=== PATIENT | male | born 1950 | race Hispanic/Latino ===

== ENCOUNTER 2017-06-23 15:18 | Inpatient (IN) | payer BC ==
--- NOTE | 2017-06-23 15:39 | ED PDOC ---
Arrival/HPI - General Chief Complaint: Altered Mental Status Time Seen by Provider: 06/23/17 15:23 Historian: Patient EM Caveat: Acuity of Condition, Unstable Vital Signs, Intubated - Critical Care Critical Care Minutes: Other (35 minutes) - History of Present Illness Narrative History of Present Illness (Text): 06/23/17 15:17 66 year old male, whose history includes Hepatitis C, presents to the Emergency department due to cardiac arrest. Patient's daughter hadn't talked to him since yesterday evening. He had not been answering his phone and this morning was found unresponsive in bed with pills, identified by the pharmacy to be Adderall , with the window wide open likely all night. Emergency services found the patient unresponsive, hypertensive, and not maintaining his airway so he was electively intubated. While on route to the hospital, patient developed PEA so a mechanical pumper was put on chest. Patient also had an IO inserted in left tibia and 1 dose of Epinephrine. Before the patient was placed on a monitor in the Emergency department, he was given another dose of Epinephrine. While in the Emergency department, patient is in Sinus Rhythm at 80 bpm, has his own pulse, and a blood pressure of 135/66. Patient had return of spontaneous circulation. Patient's DaughterRacheal: [phone] Time/Duration: Other (unknown) Symptom Onset: Other (unknown) Symptom Course: Worsening Context: Home (lives alone) Past Medical History - Provider Review Nursing Documentation Reviewed: Yes - Infectious Disease Hx of Infectious Diseases: None - Psychiatric Hx Substance Use: No (Unknown) Family/Social History - Physician Review Nursing Documentation Reviewed: Yes Family/Social History: Unknown Family HX Smoking Status: Unknown If Ever Smoked Hx Alcohol Use: No (Unknown) Hx Substance Use: No (Unknown) Allergies/Home Meds Allergies/Adverse Reactions: Allergies Unobtainable Allergy (Verified 06/23/17 15:24) Home Medications: Home Meds Medication Instructions Recorded Confirmed Unobtainable 06/23/17 06/23/17 Review of Systems - Review of Systems Systems not reviewed;Unavailable: Acuity of Condition Physical Exam Vital Signs Reviewed: Yes Vital Signs Temp Pulse Resp BP 06/23/17 20:06 87 F L 65 24 119/76 06/23/17 18:49 85.2 F L 130/90 06/23/17 18:36 85.2 F L 75 123/86 06/23/17 18:18 76 24 122/87 06/23/17 17:43 77 24 126/87 06/23/17 17:31 83.3 F L 57 L 16 104/74 06/23/17 17:21 83.3 F L 57 L 16 104/74 06/23/17 16:57 53 L 16 88/64 L 06/23/17 16:37 47 L 98/66 L 06/23/17 16:19 45 L 16 94/69 L 06/23/17 16:14 45 L 16 100/73 06/23/17 16:09 47 L 16 111/35 L 06/23/17 16:04 47 L 16 112/73 06/23/17 15:58 47 L 16 114/50 L 06/23/17 15:53 48 L 16 115/47 L Temperature: Hypothermic Blood Pressure: Hypotensive Pulse: Bradycardic Respiratory Rate: Normal Appearance: Positive for: Well-Appearing, Non-Toxic, Comfortable Pain Distress: None Mental Status: Positive for: other (unresponsive even to deep painful stimuli) Finger Stick Blood Glucose: 88 - Systems Exam Head: Present: Atraumatic, Normocephalic Pupils: Present: Non-Reactive (pupils are fixed at 3mm) Neck: Present: Other (supple) Cardiovascular: Present: Regular Rate and Rhythm, Normal S1, S2. No: Murmurs Abdomen: Present: Normal Bowel Sounds. No: Tenderness, Distention, Peritoneal Signs Upper Extremity: Present: Other (intraosseous needle in left tibia) Lower Extremity: Present: Normal Inspection Skin: Present: Warm, Dry, Normal Color. No: Rashes Psychiatric: No: Alert Medical Decision Making ED Course and Treatment: 06/23/17 15:40 Impression: 66 year old male presents to the Emergency department unresponsive for unknown downtime and unknown circumstances. Patient coded on the way to the hospital but had a return of spontaneous circulation. Plan: -- Chest xray -- EKG -- Blood culture, urine culture -- Urinalysis, urine drug screen -- ABG -- Labs -- Reassess and disposition Progress Notes: 06/23/17 15:48 Patient's daughter reports that she was on her way to work when she was dropping her son off at her father's house for him to be watched. At that time, the patient was found unresponsive in bed. As per patient's daughter, patient has a history of Hepatitis C with Harvoni treatment 1 year ago. After he a finished the Harvoni treatment, he began to drink alcohol again. Daughter is unsure of how his intoxicated behavior is exactly because she has never actually seen him intoxicated; she has only seen signs of his intoxication, such as texting instead of calling when he drinks. 06/23/17 20:09 Discussed case in detail with Dr. Castellanos. Explained that the potassium level is 5.9 but the EKG is stable, blood pressure is good, and bradycardia has resolved. I was reticent to treat it because the patient has normal renal function. Dr. Castellanos requested to hold off on treating it for now; will repeat it at a later time. - Critical Care Critical Care Minutes: Other (35 minutes) - Lab Interpretations Microbiology Results: Microbiology Results 06/23/17 15:45 Blood-Venous Blood Culture - Preliminary NO GROWTH AFTER 3 DAYS 06/23/17 15:15 Blood-Venous Blood Culture - Preliminary NO GROWTH AFTER 3 DAYS 06/23/17 15:30 Urine,Catheterized Urine Culture - Final No Growth (<1,000 CFU/ML) Lab Results: 06/23/17 15:20 Lab Results 06/23/17 15:30: Urine Opiates Screen Positive H, Urine Methadone Screen Negative , Ur Barbiturates Screen Negative, Ur Phencyclidine Scrn Negative, Ur Amphetamines Screen Negative, U Benzodiazepines Scrn Negative, U Oth Cocaine Metabols Negative, U Cannabinoids Screen Positive H 06/23/17 15:30: Urine Color Yellow, Urine Appearance Clear, Urine pH 5.5, Ur Specific [place] >= 1.030, Urine Protein Trace H, Urine Glucose (UA) Negative, Urine Ketones Negative, Urine Blood Negative, Urine Nitrate Negative, Urine Bilirubin Negative, Urine Urobilinogen 0.2, Ur Leukocyte Esterase Negative, Urine RBC 0 - 2, Urine WBC 2 - 5, Ur Epithelial Cells 1 - 3, Urine Bacteria Mod , Fine Granular Casts 0 - 2, Urine Other Mucus 06/23/17 15:20: PT 17.2 H, INR 1.50 H 06/23/17 15:20: WBC 18.5 H D, RBC 5.95, Hgb 19.7 H*, Hct 60.0 H*, MCV 100.8, MCH 33.1, MCHC 32.8, RDW 13.8, Plt Count 111 L, MPV 12.6 H, Gran % 77.1 H, Lymph % (Auto) 7.7 L, [place] % (Auto) 15.0 H, Eos % (Auto) 0.1 L, Baso % (Auto) 0.1, Gran # 14.28 H, Lymph # (Auto) 1.4, [place] # (Auto) 2.8 H, Eos # (Auto) 0.0, Baso # (Auto) 0.02 - RAD Interpretation Radiology Orders: 06/23/17 15:25 CHEST PORTABLE [RAD] Stat - EKG Interpretation EKG Interpretation (Text): 06/23/17 15:22 EKG: Ordered, reviewed, and independently interpreted the EKG. Rate : 70 BPM Rhythm : NSR Interpretation : Unusual P axis, possible ectopic atrial bradycardia with AV dissociation and wide QRS rhythm. Nonspecific intraventricular block. Possible inferior infarct, age undetermined. 06/23/17 18:45 EKG: Ordered, reviewed, and independently interpreted the EKG. Rate : 81 BPM Rhythm : NSR Interpretation : Possible left atrial enlargement. Possible inferior infarct, age undetermined. Cannot rule out anterior infarct, age undetermined. Prolonged QT. Interpreted by ED Physician: Yes Type: 12 lead EKG - Medication Orders Current Medication Orders: Albuterol/Ipratropium (Duoneb 3 Mg/0.5 Mg (3 Ml) Ud) 3 ml IH [id number] [facility] Last Admin: 06/27/17 10:57 Dose: 3 ml Diphenhydramine HCl (Benadryl) 50 mg IVP Q8 PETRA Last Admin: 06/27/17 13:27 Dose: 50 mg IVP Administration Document 06/27/17 13:27 ID (Rec: 06/27/17 13:27 ID ADMIN-PC) Charges for Administration # of IVP Administrations 1 Hydralazine HCl (Apresoline) 10 mg IVP Q6 PRN PRN Reason: Systolic Blood Pressure Last Admin: 06/27/17 07:41 Dose: 10 mg IVP Administration Document 06/27/17 07:41 ID (Rec: 06/27/17 07:42 ID ADMIN-PC) Charges for Administration # of IVP Administrations 1 MAY Pulse and Blood Pressure Document 06/27/17 07:41 ID (Rec: 06/27/17 07:42 ID ADMIN-PC) Pulse Pulse Rate (60-90) 51 Blood Pressure Blood Pressure (100/60-150/90) 208/112 Hydrocortisone Sodium Succinate (Solu-Cortef) 50 mg IVP Q12H [facility] Last Admin: 06/27/17 07:54 Dose: 50 mg IVP Administration Document 06/27/17 07:54 ID (Rec: 06/27/17 07:54 ID ADMIN-PC) Charges for Administration # of IVP Administrations 1 Propofol (Diprivan) 1,000 mg in 100 mls @ 2.177 mls/hr IV .Q24H PRN; Protocol; 5 MCG/KG/MIN PRN Reason: TITRATE PER MD ORDER Last Titration: 06/25/17 20:36 Dose: 0 mcg/kg/min, 0 mls/hr Blackman Agitation Sedation Document 06/25/17 20:36 ENG (Rec: 06/25/17 20:37 ENG ADMIN-PC) Blackman Agitation Sedation Scale Blackman Agitation Sedation Scale Score -1 Drowsy: Not fully alert, sustained awakening (>10 sec) to voice Titration Intervention Document 06/25/17 20:36 ENG (Rec: 06/25/17 20:37 ENG ADMIN-PC) Titration Intake Titration Intake 100 Cumulative Intake 100 Cumulative Intake (Rx) 600 Waste Amount 0 Container Volume 0 Titration Dosing Titration Dose 0 IV Rate 0 Intake/Decrease Infused Cumulative Dose 6000 Piperacillin Sod/Tazobactam Sod (Zosyn 3.375 In Ns 100ml) 100 mls @ 200 mls/hr IVPB Q6 PETRA PRN Reason: Protocol Stop: 07/01/17 12:01 Last Admin: 06/27/17 12:37 Dose: 200 mls/hr eMAR Start Stop Document 06/27/17 12:37 ID (Rec: 06/27/17 12:48 ID ADMIN-PC) Intravenous Solution Start Date 06/27/17 Start Time 12:48 End Date 06/27/17 Dexmedetomidine HCl (Precedex 400mcg/100ml) 400 mcg in 100 mls @ 3.629 mls/hr IV .Q24H PRN; Protocol; 0.2 MCG/KG/HR PRN Reason: Agitation Last Admin: 06/27/17 06:28 Dose: 1 mcg/kg/hr, 18.144 mls/hr eMAR Start Stop Document 06/27/17 06:28 PD (Rec: 06/27/17 06:28 PD ADMIN-PC) Intravenous Solution Start Date 06/27/17 Start Time 06:28 Blackman Agitation Sedation Document 06/27/17 06:28 PD (Rec: 06/27/17 06:28 PD ADMIN-PC) Blackman Agitation Sedation Scale Blackman Agitation Sedation Scale Score +1 Restless Anxious bu movements not aggressive vigorous Titration Intervention Document 06/27/17 06:28 PD (Rec: 06/27/17 06:28 PD ADMIN-PC) Titration Intake Cumulative Intake (Rx) 500 Waste Amount 0 Container Volume 100 Titration Dosing Titration Dose 1 IV Rate 18.144 Intake/Decrease Started/Running Cumulative Dose 2000 Potassium Chloride (Potassium Chloride 20 Meq/100 Ml) 20 meq in 100 mls @ 50 mls/hr IVPB Q2H PETRA Stop: 06/27/17 14:14 Last Admin: 06/27/17 12:49 Dose: 50 mls/hr eMAR Start Stop Document 06/27/17 12:49 ID (Rec: 06/27/17 12:49 ID ADMIN-PC) Intravenous Solution Start Date 06/27/17 Start Time 12:49 End Date 06/27/17 Valproate Sodium 1,000 mg/ (Sodium Chloride) 110 mls @ 100 mls/hr IVPB ONCE ONE Stop: 06/27/17 14:35 Insulin Human Lispro (Humalog Low) 0 units SC Q6 PETRA PRN Reason: Protocol Last Admin: 06/27/17 13:14 Dose: Not Given Non-Admin Reason: Blood Sugar Parameter Lorazepam (Ativan) 2 mg IVP Q4H PRN; Protocol PRN Reason: Anxiety Last Admin: 06/27/17 12:04 Dose: 2 mg IVP Administration Document 06/27/17 12:04 ID (Rec: 06/27/17 12:05 ID ADMIN-PC) Charges for Administration # of IVP Administrations 1 Behavioural Document 06/27/17 12:04 ID (Rec: 06/27/17 12:05 ID ADMIN-PC) Maintenance Maintenance Dose Yes Nonmedicinal Nonmedicinal Interventions Redirect Therapeutic Communication Behavior Behavior for Medication: Dangers to self/others Pulling IV lines/tubes/ catheter Morphine Sulfate (Morphine) 4 mg IVP Q4H PRN PRN Reason: Pain, severe (8-10) Last Admin: 06/26/17 08:16 Dose: 4 mg MAR Pain Assessment Document 06/26/17 08:16 ID (Rec: 06/26/17 08:17 ID ADMIN-PC) Pain Reassessment Is this a pain reassessment? Yes Sleep Is patient sleeping during reassessment? No Presence of Pain Presence of Pain Yes Pain Scale Used Pain Scale Used 9 Location Pain Location Body Site Chest Abdomen Description Description Constant Pain Behavior Moaning Irritability Withdrawal from Touch Pain not relieved and LIP/MD was Yes notified IVP Administration Document 06/26/17 08:16 ID (Rec: 06/26/17 08:17 ID ADMIN-PC) Charges for Administration # of IVP Administrations 1 Re-Assess: BOUCHRA Pain Assessment Document 06/26/17 09:16 ID (Rec: 06/26/17 10:11 ID ADMIN-PC) Pain Reassessment Is this a pain reassessment? Yes Sleep Is patient sleeping during reassessment? No Presence of Pain Presence of Pain No Pantoprazole Sodium (Protonix Inj) 40 mg IVP DAILY PETRA Last Admin: 06/27/17 09:21 Dose: 40 mg IVP Administration Document 06/27/17 09:21 ID (Rec: 06/27/17 09:21 ID ADMIN-PC) Charges for Administration # of IVP Administrations 1 Discontinued Medications Albumin Human (Albumin Human 25% (25 Gm/100 Ml)) 25 gm IV ONCE ONE Stop: 06/25/17 09:15 Last Admin: 06/25/17 10:41 Dose: 25 gm eMAR Start Stop Document 06/25/17 10:41 MMA (Rec: 06/25/17 10:42 MMA ADMIN-PC) Intravenous Solution Start Date 06/25/17 Start Time 10:41 End Date 06/25/17 Atropine Sulfate (Atropine) 0.5 mg IVP STAT STA Stop: 06/23/17 15:53 Last Admin: 06/23/17 15:53 Dose: 0.5 mg IVP Administration Document 06/23/17 15:53 RR (Rec: 06/23/17 16:39 RR [facility] [id number] Charges for Administration # of IVP Administrations 1 Atropine Sulfate (Atropine) 0.5 mg IVP STAT STA Stop: 06/23/17 15:59 Last Admin: 06/23/17 16:04 Dose: 0.5 mg IVP Administration Document 06/23/17 16:04 RR (Rec: 06/23/17 16:47 RR [facility] [id number] Charges for Administration # of IVP Administrations 1 Atropine Sulfate (Atropine) 0.5 mg IVP STAT STA Stop: 06/23/17 16:26 Last Admin: 06/23/17 16:09 Dose: 0.5 mg IVP Administration Document 06/23/17 16:09 RR (Rec: 06/23/17 16:48 RR [facility] [id number] Charges for Administration # of IVP Administrations 1 Atropine Sulfate (Atropine) 0.5 mg IVP STAT STA Stop: 06/23/17 16:30 Last Admin: 06/23/17 16:14 Dose: 0.5 mg IVP Administration Document 06/23/17 16:14 RR (Rec: 06/23/17 16:49 RR [facility] [id number] Charges for Administration # of IVP Administrations 1 Atropine Sulfate (Atropine) 0.5 mg IVP STAT STA Stop: 06/23/17 16:31 Last Admin: 06/23/17 16:19 Dose: 0.5 mg IVP Administration Document 06/23/17 16:19 RR (Rec: 06/23/17 16:49 RR [facility] [id number] Charges for Administration # of IVP Administrations 1 Atropine Sulfate (Atropine) 0.5 mg IVP STAT STA Stop: 06/23/17 16:31 Last Admin: 06/23/17 15:58 Dose: 0.5 mg IVP Administration Document 06/23/17 15:58 RR (Rec: 06/23/17 16:54 RR [facility] [id number] Charges for Administration # of IVP Administrations 1 Epinephrine Bitartrate (Epinephrine) 1 mg IV STAT STA Stop: 06/23/17 15:35 Last Admin: 06/23/17 16:39 Dose: 1 mg eMAR Start Stop Document 06/23/17 16:39 RR (Rec: 06/23/17 16:39 RR [facility] [id number] Intravenous Solution Start Date 06/23/17 Start Time 15:20 Furosemide (Lasix) 40 mg IVP ONCE ONE Stop: 06/26/17 07:19 Last Admin: 06/26/17 07:26 Dose: 40 mg MAR Blood Pressure Document 06/26/17 07:26 ID (Rec: 06/26/17 07:27 ID ADMIN-PC) Blood Pressure Blood Pressure (100/60-150/90) 120/79 IVP Administration Document 06/26/17 07:26 ID (Rec: 06/26/17 07:27 ID ADMIN-PC) Charges for Administration # of IVP Administrations 1 Furosemide (Lasix) 40 mg IVP ONCE ONE Stop: 06/27/17 08:40 Last Admin: 06/27/17 08:47 Dose: 40 mg MAR Blood Pressure Document 06/27/17 08:47 ID (Rec: 06/27/17 08:47 ID ADMIN-PC) Blood Pressure Blood Pressure (100/60-150/90) 125/82 IVP Administration Document 06/27/17 08:47 ID (Rec: 06/27/17 08:47 ID ADMIN-PC) Charges for Administration # of IVP Administrations 1 Heparin Sodium (Porcine) (Heparin) 5,000 units SC Q12 PETRA PRN Reason: Protocol Last Admin: 06/26/17 10:09 Dose: 5,000 units Subcutaneous Administrations Document 06/26/17 10:09 ID (Rec: 06/26/17 10:10 ID ADMIN-PC) Injection Site MAR Injection Site Left Abdomen Charges for Administration # of Subcutaneous Administrations 1 Hydralazine HCl (Apresoline) 10 mg IVP STAT STA Stop: 06/26/17 06:43 Last Admin: 06/26/17 06:45 Dose: 10 mg IVP Administration Document 06/26/17 06:45 ENG (Rec: 06/26/17 06:46 ENG ADMIN-PC) Charges for Administration # of IVP Administrations 1 MAR Pulse and Blood Pressure Document 06/26/17 06:45 ENG (Rec: 06/26/17 06:46 ENG ADMIN-PC) Pulse Pulse Rate (60-90) 54 Blood Pressure Blood Pressure (100/60-150/90) 177/116 Hydralazine HCl (Apresoline) 10 mg IVP ONCE ONE Stop: 06/26/17 11:47 Last Admin: 06/26/17 11:59 Dose: 10 mg IVP Administration Document 06/26/17 11:59 ID (Rec: 06/26/17 11:59 ID ADMIN-PC) Charges for Administration # of IVP Administrations 1 MAR Pulse and Blood Pressure Document 06/26/17 11:59 ID (Rec: 06/26/17 11:59 ID ADMIN-PC) Pulse Pulse Rate (60-90) 63 Blood Pressure Blood Pressure (100/60-150/90) 181/111 Hydralazine HCl (Apresoline) 10 mg IVP ONCE ONE Stop: 06/26/17 22:45 Last Admin: 06/26/17 22:55 Dose: 10 mg IVP Administration Document 06/26/17 22:55 PD (Rec: 06/26/17 22:55 PD ADMIN-PC) Charges for Administration # of IVP Administrations 1 MAR Pulse and Blood Pressure Document 06/26/17 22:55 PD (Rec: 06/26/17 22:55 PD ADMIN-PC) Pulse Pulse Rate (60-90) 47 Blood Pressure Blood Pressure (100/60-150/90) 189/110 Hydrocortisone Sodium Succinate (Solu-Cortef) 100 mg IVP STAT STA Stop: 06/23/17 16:26 Last Admin: 06/23/17 16:38 Dose: 100 mg IVP Administration Document 06/23/17 16:38 RR (Rec: 06/23/17 16:38 RR [facility] [id number] Charges for Administration # of IVP Administrations 1 Hydrocortisone Sodium Succinate (Solu-Cortef) 50 mg IVP Q6H [facility] Last Admin: 06/25/17 06:06 Dose: 50 mg IVP Administration Document 06/25/17 06:06 SAMRA (Rec: 06/25/17 06:06 SAMRA [id number]) Charges for Administration # of IVP Administrations 1 Hydrocortisone Sodium Succinate (Solu-Cortef) 50 mg IVP Q8H PETRA Last Admin: 06/26/17 00:00 Dose: 50 mg IVP Administration Document 06/26/17 00:00 ENG (Rec: 06/26/17 01:22 ENG ADMIN-PC) Charges for Administration # of IVP Administrations 1 Sodium Chloride (Sodium Chloride 0.9%) 1,000 mls @ 200 mls/hr IV .Q5H PETRA Last Admin: 06/23/17 17:30 Dose: 200 mls/hr eMAR Start Stop Document 06/23/17 17:30 RR (Rec: 06/23/17 17:30 RR [id number]) Intravenous Solution Start Date 06/23/17 Start Time 16:00 Sodium Chloride (Sodium Chloride 0.9%) 1,000 mls @ 999 mls/hr IV .Q1H1M STA Stop: 06/23/17 17:25 Last Admin: 06/23/17 16:55 Dose: 999 mls/hr eMAR Start Stop Document 06/23/17 16:55 RR (Rec: 06/23/17 16:55 [id number] Intravenous Solution Start Date 06/23/17 Start Time 15:15 End Date 06/23/17 End time 16:15 Total Infusion Time 60 Dopamine HCl/Dextrose (Dopamine 400mg/250ml D5w) 400 mg in 250 mls @ 13.608 mls /hr IV .[id number] PRN; 5 MCG/KG/MIN PRN Reason: Other Last Admin: 06/23/17 16:37 Dose: 13.608 mls/hr eMAR Start Stop Document 06/23/17 16:37 RR (Rec: 06/23/17 16:38 RR [facility] [id number]) Intravenous Solution Start Date 06/23/17 Start Time 16:37 MAR Pulse and Blood Pressure Document 06/23/17 16:37 RR (Rec: 06/23/17 16:38 RR [id number] Pulse Pulse Rate (60-90) 47 Blood Pressure Blood Pressure (100/60-150/90) 98/66 Sodium Chloride (Sodium Chloride 0.9%) 1,000 mls @ 999 mls/hr IV .Q1H1M STA Stop: 06/23/17 17:31 Last Admin: 06/23/17 16:56 Dose: 999 mls/hr eMAR Start Stop Document 06/23/17 16:56 RR (Rec: 06/23/17 16:56 RR [id number][facility] Intravenous Solution Start Date 06/23/17 Start Time 15:30 End Date 06/23/17 End time 16:30 Total Infusion Time 60 Vancomycin HCl (Vancomycin 1gm) 1 gm in 250 mls @ 167 mls/hr IVPB STAT STA PRN Reason: Protocol Stop: 06/23/17 18:04 Last Admin: 06/23/17 18:05 Dose: 167 mls/hr eMAR Start Stop Document 06/23/17 18:05 RR (Rec: 06/23/17 18:16 RR [facility] [id number]) Intravenous Solution Start Date 06/23/17 Start Time 18:05 Piperacillin Sod/Tazobactam Sod (Zosyn 3.375 In Ns 100ml) 100 mls @ 200 mls/hr IVPB STAT STA PRN Reason: Protocol Stop: 06/23/17 17:04 Last Admin: 06/23/17 17:28 Dose: 200 mls/hr eMAR Start Stop Document 06/23/17 17:28 RR (Rec: 06/23/17 17:28 RR [facility] [id number]) Intravenous Solution Start Date 06/23/17 Start Time 16:35 End Date 06/23/17 End time 17:05 Total Infusion Time 30 Sodium Chloride (Sodium Chloride 0.9%) 1,000 mls @ 75 mls/hr IV .[id number] PETRA Last Admin: 06/23/17 23:44 Dose: 75 mls/hr eMAR Start Stop Document 06/23/17 23:44 MHA (Rec: 06/23/17 23:44 MHA [facility] [id number]) Intravenous Solution Start Date 06/23/17 Start Time 23:44 Vancomycin HCl (Vancomycin 1gm) 1 gm in 250 mls @ 167 mls/hr IVPB Q12H PETRA PRN Reason: Protocol Last Admin: 06/27/17 04:47 Dose: 167 mls/hr eMAR Start Stop Document 06/27/17 04:47 PD (Rec: 06/27/17 04:47 PD [id number]) Intravenous Solution Start Date 06/27/17 Start Time 04:47 Piperacillin Sod/Tazobactam Sod (Zosyn 3.375 In Ns 100ml) 100 mls @ 200 mls/hr IVPB Q6 PETRA PRN Reason: Protocol Stop: 06/24/17 06:29 Last Admin: 06/24/17 05:22 Dose: 200 mls/hr eMAR Start Stop Document 06/24/17 05:22 MHA (Rec: 06/24/17 05:23 MHA [facility] [id number]) Intravenous Solution Start Date 06/24/17 Start Time 05:23 End Date 06/24/17 End time 05:53 Total Infusion Time 30 Dopamine HCl/Dextrose (Dopamine 400mg/250ml D5w) 400 mg in 250 mls @ 13.608 mls /hr IV .[id number] PRN; Protocol; 5 MCG/KG/MIN PRN Reason: TITRATE PER MD ORDER Last Titration: 06/24/17 15:08 Dose: 0 mcg/kg/min, 0 mls/hr Titration Intervention Document 06/24/17 15:08 ISABELLE (Rec: 06/24/17 15:51 ISABELLE [id number]) Titration Intake Titration Intake 40 Cumulative Intake 229 Cumulative Intake (Rx) 229 Waste Amount 0 Container Volume 21 Titration Dosing Titration Dose 0 IV Rate 0 Intake/Decrease Paused Cumulative Dose 366.4 Sodium Chloride (Sodium Chloride 0.9%) 1,000 mls @ 125 mls/hr IV .Q8H PETRA Last Admin: 06/26/17 01:15 Dose: 125 mls/hr eMAR Start Stop Document 06/26/17 01:15 ENG (Rec: 06/26/17 03:37 ENG ADMIN-PC) Intravenous Solution Start Date 06/26/17 Start Time 01:15 Sodium Chloride (Sodium Chloride 0.9%) 1,000 mls @ 999 mls/hr IV .Q1H1M STA Stop: 06/24/17 10:52 Last Admin: 06/24/17 10:01 Dose: 999 mls/hr eMAR Start Stop Document 06/24/17 10:01 ISABELLE (Rec: 06/24/17 10:01 ISABELLE [facility] [place] Intravenous Solution Start Date 06/24/17 Start Time 10:01 End Date 06/24/17 NOREPINEPHRINE BIT/0.9 % NACL (Levophed 4 Mg/ 250 Ml Ns Premixed) 4 mg in 250 mls @ 15 mls/hr IV .[id number] PRN; Protocol; 4 MCG/MIN PRN Reason: TITRATE PER MD ORDER Last Admin: 06/25/17 05:00 Dose: 4 mcg/min, 15 mls/hr eMAR Start Stop Document 06/25/17 05:00 SAMRA (Rec: 06/25/17 06:09 SAMRA [id number]) Intravenous Solution Start Date 06/25/17 Start Time 05:00 Titration Intervention Document 06/25/17 05:00 JZI (Rec: 06/25/17 06:09 [id number] Titration Intake Cumulative Intake (Rx) 500 Waste Amount 0 Container Volume 250 Titration Dosing Titration Dose 4 IV Rate 15 Intake/Decrease Started/Increased Cumulative Dose 8 Vasopressin 20 units/ Sodium (Chloride) 101 mls @ 9.09 mls/hr IV .Q11H7M PETRA; 0.03 U/MIN PRN Reason: Protocol Last Admin: 06/25/17 02:00 Dose: 9.09 mls/hr eMAR Start Stop Document 06/25/17 02:00 Yvon (Rec: 06/25/17 02:17 [id number] Intravenous Solution Start Date 06/25/17 Start Time 02:17 MAR Blood Pressure Document 06/25/17 02:00 JSTAN (Rec: 06/25/17 02:17 [id number]) Blood Pressure Blood Pressure (100/60-150/90) 113/67 Magnesium Sulfate 2 gm/ Sodium (Chloride) 104 mls @ 102 mls/hr IVPB Q3H PETRA Stop: 06/25/17 13:17 Last Admin: 06/25/17 17:16 Dose: Dexmedetomidine HCl (Precedex 400mcg/100ml) 400 mcg in 100 mls @ 3.629 mls/hr IV .Q24H PRN; Protocol; 0.2 MCG/KG/HR PRN Reason: Agitation Last Titration: 06/25/17 17:47 Dose: 1 mcg/kg/hr, 18.144 mls/hr Blackman Agitation Sedation Document 06/25/17 17:47 MMA (Rec: 06/25/17 17:48 MMA ADMIN-PC) Blackman Agitation Sedation Scale Blackman Agitation Sedation Scale Score -2 Light Sedation: briefly awakens with eye contact to voice (<10 sec) Titration Intervention Document 06/25/17 17:47 MMA (Rec: 06/25/17 17:48 MMA ADMIN-PC) Titration Intake Titration Intake 6 Cumulative Intake 6 Cumulative Intake (Rx) 106 Waste Amount 0 Container Volume 94 Titration Dosing Titration Dose 1 IV Rate 18.144 Intake/Decrease Increased Cumulative Dose 424 Potassium Chloride (Potassium Chloride 20 Meq/100 Ml) 20 meq in 100 mls @ 50 mls/hr IVPB Q2H PETRA Stop: 06/27/17 13:14 Last Admin: 06/27/17 10:56 Dose: 50 mls/hr eMAR Start Stop Document 06/27/17 10:56 ID (Rec: 06/27/17 10:56 ID ADMIN-PC) Intravenous Solution Start Date 06/27/17 Start Time 11:50 End Date 06/27/17 Ibuprofen (Motrin Oral Susp) 400 mg PO Q4 PRN PRN Reason: TEMP >99.4 Last Admin: 06/24/17 18:19 Dose: 400 mg MAR Pain/Vitals Document 06/24/17 18:19 JF (Rec: 06/24/17 18:19 [facility]) Pain Reassessment Is This A Pain ReAssessment? No Sleep Is patient sleeping during reassessment? Yes Vitals Temperature (97.6 F-99.6 F) 99.5 F Temperature Source Rectal Re-Assess: MAR Pain/Vitals Document 06/24/17 19:19 FM (Rec: 06/24/17 20:36 FM [id number]) Pain Reassessment Is This A Pain ReAssessment? No Sleep Is patient sleeping during reassessment? No Presence of Pain Presence of Pain No Vitals Temperature (97.6 F-99.6 F) 98.8 F Temperature Source Rectal Insulin Human Lispro (Humalog Low) 0 units SC ACHS PETRA PRN Reason: Protocol Last Admin: 06/24/17 07:55 Dose: Not Given Non-Admin Reason: Blood Sugar Parameter MAR Blood Glucose Document 06/24/17 07:55 JF (Rec: 06/24/17 07:56 [facility]) Blood Glucose Finger Stick Blood Glucose (70-120) 128 Insulin Human Lispro (Humalog Low) 0 units SC Q6H PETRA PRN Reason: Protocol Lorazepam (Ativan) 4 mg IVP ONCE ONE PRN Reason: Protocol Stop: 06/25/17 10:01 Last Admin: 06/25/17 10:12 Dose: 4 mg IVP Administration Document 06/25/17 10:12 MMA (Rec: 06/25/17 10:12 MMA ADMIN-PC) Charges for Administration # of IVP Administrations 1 Behavioural Document 06/25/17 10:12 MMA (Rec: 06/25/17 10:12 MMA ADMIN-PC) Maintenance Maintenance Dose No Nonmedicinal Nonmedicinal Interventions Therapeutic Communication Behavior Behavior for Medication: Biting/Hitting/Throwing/ Kicking Continuous pacing/restlessness Re-Assess: Reassess Psych Meds Document 06/25/17 10:42 MMA (Rec: 06/25/17 11:36 MMA ADMIN-PC) Reassess Psych Med Effective Lorazepam (Ativan) 2 mg IVP ONCE ONE PRN Reason: Protocol Stop: 06/25/17 17:47 Last Admin: 06/25/17 18:07 Dose: 2 mg IVP Administration Document 06/25/17 18:07 MMA (Rec: 06/25/17 18:08 MMA ADMIN-PC) Charges for Administration # of IVP Administrations 1 Behavioural Document 06/25/17 18:07 MMA (Rec: 06/25/17 18:08 MMA ADMIN-PC) Maintenance Maintenance Dose Yes Nonmedicinal Nonmedicinal Interventions Redirect Activity Behavior Behavior for Medication: Biting/Hitting/Throwing/ Kicking Dangers to self/others Re-Assess: Reassess Psych Meds Document 06/25/17 18:37 MMA (Rec: 06/25/17 19:31 MMA ADMIN-PC) Reassess Psych Med Effective Lorazepam (Ativan) 2 mg IVP STAT STA Stop: 06/26/17 07:23 Last Admin: 06/26/17 07:37 Dose: 2 mg IVP Administration Document 06/26/17 07:37 ID (Rec: 06/26/17 07:37 ID ADMIN-PC) Charges for Administration # of IVP Administrations 1 Behavioural Document 06/26/17 07:37 ID (Rec: 06/26/17 07:37 ID ADMIN-PC) Maintenance Maintenance Dose Yes Nonmedicinal Nonmedicinal Interventions Redirect Therapeutic Communication Behavior Behavior for Medication: Anxiety Pulling IV lines/tubes/ catheter Re-Assess: Reassess Psych Meds Document 06/26/17 08:07 ID (Rec: 06/26/17 08:33 ID ADMIN-PC) Reassess Psych Med Ineffective-LIP notifed Lorazepam (Ativan) 2 mg IVP ONCE ONE PRN Reason: Protocol Stop: 06/26/17 07:57 Last Admin: 06/26/17 08:15 Dose: 2 mg IVP Administration Document 06/26/17 08:15 ID (Rec: 06/26/17 08:15 ID ADMIN-PC) Charges for Administration # of IVP Administrations 1 Behavioural Document 06/26/17 08:15 ID (Rec: 06/26/17 08:15 ID ADMIN-PC) Maintenance Maintenance Dose Yes Nonmedicinal Nonmedicinal Interventions Redirect Therapeutic Communication Behavior Behavior for Medication: Anxiety Pulling IV lines/tubes/ catheter Re-Assess: Reassess Psych Meds Document 06/26/17 08:45 ID (Rec: 06/26/17 10:09 ID ADMIN-PC) Reassess Psych Med Effective Lorazepam (Ativan) 2 mg IVP ONCE ONE PRN Reason: Protocol Stop: 06/27/17 12:25 Last Admin: 06/27/17 12:36 Dose: 2 mg IVP Administration Document 06/27/17 12:36 ID (Rec: 06/27/17 12:36 ID ADMIN-PC) Charges for Administration # of IVP Administrations 1 Behavioural Document 06/27/17 12:36 ID (Rec: 06/27/17 12:36 ID ADMIN-PC) Maintenance Maintenance Dose Yes Nonmedicinal Nonmedicinal Interventions Redirect Therapeutic Communication Behavior Behavior for Medication: Anxiety Pulling IV lines/tubes/ catheter Lorazepam (Ativan) 2 mg IVP ONCE ONE PRN Reason: Protocol Stop: 06/27/17 12:52 Last Admin: 06/27/17 13:11 Dose: 2 mg IVP Administration Document 06/27/17 13:11 ID (Rec: 06/27/17 13:11 ID ADMIN-PC) Charges for Administration # of IVP Administrations 1 Behavioural Document 06/27/17 13:11 ID (Rec: 06/27/17 13:11 ID ADMIN-PC) Maintenance Maintenance Dose Yes Nonmedicinal Nonmedicinal Interventions Redirect Therapeutic Communication Behavior Behavior for Medication: Continuous crying/screaming/ yelling Hallucinations/paranoid/ delusions/extreme fear Pulling IV lines/tubes/ catheter Methylprednisolone (Solu-Medrol) 50 mg IVP Q6H PETRA Last Admin: 06/24/17 14:05 Dose: 50 mg IVP Administration Document 06/24/17 14:05 JFMena (Rec: 06/24/17 14:06 [facility] [place] Charges for Administration # of IVP Administrations 1 Sodium Bicarbonate (Sodium Bicarbonate 8.4% (50 Meq) Syringe) 100 meq IVP ONCE ONE Stop: 06/24/17 00:31 Last Admin: 06/24/17 00:26 Dose: 100 meq IVP Administration Document 06/24/17 00:26 [facility] (Rec: 06/24/17 00:27 [facility] [place] Charges for Administration # of IVP Administrations 2 Sodium Polystyrene Sulfonate (Kayexalate Susp) 15 gm TX ONCE ONE Stop: 06/23/17 23:26 Last Admin: 06/24/17 00:13 Dose: 15 gm - PA / INSIDE UPHOLSTERER / Resident Statement MD/DO has reviewed & agrees with the documentation as recorded. - Scribe Statement The provider has reviewed the documentation as recorded by the Mingo Chang Provider Scribe Attestation: All medical record entries made by the Danielibmelania were at my direction and personally dictated by me. I have reviewed the chart and agree that the record accurately reflects my personal performance of the history, physical exam, medical decision making, and the department course for this patient. I have also personally directed, reviewed, and agree with the discharge instructions and disposition. Disposition/Present on Arrival - Present on Arrival Any Indicators Present on Arrival: No History of DVT/PE: No History of Uncontrolled Diabetes: No Urinary Catheter: No History of Decub. Ulcer: No History Surgical Site Infection Following: None - Disposition Have Diagnosis and Disposition been Completed?: Yes Diagnosis: Hypothermia, Cardiac arrest, Signs of return of spontaneous circulation, Successful cardiopulmonary resuscitation Disposition: HOSPITALIZED Disposition Time: 03:00 Patient Plan: Admission Patient Problems: Current Active Problems Problem Status Onset Anemia Acute Anoxic brain injury Acute Cardiac arrest Acute Coagulopathy Acute Erythrocytosis Acute Hypothermia Acute Signs of return of spontaneous circulation Acute Splenomegaly Acute Successful cardiopulmonary resuscitation Acute Thrombocytopenia Acute Condition: CRITICAL
[2017-06-23 15:44] LABS: BASO # 0.02 K/mm3 (0.0-2.0); BASO % 0.1 % (0.0-3.0); EOS % 0.1 % (1.5-5.0); GRAN # 14.28 (1.4-6.5); GRAN % 77.1 % (50.0-68.0); LYMPH # 1.4 (1.2-3.4); LYMPH % 7.7 % (22.0-35.0); MEAN CELL VOLUME 100.8 fl (80.0-105.0); MEAN CORPUSCULAR HEMOGLOBIN 33.1 pg (25.0-35.0); MEAN CORPUSCULAR HGB CONC 32.8 g/dl (31.0-37.0); MEAN PLATELET VOLUME 12.6 fl (7.0-11.0); MONO # 2.8 (0.1-0.6); RBC 5.95 10^6/uL (3.5-6.1); RED CELL DISTRIBUTION WIDTH 13.8 % (11.5-14.5); WHITE BLOOD COUNT 18.5 10^3/ul (4.5-11.0)
[2017-06-23] MEDS ORDERED: Sodium Chloride 0.9% 1,000 ML IV SCH ×2 (16:00→23:20)
[2017-06-23 16:04] LABS: HEMOGLOBIN 19.7 g/dL (14.0-18.0)
[2017-06-23 16:10] LABS: PHENCYCLIDINE, UR NEGATIVE (NEGATIVE)
[2017-06-23 16:11] LABS: INR 1.5 (0.93-1.08); PROTHROMBIN TIME 17.2 SECONDS (9.4-12.5)
[2017-06-23 16:24] LABS: BARBITURATES, UR NEGATIVE (NEGATIVE); BENZODIAZEPINES, UR NEGATIVE (NEGATIVE); OPIATES, UR POSITIVE (NEGATIVE)
[2017-06-23] MEDS ORDERED: Sodium Chloride 0.9% 1,000 ML IV STA ×2 (16:25→16:31)
[2017-06-23] MEDS ORDERED: DOPamine 400mg/250ml D5W 400 MG/250 ML BAG IV PRN (16:28)
[2017-06-23] MEDS ORDERED: Piperacillin/Tazobact 3.375 gm 100 ML IVPB STA (16:35)
[2017-06-23] MEDS ORDERED: Vancomycin 1gm in NS 250ml 1 GM/250 ML BAG IVPB STA (16:35)
--- NOTE | 2017-06-23 16:41 | CP.PCM.CON ---
<Juan Coburn - Last Filed: 06/23/17 16:44> History of Present Illness - History of Present Illness History of Present Illness: 66 year old male with unknown past medical history presents after being found unresponsive at home by EMT. Patient was intubated in the field. While on route to the hospital, patient developed asystole and 1 dose of Epinephrine was given. He was given another dose of epinephrine in the ED. Patient had return of spontaneous circulation. Patient is currently hypothermic and will be transferred to ICU for monitoring when when hypothermia is improved. PMH: unobtainable PSH: unobtainable All: unobtainable Meds: unobtainable Social history: unobtainable Review of Systems - Review of Systems Systems not reviewed;Unavailable: Intubated Review of Systems: unable to obtain Past Patient History - Infectious Disease Hx of Infectious Diseases: None - Past Social History Smoking Status: Unknown If Ever Smoked - PSYCHIATRIC Hx Substance Use: No (Unknown) - SURGICAL HISTORY Hx Surgeries: No (Unable to obtain) Meds Allergies/Adverse Reactions: Allergies Allergy/AdvReac Type Severity Reaction Status Date / Time Unobtainable Allergy Verified 06/23/17 15:24 - Medications Medications: Current Medications Sodium Chloride (Sodium Chloride 0.9%) 1,000 mls @ 200 mls/hr IV .Q5H PETRA Sodium Chloride (Sodium Chloride 0.9%) 1,000 mls @ 999 mls/hr IV .Q1H1M STA Stop: 06/23/17 17:25 Dopamine HCl/Dextrose (Dopamine 400mg/250ml D5w) 400 mg in 250 mls @ 13.608 mls /hr IV .[id number] PRN; 5 MCG/KG/MIN PRN Reason: Other Sodium Chloride (Sodium Chloride 0.9%) 1,000 mls @ 999 mls/hr IV .Q1H1M STA Stop: 06/23/17 17:31 Vancomycin HCl (Vancomycin 1gm) 1 gm in 250 mls @ 167 mls/hr IVPB STAT STA PRN Reason: Protocol Stop: 06/23/17 18:04 Piperacillin Sod/Tazobactam Sod (Zosyn 3.375 In Ns 100ml) 100 mls @ 200 mls/hr IVPB STAT STA PRN Reason: Protocol Stop: 06/23/17 17:04 Physical Exam - Constitutional Appears: Other Additional comments: lethargic, unresponsive - Eye Exam Eye Exam: absent: Conjunctival injection Pupil Exam: Miosis - ENT Exam ENT Exam: Mucous Membranes Dry - Neck Exam Neck exam: Negative for: Lymphadenopathy - Respiratory Exam Respiratory Exam: Clear to Auscultation Bilateral - Cardiovascular Exam Cardiovascular Exam: Bradycardia - GI/Abdominal Exam GI & Abdominal Exam: absent: Distended - Extremities Exam Extremities exam: Positive for: pedal pulses present. Negative for: pedal edema - Neurological Exam Additional comments: unresponsive - Skin Skin Exam: Dry, Pallor Results - Labs Result Diagrams: 06/23/17 15:20 Assessment & Plan - Assessment and Plan (Free Text) Assessment: 66 year old male presents status post cardiac arrest. Patient was given 2 units epinephrine and had ROSC. He is currently hypothermic and intubated. Patient will be transferred to ICU for monitoring. Plan: Cardiac Arrest Hypothermia Erythrocytosis SIRS Patient intubated, unresponsive, on bear hugger Plan: -intubated, low tidal volume support -maintain oxygen saturation>90% -CT head -ABG -Vanc and zosyn -pracalcitonin -panculture -chest xray -dopamine drip -trend toponins, echo -cardio consult -possible central line placement -Iron, TIBC, Ferritin -BNP, LFTS -monitor and replete electrolytes -steroids -monitor core body temp -daily labs -NPO -GI and DVT Prophylaxis -MICU for monitoring <Dionte Roblero - Last Filed: 06/23/17 18:16> Meds - Medications Medications: Current Medications Sodium Chloride (Sodium Chloride 0.9%) 1,000 mls @ 200 mls/hr IV .Q5H [facility] Last Admin: 06/23/17 17:30 Dose: 200 mls/hr Dopamine HCl/Dextrose (Dopamine 400mg/250ml D5w) 400 mg in 250 mls @ 13.608 mls /hr IV .[id number] PRN; 5 MCG/KG/MIN PRN Reason: Other Last Admin: 06/23/17 16:37 Dose: 13.608 mls/hr Results - Vital Signs Recent Vital Signs: Last Vital Signs Temp 83.3 F L 06/23/17 17:31 Pulse 77 06/23/17 17:43 Resp 24 06/23/17 17:43 BP 126/87 06/23/17 17:43 Pulse Ox - Labs Result Diagrams: 06/23/17 15:20 Labs: Laboratory Results - last 24 hr 06/23/17 16:50 pCO2 80 H* pO2 262.0 H HCO3 16.4 L ABG pH 6.92 L* ABG Total CO2 18.9 L ABG O2 Saturation 100.4 H ABG Base Excess -17.4 L ABG Potassium 3.7 Sodium 141.0 Chloride 114.0 H Glucose 103 Lactate 5.4 H* Mechanical Rate 16 FiO2 100.0 Tidal Volume 450 Arterial Blood Potassium 3.7 Assessment & Plan - Assessment and Plan (Free Text) Plan: Patient seen and examined with resident, agree with note with following additions/exceptions: Patient is 66yo male with PMHx of Hep C s/p harvoni treatment, EtOh abuse, found unconscious at home with window down, intubated in the field, subseuqently had PEA arrest in the field given Epi x 2, ROSC obtained. Currently the patient is hypothermic 83C rectal, bradycardic, started on Dopamine drip. Family reports they are unaware of illicit drug use. CT head pending, on bear gger. Hypothermia, severe s/p Cardiac Arrest, s/p ROSC Hypercapnic resp failure Erythrocytosis Hep C EtOH abuse Dehydration Severe Sepsis Recommend: - cont with vent support, low tidal vol ventilation, increase RR to compensate for resp acidosis, CXR with acceptable ETT position - broad spectrum antibiotics - check UA, UCx, BCx, Procal - ECHO - Cont with Dopamine 5mcg/kg/min - cardiology consult - obtain iron studies, check ferritin - repeat ABG - check LFTs, monitor electrolytes - Check TSH - CT head without contrast - bear hugger - warm IVF - avoid moving patient until temp has risen - would aim for goal body temp of 35C, code freeze - stress dose steroids - IVF hydration - NPO - GI ppx - DVT ppx - Admit to MICU Critical care time 45 minutes
[2017-06-23 16:55] LABS: ARTERIAL BLOOD GAS HCO3 16.4 mmol/L (21-28); ARTERIAL BLOOD GAS O2 SAT 100.4 % (95-98); ARTERIAL BLOOD GAS PCO2 80 mm/Hg (35-45); ARTERIAL BLOOD GAS TCO2 18.9 mmol.L (22-28)
[2017-06-23 16:57] LABS: ARTERIAL BLOOD GAS PH 6.92 (7.35-7.45)
[2017-06-23 17:24] LABS: PH,URINE 5.5 (4.7-8.0); URINE BILIRUBIN NEGATIVE (NEGATIVE); URINE BLOOD NEGATIVE (NEGATIVE); URINE GLUCOSE (UA) NEGATIVE (NEGATIVE); URINE LEUKOCYTE ESTERASE NEGATIVE Leu/uL (NEGATIVE); URINE PROTEIN TRACE mg/dL (<30 mg/dL); URINE UROBILINOGEN 0.2 E.U./dL (<1 E.U./dL)
[2017-06-23 17:33] LABS: URINE APPEARANCE CLEAR (CLEAR); URINE COLOR YELLOW (YELLOW)
[2017-06-23 17:42] VITALS: BMI 25.0
[2017-06-23 18:02] LABS: URINE BACTERIA MOD (NEG); URINE FINE GRANULAR CAST 0 - 2 /hpf (0-2); URINE RBC 0 - 2 /hpf (0-2)
[2017-06-23 19:05] LABS: B-TYPE NATRIURETIC PEPTIDE 1640 pg/mL (0-450); TROPONIN I 0.03 ng/mL
[2017-06-23 19:29] LABS: ALBUMIN 3.4 g/dL (3.0-4.8); ALT/SGPT 48 U/L (7-56); AST/SGOT 96 U/L (17-59); BLOOD UREA NITROGEN 24 mg/dL (7-21); CALCIUM 8.6 mg/dL (8.4-10.5); GFR AFRICAN-AMERICAN > 60; GFR NON-AFRICAN AMERICAN 56
[2017-06-23 19:44] LABS: CK MB% 3.6 % (2.5-3.0); CK-MB 8.7 ng/mL (0.0-3.6)
[2017-06-23 20:09] LABS: VENOUS BLOOD GAS BASE EXCESS -11.6 mmol/L (0.0-2.0); VENOUS BLOOD GAS PO2 29 mm/Hg (30-55); VENOUS BLOOD PH 7.11 (7.32-7.43)
[2017-06-23 20:23] LABS: TOTAL IRON BINDING CAPACITY 325 ug/dL (261-462)
[2017-06-23 20:27] LABS: % IRON SATURATION 82 % (20-55); IRON 267 ug/dL (45-180)
[2017-06-23 20:32] LABS: FREE T4 2.23 ng/dL (0.78-2.19)
--- NOTE | 2017-06-23 22:44 | CT ---
EXAM: CT Head Without Intravenous Contrast EXAM DATE/TIME: 06/23/2017 5:05 PM CLINICAL HISTORY: 66 years old, male; Condition or disease; Other: Cardiac arrest; Additional info: Carriac arrest TECHNIQUE: Axial computed tomography images of the head/brain without intravenous contrast. All CT scans at this facility use one or more dose reduction techniques, viz.: automated exposure control; ma/kV adjustment per patient size (including targeted exams where dose is matched to indication; i.e. head); or iterative reconstruction technique. Coronal and sagittal reformatted images were created and reviewed. COMPARISON: No relevant prior studies available. FINDINGS: There is mild atrophy. There is mild chronic small vessel ischemic disease. The falx appears slightly hyperdense however is felt to be related to calcification. The tentorium appear slightly increased in density however hemorrhage is not felt to be present. There is asymmetry in the transverse sinuses being more prominent on the right on image 11. There is no intraparenchymal hemorrhage. There is no edema. There are small bilateral basal ganglia calcifications. Partial opacification of the left ethmoid sinus. The osseous structures are normal. IMPRESSION: No acute intracranial findings.
[2017-06-23 23:09] LABS: ARTERIAL BLOOD GAS HCO3 15.7 mmol/L (21-28); ARTERIAL BLOOD GAS HEMOGLOBIN 17.2 g/dL (11.7-17.4); ARTERIAL BLOOD GAS O2 CAPACITY 23.3 mL/dl (16-24); ARTERIAL BLOOD GAS O2 CONTENT 21.2 ML/dl (15-23); ARTERIAL BLOOD GAS O2 SAT 90.8 % (95-98); ARTERIAL BLOOD GAS PCO2 42 mm/Hg (35-45)
[2017-06-23 23:15] LABS: ARTERIAL BLOOD GAS PH 7.18 (7.35-7.45)
[2017-06-23] MEDS ORDERED: Sod Polystyrene Sulf 15 gm/60 ml Susp PR ONE (23:25)
[2017-06-23] MEDS ORDERED: Sodium Bicarbonate (8.4%) 50 Meq Syringe IVP ONE (23:48)
[2017-06-24] MEDS: Propofol 10 mg/ml 1,000 MG/100 ML VIAL IV PRN ×4 (00:14→22:08)
[2017-06-24] MEDS: Piperacillin/Tazobact 3.375 gm 100 ML IVPB SCH ×4 (00:28→19:16)
[2017-06-24] MEDS ORDERED: Sodium Bicarbonate (8.4%) 50 Meq Syringe IVP ONE (00:30)
[2017-06-24] MEDS ORDERED: DOPamine 400mg/250ml D5W 400 MG/250 ML BAG IV PRN (01:23)
[2017-06-24] MEDS: Vancomycin 1gm in NS 250ml 1 GM/250 ML BAG IVPB SCH ×2 (03:30→16:20)
[2017-06-24 05:16] LABS: ARTERIAL BLOOD GAS HCO3 18.8 mmol/L (21-28); ARTERIAL BLOOD GAS O2 SAT 98.6 % (95-98); ARTERIAL BLOOD GAS PCO2 34 mm/Hg (35-45); ARTERIAL BLOOD GAS PH 7.35 (7.35-7.45); ARTERIAL BLOOD GAS TCO2 19.8 mmol.L (22-28)
[2017-06-24] MEDS ORDERED: Insulin Lispro (humaLOG) LOW Coverage SC SCH ×2 (07:30→10:00)
[2017-06-24 07:42] LABS: BASO # 0.01 K/mm3 (0.0-2.0); BASO % 0.1 % (0.0-3.0); GRAN # 8.96 (1.4-6.5); GRAN % 78.8 % (50.0-68.0); LYMPH # 0.6 (1.2-3.4); LYMPH % 5.3 % (22.0-35.0); MEAN CELL VOLUME 93.8 fl (80.0-105.0); MEAN CORPUSCULAR HEMOGLOBIN 32.7 pg (25.0-35.0); MEAN CORPUSCULAR HGB CONC 34.9 g/dl (31.0-37.0); MEAN PLATELET VOLUME 12.2 fl (7.0-11.0); MONO # 1.8 (0.1-0.6); MONO % 15.8 % (1.0-6.0); RBC 5.84 10^6/uL (3.5-6.1); RED CELL DISTRIBUTION WIDTH 13.9 % (11.5-14.5); WHITE BLOOD COUNT 11.4 10^3/ul (4.5-11.0)
[2017-06-24 07:44] LABS: HEMOGLOBIN 19.1 g/dL (14.0-18.0)
--- NOTE | 2017-06-24 08:05 | RAD ---
HISTORY: INTUBATED//UNRESPONSIVE COMPARISON: None available. FINDINGS: Entry and endotracheal tube is unchanged in position terminating in the plane of the trachea at the level of clavicles approximately 7 cm from the lisa. Consider advancing the ETT some 3-4 cm further. LUNGS: Subtle infiltrates are suspect in the right infrahilar and left perihilar regions. PLEURA: No significant pleural effusion identified, no pneumothorax apparent. CARDIOVASCULAR: Normal. OSSEOUS STRUCTURES: No significant abnormalities. VISUALIZED UPPER ABDOMEN: Normal. OTHER FINDINGS: None. IMPRESSION: [id number] bilateral infiltrates as discussed above.
[2017-06-24 08:11] LABS: ALB/GLOB RATIO 0.9 (1.1-1.8); ALBUMIN 3.2 g/dL (3.0-4.8); ALT/SGPT 61 U/L (7-56); AST/SGOT 111 U/L (17-59); BLOOD UREA NITROGEN 29 mg/dL (7-21); CALCIUM 8.7 mg/dL (8.4-10.5); GFR AFRICAN-AMERICAN > 60; GFR NON-AFRICAN AMERICAN > 60; HDL CHOLESTEROL 54 mg/dL (29-60); URIC ACID 6.7 mg/dL (3.5-8.5)
[2017-06-24] MEDS: Sodium Chloride 0.9% 1,000 ML IV SCH ×2 (08:15→22:18)
[2017-06-24 08:17] LABS: LDL CHOLESTEROL 59 mg/dL (0-129)
[2017-06-24 08:21] LABS: CK MB% 4.6 % (2.5-3.0); TROPONIN I 0.14 ng/mL
--- NOTE | 2017-06-24 08:32 | RAD ---
HISTORY: NG tube placement COMPARISON: 06/23/2017 FINDINGS: LUNGS: No active pulmonary disease. PLEURA: No significant pleural effusion identified, no pneumothorax apparent. CARDIOVASCULAR: There is moderate to severe vascular congestion. OSSEOUS STRUCTURES: No significant abnormalities. VISUALIZED UPPER ABDOMEN: Normal. OTHER FINDINGS: Endotracheal and nasogastric tubes in satisfactory position IMPRESSION: NG tube in satisfactory position
[2017-06-24 09:02] LABS: FREE T4 1.9 ng/dL (0.78-2.19)
[2017-06-24] MEDS ORDERED: Sodium Chloride 0.9% 1,000 ML IV STA (09:52)
[2017-06-24] MEDS ORDERED: Sodium Chloride 0.9% 1,000 ML IV SCH (10:00)
--- NOTE | 2017-06-24 10:08 | CARD ---
APPROVED REPORT EKG Measurement Heart [id number] <Conclusion> Normal sinus rhythm Possible Left atrial enlargement Possible Inferior infarct, age probably Old. Poor R Progrfession od R V1-V4.
--- NOTE | 2017-06-24 10:12 | CP.CCUPN ---
<Juan Coburn - Last Filed: 06/24/17 10:37> CCU Subjective - Physician Review Subjective (Free Text): Patient seen and evaluated bedside. No acute issues overnight. Patient body temp improved. Patient intubated. Minimal response to painful stimuli. Patient will be continued to monitored. PICC line placement as well as CT chest pending. 06/24/17 10:33 CCU Objective - Vital Signs / Intake & Output Vital Signs (Last 4 hours): Vital Signs Temp Pulse BP Pulse Ox 06/24/17 09:26 97.9 F 62 104/61 100 06/24/17 09:20 97.9 F 63 100 06/24/17 09:10 97.7 F 62 100 06/24/17 09:07 97.5 F L 62 95/59 L 100 06/24/17 09:01 97.5 F L 62 82/51 L 100 06/24/17 09:00 97.5 F L 63 84/53 L 87 L 06/24/17 08:59 97.5 F L 65 06/24/17 08:50 97.3 F L 62 100 06/24/17 08:40 97.2 F L 69 100 06/24/17 08:30 96.8 F L 72 113/68 100 06/24/17 08:22 96.6 F L 77 06/24/17 08:20 96.6 F L 72 06/24/17 08:10 96.3 F L 65 93 L 06/24/17 08:04 96.3 F L 62 92/60 L 78 L 06/24/17 08:03 96.1 F L 61 06/24/17 08:01 96.1 F L 67 84/49 L 76 L 06/24/17 08:00 96.1 F L 60 91 L 06/24/17 07:50 95.9 F L 58 L 100 06/24/17 07:40 95.7 F L 60 95 06/24/17 07:30 95.5 F L 58 L 99/44 L 100 06/24/17 07:20 95.4 F L 60 100 06/24/17 07:10 95.4 F L 58 L 100 06/24/17 07:00 95.2 F L 58 L 102/68 100 06/24/17 06:50 95.2 F L 58 L 100 06/24/17 06:40 95.2 F L 58 L 100 06/24/17 06:30 95.2 F L 58 L 105/63 100 06/24/17 06:20 95.2 F L 57 L 100 Intake and Output (Last 8hrs): Intake & Output 06/23/17 06/24/17 06/24/17 22:59 06:59 14:59 Intake Total 1670 105 Output Total 1250 Balance 420 105 Weight 160 lb Intake: IV 1570 105 Left Antecubital 150 Left Hand 1100 Right Antecubital 220 Other 100 Output: Urine 1250 Urethral (Sharp) 1250 - Physical Exam Head: Positive for: Atraumatic, Normocephalic Pupils: Positive for: Non-Reactive Neck: Positive for: Other (supple) Cardiovascular: Positive for: Regular Rate and Rhythm, Normal S1, S2. Negative for: Murmurs Abdomen: Positive for: Distention Upper Extremity: Positive for: Other (intraosseous needle in left tibia) Lower Extremity: Positive for: Normal Inspection Skin: Positive for: Warm, Dry, Normal Color. Negative for: Rashes Psychiatric: Negative for: Alert, Oriented x 3 - Medications Active Medications: Active Medications Generic Name Dose Route Start Last Admin Trade Name Freq PRN Reason Stop Dose Admin Heparin Sodium (Porcine) 5,000 units 06/24/17 10:00 06/24/17 10:07 Heparin SC 5,000 units Q12 PETRA Administration Protocol Vancomycin HCl 1 gm in 250 mls @ 167 mls/hr 06/24/17 04:00 06/24/17 03:30 Vancomycin 1gm IVPB 167 mls/hr Q12H PETRA Administration Protocol Propofol 1,000 mg in 100 mls @ 2.177 mls/hr 06/23/17 23:57 06/24/17 10:07 Diprivan IV 28 mcg/kg/min .Q24H PRN 12.193 mls/hr TITRATE PER MD ORDER Titration Protocol 5 MCG/KG/MIN Dopamine HCl/Dextrose 400 mg in 250 mls @ 13.608 mls/hr 06/24/17 01:23 09:03 Dopamine 400mg/250ml D5w IV 12.5 mcg/kg/min .[id number] PRN 34.02 mls/hr TITRATE PER MD ORDER Titration Protocol 5 MCG/KG/MIN Piperacillin Sod/Tazobactam Sod 100 mls @ 200 mls/hr 06/24/17 12:00 Zosyn 3.375 In Ns 100ml IVPB 07/01/17 12:01 Q6 PETRA Protocol Sodium Chloride 1,000 mls @ 125 mls/hr 06/24/17 08:15 06/24/17 08:15 Sodium Chloride 0.9% IV 125 mls/hr .Q8H PETRA Administration Sodium Chloride 1,000 mls @ 999 mls/hr 06/24/17 09:52 06/24/17 10:01 Sodium Chloride 0.9% IV 06/24/17 10:52 999 mls/hr .[id number] STA Administration Insulin Human Lispro 0 units 06/24/17 10:00 Humalog Low SC Q6H PETRA Protocol Pantoprazole Sodium 40 mg 06/24/17 10:00 06/24/17 10:00 Protonix Inj IVP 40 mg DAILY PETRA Administration - Patient Studies Lab Studies: Lab Studies 06/24/17 06/24/17 06/24/17 Range/Units 08:15 08:15 08:15 WBC (4.5-11.0) 10^3/ul RBC (3.5-6.1) 10^6/uL Hgb (14.0-18.0) g/dL Hct (42.0-52.0) % MCV (80.0-105.0) fl MCH (25.0-35.0) pg MCHC (31.0-37.0) g/dl RDW (11.5-14.5) % Plt Count (120.0-450.0) 10^3/uL Manual Plt Count (120-450) K/mm3 MPV (7.0-11.0) fl Gran % (50.0-68.0) % Lymph % (Auto) (22.0-35.0) % [place] % (Auto) (1.0-6.0) % Eos % (Auto) (1.5-5.0) % Baso % (Auto) (0.0-3.0) % Gran # (1.4-6.5) Lymph # (Auto) (1.2-3.4) [place] # (Auto) (0.1-0.6) Eos # (Auto) (0.0-0.7) Baso # (Auto) (0.0-2.0) K/mm3 pCO2 (35-45) mm/Hg pO2 (80-100) mm/Hg HCO3 (21-28) mmol/L ABG pH (7.35-7.45) ABG Total CO2 (22-28) mmol.L ABG O2 Saturation (95-98) % ABG O2 Content (15-23) ML/dl ABG Base Excess (-2.0-3.0) mmol/L ABG Hemoglobin (11.7-17.4) g/dL ABG Carboxyhemoglobin (0.5-1.5) % POC ABG HHb (Measured) (0-5) % ABG Methemoglobin (0.0-3.0) % ABG O2 Capacity (16-24) mL/dl ABG Potassium (3.6-5.2) mmol/L VBG pH (7.32-7.43) VBG pCO2 (40-60) VBG HCO3 (21-28) mmol/l VBG Total CO2 (22-28) mmol.L VBG O2 Sat (Calc) (40-65) % VBG Base Excess (0.0-2.0) mmol/L VBG Potassium (3.6-5.2) mmol/L Hgb O2 Saturation (95.0-98.0) % Sodium (132-148) mmol/L Chloride (98-107) mmol/L Glucose (75-110) mg/dl Lactate (0.7-2.1) mmol/L Mechanical Rate FiO2 % Tidal Volume Potassium (3.6-5.0) mmol/L Carbon Dioxide (21-33) mmol/L Anion Gap (10-20) BUN (7-21) mg/dL Creatinine (0.8-1.5) mg/dl Est GFR ( Amer) Est GFR (Non-Af Amer) POC Glucose (mg/dL) (65-110) mg/dL Random Glucose (70-110) mg/dL Lactic Acid 4.2 H* (0.7-2.1) mmol/L Uric Acid (3.5-8.5) mg/dL Calcium (8.4-10.5) mg/dL Phosphorus (2.5-4.5) mg/dL Magnesium (1.7-2.2) mg/dL Iron (45-180) ug/dL TIBC (261-462) ug/dL % Saturation (20-55) % Total Bilirubin (0.2-1.3) mg/dL Direct Bilirubin (0.0-0.4) mg/dL AST (17-59) U/L ALT (7-56) U/L Alkaline Phosphatase (38-126) U/L Ammonia 31 (9-33) umol/L Lactate Dehydrogenase (333-699) U/L Total Creatine Kinase (35-230) U/L CK-MB (CK-2) (0.0-3.6) ng/mL CK-MB (CK-2) % (2.5-3.0) % Troponin I ng/mL NT-Pro-B Natriuret Pep (0-450) pg/mL Total Protein (5.8-8.3) g/dL Albumin (3.0-4.8) g/dL Globulin gm/dL Albumin/Globulin Ratio (1.1-1.8) Triglycerides (35-160) mg/dL Cholesterol (130-200) mg/dL LDL Cholesterol Direct (0-129) mg/dL HDL Cholesterol (29-60) mg/dL Free T4 1.90 (0.78-2.19) ng/dL Thyroxine (T4) 7.0 (5.5-11.0) ug/dL TSH 3rd Generation 0.26 L (0.46-4.68) mIU/mL Arterial Blood Potassium (3.6-5.2) mmol/L Venous Blood Potassium (3.6-5.2) mmol/L Alcohol, Quantitative (0-10) mg/dL 06/24/17 06/24/17 06/24/17 Range/Units 07:30 07:30 07:30 WBC 11.4 H D (4.5-11.0) 10^3/ul RBC 5.84 (3.5-6.1) 10^6/uL Hgb 19.1 H* (14.0-18.0) g/dL Hct 54.8 H (42.0-52.0) % MCV 93.8 D (80.0-105.0) fl MCH 32.7 (25.0-35.0) pg MCHC 34.9 (31.0-37.0) g/dl RDW 13.9 (11.5-14.5) % Plt Count 59 L (120.0-450.0) 10^3/uL Manual Plt Count 60 L* (120-450) K/mm3 MPV 12.2 H (7.0-11.0) fl Gran % 78.8 H (50.0-68.0) % Lymph % (Auto) 5.3 L (22.0-35.0) % [place] % (Auto) 15.8 H (1.0-6.0) % Eos % (Auto) 0.0 L (1.5-5.0) % Baso % (Auto) 0.1 (0.0-3.0) % Gran # 8.96 H (1.4-6.5) Lymph # (Auto) 0.6 L (1.2-3.4) [place] # (Auto) 1.8 H (0.1-0.6) Eos # (Auto) 0.0 (0.0-0.7) Baso # (Auto) 0.01 (0.0-2.0) K/mm3 pCO2 (35-45) mm/Hg pO2 (80-100) mm/Hg HCO3 (21-28) mmol/L ABG pH (7.35-7.45) ABG Total CO2 (22-28) mmol.L ABG O2 Saturation (95-98) % ABG O2 Content (15-23) ML/dl ABG Base Excess (-2.0-3.0) mmol/L ABG Hemoglobin (11.7-17.4) g/dL ABG Carboxyhemoglobin (0.5-1.5) % POC ABG HHb (Measured) (0-5) % ABG Methemoglobin (0.0-3.0) % ABG O2 Capacity (16-24) mL/dl ABG Potassium (3.6-5.2) mmol/L VBG pH (7.32-7.43) VBG pCO2 (40-60) VBG HCO3 (21-28) mmol/l VBG Total CO2 (22-28) mmol.L VBG O2 Sat (Calc) (40-65) % VBG Base Excess (0.0-2.0) mmol/L VBG Potassium (3.6-5.2) mmol/L Hgb O2 Saturation (95.0-98.0) % Sodium 145 (132-148) mmol/L Chloride 111 H (98-107) mmol/L Glucose (75-110) mg/dl Lactate (0.7-2.1) mmol/L Mechanical Rate FiO2 % Tidal Volume Potassium 4.7 (3.6-5.0) mmol/L Carbon Dioxide 20 L (21-33) mmol/L Anion Gap 19 (10-20) BUN 29 H (7-21) mg/dL Creatinine 1.2 (0.8-1.5) mg/dl Est GFR ( Amer) > 60 Est GFR (Non-Af Amer) > 60 POC Glucose (mg/dL) (65-110) mg/dL Random Glucose 133 H (70-110) mg/dL Lactic Acid (0.7-2.1) mmol/L Uric Acid 6.7 (3.5-8.5) mg/dL Calcium 8.7 (8.4-10.5) mg/dL Phosphorus 2.6 (2.5-4.5) mg/dL Magnesium 1.7 (1.7-2.2) mg/dL Iron (45-180) ug/dL TIBC (261-462) ug/dL % Saturation (20-55) % Total Bilirubin 2.6 H (0.2-1.3) mg/dL Direct Bilirubin 1.0 H (0.0-0.4) mg/dL AST 111 H (17-59) U/L ALT 61 H (7-56) U/L Alkaline Phosphatase 65 (38-126) U/L Ammonia (9-33) umol/L Lactate Dehydrogenase 1118 H (333-699) U/L Total Creatine Kinase 285 H (35-230) U/L CK-MB (CK-2) 13.0 H (0.0-3.6) ng/mL CK-MB (CK-2) % 4.6 H (2.5-3.0) % Troponin I 0.14 H* D ng/mL NT-Pro-B Natriuret Pep (0-450) pg/mL Total Protein 6.7 (5.8-8.3) g/dL Albumin 3.2 (3.0-4.8) g/dL Globulin 3.5 gm/dL Albumin/Globulin Ratio 0.9 L (1.1-1.8) Triglycerides 294 H (35-160) mg/dL Cholesterol 155 (130-200) mg/dL LDL Cholesterol Direct 59 (0-129) mg/dL HDL Cholesterol 54 (29-60) mg/dL Free T4 (0.78-2.19) ng/dL Thyroxine (T4) (5.5-11.0) ug/dL TSH 3rd Generation (0.46-4.68) mIU/mL Arterial Blood Potassium (3.6-5.2) mmol/L Venous Blood Potassium (3.6-5.2) mmol/L Alcohol, Quantitative (0-10) mg/dL 06/24/17 06/24/17 06/23/17 Range/Units 05:46 05:13 23:55 WBC (4.5-11.0) 10^3/ul RBC (3.5-6.1) 10^6/uL Hgb (14.0-18.0) g/dL Hct (42.0-52.0) % MCV (80.0-105.0) fl MCH (25.0-35.0) pg MCHC (31.0-37.0) g/dl RDW (11.5-14.5) % Plt Count (120.0-450.0) 10^3/uL Manual Plt Count (120-450) K/mm3 MPV (7.0-11.0) fl Gran % (50.0-68.0) % Lymph % (Auto) (22.0-35.0) % [place] % (Auto) (1.0-6.0) % Eos % (Auto) (1.5-5.0) % Baso % (Auto) (0.0-3.0) % Gran # (1.4-6.5) Lymph # (Auto) (1.2-3.4) [place] # (Auto) (0.1-0.6) Eos # (Auto) (0.0-0.7) Baso # (Auto) (0.0-2.0) K/mm3 pCO2 34 L (35-45) mm/Hg pO2 82.0 (80-100) mm/Hg HCO3 18.8 L (21-28) mmol/L ABG pH 7.35 (7.35-7.45) ABG Total CO2 19.8 L (22-28) mmol.L ABG O2 Saturation 98.6 H (95-98) % ABG O2 Content (15-23) ML/dl ABG Base Excess -6.0 L (-2.0-3.0) mmol/L ABG Hemoglobin (11.7-17.4) g/dL ABG Carboxyhemoglobin (0.5-1.5) % POC ABG HHb (Measured) (0-5) % ABG Methemoglobin (0.0-3.0) % ABG O2 Capacity (16-24) mL/dl ABG Potassium 4.3 (3.6-5.2) mmol/L VBG pH (7.32-7.43) VBG pCO2 (40-60) VBG HCO3 (21-28) mmol/l VBG Total CO2 (22-28) mmol.L VBG O2 Sat (Calc) (40-65) % VBG Base Excess (0.0-2.0) mmol/L VBG Potassium (3.6-5.2) mmol/L Hgb O2 Saturation (95.0-98.0) % Sodium 139.0 (132-148) mmol/L Chloride 110.0 H (98-107) mmol/L Glucose 152 H (75-110) mg/dl Lactate 3.6 H (0.7-2.1) mmol/L Mechanical Rate FiO2 100.0 % Tidal Volume Potassium (3.6-5.0) mmol/L Carbon Dioxide (21-33) mmol/L Anion Gap (10-20) BUN (7-21) mg/dL Creatinine (0.8-1.5) mg/dl Est GFR ( Amer) Est GFR (Non-Af Amer) POC Glucose (mg/dL) 128 H (65-110) mg/dL Random Glucose (70-110) mg/dL Lactic Acid (0.7-2.1) mmol/L Uric Acid (3.5-8.5) mg/dL Calcium (8.4-10.5) mg/dL Phosphorus (2.5-4.5) mg/dL Magnesium (1.7-2.2) mg/dL Iron (45-180) ug/dL TIBC (261-462) ug/dL % Saturation (20-55) % Total Bilirubin (0.2-1.3) mg/dL Direct Bilirubin (0.0-0.4) mg/dL AST (17-59) U/L ALT (7-56) U/L Alkaline Phosphatase (38-126) U/L Ammonia (9-33) umol/L Lactate Dehydrogenase (333-699) U/L Total Creatine Kinase (35-230) U/L CK-MB (CK-2) (0.0-3.6) ng/mL CK-MB (CK-2) % (2.5-3.0) % Troponin I 0.07 D ng/mL NT-Pro-B Natriuret Pep (0-450) pg/mL Total Protein (5.8-8.3) g/dL Albumin (3.0-4.8) g/dL Globulin gm/dL Albumin/Globulin Ratio (1.1-1.8) Triglycerides (35-160) mg/dL Cholesterol (130-200) mg/dL LDL Cholesterol Direct (0-129) mg/dL HDL Cholesterol (29-60) mg/dL Free T4 (0.78-2.19) ng/dL Thyroxine (T4) (5.5-11.0) ug/dL TSH 3rd Generation (0.46-4.68) mIU/mL Arterial Blood Potassium 4.3 (3.6-5.2) mmol/L Venous Blood Potassium (3.6-5.2) mmol/L Alcohol, Quantitative (0-10) mg/dL 06/23/17 06/23/17 06/23/17 Range/Units 23:36 23:05 19:55 WBC (4.5-11.0) 10^3/ul RBC (3.5-6.1) 10^6/uL Hgb (14.0-18.0) g/dL Hct (42.0-52.0) % MCV (80.0-105.0) fl MCH (25.0-35.0) pg MCHC (31.0-37.0) g/dl RDW (11.5-14.5) % Plt Count (120.0-450.0) 10^3/uL Manual Plt Count (120-450) K/mm3 MPV (7.0-11.0) fl Gran % (50.0-68.0) % Lymph % (Auto) (22.0-35.0) % [place] % (Auto) (1.0-6.0) % Eos % (Auto) (1.5-5.0) % Baso % (Auto) (0.0-3.0) % Gran # (1.4-6.5) Lymph # (Auto) (1.2-3.4) [place] # (Auto) (0.1-0.6) Eos # (Auto) (0.0-0.7) Baso # (Auto) (0.0-2.0) K/mm3 pCO2 42 (35-45) mm/Hg pO2 47.0 L (80-100) mm/Hg HCO3 15.7 L (21-28) mmol/L ABG pH 7.18 L* (7.35-7.45) ABG Total CO2 17.0 L (22-28) mmol.L ABG O2 Saturation 90.8 L (95-98) % ABG O2 Content 21.2 (15-23) ML/dl ABG Base Excess -12.3 L (-2.0-3.0) mmol/L ABG Hemoglobin 17.2 (11.7-17.4) g/dL ABG Carboxyhemoglobin 2.3 H (0.5-1.5) % POC ABG HHb (Measured) 8.9 H (0-5) % ABG Methemoglobin 0.9 (0.0-3.0) % ABG O2 Capacity 23.3 (16-24) mL/dl ABG Potassium (3.6-5.2) mmol/L VBG pH (7.32-7.43) VBG pCO2 (40-60) VBG HCO3 (21-28) mmol/l VBG Total CO2 (22-28) mmol.L VBG O2 Sat (Calc) (40-65) % VBG Base Excess (0.0-2.0) mmol/L VBG Potassium (3.6-5.2) mmol/L Hgb O2 Saturation 87.9 L (95.0-98.0) % Sodium (132-148) mmol/L Chloride (98-107) mmol/L Glucose (75-110) mg/dl Lactate (0.7-2.1) mmol/L Mechanical Rate FiO2 70.0 % Tidal Volume Potassium (3.6-5.0) mmol/L Carbon Dioxide (21-33) mmol/L Anion Gap (10-20) BUN (7-21) mg/dL Creatinine (0.8-1.5) mg/dl Est GFR ( Amer) Est GFR (Non-Af Amer) POC Glucose (mg/dL) 120 H (65-110) mg/dL Random Glucose (70-110) mg/dL Lactic Acid (0.7-2.1) mmol/L Uric Acid (3.5-8.5) mg/dL Calcium (8.4-10.5) mg/dL Phosphorus (2.5-4.5) mg/dL Magnesium (1.7-2.2) mg/dL Iron (45-180) ug/dL TIBC (261-462) ug/dL % Saturation (20-55) % Total Bilirubin (0.2-1.3) mg/dL Direct Bilirubin (0.0-0.4) mg/dL AST (17-59) U/L ALT (7-56) U/L Alkaline Phosphatase (38-126) U/L Ammonia (9-33) umol/L Lactate Dehydrogenase (333-699) U/L Total Creatine Kinase (35-230) U/L CK-MB (CK-2) (0.0-3.6) ng/mL CK-MB (CK-2) % (2.5-3.0) % Troponin I ng/mL NT-Pro-B Natriuret Pep (0-450) pg/mL Total Protein (5.8-8.3) g/dL Albumin (3.0-4.8) g/dL Globulin gm/dL Albumin/Globulin Ratio (1.1-1.8) Triglycerides (35-160) mg/dL Cholesterol (130-200) mg/dL LDL Cholesterol Direct (0-129) mg/dL HDL Cholesterol (29-60) mg/dL Free T4 2.23 H (0.78-2.19) ng/dL Thyroxine (T4) (5.5-11.0) ug/dL TSH 3rd Generation 1.29 (0.46-4.68) mIU/mL Arterial Blood Potassium (3.6-5.2) mmol/L Venous Blood Potassium (3.6-5.2) mmol/L Alcohol, Quantitative (0-10) mg/dL 06/23/17 06/23/17 06/23/17 Range/Units 19:55 19:55 19:50 WBC (4.5-11.0) 10^3/ul RBC (3.5-6.1) 10^6/uL Hgb (14.0-18.0) g/dL Hct (42.0-52.0) % MCV (80.0-105.0) fl MCH (25.0-35.0) pg MCHC (31.0-37.0) g/dl RDW (11.5-14.5) % Plt Count (120.0-450.0) 10^3/uL Manual Plt Count (120-450) K/mm3 MPV (7.0-11.0) fl Gran % (50.0-68.0) % Lymph % (Auto) (22.0-35.0) % [place] % (Auto) (1.0-6.0) % Eos % (Auto) (1.5-5.0) % Baso % (Auto) (0.0-3.0) % Gran # (1.4-6.5) Lymph # (Auto) (1.2-3.4) [place] # (Auto) (0.1-0.6) Eos # (Auto) (0.0-0.7) Baso # (Auto) (0.0-2.0) K/mm3 pCO2 (35-45) mm/Hg pO2 29 L (80-100) mm/Hg HCO3 (21-28) mmol/L ABG pH (7.35-7.45) ABG Total CO2 (22-28) mmol.L ABG O2 Saturation (95-98) % ABG O2 Content (15-23) ML/dl ABG Base Excess (-2.0-3.0) mmol/L ABG Hemoglobin (11.7-17.4) g/dL ABG Carboxyhemoglobin (0.5-1.5) % POC ABG HHb (Measured) (0-5) % ABG Methemoglobin (0.0-3.0) % ABG O2 Capacity (16-24) mL/dl ABG Potassium (3.6-5.2) mmol/L VBG pH 7.11 L* (7.32-7.43) VBG pCO2 58.0 (40-60) VBG HCO3 18.4 L (21-28) mmol/l VBG Total CO2 20.2 L (22-28) mmol.L VBG O2 Sat (Calc) 64.8 (40-65) % VBG Base Excess -11.6 L (0.0-2.0) mmol/L VBG Potassium 6.0 H (3.6-5.2) mmol/L Hgb O2 Saturation (95.0-98.0) % Sodium 140.0 (132-148) mmol/L Chloride 104.0 (98-107) mmol/L Glucose 123 H (75-110) mg/dl Lactate 5.6 H* (0.7-2.1) mmol/L Mechanical Rate FiO2 21.0 % Tidal Volume Potassium (3.6-5.0) mmol/L Carbon Dioxide (21-33) mmol/L Anion Gap (10-20) BUN (7-21) mg/dL Creatinine (0.8-1.5) mg/dl Est GFR ( Amer) Est GFR (Non-Af Amer) POC Glucose (mg/dL) (65-110) mg/dL Random Glucose (70-110) mg/dL Lactic Acid (0.7-2.1) mmol/L Uric Acid (3.5-8.5) mg/dL Calcium (8.4-10.5) mg/dL Phosphorus (2.5-4.5) mg/dL Magnesium (1.7-2.2) mg/dL Iron 267 H (45-180) ug/dL TIBC 325 (261-462) ug/dL % Saturation 82 H (20-55) % Total Bilirubin (0.2-1.3) mg/dL Direct Bilirubin (0.0-0.4) mg/dL AST (17-59) U/L ALT (7-56) U/L Alkaline Phosphatase (38-126) U/L Ammonia 56 H (9-33) umol/L Lactate Dehydrogenase (333-699) U/L Total Creatine Kinase (35-230) U/L CK-MB (CK-2) (0.0-3.6) ng/mL CK-MB (CK-2) % (2.5-3.0) % Troponin I ng/mL NT-Pro-B Natriuret Pep (0-450) pg/mL Total Protein (5.8-8.3) g/dL Albumin (3.0-4.8) g/dL Globulin gm/dL Albumin/Globulin Ratio (1.1-1.8) Triglycerides (35-160) mg/dL Cholesterol (130-200) mg/dL LDL Cholesterol Direct (0-129) mg/dL HDL Cholesterol (29-60) mg/dL Free T4 (0.78-2.19) ng/dL Thyroxine (T4) (5.5-11.0) ug/dL TSH 3rd Generation (0.46-4.68) mIU/mL Arterial Blood Potassium (3.6-5.2) mmol/L Venous Blood Potassium 6.0 H (3.6-5.2) mmol/L Alcohol, Quantitative (0-10) mg/dL 06/23/17 06/23/17 06/23/17 Range/Units 19:40 18:25 16:50 WBC (4.5-11.0) 10^3/ul RBC (3.5-6.1) 10^6/uL Hgb (14.0-18.0) g/dL Hct (42.0-52.0) % MCV (80.0-105.0) fl MCH (25.0-35.0) pg MCHC (31.0-37.0) g/dl RDW (11.5-14.5) % Plt Count (120.0-450.0) 10^3/uL Manual Plt Count (120-450) K/mm3 MPV (7.0-11.0) fl Gran % (50.0-68.0) % Lymph % (Auto) (22.0-35.0) % [place] % (Auto) (1.0-6.0) % Eos % (Auto) (1.5-5.0) % Baso % (Auto) (0.0-3.0) % Gran # (1.4-6.5) Lymph # (Auto) (1.2-3.4) [place] # (Auto) (0.1-0.6) Eos # (Auto) (0.0-0.7) Baso # (Auto) (0.0-2.0) K/mm3 pCO2 80 H* (35-45) mm/Hg pO2 262.0 H (80-100) mm/Hg HCO3 16.4 L (21-28) mmol/L ABG pH 6.92 L* (7.35-7.45) ABG Total CO2 18.9 L (22-28) mmol.L ABG O2 Saturation 100.4 H (95-98) % ABG O2 Content (15-23) ML/dl ABG Base Excess -17.4 L (-2.0-3.0) mmol/L ABG Hemoglobin (11.7-17.4) g/dL ABG Carboxyhemoglobin (0.5-1.5) % POC ABG HHb (Measured) (0-5) % ABG Methemoglobin (0.0-3.0) % ABG O2 Capacity (16-24) mL/dl ABG Potassium 3.7 (3.6-5.2) mmol/L VBG pH (7.32-7.43) VBG pCO2 (40-60) VBG HCO3 (21-28) mmol/l VBG Total CO2 (22-28) mmol.L VBG O2 Sat (Calc) (40-65) % VBG Base Excess (0.0-2.0) mmol/L VBG Potassium (3.6-5.2) mmol/L Hgb O2 Saturation (95.0-98.0) % Sodium 145 141.0 (132-148) mmol/L Chloride 110 H 114.0 H (98-107) mmol/L Glucose 103 (75-110) mg/dl Lactate 5.4 H* (0.7-2.1) mmol/L Mechanical Rate 16 FiO2 100.0 % Tidal Volume 450 Potassium 5.9 H* D (3.6-5.0) mmol/L Carbon Dioxide 22 (21-33) mmol/L Anion Gap 19 (10-20) BUN 24 H (7-21) mg/dL Creatinine 1.3 (0.8-1.5) mg/dl Est GFR ( Amer) > 60 Est GFR (Non-Af Amer) 56 POC Glucose (mg/dL) (65-110) mg/dL Random Glucose 109 (70-110) mg/dL Lactic Acid (0.7-2.1) mmol/L Uric Acid (3.5-8.5) mg/dL Calcium 8.6 (8.4-10.5) mg/dL Phosphorus 6.9 H (2.5-4.5) mg/dL Magnesium 1.9 (1.7-2.2) mg/dL Iron (45-180) ug/dL TIBC (261-462) ug/dL % Saturation (20-55) % Total Bilirubin 2.0 H (0.2-1.3) mg/dL Direct Bilirubin 1.0 H (0.0-0.4) mg/dL AST 96 H (17-59) U/L ALT 48 (7-56) U/L Alkaline Phosphatase 99 (38-126) U/L Ammonia (9-33) umol/L Lactate Dehydrogenase 1266 H (333-699) U/L Total Creatine Kinase 244 H (35-230) U/L CK-MB (CK-2) 8.7 H (0.0-3.6) ng/mL CK-MB (CK-2) % 3.6 H (2.5-3.0) % Troponin I 0.03 ng/mL NT-Pro-B Natriuret Pep 1640 H (0-450) pg/mL Total Protein 6.9 (5.8-8.3) g/dL Albumin 3.4 (3.0-4.8) g/dL Globulin 3.5 gm/dL Albumin/Globulin Ratio 1.0 L (1.1-1.8) Triglycerides (35-160) mg/dL Cholesterol (130-200) mg/dL LDL Cholesterol Direct (0-129) mg/dL HDL Cholesterol (29-60) mg/dL Free T4 (0.78-2.19) ng/dL Thyroxine (T4) (5.5-11.0) ug/dL TSH 3rd Generation (0.46-4.68) mIU/mL Arterial Blood Potassium 3.7 (3.6-5.2) mmol/L Venous Blood Potassium (3.6-5.2) mmol/L Alcohol, Quantitative < 10 (0-10) mg/dL Laboratory Results - last 24 hr 06/23/17 06/23/17 06/23/17 16:50 18:25 19:40 WBC RBC Hgb Hct MCV MCH MCHC RDW Plt Count Manual Plt Count MPV Gran % Lymph % (Auto) [place] % (Auto) Eos % (Auto) Baso % (Auto) Gran # Lymph # (Auto) [place] # (Auto) Eos # (Auto) Baso # (Auto) pCO2 80 H* pO2 262.0 H HCO3 16.4 L ABG pH 6.92 L* ABG Total CO2 18.9 L ABG O2 Saturation 100.4 H ABG O2 Content ABG Base Excess -17.4 L ABG Hemoglobin ABG Carboxyhemoglobin POC ABG HHb (Measured) ABG Methemoglobin ABG O2 Capacity ABG Potassium 3.7 VBG pH VBG pCO2 VBG HCO3 VBG Total CO2 VBG O2 Sat (Calc) VBG Base Excess VBG Potassium Hgb O2 Saturation Sodium 141.0 145 Chloride 114.0 H 110 H Glucose 103 Lactate 5.4 H* Mechanical Rate 16 FiO2 100.0 Tidal Volume 450 Potassium 5.9 H* D Carbon Dioxide 22 Anion Gap 19 BUN 24 H Creatinine 1.3 Est GFR ( Amer) > 60 Est GFR (Non-Af Amer) 56 POC Glucose (mg/dL) Random Glucose 109 Lactic Acid Uric Acid Calcium 8.6 Phosphorus 6.9 H Magnesium 1.9 Iron TIBC % Saturation Total Bilirubin 2.0 H Direct Bilirubin 1.0 H AST 96 H ALT 48 Alkaline Phosphatase 99 Ammonia Lactate Dehydrogenase 1266 H Total Creatine Kinase 244 H CK-MB (CK-2) 8.7 H CK-MB (CK-2) % 3.6 H Troponin I 0.03 NT-Pro-B Natriuret Pep 1640 H Total Protein 6.9 Albumin 3.4 Globulin 3.5 Albumin/Globulin Ratio 1.0 L Triglycerides Cholesterol LDL Cholesterol Direct HDL Cholesterol Free T4 Thyroxine (T4) TSH 3rd Generation Arterial Blood Potassium 3.7 Venous Blood Potassium Alcohol, Quantitative < 10 06/23/17 06/23/17 06/23/17 19:50 19:55 19:55 WBC RBC Hgb Hct MCV MCH MCHC RDW Plt Count Manual Plt Count MPV Gran % Lymph % (Auto) [place] % (Auto) Eos % (Auto) Baso % (Auto) Gran # Lymph # (Auto) [place] # (Auto) Eos # (Auto) Baso # (Auto) pCO2 pO2 29 L HCO3 ABG pH ABG Total CO2 ABG O2 Saturation ABG O2 Content ABG Base Excess ABG Hemoglobin ABG Carboxyhemoglobin POC ABG HHb (Measured) ABG Methemoglobin ABG O2 Capacity ABG Potassium VBG pH 7.11 L* VBG pCO2 58.0 VBG HCO3 18.4 L VBG Total CO2 20.2 L VBG O2 Sat (Calc) 64.8 VBG Base Excess -11.6 L VBG Potassium 6.0 H Hgb O2 Saturation Sodium 140.0 Chloride 104.0 Glucose 123 H Lactate 5.6 H* Mechanical Rate FiO2 21.0 Tidal Volume Potassium Carbon Dioxide Anion Gap BUN Creatinine Est GFR ( Amer) Est GFR (Non-Af Amer) POC Glucose (mg/dL) Random Glucose Lactic Acid Uric Acid Calcium Phosphorus Magnesium Iron 267 H TIBC 325 % Saturation 82 H Total Bilirubin Direct Bilirubin AST ALT Alkaline Phosphatase Ammonia 56 H Lactate Dehydrogenase Total Creatine Kinase CK-MB (CK-2) CK-MB (CK-2) % Troponin I NT-Pro-B Natriuret Pep Total Protein Albumin Globulin Albumin/Globulin Ratio Triglycerides Cholesterol LDL Cholesterol Direct HDL Cholesterol Free T4 Thyroxine (T4) TSH 3rd Generation Arterial Blood Potassium Venous Blood Potassium 6.0 H Alcohol, Quantitative 06/23/17 06/23/17 06/23/17 19:55 23:05 23:36 WBC RBC Hgb Hct MCV MCH MCHC RDW Plt Count Manual Plt Count MPV Gran % Lymph % (Auto) [place] % (Auto) Eos % (Auto) Baso % (Auto) Gran # Lymph # (Auto) [place] # (Auto) Eos # (Auto) Baso # (Auto) pCO2 42 pO2 47.0 L HCO3 15.7 L ABG pH 7.18 L* ABG Total CO2 17.0 L ABG O2 Saturation 90.8 L ABG O2 Content 21.2 ABG Base Excess -12.3 L ABG Hemoglobin 17.2 ABG Carboxyhemoglobin 2.3 H POC ABG HHb (Measured) 8.9 H ABG Methemoglobin 0.9 ABG O2 Capacity 23.3 ABG Potassium VBG pH VBG pCO2 VBG HCO3 VBG Total CO2 VBG O2 Sat (Calc) VBG Base Excess VBG Potassium Hgb O2 Saturation 87.9 L Sodium Chloride Glucose Lactate Mechanical Rate FiO2 70.0 Tidal Volume Potassium Carbon Dioxide Anion Gap BUN Creatinine Est GFR ( Amer) Est GFR (Non-Af Amer) POC Glucose (mg/dL) 120 H Random Glucose Lactic Acid Uric Acid Calcium Phosphorus Magnesium Iron TIBC % Saturation Total Bilirubin Direct Bilirubin AST ALT Alkaline Phosphatase Ammonia Lactate Dehydrogenase Total Creatine Kinase CK-MB (CK-2) CK-MB (CK-2) % Troponin I NT-Pro-B Natriuret Pep Total Protein Albumin Globulin Albumin/Globulin Ratio Triglycerides Cholesterol LDL Cholesterol Direct HDL Cholesterol Free T4 2.23 H Thyroxine (T4) TSH 3rd Generation 1.29 Arterial Blood Potassium Venous Blood Potassium Alcohol, Quantitative 06/23/17 06/24/17 06/24/17 23:55 05:13 05:46 WBC RBC Hgb Hct MCV MCH MCHC RDW Plt Count Manual Plt Count MPV Gran % Lymph % (Auto) [place] % (Auto) Eos % (Auto) Baso % (Auto) Gran # Lymph # (Auto) [place] # (Auto) Eos # (Auto) Baso # (Auto) pCO2 34 L pO2 82.0 HCO3 18.8 L ABG pH 7.35 ABG Total CO2 19.8 L ABG O2 Saturation 98.6 H ABG O2 Content ABG Base Excess -6.0 L ABG Hemoglobin ABG Carboxyhemoglobin POC ABG HHb (Measured) ABG Methemoglobin ABG O2 Capacity ABG Potassium 4.3 VBG pH VBG pCO2 VBG HCO3 VBG Total CO2 VBG O2 Sat (Calc) VBG Base Excess VBG Potassium Hgb O2 Saturation Sodium 139.0 Chloride 110.0 H Glucose 152 H Lactate 3.6 H Mechanical Rate FiO2 100.0 Tidal Volume Potassium Carbon Dioxide Anion Gap BUN Creatinine Est GFR ( Amer) Est GFR (Non-Af Amer) POC Glucose (mg/dL) 128 H Random Glucose Lactic Acid Uric Acid Calcium Phosphorus Magnesium Iron TIBC % Saturation Total Bilirubin Direct Bilirubin AST ALT Alkaline Phosphatase Ammonia Lactate Dehydrogenase Total Creatine Kinase CK-MB (CK-2) CK-MB (CK-2) % Troponin I 0.07 D NT-Pro-B Natriuret Pep Total Protein Albumin Globulin Albumin/Globulin Ratio Triglycerides Cholesterol LDL Cholesterol Direct HDL Cholesterol Free T4 Thyroxine (T4) TSH 3rd Generation Arterial Blood Potassium 4.3 Venous Blood Potassium Alcohol, Quantitative 06/24/17 06/24/17 06/24/17 07:30 07:30 07:30 WBC 11.4 H D RBC 5.84 Hgb 19.1 H* Hct 54.8 H MCV 93.8 D MCH 32.7 MCHC 34.9 RDW 13.9 Plt Count 59 L Manual Plt Count 60 L* MPV 12.2 H Gran % 78.8 H Lymph % (Auto) 5.3 L [place] % (Auto) 15.8 H Eos % (Auto) 0.0 L Baso % (Auto) 0.1 Gran # 8.96 H Lymph # (Auto) 0.6 L [place] # (Auto) 1.8 H Eos # (Auto) 0.0 Baso # (Auto) 0.01 pCO2 pO2 HCO3 ABG pH ABG Total CO2 ABG O2 Saturation ABG O2 Content ABG Base Excess ABG Hemoglobin ABG Carboxyhemoglobin POC ABG HHb (Measured) ABG Methemoglobin ABG O2 Capacity ABG Potassium VBG pH VBG pCO2 VBG HCO3 VBG Total CO2 VBG O2 Sat (Calc) VBG Base Excess VBG Potassium Hgb O2 Saturation Sodium 145 Chloride 111 H Glucose Lactate Mechanical Rate FiO2 Tidal Volume Potassium 4.7 Carbon Dioxide 20 L Anion Gap 19 BUN 29 H Creatinine 1.2 Est GFR ( Amer) > 60 Est GFR (Non-Af Amer) > 60 POC Glucose (mg/dL) Random Glucose 133 H Lactic Acid Uric Acid 6.7 Calcium 8.7 Phosphorus 2.6 Magnesium 1.7 Iron TIBC % Saturation Total Bilirubin 2.6 H Direct Bilirubin 1.0 H AST 111 H ALT 61 H Alkaline Phosphatase 65 Ammonia Lactate Dehydrogenase 1118 H Total Creatine Kinase 285 H CK-MB (CK-2) 13.0 H CK-MB (CK-2) % 4.6 H Troponin I 0.14 H* D NT-Pro-B Natriuret Pep Total Protein 6.7 Albumin 3.2 Globulin 3.5 Albumin/Globulin Ratio 0.9 L Triglycerides 294 H Cholesterol 155 LDL Cholesterol Direct 59 HDL Cholesterol 54 Free T4 Thyroxine (T4) TSH 3rd Generation Arterial Blood Potassium Venous Blood Potassium Alcohol, Quantitative 06/24/17 06/24/17 06/24/17 08:15 08:15 08:15 WBC RBC Hgb Hct MCV MCH MCHC RDW Plt Count Manual Plt Count MPV Gran % Lymph % (Auto) [place] % (Auto) Eos % (Auto) Baso % (Auto) Gran # Lymph # (Auto) [place] # (Auto) Eos # (Auto) Baso # (Auto) pCO2 pO2 HCO3 ABG pH ABG Total CO2 ABG O2 Saturation ABG O2 Content ABG Base Excess ABG Hemoglobin ABG Carboxyhemoglobin POC ABG HHb (Measured) ABG Methemoglobin ABG O2 Capacity ABG Potassium VBG pH VBG pCO2 VBG HCO3 VBG Total CO2 VBG O2 Sat (Calc) VBG Base Excess VBG Potassium Hgb O2 Saturation Sodium Chloride Glucose Lactate Mechanical Rate FiO2 Tidal Volume Potassium Carbon Dioxide Anion Gap BUN Creatinine Est GFR ( Amer) Est GFR (Non-Af Amer) POC Glucose (mg/dL) Random Glucose Lactic Acid 4.2 H* Uric Acid Calcium Phosphorus Magnesium Iron TIBC % Saturation Total Bilirubin Direct Bilirubin AST ALT Alkaline Phosphatase Ammonia 31 Lactate Dehydrogenase Total Creatine Kinase CK-MB (CK-2) CK-MB (CK-2) % Troponin I NT-Pro-B Natriuret Pep Total Protein Albumin Globulin Albumin/Globulin Ratio Triglycerides Cholesterol LDL Cholesterol Direct HDL Cholesterol Free T4 1.90 Thyroxine (T4) 7.0 TSH 3rd Generation 0.26 L Arterial Blood Potassium Venous Blood Potassium Alcohol, Quantitative EKG/Cardiology Studies: Cardiology / EKG Studies 06/23/17 15:22 EKG [ELECTROCARDIOGRAM] Stat Comment: Reason For Exam: CARDIAC ARREST 06/23/17 18:45 EKG [ELECTROCARDIOGRAM] Stat Comment: Reason For Exam: CARDIAC ARREST 06/24/17 07:26 ELECTROCARDIOGRAM Stat Comment: Reason For Exam: HYPOTHERMIA 06/25/17 07:00 ELECTROCARDIOGRAM DAILY Comment: Reason For Exam: HYPOTHERMIA 06/26/17 07:00 ELECTROCARDIOGRAM DAILY Comment: Reason For Exam: HYPOTHERMIA 06/27/17 07:00 ELECTROCARDIOGRAM DAILY Comment: Reason For Exam: HYPOTHERMIA Fingerstick Blood Sugar Results: 128 Review of Systems - Review of Systems Systems not reviewed;Unavailable: Intubated Review of Systems: unable to obtain full ROS Assessment/Plan - Assessment and Plan (Free Text) Assessment: Patient is 66yo male with PMHx of Hep C s/p harvoni treatment, EtOh abuse, found unconscious at home with window down, intubated in the field, subseuqently had PEA arrest in the field given Epi x 2, ROSC obtained. Patient intubated, on dopamine drip. Patient will get PICC line placement and CT chest. Plan: Neuro: Pt is intubated, unresponsive and sedated propofol gtt CT Head (06/23) shows no acute intracranial findings Cardio: s/p cardiac arrest -troponin elevated at 0.14, continue to trend q6h -cardiology consulted, recs appreciated, conservative management for now -EKG -Echo pending -O2 via ETT -maintain MAP>65 -dopamine gtt -PICC line placement -BNP r/o chf Pulm: Intubated -5 PEEP, RR 18, FIO2 80,TV 450 -CXR -ABG -maintain SpO2>90% ID: Hypothermia, resolved: temp is 97.7 continue to monitor core body temp SIRS -leukocytosis at 11.4, down from 18.5 -infectious disease consulted, recs appreciated -Vancomycin and Zosyn -panculture -procalcitonin -steroids -LFTs -lactate 4.2 GI: NPO Protonix ppx Renal: -continue to replete electrolytes as needed Endo: Maintain euglycemia Heme/Onc: Erythrocytosis -daily CBC, CMP -TIBC, Iron, Ferritin -heme consulted, follow recs DVT ppx: heparin GI ppx: protonix <Dionte Roblero - Last Filed: 06/24/17 11:56> CCU Objective - Vital Signs / Intake & Output Vital Signs (Last 4 hours): Vital Signs Temp Pulse BP Pulse Ox 06/24/17 10:10 97.9 F 62 100 06/24/17 10:00 98.1 F 63 107/66 100 06/24/17 09:50 98.1 F 62 100 06/24/17 09:40 97.9 F 62 100 06/24/17 09:30 97.9 F 62 102/59 L 100 06/24/17 09:26 97.9 F 62 104/61 100 06/24/17 09:20 97.9 F 63 100 06/24/17 09:10 97.7 F 62 100 06/24/17 09:07 97.5 F L 62 95/59 L 100 06/24/17 09:01 97.5 F L 62 82/51 L 100 06/24/17 09:00 97.5 F L 63 84/53 L 87 L 06/24/17 08:59 97.5 F L 65 06/24/17 08:50 97.3 F L 62 100 06/24/17 08:40 97.2 F L 69 100 06/24/17 08:30 96.8 F L 72 113/68 100 06/24/17 08:22 96.6 F L 77 06/24/17 08:20 96.6 F L 72 06/24/17 08:10 96.3 F L 65 93 L 06/24/17 08:04 96.3 F L 62 92/60 L 78 L 06/24/17 08:03 96.1 F L 61 06/24/17 08:01 96.1 F L 67 84/49 L 76 L 06/24/17 08:00 96.1 F L 60 91 L Intake and Output (Last 8hrs): Intake & Output 06/23/17 06/24/17 06/24/17 22:59 06:59 14:59 Intake Total 1670 105 Output Total 1250 Balance 420 105 Weight 160 lb Intake: IV 1570 105 Left Antecubital 150 Left Hand 1100 Right Antecubital 220 Other 100 Output: Urine 1250 Urethral (Sharp) 1250 - Medications Active Medications: Active Medications Generic Name Dose Route Start Last Admin Trade Name Freq PRN Reason Stop Dose Admin Heparin Sodium (Porcine) 5,000 units 06/24/17 10:00 06/24/17 10:07 Heparin SC 5,000 units Q12 PETRA Administration Protocol Vancomycin HCl 1 gm in 250 mls @ 167 mls/hr 06/24/17 04:00 06/24/17 03:30 Vancomycin 1gm IVPB 167 mls/hr Q12H PETRA Administration Protocol Propofol 1,000 mg in 100 mls @ 2.177 mls/hr 06/23/17 23:57 06/24/17 10:07 Diprivan IV 28 mcg/kg/min .Q24H PRN 12.193 mls/hr TITRATE PER MD ORDER Titration Protocol 5 MCG/KG/MIN Dopamine HCl/Dextrose 400 mg in 250 mls @ 13.608 mls/hr 06/24/17 01:23 09:03 Dopamine 400mg/250ml D5w IV 12.5 mcg/kg/min .[id number] PRN 34.02 mls/hr TITRATE PER MD ORDER Titration Protocol 5 MCG/KG/MIN Piperacillin Sod/Tazobactam Sod 100 mls @ 200 mls/hr 06/24/17 12:00 Zosyn 3.375 In Ns 100ml IVPB 07/01/17 12:01 Q6 PETRA Protocol Sodium Chloride 1,000 mls @ 125 mls/hr 06/24/17 08:15 06/24/17 08:15 Sodium Chloride 0.9% IV 125 mls/hr .Q8H PETRA Administration Insulin Human Lispro 0 units 06/24/17 11:24 Humalog Low SC Q6 PETRA Protocol Pantoprazole Sodium 40 mg 06/24/17 10:00 06/24/17 10:00 Protonix Inj IVP 40 mg DAILY PETRA Administration - Patient Studies Lab Studies: Lab Studies 06/24/17 06/24/17 06/24/17 Range/Units 11:30 11:30 08:15 WBC (4.5-11.0) 10^3/ul RBC (3.5-6.1) 10^6/uL Hgb (14.0-18.0) g/dL Hct (42.0-52.0) % MCV (80.0-105.0) fl MCH (25.0-35.0) pg MCHC (31.0-37.0) g/dl RDW (11.5-14.5) % Plt Count (120.0-450.0) 10^3/uL Manual Plt Count (120-450) K/mm3 MPV (7.0-11.0) fl Gran % (50.0-68.0) % Lymph % (Auto) (22.0-35.0) % [place] % (Auto) (1.0-6.0) % Eos % (Auto) (1.5-5.0) % Baso % (Auto) (0.0-3.0) % Gran # (1.4-6.5) Lymph # (Auto) (1.2-3.4) [place] # (Auto) (0.1-0.6) Eos # (Auto) (0.0-0.7) Baso # (Auto) (0.0-2.0) K/mm3 pCO2 (35-45) mm/Hg pO2 50 (80-100) mm/Hg HCO3 (21-28) mmol/L ABG pH (7.35-7.45) ABG Total CO2 (22-28) mmol.L ABG O2 Saturation (95-98) % ABG O2 Content (15-23) ML/dl ABG Base Excess (-2.0-3.0) mmol/L ABG Hemoglobin (11.7-17.4) g/dL ABG Carboxyhemoglobin (0.5-1.5) % POC ABG HHb (Measured) (0-5) % ABG Methemoglobin (0.0-3.0) % ABG O2 Capacity (16-24) mL/dl ABG Potassium (3.6-5.2) mmol/L VBG pH 7.22 L (7.32-7.43) VBG pCO2 54.0 (40-60) VBG HCO3 22.1 (21-28) mmol/l VBG Total CO2 23.8 (22-28) mmol.L VBG O2 Sat (Calc) 87.3 H (40-65) % VBG Base Excess -6.1 L (0.0-2.0) mmol/L VBG Potassium 4.2 (3.6-5.2) mmol/L Hgb O2 Saturation (95.0-98.0) % Sodium 140.0 (132-148) mmol/L Chloride 110.0 H (98-107) mmol/L Glucose 151 H (75-110) mg/dl Lactate 4.0 H* (0.7-2.1) mmol/L Mechanical Rate FiO2 21.0 % Tidal Volume Potassium (3.6-5.0) mmol/L Carbon Dioxide (21-33) mmol/L Anion Gap (10-20) BUN (7-21) mg/dL Creatinine (0.8-1.5) mg/dl Est GFR ( Amer) Est GFR (Non-Af Amer) POC Glucose (mg/dL) (65-110) mg/dL Random Glucose (70-110) mg/dL Lactic Acid 4.2 H* (0.7-2.1) mmol/L Uric Acid (3.5-8.5) mg/dL Calcium (8.4-10.5) mg/dL Phosphorus (2.5-4.5) mg/dL Magnesium (1.7-2.2) mg/dL Iron (45-180) ug/dL TIBC (261-462) ug/dL % Saturation (20-55) % Total Bilirubin (0.2-1.3) mg/dL Direct Bilirubin (0.0-0.4) mg/dL AST (17-59) U/L ALT (7-56) U/L Alkaline Phosphatase (38-126) U/L Ammonia (9-33) umol/L Lactate Dehydrogenase 868 H (333-699) U/L Total Creatine Kinase 306 H (35-230) U/L CK-MB (CK-2) (0.0-3.6) ng/mL CK-MB (CK-2) % (2.5-3.0) % Troponin I ng/mL NT-Pro-B Natriuret Pep (0-450) pg/mL Total Protein (5.8-8.3) g/dL Albumin (3.0-4.8) g/dL Globulin gm/dL Albumin/Globulin Ratio (1.1-1.8) Triglycerides (35-160) mg/dL Cholesterol (130-200) mg/dL LDL Cholesterol Direct (0-129) mg/dL HDL Cholesterol (29-60) mg/dL Free T4 (0.78-2.19) ng/dL Thyroxine (T4) (5.5-11.0) ug/dL TSH 3rd Generation (0.46-4.68) mIU/mL Arterial Blood Potassium (3.6-5.2) mmol/L Venous Blood Potassium 4.2 (3.6-5.2) mmol/L Alcohol, Quantitative (0-10) mg/dL 06/24/17 06/24/17 06/24/17 Range/Units 08:15 08:15 07:30 WBC (4.5-11.0) 10^3/ul RBC (3.5-6.1) 10^6/uL Hgb (14.0-18.0) g/dL Hct (42.0-52.0) % MCV (80.0-105.0) fl MCH (25.0-35.0) pg MCHC (31.0-37.0) g/dl RDW (11.5-14.5) % Plt Count (120.0-450.0) 10^3/uL Manual Plt Count 60 L* (120-450) K/mm3 MPV (7.0-11.0) fl Gran % (50.0-68.0) % Lymph % (Auto) (22.0-35.0) % [place] % (Auto) (1.0-6.0) % Eos % (Auto) (1.5-5.0) % Baso % (Auto) (0.0-3.0) % Gran # (1.4-6.5) Lymph # (Auto) (1.2-3.4) [place] # (Auto) (0.1-0.6) Eos # (Auto) (0.0-0.7) Baso # (Auto) (0.0-2.0) K/mm3 pCO2 (35-45) mm/Hg pO2 (80-100) mm/Hg HCO3 (21-28) mmol/L ABG pH (7.35-7.45) ABG Total CO2 (22-28) mmol.L ABG O2 Saturation (95-98) % ABG O2 Content (15-23) ML/dl ABG Base Excess (-2.0-3.0) mmol/L ABG Hemoglobin (11.7-17.4) g/dL ABG Carboxyhemoglobin (0.5-1.5) % POC ABG HHb (Measured) (0-5) % ABG Methemoglobin (0.0-3.0) % ABG O2 Capacity (16-24) mL/dl ABG Potassium (3.6-5.2) mmol/L VBG pH (7.32-7.43) VBG pCO2 (40-60) VBG HCO3 (21-28) mmol/l VBG Total CO2 (22-28) mmol.L VBG O2 Sat (Calc) (40-65) % VBG Base Excess (0.0-2.0) mmol/L VBG Potassium (3.6-5.2) mmol/L Hgb O2 Saturation (95.0-98.0) % Sodium (132-148) mmol/L Chloride (98-107) mmol/L Glucose (75-110) mg/dl Lactate (0.7-2.1) mmol/L Mechanical Rate FiO2 % Tidal Volume Potassium (3.6-5.0) mmol/L Carbon Dioxide (21-33) mmol/L Anion Gap (10-20) BUN (7-21) mg/dL Creatinine (0.8-1.5) mg/dl Est GFR ( Amer) Est GFR (Non-Af Amer) POC Glucose (mg/dL) (65-110) mg/dL Random Glucose (70-110) mg/dL Lactic Acid (0.7-2.1) mmol/L Uric Acid (3.5-8.5) mg/dL Calcium (8.4-10.5) mg/dL Phosphorus (2.5-4.5) mg/dL Magnesium (1.7-2.2) mg/dL Iron (45-180) ug/dL TIBC (261-462) ug/dL % Saturation (20-55) % Total Bilirubin (0.2-1.3) mg/dL Direct Bilirubin (0.0-0.4) mg/dL AST (17-59) U/L ALT (7-56) U/L Alkaline Phosphatase (38-126) U/L Ammonia 31 (9-33) umol/L Lactate Dehydrogenase (333-699) U/L Total Creatine Kinase (35-230) U/L CK-MB (CK-2) (0.0-3.6) ng/mL CK-MB (CK-2) % (2.5-3.0) % Troponin I ng/mL NT-Pro-B Natriuret Pep (0-450) pg/mL Total Protein (5.8-8.3) g/dL Albumin (3.0-4.8) g/dL Globulin gm/dL Albumin/Globulin Ratio (1.1-1.8) Triglycerides (35-160) mg/dL Cholesterol (130-200) mg/dL LDL Cholesterol Direct (0-129) mg/dL HDL Cholesterol (29-60) mg/dL Free T4 1.90 (0.78-2.19) ng/dL Thyroxine (T4) 7.0 (5.5-11.0) ug/dL TSH 3rd Generation 0.26 L (0.46-4.68) mIU/mL Arterial Blood Potassium (3.6-5.2) mmol/L Venous Blood Potassium (3.6-5.2) mmol/L Alcohol, Quantitative (0-10) mg/dL 06/24/17 06/24/17 06/24/17 Range/Units 07:30 07:30 05:46 WBC 11.4 H D (4.5-11.0) 10^3/ul RBC 5.84 (3.5-6.1) 10^6/uL Hgb 19.1 H* (14.0-18.0) g/dL Hct 54.8 H (42.0-52.0) % MCV 93.8 D (80.0-105.0) fl MCH 32.7 (25.0-35.0) pg MCHC 34.9 (31.0-37.0) g/dl RDW 13.9 (11.5-14.5) % Plt Count 59 L (120.0-450.0) 10^3/uL Manual Plt Count (120-450) K/mm3 MPV 12.2 H (7.0-11.0) fl Gran % 78.8 H (50.0-68.0) % Lymph % (Auto) 5.3 L (22.0-35.0) % [place] % (Auto) 15.8 H (1.0-6.0) % Eos % (Auto) 0.0 L (1.5-5.0) % Baso % (Auto) 0.1 (0.0-3.0) % Gran # 8.96 H (1.4-6.5) Lymph # (Auto) 0.6 L (1.2-3.4) [place] # (Auto) 1.8 H (0.1-0.6) Eos # (Auto) 0.0 (0.0-0.7) Baso # (Auto) 0.01 (0.0-2.0) K/mm3 pCO2 (35-45) mm/Hg pO2 (80-100) mm/Hg HCO3 (21-28) mmol/L ABG pH (7.35-7.45) ABG Total CO2 (22-28) mmol.L ABG O2 Saturation (95-98) % ABG O2 Content (15-23) ML/dl ABG Base Excess (-2.0-3.0) mmol/L ABG Hemoglobin (11.7-17.4) g/dL ABG Carboxyhemoglobin (0.5-1.5) % POC ABG HHb (Measured) (0-5) % ABG Methemoglobin (0.0-3.0) % ABG O2 Capacity (16-24) mL/dl ABG Potassium (3.6-5.2) mmol/L VBG pH (7.32-7.43) VBG pCO2 (40-60) VBG HCO3 (21-28) mmol/l VBG Total CO2 (22-28) mmol.L VBG O2 Sat (Calc) (40-65) % VBG Base Excess (0.0-2.0) mmol/L VBG Potassium (3.6-5.2) mmol/L Hgb O2 Saturation (95.0-98.0) % Sodium 145 (132-148) mmol/L Chloride 111 H (98-107) mmol/L Glucose (75-110) mg/dl Lactate (0.7-2.1) mmol/L Mechanical Rate FiO2 % Tidal Volume Potassium 4.7 (3.6-5.0) mmol/L Carbon Dioxide 20 L (21-33) mmol/L Anion Gap 19 (10-20) BUN 29 H (7-21) mg/dL Creatinine 1.2 (0.8-1.5) mg/dl Est GFR ( Amer) > 60 Est GFR (Non-Af Amer) > 60 POC Glucose (mg/dL) 128 H (65-110) mg/dL Random Glucose 133 H (70-110) mg/dL Lactic Acid (0.7-2.1) mmol/L Uric Acid 6.7 (3.5-8.5) mg/dL Calcium 8.7 (8.4-10.5) mg/dL Phosphorus 2.6 (2.5-4.5) mg/dL Magnesium 1.7 (1.7-2.2) mg/dL Iron (45-180) ug/dL TIBC (261-462) ug/dL % Saturation (20-55) % Total Bilirubin 2.6 H (0.2-1.3) mg/dL Direct Bilirubin 1.0 H (0.0-0.4) mg/dL AST 111 H (17-59) U/L ALT 61 H (7-56) U/L Alkaline Phosphatase 65 (38-126) U/L Ammonia (9-33) umol/L Lactate Dehydrogenase 1118 H (333-699) U/L Total Creatine Kinase 285 H (35-230) U/L CK-MB (CK-2) 13.0 H (0.0-3.6) ng/mL CK-MB (CK-2) % 4.6 H (2.5-3.0) % Troponin I 0.14 H* D ng/mL NT-Pro-B Natriuret Pep (0-450) pg/mL Total Protein 6.7 (5.8-8.3) g/dL Albumin 3.2 (3.0-4.8) g/dL Globulin 3.5 gm/dL Albumin/Globulin Ratio 0.9 L (1.1-1.8) Triglycerides 294 H (35-160) mg/dL Cholesterol 155 (130-200) mg/dL LDL Cholesterol Direct 59 (0-129) mg/dL HDL Cholesterol 54 (29-60) mg/dL Free T4 (0.78-2.19) ng/dL Thyroxine (T4) (5.5-11.0) ug/dL TSH 3rd Generation (0.46-4.68) mIU/mL Arterial Blood Potassium (3.6-5.2) mmol/L Venous Blood Potassium (3.6-5.2) mmol/L Alcohol, Quantitative (0-10) mg/dL 06/24/17 06/23/17 06/23/17 Range/Units 05:13 23:55 23:36 WBC (4.5-11.0) 10^3/ul RBC (3.5-6.1) 10^6/uL Hgb (14.0-18.0) g/dL Hct (42.0-52.0) % MCV (80.0-105.0) fl MCH (25.0-35.0) pg MCHC (31.0-37.0) g/dl RDW (11.5-14.5) % Plt Count (120.0-450.0) 10^3/uL Manual Plt Count (120-450) K/mm3 MPV (7.0-11.0) fl Gran % (50.0-68.0) % Lymph % (Auto) (22.0-35.0) % [place] % (Auto) (1.0-6.0) % Eos % (Auto) (1.5-5.0) % Baso % (Auto) (0.0-3.0) % Gran # (1.4-6.5) Lymph # (Auto) (1.2-3.4) [place] # (Auto) (0.1-0.6) Eos # (Auto) (0.0-0.7) Baso # (Auto) (0.0-2.0) K/mm3 pCO2 34 L (35-45) mm/Hg pO2 82.0 (80-100) mm/Hg HCO3 18.8 L (21-28) mmol/L ABG pH 7.35 (7.35-7.45) ABG Total CO2 19.8 L (22-28) mmol.L ABG O2 Saturation 98.6 H (95-98) % ABG O2 Content (15-23) ML/dl ABG Base Excess -6.0 L (-2.0-3.0) mmol/L ABG Hemoglobin (11.7-17.4) g/dL ABG Carboxyhemoglobin (0.5-1.5) % POC ABG HHb (Measured) (0-5) % ABG Methemoglobin (0.0-3.0) % ABG O2 Capacity (16-24) mL/dl ABG Potassium 4.3 (3.6-5.2) mmol/L VBG pH (7.32-7.43) VBG pCO2 (40-60) VBG HCO3 (21-28) mmol/l VBG Total CO2 (22-28) mmol.L VBG O2 Sat (Calc) (40-65) % VBG Base Excess (0.0-2.0) mmol/L VBG Potassium (3.6-5.2) mmol/L Hgb O2 Saturation (95.0-98.0) % Sodium 139.0 (132-148) mmol/L Chloride 110.0 H (98-107) mmol/L Glucose 152 H (75-110) mg/dl Lactate 3.6 H (0.7-2.1) mmol/L Mechanical Rate FiO2 100.0 % Tidal Volume Potassium (3.6-5.0) mmol/L Carbon Dioxide (21-33) mmol/L Anion Gap (10-20) BUN (7-21) mg/dL Creatinine (0.8-1.5) mg/dl Est GFR ( Amer) Est GFR (Non-Af Amer) POC Glucose (mg/dL) 120 H (65-110) mg/dL Random Glucose (70-110) mg/dL Lactic Acid (0.7-2.1) mmol/L Uric Acid (3.5-8.5) mg/dL Calcium (8.4-10.5) mg/dL Phosphorus (2.5-4.5) mg/dL Magnesium (1.7-2.2) mg/dL Iron (45-180) ug/dL TIBC (261-462) ug/dL % Saturation (20-55) % Total Bilirubin (0.2-1.3) mg/dL Direct Bilirubin (0.0-0.4) mg/dL AST (17-59) U/L ALT (7-56) U/L Alkaline Phosphatase (38-126) U/L Ammonia (9-33) umol/L Lactate Dehydrogenase (333-699) U/L Total Creatine Kinase (35-230) U/L CK-MB (CK-2) (0.0-3.6) ng/mL CK-MB (CK-2) % (2.5-3.0) % Troponin I 0.07 D ng/mL NT-Pro-B Natriuret Pep (0-450) pg/mL Total Protein (5.8-8.3) g/dL Albumin (3.0-4.8) g/dL Globulin gm/dL Albumin/Globulin Ratio (1.1-1.8) Triglycerides (35-160) mg/dL Cholesterol (130-200) mg/dL LDL Cholesterol Direct (0-129) mg/dL HDL Cholesterol (29-60) mg/dL Free T4 (0.78-2.19) ng/dL Thyroxine (T4) (5.5-11.0) ug/dL TSH 3rd Generation (0.46-4.68) mIU/mL Arterial Blood Potassium 4.3 (3.6-5.2) mmol/L Venous Blood Potassium (3.6-5.2) mmol/L Alcohol, Quantitative (0-10) mg/dL 06/23/17 06/23/17 06/23/17 Range/Units 23:05 19:55 19:55 WBC (4.5-11.0) 10^3/ul RBC (3.5-6.1) 10^6/uL Hgb (14.0-18.0) g/dL Hct (42.0-52.0) % MCV (80.0-105.0) fl MCH (25.0-35.0) pg MCHC (31.0-37.0) g/dl RDW (11.5-14.5) % Plt Count (120.0-450.0) 10^3/uL Manual Plt Count (120-450) K/mm3 MPV (7.0-11.0) fl Gran % (50.0-68.0) % Lymph % (Auto) (22.0-35.0) % [place] % (Auto) (1.0-6.0) % Eos % (Auto) (1.5-5.0) % Baso % (Auto) (0.0-3.0) % Gran # (1.4-6.5) Lymph # (Auto) (1.2-3.4) [place] # (Auto) (0.1-0.6) Eos # (Auto) (0.0-0.7) Baso # (Auto) (0.0-2.0) K/mm3 pCO2 42 (35-45) mm/Hg pO2 47.0 L (80-100) mm/Hg HCO3 15.7 L (21-28) mmol/L ABG pH 7.18 L* (7.35-7.45) ABG Total CO2 17.0 L (22-28) mmol.L ABG O2 Saturation 90.8 L (95-98) % ABG O2 Content 21.2 (15-23) ML/dl ABG Base Excess -12.3 L (-2.0-3.0) mmol/L ABG Hemoglobin 17.2 (11.7-17.4) g/dL ABG Carboxyhemoglobin 2.3 H (0.5-1.5) % POC ABG HHb (Measured) 8.9 H (0-5) % ABG Methemoglobin 0.9 (0.0-3.0) % ABG O2 Capacity 23.3 (16-24) mL/dl ABG Potassium (3.6-5.2) mmol/L VBG pH (7.32-7.43) VBG pCO2 (40-60) VBG HCO3 (21-28) mmol/l VBG Total CO2 (22-28) mmol.L VBG O2 Sat (Calc) (40-65) % VBG Base Excess (0.0-2.0) mmol/L VBG Potassium (3.6-5.2) mmol/L Hgb O2 Saturation 87.9 L (95.0-98.0) % Sodium (132-148) mmol/L Chloride (98-107) mmol/L Glucose (75-110) mg/dl Lactate (0.7-2.1) mmol/L Mechanical Rate FiO2 70.0 % Tidal Volume Potassium (3.6-5.0) mmol/L Carbon Dioxide (21-33) mmol/L Anion Gap (10-20) BUN (7-21) mg/dL Creatinine (0.8-1.5) mg/dl Est GFR ( Amer) Est GFR (Non-Af Amer) POC Glucose (mg/dL) (65-110) mg/dL Random Glucose (70-110) mg/dL Lactic Acid (0.7-2.1) mmol/L Uric Acid (3.5-8.5) mg/dL Calcium (8.4-10.5) mg/dL Phosphorus (2.5-4.5) mg/dL Magnesium (1.7-2.2) mg/dL Iron 267 H (45-180) ug/dL TIBC 325 (261-462) ug/dL % Saturation 82 H (20-55) % Total Bilirubin (0.2-1.3) mg/dL Direct Bilirubin (0.0-0.4) mg/dL AST (17-59) U/L ALT (7-56) U/L Alkaline Phosphatase (38-126) U/L Ammonia (9-33) umol/L Lactate Dehydrogenase (333-699) U/L Total Creatine Kinase (35-230) U/L CK-MB (CK-2) (0.0-3.6) ng/mL CK-MB (CK-2) % (2.5-3.0) % Troponin I ng/mL NT-Pro-B Natriuret Pep (0-450) pg/mL Total Protein (5.8-8.3) g/dL Albumin (3.0-4.8) g/dL Globulin gm/dL Albumin/Globulin Ratio (1.1-1.8) Triglycerides (35-160) mg/dL Cholesterol (130-200) mg/dL LDL Cholesterol Direct (0-129) mg/dL HDL Cholesterol (29-60) mg/dL Free T4 2.23 H (0.78-2.19) ng/dL Thyroxine (T4) (5.5-11.0) ug/dL TSH 3rd Generation 1.29 (0.46-4.68) mIU/mL Arterial Blood Potassium (3.6-5.2) mmol/L Venous Blood Potassium (3.6-5.2) mmol/L Alcohol, Quantitative (0-10) mg/dL 06/23/17 06/23/17 06/23/17 Range/Units 19:55 19:50 19:40 WBC (4.5-11.0) 10^3/ul RBC (3.5-6.1) 10^6/uL Hgb (14.0-18.0) g/dL Hct (42.0-52.0) % MCV (80.0-105.0) fl MCH (25.0-35.0) pg MCHC (31.0-37.0) g/dl RDW (11.5-14.5) % Plt Count (120.0-450.0) 10^3/uL Manual Plt Count (120-450) K/mm3 MPV (7.0-11.0) fl Gran % (50.0-68.0) % Lymph % (Auto) (22.0-35.0) % [place] % (Auto) (1.0-6.0) % Eos % (Auto) (1.5-5.0) % Baso % (Auto) (0.0-3.0) % Gran # (1.4-6.5) Lymph # (Auto) (1.2-3.4) [place] # (Auto) (0.1-0.6) Eos # (Auto) (0.0-0.7) Baso # (Auto) (0.0-2.0) K/mm3 pCO2 (35-45) mm/Hg pO2 29 L (80-100) mm/Hg HCO3 (21-28) mmol/L ABG pH (7.35-7.45) ABG Total CO2 (22-28) mmol.L ABG O2 Saturation (95-98) % ABG O2 Content (15-23) ML/dl ABG Base Excess (-2.0-3.0) mmol/L ABG Hemoglobin (11.7-17.4) g/dL ABG Carboxyhemoglobin (0.5-1.5) % POC ABG HHb (Measured) (0-5) % ABG Methemoglobin (0.0-3.0) % ABG O2 Capacity (16-24) mL/dl ABG Potassium (3.6-5.2) mmol/L VBG pH 7.11 L* (7.32-7.43) VBG pCO2 58.0 (40-60) VBG HCO3 18.4 L (21-28) mmol/l VBG Total CO2 20.2 L (22-28) mmol.L VBG O2 Sat (Calc) 64.8 (40-65) % VBG Base Excess -11.6 L (0.0-2.0) mmol/L VBG Potassium 6.0 H (3.6-5.2) mmol/L Hgb O2 Saturation (95.0-98.0) % Sodium 140.0 (132-148) mmol/L Chloride 104.0 (98-107) mmol/L Glucose 123 H (75-110) mg/dl Lactate 5.6 H* (0.7-2.1) mmol/L Mechanical Rate FiO2 21.0 % Tidal Volume Potassium (3.6-5.0) mmol/L Carbon Dioxide (21-33) mmol/L Anion Gap (10-20) BUN (7-21) mg/dL Creatinine (0.8-1.5) mg/dl Est GFR ( Amer) Est GFR (Non-Af Amer) POC Glucose (mg/dL) (65-110) mg/dL Random Glucose (70-110) mg/dL Lactic Acid (0.7-2.1) mmol/L Uric Acid (3.5-8.5) mg/dL Calcium (8.4-10.5) mg/dL Phosphorus (2.5-4.5) mg/dL Magnesium (1.7-2.2) mg/dL Iron (45-180) ug/dL TIBC (261-462) ug/dL % Saturation (20-55) % Total Bilirubin (0.2-1.3) mg/dL Direct Bilirubin (0.0-0.4) mg/dL AST (17-59) U/L ALT (7-56) U/L Alkaline Phosphatase (38-126) U/L Ammonia 56 H (9-33) umol/L Lactate Dehydrogenase (333-699) U/L Total Creatine Kinase (35-230) U/L CK-MB (CK-2) (0.0-3.6) ng/mL CK-MB (CK-2) % (2.5-3.0) % Troponin I ng/mL NT-Pro-B Natriuret Pep (0-450) pg/mL Total Protein (5.8-8.3) g/dL Albumin (3.0-4.8) g/dL Globulin gm/dL Albumin/Globulin Ratio (1.1-1.8) Triglycerides (35-160) mg/dL Cholesterol (130-200) mg/dL LDL Cholesterol Direct (0-129) mg/dL HDL Cholesterol (29-60) mg/dL Free T4 (0.78-2.19) ng/dL Thyroxine (T4) (5.5-11.0) ug/dL TSH 3rd Generation (0.46-4.68) mIU/mL Arterial Blood Potassium (3.6-5.2) mmol/L Venous Blood Potassium 6.0 H (3.6-5.2) mmol/L Alcohol, Quantitative < 10 (0-10) mg/dL 06/23/17 06/23/17 Range/Units 18:25 16:50 WBC (4.5-11.0) 10^3/ul RBC (3.5-6.1) 10^6/uL Hgb (14.0-18.0) g/dL Hct (42.0-52.0) % MCV (80.0-105.0) fl MCH (25.0-35.0) pg MCHC (31.0-37.0) g/dl RDW (11.5-14.5) % Plt Count (120.0-450.0) 10^3/uL Manual Plt Count (120-450) K/mm3 MPV (7.0-11.0) fl Gran % (50.0-68.0) % Lymph % (Auto) (22.0-35.0) % [place] % (Auto) (1.0-6.0) % Eos % (Auto) (1.5-5.0) % Baso % (Auto) (0.0-3.0) % Gran # (1.4-6.5) Lymph # (Auto) (1.2-3.4) [place] # (Auto) (0.1-0.6) Eos # (Auto) (0.0-0.7) Baso # (Auto) (0.0-2.0) K/mm3 pCO2 80 H* (35-45) mm/Hg pO2 262.0 H (80-100) mm/Hg HCO3 16.4 L (21-28) mmol/L ABG pH 6.92 L* (7.35-7.45) ABG Total CO2 18.9 L (22-28) mmol.L ABG O2 Saturation 100.4 H (95-98) % ABG O2 Content (15-23) ML/dl ABG Base Excess -17.4 L (-2.0-3.0) mmol/L ABG Hemoglobin (11.7-17.4) g/dL ABG Carboxyhemoglobin (0.5-1.5) % POC ABG HHb (Measured) (0-5) % ABG Methemoglobin (0.0-3.0) % ABG O2 Capacity (16-24) mL/dl ABG Potassium 3.7 (3.6-5.2) mmol/L VBG pH (7.32-7.43) VBG pCO2 (40-60) VBG HCO3 (21-28) mmol/l VBG Total CO2 (22-28) mmol.L VBG O2 Sat (Calc) (40-65) % VBG Base Excess (0.0-2.0) mmol/L VBG Potassium (3.6-5.2) mmol/L Hgb O2 Saturation (95.0-98.0) % Sodium 145 141.0 (132-148) mmol/L Chloride 110 H 114.0 H (98-107) mmol/L Glucose 103 (75-110) mg/dl Lactate 5.4 H* (0.7-2.1) mmol/L Mechanical Rate 16 FiO2 100.0 % Tidal Volume 450 Potassium 5.9 H* D (3.6-5.0) mmol/L Carbon Dioxide 22 (21-33) mmol/L Anion Gap 19 (10-20) BUN 24 H (7-21) mg/dL Creatinine 1.3 (0.8-1.5) mg/dl Est GFR ( Amer) > 60 Est GFR (Non-Af Amer) 56 POC Glucose (mg/dL) (65-110) mg/dL Random Glucose 109 (70-110) mg/dL Lactic Acid (0.7-2.1) mmol/L Uric Acid (3.5-8.5) mg/dL Calcium 8.6 (8.4-10.5) mg/dL Phosphorus 6.9 H (2.5-4.5) mg/dL Magnesium 1.9 (1.7-2.2) mg/dL Iron (45-180) ug/dL TIBC (261-462) ug/dL % Saturation (20-55) % Total Bilirubin 2.0 H (0.2-1.3) mg/dL Direct Bilirubin 1.0 H (0.0-0.4) mg/dL AST 96 H (17-59) U/L ALT 48 (7-56) U/L Alkaline Phosphatase 99 (38-126) U/L Ammonia (9-33) umol/L Lactate Dehydrogenase 1266 H (333-699) U/L Total Creatine Kinase 244 H (35-230) U/L CK-MB (CK-2) 8.7 H (0.0-3.6) ng/mL CK-MB (CK-2) % 3.6 H (2.5-3.0) % Troponin I 0.03 ng/mL NT-Pro-B Natriuret Pep 1640 H (0-450) pg/mL Total Protein 6.9 (5.8-8.3) g/dL Albumin 3.4 (3.0-4.8) g/dL Globulin 3.5 gm/dL Albumin/Globulin Ratio 1.0 L (1.1-1.8) Triglycerides (35-160) mg/dL Cholesterol (130-200) mg/dL LDL Cholesterol Direct (0-129) mg/dL HDL Cholesterol (29-60) mg/dL Free T4 (0.78-2.19) ng/dL Thyroxine (T4) (5.5-11.0) ug/dL TSH 3rd Generation (0.46-4.68) mIU/mL Arterial Blood Potassium 3.7 (3.6-5.2) mmol/L Venous Blood Potassium (3.6-5.2) mmol/L Alcohol, Quantitative (0-10) mg/dL Laboratory Results - last 24 hr 06/23/17 06/23/17 06/23/17 16:50 18:25 19:40 WBC RBC Hgb Hct MCV MCH MCHC RDW Plt Count Manual Plt Count MPV Gran % Lymph % (Auto) [place] % (Auto) Eos % (Auto) Baso % (Auto) Gran # Lymph # (Auto) [place] # (Auto) Eos # (Auto) Baso # (Auto) pCO2 80 H* pO2 262.0 H HCO3 16.4 L ABG pH 6.92 L* ABG Total CO2 18.9 L ABG O2 Saturation 100.4 H ABG O2 Content ABG Base Excess -17.4 L ABG Hemoglobin ABG Carboxyhemoglobin POC ABG HHb (Measured) ABG Methemoglobin ABG O2 Capacity ABG Potassium 3.7 VBG pH VBG pCO2 VBG HCO3 VBG Total CO2 VBG O2 Sat (Calc) VBG Base Excess VBG Potassium Hgb O2 Saturation Sodium 141.0 145 Chloride 114.0 H 110 H Glucose 103 Lactate 5.4 H* Mechanical Rate 16 FiO2 100.0 Tidal Volume 450 Potassium 5.9 H* D Carbon Dioxide 22 Anion Gap 19 BUN 24 H Creatinine 1.3 Est GFR ( Amer) > 60 Est GFR (Non-Af Amer) 56 POC Glucose (mg/dL) Random Glucose 109 Lactic Acid Uric Acid Calcium 8.6 Phosphorus 6.9 H Magnesium 1.9 Iron TIBC % Saturation Total Bilirubin 2.0 H Direct Bilirubin 1.0 H AST 96 H ALT 48 Alkaline Phosphatase 99 Ammonia Lactate Dehydrogenase 1266 H Total Creatine Kinase 244 H CK-MB (CK-2) 8.7 H CK-MB (CK-2) % 3.6 H Troponin I 0.03 NT-Pro-B Natriuret Pep 1640 H Total Protein 6.9 Albumin 3.4 Globulin 3.5 Albumin/Globulin Ratio 1.0 L Triglycerides Cholesterol LDL Cholesterol Direct HDL Cholesterol Free T4 Thyroxine (T4) TSH 3rd Generation Arterial Blood Potassium 3.7 Venous Blood Potassium Alcohol, Quantitative < 10 06/23/17 06/23/17 06/23/17 19:50 19:55 19:55 WBC RBC Hgb Hct MCV MCH MCHC RDW Plt Count Manual Plt Count MPV Gran % Lymph % (Auto) [place] % (Auto) Eos % (Auto) Baso % (Auto) Gran # Lymph # (Auto) [place] # (Auto) Eos # (Auto) Baso # (Auto) pCO2 pO2 29 L HCO3 ABG pH ABG Total CO2 ABG O2 Saturation ABG O2 Content ABG Base Excess ABG Hemoglobin ABG Carboxyhemoglobin POC ABG HHb (Measured) ABG Methemoglobin ABG O2 Capacity ABG Potassium VBG pH 7.11 L* VBG pCO2 58.0 VBG HCO3 18.4 L VBG Total CO2 20.2 L VBG O2 Sat (Calc) 64.8 VBG Base Excess -11.6 L VBG Potassium 6.0 H Hgb O2 Saturation Sodium 140.0 Chloride 104.0 Glucose 123 H Lactate 5.6 H* Mechanical Rate FiO2 21.0 Tidal Volume Potassium Carbon Dioxide Anion Gap BUN Creatinine Est GFR ( Amer) Est GFR (Non-Af Amer) POC Glucose (mg/dL) Random Glucose Lactic Acid Uric Acid Calcium Phosphorus Magnesium Iron 267 H TIBC 325 % Saturation 82 H Total Bilirubin Direct Bilirubin AST ALT Alkaline Phosphatase Ammonia 56 H Lactate Dehydrogenase Total Creatine Kinase CK-MB (CK-2) CK-MB (CK-2) % Troponin I NT-Pro-B Natriuret Pep Total Protein Albumin Globulin Albumin/Globulin Ratio Triglycerides Cholesterol LDL Cholesterol Direct HDL Cholesterol Free T4 Thyroxine (T4) TSH 3rd Generation Arterial Blood Potassium Venous Blood Potassium 6.0 H Alcohol, Quantitative 06/23/17 06/23/17 06/23/17 19:55 23:05 23:36 WBC RBC Hgb Hct MCV MCH MCHC RDW Plt Count Manual Plt Count MPV Gran % Lymph % (Auto) [place] % (Auto) Eos % (Auto) Baso % (Auto) Gran # Lymph # (Auto) [place] # (Auto) Eos # (Auto) Baso # (Auto) pCO2 42 pO2 47.0 L HCO3 15.7 L ABG pH 7.18 L* ABG Total CO2 17.0 L ABG O2 Saturation 90.8 L ABG O2 Content 21.2 ABG Base Excess -12.3 L ABG Hemoglobin 17.2 ABG Carboxyhemoglobin 2.3 H POC ABG HHb (Measured) 8.9 H ABG Methemoglobin 0.9 ABG O2 Capacity 23.3 ABG Potassium VBG pH VBG pCO2 VBG HCO3 VBG Total CO2 VBG O2 Sat (Calc) VBG Base Excess VBG Potassium Hgb O2 Saturation 87.9 L Sodium Chloride Glucose Lactate Mechanical Rate FiO2 70.0 Tidal Volume Potassium Carbon Dioxide Anion Gap BUN Creatinine Est GFR ( Amer) Est GFR (Non-Af Amer) POC Glucose (mg/dL) 120 H Random Glucose Lactic Acid Uric Acid Calcium Phosphorus Magnesium Iron TIBC % Saturation Total Bilirubin Direct Bilirubin AST ALT Alkaline Phosphatase Ammonia Lactate Dehydrogenase Total Creatine Kinase CK-MB (CK-2) CK-MB (CK-2) % Troponin I NT-Pro-B Natriuret Pep Total Protein Albumin Globulin Albumin/Globulin Ratio Triglycerides Cholesterol LDL Cholesterol Direct HDL Cholesterol Free T4 2.23 H Thyroxine (T4) TSH 3rd Generation 1.29 Arterial Blood Potassium Venous Blood Potassium Alcohol, Quantitative 06/23/17 06/24/17 06/24/17 23:55 05:13 05:46 WBC RBC Hgb Hct MCV MCH MCHC RDW Plt Count Manual Plt Count MPV Gran % Lymph % (Auto) [place] % (Auto) Eos % (Auto) Baso % (Auto) Gran # Lymph # (Auto) [place] # (Auto) Eos # (Auto) Baso # (Auto) pCO2 34 L pO2 82.0 HCO3 18.8 L ABG pH 7.35 ABG Total CO2 19.8 L ABG O2 Saturation 98.6 H ABG O2 Content ABG Base Excess -6.0 L ABG Hemoglobin ABG Carboxyhemoglobin POC ABG HHb (Measured) ABG Methemoglobin ABG O2 Capacity ABG Potassium 4.3 VBG pH VBG pCO2 VBG HCO3 VBG Total CO2 VBG O2 Sat (Calc) VBG Base Excess VBG Potassium Hgb O2 Saturation Sodium 139.0 Chloride 110.0 H Glucose 152 H Lactate 3.6 H Mechanical Rate FiO2 100.0 Tidal Volume Potassium Carbon Dioxide Anion Gap BUN Creatinine Est GFR ( Amer) Est GFR (Non-Af Amer) POC Glucose (mg/dL) 128 H Random Glucose Lactic Acid Uric Acid Calcium Phosphorus Magnesium Iron TIBC % Saturation Total Bilirubin Direct Bilirubin AST ALT Alkaline Phosphatase Ammonia Lactate Dehydrogenase Total Creatine Kinase CK-MB (CK-2) CK-MB (CK-2) % Troponin I 0.07 D NT-Pro-B Natriuret Pep Total Protein Albumin Globulin Albumin/Globulin Ratio Triglycerides Cholesterol LDL Cholesterol Direct HDL Cholesterol Free T4 Thyroxine (T4) TSH 3rd Generation Arterial Blood Potassium 4.3 Venous Blood Potassium Alcohol, Quantitative 06/24/17 06/24/17 06/24/17 07:30 07:30 07:30 WBC 11.4 H D RBC 5.84 Hgb 19.1 H* Hct 54.8 H MCV 93.8 D MCH 32.7 MCHC 34.9 RDW 13.9 Plt Count 59 L Manual Plt Count 60 L* MPV 12.2 H Gran % 78.8 H Lymph % (Auto) 5.3 L [place] % (Auto) 15.8 H Eos % (Auto) 0.0 L Baso % (Auto) 0.1 Gran # 8.96 H Lymph # (Auto) 0.6 L [place] # (Auto) 1.8 H Eos # (Auto) 0.0 Baso # (Auto) 0.01 pCO2 pO2 HCO3 ABG pH ABG Total CO2 ABG O2 Saturation ABG O2 Content ABG Base Excess ABG Hemoglobin ABG Carboxyhemoglobin POC ABG HHb (Measured) ABG Methemoglobin ABG O2 Capacity ABG Potassium VBG pH VBG pCO2 VBG HCO3 VBG Total CO2 VBG O2 Sat (Calc) VBG Base Excess VBG Potassium Hgb O2 Saturation Sodium 145 Chloride 111 H Glucose Lactate Mechanical Rate FiO2 Tidal Volume Potassium 4.7 Carbon Dioxide 20 L Anion Gap 19 BUN 29 H Creatinine 1.2 Est GFR ( Amer) > 60 Est GFR (Non-Af Amer) > 60 POC Glucose (mg/dL) Random Glucose 133 H Lactic Acid Uric Acid 6.7 Calcium 8.7 Phosphorus 2.6 Magnesium 1.7 Iron TIBC % Saturation Total Bilirubin 2.6 H Direct Bilirubin 1.0 H AST 111 H ALT 61 H Alkaline Phosphatase 65 Ammonia Lactate Dehydrogenase 1118 H Total Creatine Kinase 285 H CK-MB (CK-2) 13.0 H CK-MB (CK-2) % 4.6 H Troponin I 0.14 H* D NT-Pro-B Natriuret Pep Total Protein 6.7 Albumin 3.2 Globulin 3.5 Albumin/Globulin Ratio 0.9 L Triglycerides 294 H Cholesterol 155 LDL Cholesterol Direct 59 HDL Cholesterol 54 Free T4 Thyroxine (T4) TSH 3rd Generation Arterial Blood Potassium Venous Blood Potassium Alcohol, Quantitative 06/24/17 06/24/17 06/24/17 08:15 08:15 08:15 WBC RBC Hgb Hct MCV MCH MCHC RDW Plt Count Manual Plt Count MPV Gran % Lymph % (Auto) [place] % (Auto) Eos % (Auto) Baso % (Auto) Gran # Lymph # (Auto) [place] # (Auto) Eos # (Auto) Baso # (Auto) pCO2 pO2 HCO3 ABG pH ABG Total CO2 ABG O2 Saturation ABG O2 Content ABG Base Excess ABG Hemoglobin ABG Carboxyhemoglobin POC ABG HHb (Measured) ABG Methemoglobin ABG O2 Capacity ABG Potassium VBG pH VBG pCO2 VBG HCO3 VBG Total CO2 VBG O2 Sat (Calc) VBG Base Excess VBG Potassium Hgb O2 Saturation Sodium Chloride Glucose Lactate Mechanical Rate FiO2 Tidal Volume Potassium Carbon Dioxide Anion Gap BUN Creatinine Est GFR ( Amer) Est GFR (Non-Af Amer) POC Glucose (mg/dL) Random Glucose Lactic Acid 4.2 H* Uric Acid Calcium Phosphorus Magnesium Iron TIBC % Saturation Total Bilirubin Direct Bilirubin AST ALT Alkaline Phosphatase Ammonia 31 Lactate Dehydrogenase Total Creatine Kinase CK-MB (CK-2) CK-MB (CK-2) % Troponin I NT-Pro-B Natriuret Pep Total Protein Albumin Globulin Albumin/Globulin Ratio Triglycerides Cholesterol LDL Cholesterol Direct HDL Cholesterol Free T4 1.90 Thyroxine (T4) 7.0 TSH 3rd Generation 0.26 L Arterial Blood Potassium Venous Blood Potassium Alcohol, Quantitative 06/24/17 06/24/17 11:30 11:30 WBC RBC Hgb Hct MCV MCH MCHC RDW Plt Count Manual Plt Count MPV Gran % Lymph % (Auto) [place] % (Auto) Eos % (Auto) Baso % (Auto) Gran # Lymph # (Auto) [place] # (Auto) Eos # (Auto) Baso # (Auto) pCO2 pO2 50 HCO3 ABG pH ABG Total CO2 ABG O2 Saturation ABG O2 Content ABG Base Excess ABG Hemoglobin ABG Carboxyhemoglobin POC ABG HHb (Measured) ABG Methemoglobin ABG O2 Capacity ABG Potassium VBG pH 7.22 L VBG pCO2 54.0 VBG HCO3 22.1 VBG Total CO2 23.8 VBG O2 Sat (Calc) 87.3 H VBG Base Excess -6.1 L VBG Potassium 4.2 Hgb O2 Saturation Sodium 140.0 Chloride 110.0 H Glucose 151 H Lactate 4.0 H* Mechanical Rate FiO2 21.0 Tidal Volume Potassium Carbon Dioxide Anion Gap BUN Creatinine Est GFR ( Amer) Est GFR (Non-Af Amer) POC Glucose (mg/dL) Random Glucose Lactic Acid Uric Acid Calcium Phosphorus Magnesium Iron TIBC % Saturation Total Bilirubin Direct Bilirubin AST ALT Alkaline Phosphatase Ammonia Lactate Dehydrogenase 868 H Total Creatine Kinase 306 H CK-MB (CK-2) CK-MB (CK-2) % Troponin I NT-Pro-B Natriuret Pep Total Protein Albumin Globulin Albumin/Globulin Ratio Triglycerides Cholesterol LDL Cholesterol Direct HDL Cholesterol Free T4 Thyroxine (T4) TSH 3rd Generation Arterial Blood Potassium Venous Blood Potassium 4.2 Alcohol, Quantitative EKG/Cardiology Studies: Cardiology / EKG Studies 06/23/17 15:22 EKG [ELECTROCARDIOGRAM] Stat Comment: Reason For Exam: CARDIAC ARREST 06/23/17 18:45 EKG [ELECTROCARDIOGRAM] Stat Comment: Reason For Exam: CARDIAC ARREST 06/24/17 07:26 ELECTROCARDIOGRAM Stat Comment: Reason For Exam: HYPOTHERMIA 06/25/17 07:00 ELECTROCARDIOGRAM DAILY Comment: Reason For Exam: HYPOTHERMIA 06/26/17 07:00 ELECTROCARDIOGRAM DAILY Comment: Reason For Exam: HYPOTHERMIA 06/27/17 07:00 ELECTROCARDIOGRAM DAILY Comment: Reason For Exam: HYPOTHERMIA Assessment/Plan - Assessment and Plan (Free Text) Plan: Patient seen and examined with resident, agree with note with following additions/exceptions: Patient is 66yo male with PMHx of Hep C s/p harvoni treatment, EtOh abuse, found unconscious at home with window down, intubated in the field, subseuqently had PEA arrest in the field given Epi x 2, ROSC obtained. Patient was initially hypothermic 83C, warmed up to 95, patient then awakened, opened eyes, started becoming combative, subsequently rewarmed to 97C. Currently afebrile, comfortable on PRVC. Bradycardic and hypotensive, started on Dopamine drip. PICC line to be placed by PICC team as per primary team. CT head yesterday negative. CT chest w/o contrast today with bilaterla Lower Lobe infiltrates. Pt with A-a gradient on ABG likely 2/2 PNA. Hypothermia, severem resolved s/p Cardiac Arrest, s/p ROSC Hypercapnic resp failure Erythrocytosis Hep C EtOH abuse Dehydration Severe Sepsis PNA Recommend: - cont with vent support, low tidal vol ventilation, CXR with acceptable ETT position, follow up official CT chest read - broad spectrum antibiotics, Vanco, Zosyn, Azithro - check UA, UCx, BCx, Procal - ECHO - Cont with Dopamine 5mcg/kg/min, may add Levoped if needed - PICC line or TLC - neuro consult - cardiology consult - obtain iron studies, check ferritin - Check TSH - stress dose steroids - IVF hydration - NPO - GI ppx - DVT ppx - monitor in MICU Critical care time 40 minutes
--- NOTE | 2017-06-24 10:15 | CARD ---
APPROVED REPORT EKG Measurement Heart [id number] <Conclusion> Junctional Rythm Rate 70 per minute. Nonspecific intraventricular block ST_T Changes.
--- NOTE | 2017-06-24 10:20 | CP.PCM.CON ---
History of Present Illness - History of Present Illness History of Present Illness: 66 year old male with PMH of chronic active Hepatitis C S/P treatment with [facility], history of substance abuse, including ethanol abuse was found unresponsive at home by EMT services and the patient was intubated in the field. When he arrived in the ED, he was placed on the ventilator and had an episode of PEA which needed ACLS and resuscitation. He is now in the ICU and is found to be persistently hypothermic with elevated WBC count. Infectious diseases consult is requested to further evaluate and manage. ROS is unobtainable because the patient is intubated and sedated. He now has a normal body temperature. Review of Systems - Review of Systems All systems: reviewed and no additional remarkable complaints except (as per HPI ) Past Patient History - Infectious Disease Hx of Infectious Diseases: None - Past Social History Smoking Status: Unknown If Ever Smoked - ENDOCRINE/METABOLIC Hx Diabetes Mellitus Type 2: Yes - HEMATOLOGICAL/ONCOLOGICAL Hx Hepatitis C: Yes - MUSCULOSKELETAL/RHEUMATOLOGICAL Hx Falls: No - PSYCHIATRIC Hx Substance Use: No (Unknown) - SURGICAL HISTORY Hx Surgeries: No (Unable to obtain) Meds Allergies/Adverse Reactions: Allergies Allergy/AdvReac Type Severity Reaction Status Date / Time Unobtainable Allergy Verified 06/23/17 15:24 - Medications Medications: Current Medications Heparin Sodium (Porcine) (Heparin) 5,000 units SC Q12 PETRA PRN Reason: Protocol Vancomycin HCl (Vancomycin 1gm) 1 gm in 250 mls @ 167 mls/hr IVPB Q12H PETRA PRN Reason: Protocol Last Admin: 06/24/17 03:30 Dose: 167 mls/hr Propofol (Diprivan) 1,000 mg in 100 mls @ 2.177 mls/hr IV .Q24H PRN; Protocol; 5 MCG/KG/MIN PRN Reason: TITRATE PER MD ORDER Last Titration: 06/24/17 08:06 Dose: 30 mcg/kg/min, 13.064 mls/hr Dopamine HCl/Dextrose (Dopamine 400mg/250ml D5w) 400 mg in 250 mls @ 13.608 mls /hr IV .[id number] PRN; Protocol; 5 MCG/KG/MIN PRN Reason: TITRATE PER MD ORDER Last Titration: 06/24/17 08:05 Dose: 12.5 mcg/kg/min, 34.02 mls/hr Piperacillin Sod/Tazobactam Sod (Zosyn 3.375 In Ns 100ml) 100 mls @ 200 mls/hr IVPB Q6 PETRA PRN Reason: Protocol Stop: 06/24/17 18:29 Sodium Chloride (Sodium Chloride 0.9%) 1,000 mls @ 125 mls/hr IV .Q8H PETRA Insulin Human Lispro (Humalog Low) 0 units SC ACHS PETRA PRN Reason: Protocol Last Admin: 06/24/17 07:55 Dose: Not Given Pantoprazole Sodium (Protonix Inj) 40 mg IVP DAILY [facility] Physical Exam - Constitutional Appears: Chronically Ill, Other (intubated and sedated) - Head Exam Head Exam: NORMAL INSPECTION - ENT Exam Additional comments: ET tube in place - Respiratory Exam Respiratory Exam: Decreased Breath Sounds. absent: Rales - Cardiovascular Exam Cardiovascular Exam: +S1, +S2 - GI/Abdominal Exam GI & Abdominal Exam: Soft. absent: Tenderness Results - Vital Signs Recent Vital Signs: Last Vital Signs Temp 96.3 F L 06/24/17 08:04 Pulse 62 06/24/17 08:04 Resp 24 06/23/17 22:30 BP 92/60 L 06/24/17 08:04 Pulse Ox 78 L 06/24/17 08:04 - Labs Result Diagrams: 06/24/17 07:30 06/24/17 07:30 Labs: Laboratory Results - last 24 hr 06/23/17 06/23/17 06/23/17 16:50 18:25 19:40 WBC RBC Hgb Hct MCV MCH MCHC RDW Plt Count MPV Gran % Lymph % (Auto) [place] % (Auto) Eos % (Auto) Baso % (Auto) Gran # Lymph # (Auto) [place] # (Auto) Eos # (Auto) Baso # (Auto) pCO2 80 H* pO2 262.0 H HCO3 16.4 L ABG pH 6.92 L* ABG Total CO2 18.9 L ABG O2 Saturation 100.4 H ABG O2 Content ABG Base Excess -17.4 L ABG Hemoglobin ABG Carboxyhemoglobin POC ABG HHb (Measured) ABG Methemoglobin ABG O2 Capacity ABG Potassium 3.7 VBG pH VBG pCO2 VBG HCO3 VBG Total CO2 VBG O2 Sat (Calc) VBG Base Excess VBG Potassium Hgb O2 Saturation Sodium 141.0 145 Chloride 114.0 H 110 H Glucose 103 Lactate 5.4 H* Mechanical Rate 16 FiO2 100.0 Tidal Volume 450 Potassium 5.9 H* D Carbon Dioxide 22 Anion Gap 19 BUN 24 H Creatinine 1.3 Est GFR ( Amer) > 60 Est GFR (Non-Af Amer) 56 POC Glucose (mg/dL) Random Glucose 109 Uric Acid Calcium 8.6 Phosphorus 6.9 H Magnesium 1.9 Iron TIBC % Saturation Total Bilirubin 2.0 H Direct Bilirubin 1.0 H AST 96 H ALT 48 Alkaline Phosphatase 99 Ammonia Lactate Dehydrogenase 1266 H Total Creatine Kinase 244 H CK-MB (CK-2) 8.7 H CK-MB (CK-2) % 3.6 H Troponin I 0.03 NT-Pro-B Natriuret Pep 1640 H Total Protein 6.9 Albumin 3.4 Globulin 3.5 Albumin/Globulin Ratio 1.0 L Triglycerides Cholesterol LDL Cholesterol Direct HDL Cholesterol Free T4 TSH 3rd Generation Arterial Blood Potassium 3.7 Venous Blood Potassium Alcohol, Quantitative < 10 06/23/17 06/23/17 06/23/17 19:50 19:55 19:55 WBC RBC Hgb Hct MCV MCH MCHC RDW Plt Count MPV Gran % Lymph % (Auto) [place] % (Auto) Eos % (Auto) Baso % (Auto) Gran # Lymph # (Auto) [place] # (Auto) Eos # (Auto) Baso # (Auto) pCO2 pO2 29 L HCO3 ABG pH ABG Total CO2 ABG O2 Saturation ABG O2 Content ABG Base Excess ABG Hemoglobin ABG Carboxyhemoglobin POC ABG HHb (Measured) ABG Methemoglobin ABG O2 Capacity ABG Potassium VBG pH 7.11 L* VBG pCO2 58.0 VBG HCO3 18.4 L VBG Total CO2 20.2 L VBG O2 Sat (Calc) 64.8 VBG Base Excess -11.6 L VBG Potassium 6.0 H Hgb O2 Saturation Sodium 140.0 Chloride 104.0 Glucose 123 H Lactate 5.6 H* Mechanical Rate FiO2 21.0 Tidal Volume Potassium Carbon Dioxide Anion Gap BUN Creatinine Est GFR ( Amer) Est GFR (Non-Af Amer) POC Glucose (mg/dL) Random Glucose Uric Acid Calcium Phosphorus Magnesium Iron 267 H TIBC 325 % Saturation 82 H Total Bilirubin Direct Bilirubin AST ALT Alkaline Phosphatase Ammonia 56 H Lactate Dehydrogenase Total Creatine Kinase CK-MB (CK-2) CK-MB (CK-2) % Troponin I NT-Pro-B Natriuret Pep Total Protein Albumin Globulin Albumin/Globulin Ratio Triglycerides Cholesterol LDL Cholesterol Direct HDL Cholesterol Free T4 TSH 3rd Generation Arterial Blood Potassium Venous Blood Potassium 6.0 H Alcohol, Quantitative 06/23/17 06/23/17 06/23/17 19:55 23:05 23:36 WBC RBC Hgb Hct MCV MCH MCHC RDW Plt Count MPV Gran % Lymph % (Auto) [place] % (Auto) Eos % (Auto) Baso % (Auto) Gran # Lymph # (Auto) [place] # (Auto) Eos # (Auto) Baso # (Auto) pCO2 42 pO2 47.0 L HCO3 15.7 L ABG pH 7.18 L* ABG Total CO2 17.0 L ABG O2 Saturation 90.8 L ABG O2 Content 21.2 ABG Base Excess -12.3 L ABG Hemoglobin 17.2 ABG Carboxyhemoglobin 2.3 H POC ABG HHb (Measured) 8.9 H ABG Methemoglobin 0.9 ABG O2 Capacity 23.3 ABG Potassium VBG pH VBG pCO2 VBG HCO3 VBG Total CO2 VBG O2 Sat (Calc) VBG Base Excess VBG Potassium Hgb O2 Saturation 87.9 L Sodium Chloride Glucose Lactate Mechanical Rate FiO2 70.0 Tidal Volume Potassium Carbon Dioxide Anion Gap BUN Creatinine Est GFR ( Amer) Est GFR (Non-Af Amer) POC Glucose (mg/dL) 120 H Random Glucose Uric Acid Calcium Phosphorus Magnesium Iron TIBC % Saturation Total Bilirubin Direct Bilirubin AST ALT Alkaline Phosphatase Ammonia Lactate Dehydrogenase Total Creatine Kinase CK-MB (CK-2) CK-MB (CK-2) % Troponin I NT-Pro-B Natriuret Pep Total Protein Albumin Globulin Albumin/Globulin Ratio Triglycerides Cholesterol LDL Cholesterol Direct HDL Cholesterol Free T4 2.23 H TSH 3rd Generation 1.29 Arterial Blood Potassium Venous Blood Potassium Alcohol, Quantitative 06/23/17 06/24/17 06/24/17 23:55 05:13 05:46 WBC RBC Hgb Hct MCV MCH MCHC RDW Plt Count MPV Gran % Lymph % (Auto) [place] % (Auto) Eos % (Auto) Baso % (Auto) Gran # Lymph # (Auto) [place] # (Auto) Eos # (Auto) Baso # (Auto) pCO2 34 L pO2 82.0 HCO3 18.8 L ABG pH 7.35 ABG Total CO2 19.8 L ABG O2 Saturation 98.6 H ABG O2 Content ABG Base Excess -6.0 L ABG Hemoglobin ABG Carboxyhemoglobin POC ABG HHb (Measured) ABG Methemoglobin ABG O2 Capacity ABG Potassium 4.3 VBG pH VBG pCO2 VBG HCO3 VBG Total CO2 VBG O2 Sat (Calc) VBG Base Excess VBG Potassium Hgb O2 Saturation Sodium 139.0 Chloride 110.0 H Glucose 152 H Lactate 3.6 H Mechanical Rate FiO2 100.0 Tidal Volume Potassium Carbon Dioxide Anion Gap BUN Creatinine Est GFR ( Amer) Est GFR (Non-Af Amer) POC Glucose (mg/dL) 128 H Random Glucose Uric Acid Calcium Phosphorus Magnesium Iron TIBC % Saturation Total Bilirubin Direct Bilirubin AST ALT Alkaline Phosphatase Ammonia Lactate Dehydrogenase Total Creatine Kinase CK-MB (CK-2) CK-MB (CK-2) % Troponin I 0.07 D NT-Pro-B Natriuret Pep Total Protein Albumin Globulin Albumin/Globulin Ratio Triglycerides Cholesterol LDL Cholesterol Direct HDL Cholesterol Free T4 TSH 3rd Generation Arterial Blood Potassium 4.3 Venous Blood Potassium Alcohol, Quantitative 06/24/17 06/24/17 07:30 07:30 WBC 11.4 H D RBC 5.84 Hgb 19.1 H* Hct 54.8 H MCV 93.8 D MCH 32.7 MCHC 34.9 RDW 13.9 Plt Count 59 L MPV 12.2 H Gran % 78.8 H Lymph % (Auto) 5.3 L [place] % (Auto) 15.8 H Eos % (Auto) 0.0 L Baso % (Auto) 0.1 Gran # 8.96 H Lymph # (Auto) 0.6 L [place] # (Auto) 1.8 H Eos # (Auto) 0.0 Baso # (Auto) 0.01 pCO2 pO2 HCO3 ABG pH ABG Total CO2 ABG O2 Saturation ABG O2 Content ABG Base Excess ABG Hemoglobin ABG Carboxyhemoglobin POC ABG HHb (Measured) ABG Methemoglobin ABG O2 Capacity ABG Potassium VBG pH VBG pCO2 VBG HCO3 VBG Total CO2 VBG O2 Sat (Calc) VBG Base Excess VBG Potassium Hgb O2 Saturation Sodium 145 Chloride 111 H Glucose Lactate Mechanical Rate FiO2 Tidal Volume Potassium 4.7 Carbon Dioxide 20 L Anion Gap 19 BUN 29 H Creatinine 1.2 Est GFR ( Amer) > 60 Est GFR (Non-Af Amer) > 60 POC Glucose (mg/dL) Random Glucose 133 H Uric Acid 6.7 Calcium 8.7 Phosphorus 2.6 Magnesium 1.7 Iron TIBC % Saturation Total Bilirubin 2.6 H Direct Bilirubin 1.0 H AST 111 H ALT 61 H Alkaline Phosphatase 65 Ammonia Lactate Dehydrogenase 1118 H Total Creatine Kinase 285 H CK-MB (CK-2) 13.0 H CK-MB (CK-2) % 4.6 H Troponin I 0.14 H* D NT-Pro-B Natriuret Pep Total Protein 6.7 Albumin 3.2 Globulin 3.5 Albumin/Globulin Ratio 0.9 L Triglycerides 294 H Cholesterol 155 LDL Cholesterol Direct 59 HDL Cholesterol 54 Free T4 TSH 3rd Generation Arterial Blood Potassium Venous Blood Potassium Alcohol, Quantitative Assessment & Plan - Assessment and Plan (Free Text) Assessment: Assessment Systemic Inflammatory Response Syndrome, consider due to acute encephalopathy from substance use with pulseless electrical activity S/P ACLS and resuscitation now with VDRF and hypothermia, R/O sepsis chronic active Hepatitis C S/P treatment with [facility] history of substance abuse including ethanol abuse Plan patient started on Vancomycin and Zosyn and follow up blood and urine cx, PCT; CXR does not show active disease; UDS shows opiates and cannabinoids will also get HIV test will monitor clinically
--- NOTE | 2017-06-24 10:59 | CP.PCM.PN ---
<Tre Tang - Last Filed: 06/24/17 11:27> Subjective - Date & Time of Evaluation Date of Evaluation: 06/24/17 Time of Evaluation: 07:30 - Subjective Subjective: Medcine Note for Dr. Fairbanks Patient seen and examined at bedside this morning. Patient is intubated and on vent support (450, 5, 18, 80%). Patient was brought in for unresponsiveness, cardiac arrest and hypothermia. Patient is currently being rewarmed. Patient does not respond to any stimuli. ROS unobtainable due to clinical condition. Objective - Vital Signs/Intake and Output Vital Signs (last 24 hours): Temp Pulse Resp BP Pulse Ox 97.9 F 62 24 107/66 100 06/24/17 10:10 06/24/17 10:10 06/23/17 22:30 06/24/17 10:00 06/24/17 10:10 Intake and Output: 06/24/17 06/24/17 06:59 18:59 Intake Total 1670 105 Output Total 1250 Balance 420 105 - Medications Medications: Current Medications Heparin Sodium (Porcine) (Heparin) 5,000 units SC Q12 PETRA PRN Reason: Protocol Last Admin: 06/24/17 10:07 Dose: 5,000 units Vancomycin HCl (Vancomycin 1gm) 1 gm in 250 mls @ 167 mls/hr IVPB Q12H PETRA PRN Reason: Protocol Last Admin: 06/24/17 03:30 Dose: 167 mls/hr Propofol (Diprivan) 1,000 mg in 100 mls @ 2.177 mls/hr IV .Q24H PRN; Protocol; 5 MCG/KG/MIN PRN Reason: TITRATE PER MD ORDER Last Titration: 06/24/17 10:07 Dose: 28 mcg/kg/min, 12.193 mls/hr Dopamine HCl/Dextrose (Dopamine 400mg/250ml D5w) 400 mg in 250 mls @ 13.608 mls /hr IV .[id number] PRN; Protocol; 5 MCG/KG/MIN PRN Reason: TITRATE PER MD ORDER Last Titration: 06/24/17 09:03 Dose: 12.5 mcg/kg/min, 34.02 mls/hr Piperacillin Sod/Tazobactam Sod (Zosyn 3.375 In Ns 100ml) 100 mls @ 200 mls/hr IVPB Q6 PETRA PRN Reason: Protocol Stop: 07/01/17 12:01 Sodium Chloride (Sodium Chloride 0.9%) 1,000 mls @ 125 mls/hr IV .Q8H [facility] Last Admin: 06/24/17 08:15 Dose: 125 mls/hr Insulin Human Lispro (Humalog Low) 0 units SC Q6H PETRA PRN Reason: Protocol Pantoprazole Sodium (Protonix Inj) 40 mg IVP DAILY [facility] Last Admin: 06/24/17 10:00 Dose: 40 mg - Labs Labs: 06/24/17 07:30 06/24/17 07:30 PT 17.2 SECONDS (9.4-12.5) H 06/23/17 15:20 INR 1.50 (0.93-1.08) H 06/23/17 15:20 - Constitutional Appears: No Acute Distress, Other (intubated, sedated) - Head Exam Head Exam: ATRAUMATIC, NORMOCEPHALIC - Eye Exam Eye Exam: Normal appearance Additional comments: pupil's equal in size but nonreactive - ENT Exam ENT Exam: Mucous Membranes Moist - Respiratory Exam Additional comments: intubated and on ventilator support (450, 5, 18, 80%) - Cardiovascular Exam Cardiovascular Exam: REGULAR RHYTHM - GI/Abdominal Exam GI & Abdominal Exam: Distended, Firm (mild) - Extremities Exam Extremities Exam: Normal Capillary Refill - Neurological Exam Neurological Exam: Altered - Psychiatric Exam Psychiatric exam: Flat Affect - Skin Skin Exam: Dry, Intact, Warm Assessment and Plan - Assessment and Plan (Free Text) Plan: 66 M with PMH of Hep C, EtOh abuse, was found unconscious at home with hypothermia susequently was intubated in field then developed cardiac arrest. Patient still currently intubated, sedated with dopamine drip. Neuro: intubated, unresponsive and sedated Maintain HOB 30 degrees propofol drip for sedation Neurochecks Q2H CT Head (06/23) shows no acute intracranial findings f/u EEG Cardio: s/p cardiac arrest -troponin elevated at 0.14,trend q6h -cardiology consult, Dr. Ellis, help appreciated -f/u Echo -maintain MAP>65 -dopamine drip -PICC line placement pending -f/u BNP Pulm: Intubated -5 PEEP, RR 18, FIO2 80,TV 450 -maintain SpO2>90% -f/u CXR report ID: Hypothermia, resolved: -Monitor temperature -leukocytosis downtrending -Infectious Disease consult, Dr. Traore, help appreciated -Vancomycin, Zosyn -f/u culture s -f/u procalcitonin -Stress dose steroids -f/u HIV GI: -NPO -Protonix -f/u fructosamine, glycomark Renal: -Monitor and replete electrolytes as needed -Strict I's & O's Endo: -Maintain euglycemia 140-180 Heme/Onc: -Erythrocytosis -f/u TIBC, Iron, Ferritin -Heme consult, help appreciated DVT ppx: heparin GI ppx: protonix Discussed with Dr. Magdi Tang PGY1 <Geovanny Fairbanks U - Last Filed: 07/17/17 16:47> Objective - Vital Signs/Intake and Output Vital Signs (last 24 hours): Temp Pulse Resp BP Pulse Ox 98.2 F 95 H 18 146/108 H 96 07/04/17 14:00 07/04/17 14:00 07/04/17 14:00 07/04/17 14:00 07/04/17 14:00 - Labs Labs: 07/02/17 07:01 07/02/17 07:01 PT 17.3 SECONDS (9.4-12.5) H 06/24/17 11:30 INR 1.49 (0.93-1.08) H 06/24/17 11:30 APTT 22.1 Seconds (25.1-36.5) L 06/24/17 11:30 Attending/Attestation - Attestation I have personally seen and examined this patient.: Yes I have fully participated in the care of the patient.: Yes I have reviewed all pertinent clinical information, including history, physical exam and plan: Yes Notes (Text): Please see/read my dictated notes.
--- NOTE | 2017-06-24 11:27 | CT ---
PROCEDURE: CT Chest without contrast HISTORY: ARDS COMPARISON: None. TECHNIQUE: Contiguous axial images were obtained through the chest without intravenous contrast enhancement. Sagittal and coronal reconstructions were performed. Radiation dose (DLP): 667 mGy-cm. This CT exam was performed using one or more of the following dose reduction techniques: Automated exposure control, adjustment of the mA and/or kV according to patient size, and/or use of iterative reconstruction technique. FINDINGS: LUNGS: There is bilateral posterior consolidation involving the lower and upper lobes. The findings are consistent with pneumonia. MEDIASTINUM: Unremarkable thoracic aorta. No aneurysm. Normal sized heart. Main pulmonary artery unremarkable. No vascular congestion. No lymphadenopathy. PLEURA: No pleural fluid. No pneumothorax. BONES: No fracture. No destructive lesion. UPPER ABDOMEN: Grossly unremarkable. OTHER FINDINGS: None. IMPRESSION: There is bilateral posterior consolidation involving the lower and upper lobes. The findings are consistent with pneumonia.
[2017-06-24 11:39] LABS: VENOUS BLOOD GAS BASE EXCESS -6.1 mmol/L (0.0-2.0); VENOUS BLOOD GAS PO2 50 mm/Hg (30-55); VENOUS BLOOD PH 7.22 (7.32-7.43)
[2017-06-24 11:51] LABS: INR 1.49 (0.93-1.08); PROTHROMBIN TIME 17.3 SECONDS (9.4-12.5)
[2017-06-24 11:52] LABS: PARTIAL THROMBOPLASTIN TIME 22.1 Seconds (25.1-36.5)
[2017-06-24] MEDS: Insulin Lispro (humaLOG) LOW Coverage SC SCH ×2 (12:00→18:30)
[2017-06-24 12:02] LABS: CK-MB 11.9 ng/mL (0.0-3.6); TROPONIN I 0.14 ng/mL
[2017-06-24] MEDS: NOREPINEPHRINE BIT/0.9 % NACL 4 MG/250 ML BAG IV PRN ×2 (13:45→18:34)
--- NOTE | 2017-06-24 16:57 | CP.PCM.CON ---
History of Present Illness - History of Present Illness History of Present Illness: Mr. Monzon is a 66-year-old man with a past medical history of liver cirrhosis, who was found unconscious by his grand-daughter on Saturday. He was unresponsive and hypothermic. EMS was called and found him in cardiac arrest. He was given CPR and achieved ROSC and was intubated. His initial temperature was 95 degrees. He was allowed to remain hypothermic and slowly rewarmed. CT scan of the head did not show significant anoxic injury. Currently, the patient is intubate/sedated and when sedation is turned off, he moves all extremities and attempts to remove the vent. Brainstem reflexes are normal and he is initiating his own breaths. He is currently hemodynamically unstable and on dopamine/levophed. There are multiple metabolic derangements and troponins were elevated, possibly due to trauma from CPR. Review of Systems - Review of Systems All systems: reviewed and no additional remarkable complaints except Past Patient History - Infectious Disease Hx of Infectious Diseases: None - Past Social History Smoking Status: Unknown If Ever Smoked - CARDIAC Hx Pacemaker: No - ENDOCRINE/METABOLIC Hx Diabetes Mellitus Type 2: Yes - HEMATOLOGICAL/ONCOLOGICAL Hx Cancer: No - MUSCULOSKELETAL/RHEUMATOLOGICAL Hx Falls: No - PSYCHIATRIC Hx Substance Use: No (Unknown) - SURGICAL HISTORY Hx Mastectomy: No Meds Allergies/Adverse Reactions: Allergies Allergy/AdvReac Type Severity Reaction Status Date / Time Unobtainable Allergy Verified 06/23/17 15:24 - Medications Medications: Current Medications Albuterol/Ipratropium (Duoneb 3 Mg/0.5 Mg (3 Ml) Ud) 3 ml IH [id number] PETRA Heparin Sodium (Porcine) (Heparin) 5,000 units SC Q12 PETRA PRN Reason: Protocol Last Admin: 06/24/17 10:07 Dose: 5,000 units Vancomycin HCl (Vancomycin 1gm) 1 gm in 250 mls @ 167 mls/hr IVPB Q12H PETRA PRN Reason: Protocol Last Admin: 06/24/17 16:20 Dose: 167 mls/hr Propofol (Diprivan) 1,000 mg in 100 mls @ 2.177 mls/hr IV .Q24H PRN; Protocol; 5 MCG/KG/MIN PRN Reason: TITRATE PER MD ORDER Last Titration: 06/24/17 16:16 Dose: 22 mcg/kg/min, 9.58 mls/hr Dopamine HCl/Dextrose (Dopamine 400mg/250ml D5w) 400 mg in 250 mls @ 13.608 mls /hr IV .[id number] PRN; Protocol; 5 MCG/KG/MIN PRN Reason: TITRATE PER MD ORDER Last Titration: 06/24/17 15:08 Dose: 0 mcg/kg/min, 0 mls/hr Piperacillin Sod/Tazobactam Sod (Zosyn 3.375 In Ns 100ml) 100 mls @ 200 mls/hr IVPB Q6 PETRA PRN Reason: Protocol Stop: 07/01/17 12:01 Last Admin: 06/24/17 14:06 Dose: 200 mls/hr Sodium Chloride (Sodium Chloride 0.9%) 1,000 mls @ 125 mls/hr IV .Q8H PETRA Last Admin: 06/24/17 08:15 Dose: 125 mls/hr NOREPINEPHRINE BIT/0.9 % NACL (Levophed 4 Mg/ 250 Ml Ns Premixed) 4 mg in 250 mls @ 15 mls/hr IV .[id number] PRN; Protocol; 4 MCG/MIN PRN Reason: TITRATE PER MD ORDER Last Titration: 06/24/17 15:23 Dose: 20 mcg/min, 75 mls/hr Vasopressin 20 units/ Sodium (Chloride) 101 mls @ 9.09 mls/hr IV .[id number] PETRA; 0.03 U/MIN PRN Reason: Protocol Last Admin: 06/24/17 15:08 Dose: 9.09 mls/hr Insulin Human Lispro (Humalog Low) 0 units SC Q6 PETRA PRN Reason: Protocol Last Admin: 06/24/17 12:00 Dose: Not Given Methylprednisolone (Solu-Medrol) 50 mg IVP Q6H [facility] Last Admin: 06/24/17 14:05 Dose: 50 mg Pantoprazole Sodium (Protonix Inj) 40 mg IVP DAILY [facility] Last Admin: 06/24/17 10:00 Dose: 40 mg Physical Exam - Constitutional Appears: Toxic - Neurological Exam Additional comments: Intubated, sedated, brainstem reflexes intact, withdraws to pain, opens eyes spontaneously when off sedation. Plantar responses muted. Reflexes diminished. Results - Vital Signs Recent Vital Signs: Last Vital Signs Temp 99.3 F 06/24/17 16:10 Pulse 68 06/24/17 16:10 Resp 18 06/24/17 13:30 BP 99/64 L 06/24/17 16:10 Pulse Ox 94 L 06/24/17 16:10 - Labs Result Diagrams: 06/24/17 07:30 06/24/17 07:30 Labs: Laboratory Results - last 24 hr 06/23/17 06/23/17 06/23/17 16:50 18:25 19:40 WBC RBC Hgb Hct MCV MCH MCHC RDW Plt Count Manual Plt Count MPV Gran % Lymph % (Auto) [place] % (Auto) Eos % (Auto) Baso % (Auto) Gran # Lymph # (Auto) [place] # (Auto) Eos # (Auto) Baso # (Auto) PT INR APTT pCO2 80 H* pO2 262.0 H HCO3 16.4 L ABG pH 6.92 L* ABG Total CO2 18.9 L ABG O2 Saturation 100.4 H ABG O2 Content ABG Base Excess -17.4 L ABG Hemoglobin ABG Carboxyhemoglobin POC ABG HHb (Measured) ABG Methemoglobin ABG O2 Capacity ABG Potassium 3.7 VBG pH VBG pCO2 VBG HCO3 VBG Total CO2 VBG O2 Sat (Calc) VBG Base Excess VBG Potassium Hgb O2 Saturation Sodium 141.0 145 Chloride 114.0 H 110 H Glucose 103 Lactate 5.4 H* Mechanical Rate 16 FiO2 100.0 Tidal Volume 450 Potassium 5.9 H* D Carbon Dioxide 22 Anion Gap 19 BUN 24 H Creatinine 1.3 Est GFR ( Amer) > 60 Est GFR (Non-Af Amer) 56 POC Glucose (mg/dL) Random Glucose 109 Hemoglobin A1c Lactic Acid Uric Acid Calcium 8.6 Phosphorus 6.9 H Magnesium 1.9 Iron TIBC % Saturation Ferritin Total Bilirubin 2.0 H Direct Bilirubin 1.0 H AST 96 H ALT 48 Alkaline Phosphatase 99 Ammonia Lactate Dehydrogenase 1266 H Total Creatine Kinase 244 H CK-MB (CK-2) 8.7 H CK-MB (CK-2) % 3.6 H Troponin I 0.03 NT-Pro-B Natriuret Pep 1640 H Total Protein 6.9 Albumin 3.4 Globulin 3.5 Albumin/Globulin Ratio 1.0 L Triglycerides Cholesterol LDL Cholesterol Direct HDL Cholesterol 25-OH Vitamin D Total Procalcitonin Free T4 Thyroxine (T4) TSH 3rd Generation Arterial Blood Potassium 3.7 Venous Blood Potassium Alcohol, Quantitative < 10 06/23/17 06/23/17 06/23/17 19:50 19:55 19:55 WBC RBC Hgb Hct MCV MCH MCHC RDW Plt Count Manual Plt Count MPV Gran % Lymph % (Auto) [place] % (Auto) Eos % (Auto) Baso % (Auto) Gran # Lymph # (Auto) [place] # (Auto) Eos # (Auto) Baso # (Auto) PT INR APTT pCO2 pO2 29 L HCO3 ABG pH ABG Total CO2 ABG O2 Saturation ABG O2 Content ABG Base Excess ABG Hemoglobin ABG Carboxyhemoglobin POC ABG HHb (Measured) ABG Methemoglobin ABG O2 Capacity ABG Potassium VBG pH 7.11 L* VBG pCO2 58.0 VBG HCO3 18.4 L VBG Total CO2 20.2 L VBG O2 Sat (Calc) 64.8 VBG Base Excess -11.6 L VBG Potassium 6.0 H Hgb O2 Saturation Sodium 140.0 Chloride 104.0 Glucose 123 H Lactate 5.6 H* Mechanical Rate FiO2 21.0 Tidal Volume Potassium Carbon Dioxide Anion Gap BUN Creatinine Est GFR ( Amer) Est GFR (Non-Af Amer) POC Glucose (mg/dL) Random Glucose Hemoglobin A1c Lactic Acid Uric Acid Calcium Phosphorus Magnesium Iron TIBC % Saturation Ferritin Total Bilirubin Direct Bilirubin AST ALT Alkaline Phosphatase Ammonia 56 H Lactate Dehydrogenase Total Creatine Kinase CK-MB (CK-2) CK-MB (CK-2) % Troponin I NT-Pro-B Natriuret Pep Total Protein Albumin Globulin Albumin/Globulin Ratio Triglycerides Cholesterol LDL Cholesterol Direct HDL Cholesterol 25-OH Vitamin D Total Procalcitonin 0.44 Free T4 Thyroxine (T4) TSH 3rd Generation Arterial Blood Potassium Venous Blood Potassium 6.0 H Alcohol, Quantitative 06/23/17 06/23/17 06/23/17 19:55 19:55 19:55 WBC RBC Hgb Hct MCV MCH MCHC RDW Plt Count Manual Plt Count MPV Gran % Lymph % (Auto) [place] % (Auto) Eos % (Auto) Baso % (Auto) Gran # Lymph # (Auto) [place] # (Auto) Eos # (Auto) Baso # (Auto) PT INR APTT pCO2 pO2 HCO3 ABG pH ABG Total CO2 ABG O2 Saturation ABG O2 Content ABG Base Excess ABG Hemoglobin ABG Carboxyhemoglobin POC ABG HHb (Measured) ABG Methemoglobin ABG O2 Capacity ABG Potassium VBG pH VBG pCO2 VBG HCO3 VBG Total CO2 VBG O2 Sat (Calc) VBG Base Excess VBG Potassium Hgb O2 Saturation Sodium Chloride Glucose Lactate Mechanical Rate FiO2 Tidal Volume Potassium Carbon Dioxide Anion Gap BUN Creatinine Est GFR ( Amer) Est GFR (Non-Af Amer) POC Glucose (mg/dL) Random Glucose Hemoglobin A1c Lactic Acid Uric Acid Calcium Phosphorus Magnesium Iron 267 H TIBC 325 % Saturation 82 H Ferritin 1940.0 Total Bilirubin Direct Bilirubin AST ALT Alkaline Phosphatase Ammonia Lactate Dehydrogenase Total Creatine Kinase CK-MB (CK-2) CK-MB (CK-2) % Troponin I NT-Pro-B Natriuret Pep Total Protein Albumin Globulin Albumin/Globulin Ratio Triglycerides Cholesterol LDL Cholesterol Direct HDL Cholesterol 25-OH Vitamin D Total Procalcitonin Free T4 2.23 H Thyroxine (T4) TSH 3rd Generation 1.29 Arterial Blood Potassium Venous Blood Potassium Alcohol, Quantitative 06/23/17 06/23/17 06/23/17 23:05 23:36 23:55 WBC RBC Hgb Hct MCV MCH MCHC RDW Plt Count Manual Plt Count MPV Gran % Lymph % (Auto) [place] % (Auto) Eos % (Auto) Baso % (Auto) Gran # Lymph # (Auto) [place] # (Auto) Eos # (Auto) Baso # (Auto) PT INR APTT pCO2 42 pO2 47.0 L HCO3 15.7 L ABG pH 7.18 L* ABG Total CO2 17.0 L ABG O2 Saturation 90.8 L ABG O2 Content 21.2 ABG Base Excess -12.3 L ABG Hemoglobin 17.2 ABG Carboxyhemoglobin 2.3 H POC ABG HHb (Measured) 8.9 H ABG Methemoglobin 0.9 ABG O2 Capacity 23.3 ABG Potassium VBG pH VBG pCO2 VBG HCO3 VBG Total CO2 VBG O2 Sat (Calc) VBG Base Excess VBG Potassium Hgb O2 Saturation 87.9 L Sodium Chloride Glucose Lactate Mechanical Rate FiO2 70.0 Tidal Volume Potassium Carbon Dioxide Anion Gap BUN Creatinine Est GFR ( Amer) Est GFR (Non-Af Amer) POC Glucose (mg/dL) 120 H Random Glucose Hemoglobin A1c Lactic Acid Uric Acid Calcium Phosphorus Magnesium Iron TIBC % Saturation Ferritin Total Bilirubin Direct Bilirubin AST ALT Alkaline Phosphatase Ammonia Lactate Dehydrogenase Total Creatine Kinase CK-MB (CK-2) CK-MB (CK-2) % Troponin I 0.07 D NT-Pro-B Natriuret Pep Total Protein Albumin Globulin Albumin/Globulin Ratio Triglycerides Cholesterol LDL Cholesterol Direct HDL Cholesterol 25-OH Vitamin D Total Procalcitonin Free T4 Thyroxine (T4) TSH 3rd Generation Arterial Blood Potassium Venous Blood Potassium Alcohol, Quantitative 06/24/17 06/24/17 06/24/17 05:13 05:46 07:30 WBC RBC Hgb Hct MCV MCH MCHC RDW Plt Count Manual Plt Count MPV Gran % Lymph % (Auto) [place] % (Auto) Eos % (Auto) Baso % (Auto) Gran # Lymph # (Auto) [place] # (Auto) Eos # (Auto) Baso # (Auto) PT INR APTT pCO2 34 L pO2 82.0 HCO3 18.8 L ABG pH 7.35 ABG Total CO2 19.8 L ABG O2 Saturation 98.6 H ABG O2 Content ABG Base Excess -6.0 L ABG Hemoglobin ABG Carboxyhemoglobin POC ABG HHb (Measured) ABG Methemoglobin ABG O2 Capacity ABG Potassium 4.3 VBG pH VBG pCO2 VBG HCO3 VBG Total CO2 VBG O2 Sat (Calc) VBG Base Excess VBG Potassium Hgb O2 Saturation Sodium 139.0 145 Chloride 110.0 H 111 H Glucose 152 H Lactate 3.6 H Mechanical Rate FiO2 100.0 Tidal Volume Potassium 4.7 Carbon Dioxide 20 L Anion Gap 19 BUN 29 H Creatinine 1.2 Est GFR ( Amer) > 60 Est GFR (Non-Af Amer) > 60 POC Glucose (mg/dL) 128 H Random Glucose 133 H Hemoglobin A1c Lactic Acid Uric Acid 6.7 Calcium 8.7 Phosphorus 2.6 Magnesium 1.7 Iron TIBC % Saturation Ferritin Total Bilirubin 2.6 H Direct Bilirubin 1.0 H AST 111 H ALT 61 H Alkaline Phosphatase 65 Ammonia Lactate Dehydrogenase 1118 H Total Creatine Kinase 285 H CK-MB (CK-2) 13.0 H CK-MB (CK-2) % 4.6 H Troponin I 0.14 H* D NT-Pro-B Natriuret Pep Total Protein 6.7 Albumin 3.2 Globulin 3.5 Albumin/Globulin Ratio 0.9 L Triglycerides 294 H Cholesterol 155 LDL Cholesterol Direct 59 HDL Cholesterol 54 25-OH Vitamin D Total Procalcitonin Free T4 Thyroxine (T4) TSH 3rd Generation Arterial Blood Potassium 4.3 Venous Blood Potassium Alcohol, Quantitative 06/24/17 06/24/17 06/24/17 07:30 07:30 07:30 WBC 11.4 H D RBC 5.84 Hgb 19.1 H* Hct 54.8 H MCV 93.8 D MCH 32.7 MCHC 34.9 RDW 13.9 Plt Count 59 L Manual Plt Count 60 L* MPV 12.2 H Gran % 78.8 H Lymph % (Auto) 5.3 L [place] % (Auto) 15.8 H Eos % (Auto) 0.0 L Baso % (Auto) 0.1 Gran # 8.96 H Lymph # (Auto) 0.6 L [place] # (Auto) 1.8 H Eos # (Auto) 0.0 Baso # (Auto) 0.01 PT INR APTT pCO2 pO2 HCO3 ABG pH ABG Total CO2 ABG O2 Saturation ABG O2 Content ABG Base Excess ABG Hemoglobin ABG Carboxyhemoglobin POC ABG HHb (Measured) ABG Methemoglobin ABG O2 Capacity ABG Potassium VBG pH VBG pCO2 VBG HCO3 VBG Total CO2 VBG O2 Sat (Calc) VBG Base Excess VBG Potassium Hgb O2 Saturation Sodium Chloride Glucose Lactate Mechanical Rate FiO2 Tidal Volume Potassium Carbon Dioxide Anion Gap BUN Creatinine Est GFR ( Amer) Est GFR (Non-Af Amer) POC Glucose (mg/dL) Random Glucose Hemoglobin A1c 6.1 Lactic Acid Uric Acid Calcium Phosphorus Magnesium Iron TIBC % Saturation Ferritin Total Bilirubin Direct Bilirubin AST ALT Alkaline Phosphatase Ammonia Lactate Dehydrogenase Total Creatine Kinase CK-MB (CK-2) CK-MB (CK-2) % Troponin I NT-Pro-B Natriuret Pep Total Protein Albumin Globulin Albumin/Globulin Ratio Triglycerides Cholesterol LDL Cholesterol Direct HDL Cholesterol 25-OH Vitamin D Total Procalcitonin Free T4 Thyroxine (T4) TSH 3rd Generation Arterial Blood Potassium Venous Blood Potassium Alcohol, Quantitative 06/24/17 06/24/17 06/24/17 08:15 08:15 08:15 WBC RBC Hgb Hct MCV MCH MCHC RDW Plt Count Manual Plt Count MPV Gran % Lymph % (Auto) [place] % (Auto) Eos % (Auto) Baso % (Auto) Gran # Lymph # (Auto) [place] # (Auto) Eos # (Auto) Baso # (Auto) PT INR APTT pCO2 pO2 HCO3 ABG pH ABG Total CO2 ABG O2 Saturation ABG O2 Content ABG Base Excess ABG Hemoglobin ABG Carboxyhemoglobin POC ABG HHb (Measured) ABG Methemoglobin ABG O2 Capacity ABG Potassium VBG pH VBG pCO2 VBG HCO3 VBG Total CO2 VBG O2 Sat (Calc) VBG Base Excess VBG Potassium Hgb O2 Saturation Sodium Chloride Glucose Lactate Mechanical Rate FiO2 Tidal Volume Potassium Carbon Dioxide Anion Gap BUN Creatinine Est GFR ( Amer) Est GFR (Non-Af Amer) POC Glucose (mg/dL) Random Glucose Hemoglobin A1c Lactic Acid 4.2 H* Uric Acid Calcium Phosphorus Magnesium Iron TIBC % Saturation Ferritin Total Bilirubin Direct Bilirubin AST ALT Alkaline Phosphatase Ammonia 31 Lactate Dehydrogenase Total Creatine Kinase CK-MB (CK-2) CK-MB (CK-2) % Troponin I NT-Pro-B Natriuret Pep Total Protein Albumin Globulin Albumin/Globulin Ratio Triglycerides Cholesterol LDL Cholesterol Direct HDL Cholesterol 25-OH Vitamin D Total Procalcitonin Free T4 1.90 Thyroxine (T4) 7.0 TSH 3rd Generation 0.26 L Arterial Blood Potassium Venous Blood Potassium Alcohol, Quantitative 06/24/17 06/24/17 06/24/17 11:30 11:30 11:30 WBC RBC Hgb Hct MCV MCH MCHC RDW Plt Count Manual Plt Count MPV Gran % Lymph % (Auto) [place] % (Auto) Eos % (Auto) Baso % (Auto) Gran # Lymph # (Auto) [place] # (Auto) Eos # (Auto) Baso # (Auto) PT 17.3 H INR 1.49 H APTT 22.1 L pCO2 pO2 50 HCO3 ABG pH ABG Total CO2 ABG O2 Saturation ABG O2 Content ABG Base Excess ABG Hemoglobin ABG Carboxyhemoglobin POC ABG HHb (Measured) ABG Methemoglobin ABG O2 Capacity ABG Potassium VBG pH 7.22 L VBG pCO2 54.0 VBG HCO3 22.1 VBG Total CO2 23.8 VBG O2 Sat (Calc) 87.3 H VBG Base Excess -6.1 L VBG Potassium 4.2 Hgb O2 Saturation Sodium 140.0 Chloride 110.0 H Glucose 151 H Lactate 4.0 H* Mechanical Rate FiO2 21.0 Tidal Volume Potassium Carbon Dioxide Anion Gap BUN Creatinine Est GFR ( Amer) Est GFR (Non-Af Amer) POC Glucose (mg/dL) Random Glucose Hemoglobin A1c Lactic Acid Uric Acid Calcium Phosphorus Magnesium Iron TIBC % Saturation Ferritin Total Bilirubin Direct Bilirubin AST ALT Alkaline Phosphatase Ammonia Lactate Dehydrogenase 868 H Total Creatine Kinase 306 H CK-MB (CK-2) 11.9 H CK-MB (CK-2) % Troponin I 0.14 H* NT-Pro-B Natriuret Pep Total Protein Albumin Globulin Albumin/Globulin Ratio Triglycerides Cholesterol LDL Cholesterol Direct HDL Cholesterol 25-OH Vitamin D Total Procalcitonin Free T4 Thyroxine (T4) TSH 3rd Generation Arterial Blood Potassium Venous Blood Potassium 4.2 Alcohol, Quantitative 06/24/17 06/24/17 11:30 14:46 WBC RBC Hgb Hct MCV MCH MCHC RDW Plt Count Manual Plt Count MPV Gran % Lymph % (Auto) [place] % (Auto) Eos % (Auto) Baso % (Auto) Gran # Lymph # (Auto) [place] # (Auto) Eos # (Auto) Baso # (Auto) PT INR APTT pCO2 pO2 HCO3 ABG pH ABG Total CO2 ABG O2 Saturation ABG O2 Content ABG Base Excess ABG Hemoglobin ABG Carboxyhemoglobin POC ABG HHb (Measured) ABG Methemoglobin ABG O2 Capacity ABG Potassium VBG pH VBG pCO2 VBG HCO3 VBG Total CO2 VBG O2 Sat (Calc) VBG Base Excess VBG Potassium Hgb O2 Saturation Sodium Chloride Glucose Lactate Mechanical Rate FiO2 Tidal Volume Potassium Carbon Dioxide Anion Gap BUN Creatinine Est GFR ( Amer) Est GFR (Non-Af Amer) POC Glucose (mg/dL) 127 H Random Glucose Hemoglobin A1c Lactic Acid Uric Acid Calcium Phosphorus Magnesium Iron TIBC % Saturation Ferritin Total Bilirubin Direct Bilirubin AST ALT Alkaline Phosphatase Ammonia Lactate Dehydrogenase Total Creatine Kinase CK-MB (CK-2) CK-MB (CK-2) % Troponin I NT-Pro-B Natriuret Pep Total Protein Albumin Globulin Albumin/Globulin Ratio Triglycerides Cholesterol LDL Cholesterol Direct HDL Cholesterol 25-OH Vitamin D Total 23.0 L Procalcitonin Free T4 Thyroxine (T4) TSH 3rd Generation Arterial Blood Potassium Venous Blood Potassium Alcohol, Quantitative Assessment & Plan (1) Anoxic brain injury Assessment and Plan: It is uncertain how long the patient was hypoxic for. I recommend avoiding fever higher than 99.4, continue managing BP to allow for cerebral perfusion, keep head of bed down to 15-20 degrees, repeat CT head, treat underlying medical co-morbidities. Consider EEG if he does not wake up after improvement of infectious, cardiac, metabolic and other medical conditions. Thank you. Status: Acute Priority: High
[2017-06-24 17:09] LABS: RAPID PLASMA REAGIN NONREACTIVE (NONREACTIVE)
[2017-06-24 17:28] LABS: FOLATE 15.9 ng/mL
[2017-06-24] MEDS ORDERED: Ibuprofen 100 MG/5 ML (BULK) PO PRN (17:55)
--- NOTE | 2017-06-24 19:46 | CP.PCM.CON ---
History of Present Illness - History of Present Illness History of Present Illness: 66 year old male with a history of polysubstance abuse, hep C liver cirrhosis with splenomegaly, admitted s/p being found down and unresponsive, s/p cardiac arrest and resuscitation, respiratory failure s/p[ vent support with thrombocytopenia and erythrocytosis. The patient is currently vented and I am unable to obtain a history from the patient. Review of his blood work shows a hgb of 19.7 which has decline to 19.1 today. He platelet count has nadired at 59,000. Past medical, surgical, family, social history cannot be obtained. Allergies: Cannot be obtained Review of systems cannot be obtained. Past Patient History - Infectious Disease Hx of Infectious Diseases: None - Past Social History Smoking Status: Unknown If Ever Smoked - CARDIAC Hx Pacemaker: No - ENDOCRINE/METABOLIC Hx Diabetes Mellitus Type 2: Yes - HEMATOLOGICAL/ONCOLOGICAL Hx Cancer: No - MUSCULOSKELETAL/RHEUMATOLOGICAL Hx Falls: No - PSYCHIATRIC Hx Substance Use: No (Unknown) - SURGICAL HISTORY Hx Mastectomy: No Meds Allergies/Adverse Reactions: Allergies Allergy/AdvReac Type Severity Reaction Status Date / Time Unobtainable Allergy Verified 06/23/17 15:24 - Medications Medications: Current Medications Albuterol/Ipratropium (Duoneb 3 Mg/0.5 Mg (3 Ml) Ud) 3 ml IH [id number] PETRA Heparin Sodium (Porcine) (Heparin) 5,000 units SC Q12 PETRA PRN Reason: Protocol Last Admin: 06/24/17 10:07 Dose: 5,000 units Hydrocortisone Sodium Succinate (Solu-Cortef) 50 mg IVP Q6H PETRA Vancomycin HCl (Vancomycin 1gm) 1 gm in 250 mls @ 167 mls/hr IVPB Q12H PETRA PRN Reason: Protocol Last Admin: 06/24/17 16:20 Dose: 167 mls/hr Propofol (Diprivan) 1,000 mg in 100 mls @ 2.177 mls/hr IV .Q24H PRN; Protocol; 5 MCG/KG/MIN PRN Reason: TITRATE PER MD ORDER Last Titration: 06/24/17 18:00 Dose: 25 mcg/kg/min, 10.886 mls/hr Dopamine HCl/Dextrose (Dopamine 400mg/250ml D5w) 400 mg in 250 mls @ 13.608 mls /hr IV .[id number] PRN; Protocol; 5 MCG/KG/MIN PRN Reason: TITRATE PER MD ORDER Last Titration: 06/24/17 15:08 Dose: 0 mcg/kg/min, 0 mls/hr Piperacillin Sod/Tazobactam Sod (Zosyn 3.375 In Ns 100ml) 100 mls @ 200 mls/hr IVPB Q6 PETRA PRN Reason: Protocol Stop: 07/01/17 12:01 Last Admin: 06/24/17 19:16 Dose: 200 mls/hr Sodium Chloride (Sodium Chloride 0.9%) 1,000 mls @ 125 mls/hr IV .Q8H PETRA Last Admin: 06/24/17 08:15 Dose: 125 mls/hr NOREPINEPHRINE BIT/0.9 % NACL (Levophed 4 Mg/ 250 Ml Ns Premixed) 4 mg in 250 mls @ 15 mls/hr IV .[id number] PRN; Protocol; 4 MCG/MIN PRN Reason: TITRATE PER MD ORDER Last Admin: 06/24/17 18:34 Dose: 10 mcg/min, 37.5 mls/hr Vasopressin 20 units/ Sodium (Chloride) 101 mls @ 9.09 mls/hr IV .[id number] PETRA; 0.03 U/MIN PRN Reason: Protocol Last Admin: 06/24/17 15:08 Dose: 9.09 mls/hr Ibuprofen (Motrin Oral Susp) 400 mg PO Q4 PRN PRN Reason: TEMP >99.4 Last Admin: 06/24/17 18:19 Dose: 400 mg Insulin Human Lispro (Humalog Low) 0 units SC Q6 PETRA PRN Reason: Protocol Last Admin: 06/24/17 18:30 Dose: Not Given Pantoprazole Sodium (Protonix Inj) 40 mg IVP DAILY PETRA Last Admin: 06/24/17 10:00 Dose: 40 mg Physical Exam - Head Exam Head Exam: ATRAUMATIC - Eye Exam Eye Exam: Normal appearance - ENT Exam ENT Exam: Mucous Membranes Dry - Respiratory Exam Respiratory Exam: NORMAL BREATHING PATTERN - Cardiovascular Exam Cardiovascular Exam: +S1, +S2 - GI/Abdominal Exam GI & Abdominal Exam: Normal Bowel Sounds Results - Vital Signs Recent Vital Signs: Last Vital Signs Temp 99.5 F 06/24/17 18:30 Pulse 68 06/24/17 18:30 Resp 18 06/24/17 13:30 BP 90/59 L 06/24/17 18:30 Pulse Ox 94 L 06/24/17 18:30 - Labs Result Diagrams: 06/24/17 07:30 06/24/17 07:30 Labs: Laboratory Results - last 24 hr 06/23/17 06/23/17 06/23/17 19:40 19:50 19:55 WBC RBC Hgb Hct MCV MCH MCHC RDW Plt Count Manual Plt Count MPV Gran % Lymph % (Auto) Glascock % (Auto) Eos % (Auto) Baso % (Auto) Gran # Lymph # (Auto) [place]ock # (Auto) Eos # (Auto) Baso # (Auto) PT INR APTT pCO2 pO2 29 L HCO3 ABG pH ABG Total CO2 ABG O2 Saturation ABG O2 Content ABG Base Excess ABG Hemoglobin ABG Carboxyhemoglobin POC ABG HHb (Measured) ABG Methemoglobin ABG O2 Capacity ABG Potassium VBG pH 7.11 L* VBG pCO2 58.0 VBG HCO3 18.4 L VBG Total CO2 20.2 L VBG O2 Sat (Calc) 64.8 VBG Base Excess -11.6 L VBG Potassium 6.0 H Hgb O2 Saturation Sodium 140.0 Chloride 104.0 Glucose 123 H Lactate 5.6 H* FiO2 21.0 Potassium Carbon Dioxide Anion Gap BUN Creatinine Est GFR ( Amer) Est GFR (Non-Af Amer) POC Glucose (mg/dL) Random Glucose Hemoglobin A1c Lactic Acid Uric Acid Calcium Phosphorus Magnesium Iron TIBC % Saturation Ferritin Total Bilirubin Direct Bilirubin AST ALT Alkaline Phosphatase Ammonia 56 H Lactate Dehydrogenase Total Creatine Kinase CK-MB (CK-2) CK-MB (CK-2) % Troponin I Total Protein Albumin Globulin Albumin/Globulin Ratio Triglycerides Cholesterol LDL Cholesterol Direct HDL Cholesterol Vitamin B12 25-OH Vitamin D Total Folate Procalcitonin Free T4 Thyroxine (T4) TSH 3rd Generation Arterial Blood Potassium Venous Blood Potassium 6.0 H Alcohol, Quantitative < 10 RPR 06/23/17 06/23/17 06/23/17 19:55 19:55 19:55 WBC RBC Hgb Hct MCV MCH MCHC RDW Plt Count Manual Plt Count MPV Gran % Lymph % (Auto) [place]ock % (Auto) Eos % (Auto) Baso % (Auto) Gran # Lymph # (Auto) [place] # (Auto) Eos # (Auto) Baso # (Auto) PT INR APTT pCO2 pO2 HCO3 ABG pH ABG Total CO2 ABG O2 Saturation ABG O2 Content ABG Base Excess ABG Hemoglobin ABG Carboxyhemoglobin POC ABG HHb (Measured) ABG Methemoglobin ABG O2 Capacity ABG Potassium VBG pH VBG pCO2 VBG HCO3 VBG Total CO2 VBG O2 Sat (Calc) VBG Base Excess VBG Potassium Hgb O2 Saturation Sodium Chloride Glucose Lactate FiO2 Potassium Carbon Dioxide Anion Gap BUN Creatinine Est GFR ( Amer) Est GFR (Non-Af Amer) POC Glucose (mg/dL) Random Glucose Hemoglobin A1c Lactic Acid Uric Acid Calcium Phosphorus Magnesium Iron 267 H TIBC 325 % Saturation 82 H Ferritin 1940.0 Total Bilirubin Direct Bilirubin AST ALT Alkaline Phosphatase Ammonia Lactate Dehydrogenase Total Creatine Kinase CK-MB (CK-2) CK-MB (CK-2) % Troponin I Total Protein Albumin Globulin Albumin/Globulin Ratio Triglycerides Cholesterol LDL Cholesterol Direct HDL Cholesterol Vitamin B12 25-OH Vitamin D Total Folate Procalcitonin 0.44 Free T4 Thyroxine (T4) TSH 3rd Generation Arterial Blood Potassium Venous Blood Potassium Alcohol, Quantitative RPR 06/23/17 06/23/17 06/23/17 19:55 23:05 23:36 WBC RBC Hgb Hct MCV MCH MCHC RDW Plt Count Manual Plt Count MPV Gran % Lymph % (Auto) [place]ock % (Auto) Eos % (Auto) Baso % (Auto) Gran # Lymph # (Auto) [place]ock # (Auto) Eos # (Auto) Baso # (Auto) PT INR APTT pCO2 42 pO2 47.0 L HCO3 15.7 L ABG pH 7.18 L* ABG Total CO2 17.0 L ABG O2 Saturation 90.8 L ABG O2 Content 21.2 ABG Base Excess -12.3 L ABG Hemoglobin 17.2 ABG Carboxyhemoglobin 2.3 H POC ABG HHb (Measured) 8.9 H ABG Methemoglobin 0.9 ABG O2 Capacity 23.3 ABG Potassium VBG pH VBG pCO2 VBG HCO3 VBG Total CO2 VBG O2 Sat (Calc) VBG Base Excess VBG Potassium Hgb O2 Saturation 87.9 L Sodium Chloride Glucose Lactate FiO2 70.0 Potassium Carbon Dioxide Anion Gap BUN Creatinine Est GFR ( Amer) Est GFR (Non-Af Amer) POC Glucose (mg/dL) 120 H Random Glucose Hemoglobin A1c Lactic Acid Uric Acid Calcium Phosphorus Magnesium Iron TIBC % Saturation Ferritin Total Bilirubin Direct Bilirubin AST ALT Alkaline Phosphatase Ammonia Lactate Dehydrogenase Total Creatine Kinase CK-MB (CK-2) CK-MB (CK-2) % Troponin I Total Protein Albumin Globulin Albumin/Globulin Ratio Triglycerides Cholesterol LDL Cholesterol Direct HDL Cholesterol Vitamin B12 25-OH Vitamin D Total Folate Procalcitonin Free T4 2.23 H Thyroxine (T4) TSH 3rd Generation 1.29 Arterial Blood Potassium Venous Blood Potassium Alcohol, Quantitative RPR 06/23/17 06/24/17 06/24/17 23:55 05:13 05:46 WBC RBC Hgb Hct MCV MCH MCHC RDW Plt Count Manual Plt Count MPV Gran % Lymph % (Auto) [place]ock % (Auto) Eos % (Auto) Baso % (Auto) Gran # Lymph # (Auto) [place] # (Auto) Eos # (Auto) Baso # (Auto) PT INR APTT pCO2 34 L pO2 82.0 HCO3 18.8 L ABG pH 7.35 ABG Total CO2 19.8 L ABG O2 Saturation 98.6 H ABG O2 Content ABG Base Excess -6.0 L ABG Hemoglobin ABG Carboxyhemoglobin POC ABG HHb (Measured) ABG Methemoglobin ABG O2 Capacity ABG Potassium 4.3 VBG pH VBG pCO2 VBG HCO3 VBG Total CO2 VBG O2 Sat (Calc) VBG Base Excess VBG Potassium Hgb O2 Saturation Sodium 139.0 Chloride 110.0 H Glucose 152 H Lactate 3.6 H FiO2 100.0 Potassium Carbon Dioxide Anion Gap BUN Creatinine Est GFR ( Amer) Est GFR (Non-Af Amer) POC Glucose (mg/dL) 128 H Random Glucose Hemoglobin A1c Lactic Acid Uric Acid Calcium Phosphorus Magnesium Iron TIBC % Saturation Ferritin Total Bilirubin Direct Bilirubin AST ALT Alkaline Phosphatase Ammonia Lactate Dehydrogenase Total Creatine Kinase CK-MB (CK-2) CK-MB (CK-2) % Troponin I 0.07 D Total Protein Albumin Globulin Albumin/Globulin Ratio Triglycerides Cholesterol LDL Cholesterol Direct HDL Cholesterol Vitamin B12 25-OH Vitamin D Total Folate Procalcitonin Free T4 Thyroxine (T4) TSH 3rd Generation Arterial Blood Potassium 4.3 Venous Blood Potassium Alcohol, Quantitative RPR 06/24/17 06/24/17 06/24/17 07:30 07:30 07:30 WBC 11.4 H D RBC 5.84 Hgb 19.1 H* Hct 54.8 H MCV 93.8 D MCH 32.7 MCHC 34.9 RDW 13.9 Plt Count 59 L Manual Plt Count MPV 12.2 H Gran % 78.8 H Lymph % (Auto) 5.3 L Glascock % (Auto) 15.8 H Eos % (Auto) 0.0 L Baso % (Auto) 0.1 Gran # 8.96 H Lymph # (Auto) 0.6 L [place] # (Auto) 1.8 H Eos # (Auto) 0.0 Baso # (Auto) 0.01 PT INR APTT pCO2 pO2 HCO3 ABG pH ABG Total CO2 ABG O2 Saturation ABG O2 Content ABG Base Excess ABG Hemoglobin ABG Carboxyhemoglobin POC ABG HHb (Measured) ABG Methemoglobin ABG O2 Capacity ABG Potassium VBG pH VBG pCO2 VBG HCO3 VBG Total CO2 VBG O2 Sat (Calc) VBG Base Excess VBG Potassium Hgb O2 Saturation Sodium 145 Chloride 111 H Glucose Lactate FiO2 Potassium 4.7 Carbon Dioxide 20 L Anion Gap 19 BUN 29 H Creatinine 1.2 Est GFR ( Amer) > 60 Est GFR (Non-Af Amer) > 60 POC Glucose (mg/dL) Random Glucose 133 H Hemoglobin A1c 6.1 Lactic Acid Uric Acid 6.7 Calcium 8.7 Phosphorus 2.6 Magnesium 1.7 Iron TIBC % Saturation Ferritin Total Bilirubin 2.6 H Direct Bilirubin 1.0 H AST 111 H ALT 61 H Alkaline Phosphatase 65 Ammonia Lactate Dehydrogenase 1118 H Total Creatine Kinase 285 H CK-MB (CK-2) 13.0 H CK-MB (CK-2) % 4.6 H Troponin I 0.14 H* D Total Protein 6.7 Albumin 3.2 Globulin 3.5 Albumin/Globulin Ratio 0.9 L Triglycerides 294 H Cholesterol 155 LDL Cholesterol Direct 59 HDL Cholesterol 54 Vitamin B12 25-OH Vitamin D Total Folate Procalcitonin Free T4 Thyroxine (T4) TSH 3rd Generation Arterial Blood Potassium Venous Blood Potassium Alcohol, Quantitative RPR 06/24/17 06/24/17 06/24/17 07:30 08:15 08:15 WBC RBC Hgb Hct MCV MCH MCHC RDW Plt Count Manual Plt Count 60 L* MPV Gran % Lymph % (Auto) [place]ock % (Auto) Eos % (Auto) Baso % (Auto) Gran # Lymph # (Auto) [place] # (Auto) Eos # (Auto) Baso # (Auto) PT INR APTT pCO2 pO2 HCO3 ABG pH ABG Total CO2 ABG O2 Saturation ABG O2 Content ABG Base Excess ABG Hemoglobin ABG Carboxyhemoglobin POC ABG HHb (Measured) ABG Methemoglobin ABG O2 Capacity ABG Potassium VBG pH VBG pCO2 VBG HCO3 VBG Total CO2 VBG O2 Sat (Calc) VBG Base Excess VBG Potassium Hgb O2 Saturation Sodium Chloride Glucose Lactate FiO2 Potassium Carbon Dioxide Anion Gap BUN Creatinine Est GFR ( Amer) Est GFR (Non-Af Amer) POC Glucose (mg/dL) Random Glucose Hemoglobin A1c Lactic Acid Uric Acid Calcium Phosphorus Magnesium Iron TIBC % Saturation Ferritin Total Bilirubin Direct Bilirubin AST ALT Alkaline Phosphatase Ammonia 31 Lactate Dehydrogenase Total Creatine Kinase CK-MB (CK-2) CK-MB (CK-2) % Troponin I Total Protein Albumin Globulin Albumin/Globulin Ratio Triglycerides Cholesterol LDL Cholesterol Direct HDL Cholesterol Vitamin B12 25-OH Vitamin D Total Folate Procalcitonin Free T4 1.90 Thyroxine (T4) 7.0 TSH 3rd Generation 0.26 L Arterial Blood Potassium Venous Blood Potassium Alcohol, Quantitative RPR 06/24/17 06/24/17 06/24/17 08:15 08:20 11:30 WBC RBC Hgb Hct MCV MCH MCHC RDW Plt Count Manual Plt Count MPV Gran % Lymph % (Auto) [place] % (Auto) Eos % (Auto) Baso % (Auto) Gran # Lymph # (Auto) [place] # (Auto) Eos # (Auto) Baso # (Auto) PT INR APTT pCO2 pO2 HCO3 ABG pH ABG Total CO2 ABG O2 Saturation ABG O2 Content ABG Base Excess ABG Hemoglobin ABG Carboxyhemoglobin POC ABG HHb (Measured) ABG Methemoglobin ABG O2 Capacity ABG Potassium VBG pH VBG pCO2 VBG HCO3 VBG Total CO2 VBG O2 Sat (Calc) VBG Base Excess VBG Potassium Hgb O2 Saturation Sodium Chloride Glucose Lactate FiO2 Potassium Carbon Dioxide Anion Gap BUN Creatinine Est GFR ( Amer) Est GFR (Non-Af Amer) POC Glucose (mg/dL) Random Glucose Hemoglobin A1c Lactic Acid 4.2 H* Uric Acid Calcium Phosphorus Magnesium Iron TIBC % Saturation Ferritin Total Bilirubin Direct Bilirubin AST ALT Alkaline Phosphatase Ammonia Lactate Dehydrogenase 868 H Total Creatine Kinase 306 H CK-MB (CK-2) 11.9 H CK-MB (CK-2) % Troponin I 0.14 H* Total Protein Albumin Globulin Albumin/Globulin Ratio Triglycerides Cholesterol LDL Cholesterol Direct HDL Cholesterol Vitamin B12 652 25-OH Vitamin D Total Folate 15.9 Procalcitonin 1.89 H Free T4 Thyroxine (T4) TSH 3rd Generation Arterial Blood Potassium Venous Blood Potassium Alcohol, Quantitative RPR Nonreactive 06/24/17 06/24/17 06/24/17 11:30 11:30 11:30 WBC RBC Hgb Hct MCV MCH MCHC RDW Plt Count Manual Plt Count MPV Gran % Lymph % (Auto) [place] % (Auto) Eos % (Auto) Baso % (Auto) Gran # Lymph # (Auto) [place] # (Auto) Eos # (Auto) Baso # (Auto) PT 17.3 H INR 1.49 H APTT 22.1 L pCO2 pO2 50 HCO3 ABG pH ABG Total CO2 ABG O2 Saturation ABG O2 Content ABG Base Excess ABG Hemoglobin ABG Carboxyhemoglobin POC ABG HHb (Measured) ABG Methemoglobin ABG O2 Capacity ABG Potassium VBG pH 7.22 L VBG pCO2 54.0 VBG HCO3 22.1 VBG Total CO2 23.8 VBG O2 Sat (Calc) 87.3 H VBG Base Excess -6.1 L VBG Potassium 4.2 Hgb O2 Saturation Sodium 140.0 Chloride 110.0 H Glucose 151 H Lactate 4.0 H* FiO2 21.0 Potassium Carbon Dioxide Anion Gap BUN Creatinine Est GFR ( Amer) Est GFR (Non-Af Amer) POC Glucose (mg/dL) Random Glucose Hemoglobin A1c Lactic Acid Uric Acid Calcium Phosphorus Magnesium Iron TIBC % Saturation Ferritin Total Bilirubin Direct Bilirubin AST ALT Alkaline Phosphatase Ammonia Lactate Dehydrogenase Total Creatine Kinase CK-MB (CK-2) CK-MB (CK-2) % Troponin I Total Protein Albumin Globulin Albumin/Globulin Ratio Triglycerides Cholesterol LDL Cholesterol Direct HDL Cholesterol Vitamin B12 25-OH Vitamin D Total 23.0 L Folate Procalcitonin Free T4 Thyroxine (T4) TSH 3rd Generation Arterial Blood Potassium Venous Blood Potassium 4.2 Alcohol, Quantitative RPR 06/24/17 06/24/17 14:46 18:26 WBC RBC Hgb Hct MCV MCH MCHC RDW Plt Count Manual Plt Count MPV Gran % Lymph % (Auto) [place] % (Auto) Eos % (Auto) Baso % (Auto) Gran # Lymph # (Auto) [place] # (Auto) Eos # (Auto) Baso # (Auto) PT INR APTT pCO2 pO2 HCO3 ABG pH ABG Total CO2 ABG O2 Saturation ABG O2 Content ABG Base Excess ABG Hemoglobin ABG Carboxyhemoglobin POC ABG HHb (Measured) ABG Methemoglobin ABG O2 Capacity ABG Potassium VBG pH VBG pCO2 VBG HCO3 VBG Total CO2 VBG O2 Sat (Calc) VBG Base Excess VBG Potassium Hgb O2 Saturation Sodium Chloride Glucose Lactate FiO2 Potassium Carbon Dioxide Anion Gap BUN Creatinine Est GFR ( Amer) Est GFR (Non-Af Amer) POC Glucose (mg/dL) 127 H 162 H Random Glucose Hemoglobin A1c Lactic Acid Uric Acid Calcium Phosphorus Magnesium Iron TIBC % Saturation Ferritin Total Bilirubin Direct Bilirubin AST ALT Alkaline Phosphatase Ammonia Lactate Dehydrogenase Total Creatine Kinase CK-MB (CK-2) CK-MB (CK-2) % Troponin I Total Protein Albumin Globulin Albumin/Globulin Ratio Triglycerides Cholesterol LDL Cholesterol Direct HDL Cholesterol Vitamin B12 25-OH Vitamin D Total Folate Procalcitonin Free T4 Thyroxine (T4) TSH 3rd Generation Arterial Blood Potassium Venous Blood Potassium Alcohol, Quantitative RPR Assessment & Plan (1) Erythrocytosis Assessment and Plan: will check JAK2 and EPO level to rule out polycythemia vera may be secondary due to chronic hypoxia if H/H cont. to decline will hold off on phlebotomy; otherwise will need to discuss phlebotomy with ICU team tomorrow. Status: Acute (2) Thrombocytopenia Assessment and Plan: chronic likely liver disease related splenic sequestration Status: Acute (3) Splenomegaly Assessment and Plan: likely related to portal HTN from liver cirrhsosi rule out Polycythemia Vera Status: Acute (4) Coagulopathy Assessment and Plan: likely liver disease related will had nutritional component as well Thank you for this interesting consult. Status: Acute
[2017-06-24] MEDS: Albuterol-Ipratrop 3 mg / 0.5 (3 ml) UD IH SCH ×2 (20:00→23:48)
--- NOTE | 2017-06-24 21:26 | CARD ---
APPROVED REPORT EXAM: Two-dimensional and M-mode echocardiogram with Doppler and color Doppler. INDICATION CARDIAC ARREST 2D DIMENSIONS Left Atrium (2D)3.8 (1.6-4.0cm)IVSd1.2 (0.7-1.1cm) LVDd3.9 (3.9-5.9cm)LVOT Diameter1.8 (1.8-2.4cm) PWd1.4 (0.7-1.1cm)LVDs2.6 (2.5-4.0cm) FS (%) 33.2 %LVEF (%)62.4 (>50%) M-Mode DIMENSIONS Aortic Root3.60 (2.2-3.7cm)Aortic Cusp Exc.1.20 (1.5-2.0cm) Aortic Valve AoV Peak Wbbkihnl680.0cm/sAoV VTI43.6cmAO Peak GR.22mmHg LVOT Peak Gwccttcn248.0cm/sLVOT VTI24.70cmAO Mean GR.10mmHg DENA (VMAX)1.00ex7KHF (VTI)1.44cm2 Mitral Valve MV E Afmbzmjq62.9cm/sMV A Iznmleha57.8cm/sE/A ratio0.8 TDI Lateral E' Peak V6.34cm/sMedial E' Peak V5.56cm/sE/Lateral E'8.7 E/Medial E'9.9 Pulmonary Valve PV Peak Bxibppon56.0cm/sPV Peak Grad.2mmHg Tricuspid Valve TR Peak [id number]/sRAP [id number] Peak Gr.17mmHg [id number] LEFT VENTRICLE The left ventricle is normal size. There is borderline concentric left ventricular hypertrophy. The left ventricular ejection fraction is within the normal range. There is a flattened septum Transmitral Doppler flow pattern is Grade I-abnormal relaxation pattern. RIGHT VENTRICLE The right ventricle is normal size. There is normal right ventricular wall thickness. The right ventricular systolic function is normal. ATRIA The left atrium size is normal. The right atrium size is normal. AORTIC VALVE The aortic valve is moderately calcified and is probably bicuspid. No aortic regurgitation is present. There is mild valvular aortic stenosis. MITRAL VALVE The mitral valve is mildly thickened. There is no mitral valve regurgitation noted. There is no mitral valve stenosis. TRICUSPID VALVE The tricuspid valve is normal in structure. There is no tricuspid valve regurgitation noted. GREAT VESSELS The aortic root is normal in size. PERICARDIAL EFFUSION There is a small loculated anterior pericardial effusion. <Conclusion> The left ventricle is normal size. There is borderline concentric left ventricular hypertrophy. The left ventricular ejection fraction is within the normal range. There is a flattened septum Transmitral Doppler flow pattern is Grade I-abnormal relaxation pattern. The aortic valve is moderately calcified and is probably bicuspid. There is mild valvular aortic stenosis.
--- NOTE | 2017-06-24 22:25 | CON ---
DATE: 06/24/2017 GASTROENTEROLOGY CONSULTATION REQUESTING PHYSICIAN: Geovanny Fairbanks MD REASON FOR CONSULTATION: I have been asked to see this 66-year-old male, who was found unresponsive at home by the guest experience captain and intubated. While en route to the hospital, the patient became asystolic and ACLS protocol was started. He was given 2 doses of epinephrine in the field and in the emergency room. The patient had return of spontaneous circulation. In the emergency room, he was found to be hypothermic. The patient is currently intubated and unable to give a history. He did respond to verbal and painful stimuli in the intensive care unit. His history is obtained from the chart. Routine urine tox screen was positive for opiates and cannabis. PAST MEDICAL HISTORY: Notable for hepatitis C, which was treated with an antiviral. PAST SURGICAL HISTORY: Unobtainable. SOCIAL HISTORY AND FAMILY HISTORY: Are both unobtainable. REVIEW OF SYSTEMS: Fourteen-point review of systems is unobtainable again as the patient is on the respirator. PHYSICAL EXAMINATION: GENERAL: Middle-aged male, sedated on the ventilator. He opens his eyes to painful and verbal stimuli. VITAL SIGNS: Reveal temperature of 97.9, blood pressure of 107/66, heart rate is 62. HEENT: Reveal sclerae to be white. Conjunctivae pink. NECK: Supple. CHEST: Reveal lungs to be clear. HEART: Reveals a regular rate and rhythm. ABDOMEN: Soft, nontender. EXTREMITIES: No edema. LABORATORY DATA: Reveal chloride of 111, bicarb of 20, blood sugar of 133. Lactic acid of 4.2, total bilirubin of 2.6, AST 111, ALT 61, alkaline phosphatase 65, LDH of 868, total CK of 306. Troponin 0.14. Cholesterol of 294. Coags reveal PT 17.3, INR 1.49. CBC shows white blood cell count of 11.4, down from 18.5. On admission, hemoglobin 19.1, hematocrit of 54.8, platelet count of 59,000. IMPRESSION: 1. A 66-year-old male found unresponsive in the field requiring intubation, subsequently developing asystole, with return of spontaneous circulation after advanced cardiac life support protocol. The patient's tox screen is positive for opiates and cannabis. He is unresponsive, this is probably related to a drug overdose. 2. Bilateral consolidation on CT scan of the chest, suspicious for bilateral pneumonia. 3. Elevated liver enzymes in a patient with a history of hepatitis C treated with antivirals, recent elevation may be due to shock liver versus alcoholic liver disease versus chronic viral hepatitis. 4. Elevated troponins most likely secondary to [id number] myocardial infarction. 5. Thrombocytopenia. RECOMMENDATIONS: 1. Continue supportive care. 2. Check hepatitis C RNA quantitative. 3. Follow liver enzymes. 4. Continue antibiotics for pneumonia. 5. Hematology evaluation for a low platelet count. Jose Stone MD
--- NOTE | 2017-06-24 23:26 | CON ---
DATE: REASON FOR CONSULTATION: Cardiac evaluation, status post CPR, loss of conscious, intubated, cardiac arrest. BRIEF CLINICAL HISTORY: This is a 66-year-old male with questionable history of diabetes and hypertension. As per daughter who went to his house, found to be he was unconscious and frothing from his mouth, and called the ambulance 911. The ambulance picked him, and while the patient was in ambulance, he had a cardiac arrest. CPR was given, 2 doses of epinephrine was given, and the patient was brought here intubated; now, the patient is still intubated, sedated, not responded to verbal stimuli, has NG tube in place. No further information obtainable. Tried to reach the daughter, telephone number [phone], who is on her way here. On telephone, she mentioned no significant history though the patient had positive urine tox screen for opioid as well as cannabis screen is positive, and alcohol level was less than 10. SOCIAL HISTORY: Unknown. PAST MEDICAL HISTORY: Unknown, possibly diabetes and hypertension. FAMILY HISTORY: Unknown. CURRENT MEDICATIONS: Unknown. REVIEW OF SYSTEMS: As per HPI, unknown. PHYSICAL EXAMINATION: GENERAL: The patient is intubated, sedated. NG tube is in place. VITAL SIGNS: As follows, height of the patient is 5 feet 7 inches, weight of the patient is 160 pounds, body mass index 25.1 kg/m2, heart rate 62, blood pressure 107/62. HEENT: PERRLA. Extraocular muscles intact. NECK: Supple. No carotid bruit or thyromegaly. CHEST: Clear to auscultation. HEART: S1 and S2, regular. ABDOMEN: Soft. EXTREMITIES: Clubbing and cyanosis negative. LABORATORY DATA: EKG showed normal sinus junctional rhythm, heart rate 70 per minute, nonspecific intraventricular conduction delay; that is at 3:22 p.m. Repeat EKG shows normal sinus, possibly left atrial enlargement, Q-wave in II, III and aVF, probably old of undetermined age, poor R-R progression. Blood workup as follows: WBC 11.4, hemoglobin 19.1, hematocrit 54.8, platelet count 60. Chemistry showed sodium 145, potassium 4.7, chloride 111, carbon dioxide 20, anion gap of 19, BUN 19, creatinine 1.2. LDL 1118, total CPK 285. Troponin 0.14; first troponin 0.07. Total protein 6.7, albumin 3.2, albumin-globulin ratio 0.9. Initial chest x-ray on admission shows the patient is intubated, moderate bilateral infiltrate, the patient has pneumonia, sepsis, possible aspiration pneumonia. Tox screen is positive for cannabis and different opiates. Questionable history of diabetes, questionable history of hypertension. Borderline troponin positive, on admission 0.07, repeat is 0.14, it is most likely secondary to CPR done, but cannot rule out underlying coronary artery disease. RECOMMENDATION: We will get echo to assess LV function. The CAT scan was negative; we will start some Lovenox 1 mg. Continue DVT prophylaxis. We will repeat echo. Continue vent management. Discussed with the resident taking care of the patient. Continue broad-spectrum antibiotic. Further recommendation depend upon hospital course and followup serial CPK and troponin. We will get lipid profile, TSH, hemoglobin A1c. We will repeat EKG tomorrow. We will get echo. Thank you Dr. Fairbanks for providing us the opportunity in taking care of the patient. We will follow with you. Remy Rai MD
--- NOTE | 2017-06-24 23:53 | CARD ---
APPROVED REPORT EKG Measurement Heart [id number] [id number] [id number] <Conclusion> Sinus bradycardia Poor R Progrfession Otherwise normal ECG
[2017-06-25] MEDS: Insulin Lispro (humaLOG) LOW Coverage SC SCH ×4 (00:18→18:15)
[2017-06-25] MEDS: Piperacillin/Tazobact 3.375 gm 100 ML IVPB SCH ×5 (00:20→23:50)
--- NOTE | 2017-06-25 02:43 | PN ---
DATE: 06/24/2017 LOCATION: Patient is seen in CCU, bed 3. SUBJECTIVE: The patient is intubated, sedated. Not responsive. Patient is in the process of getting an echocardiogram done. PHYSICAL EXAMINATION: GENERAL: No response to painful stimuli. VITAL SIGNS: Patient's T-max in the last 24 hours has come up to 95.7 to 96.8 to 97.2 to 94.3 to 95.6 to 96.1 to 97.5. Telemetry shows sinus rhythm, heart rate in 60s, 70s, 80 beats per minute. Blood pressure in the last 24 hours has been averaging around systolic of 90s to low 100s. O2 saturation has been low to mid 90s. HEENT: Head examination, normocephalic and atraumatic. HEENT examination shows pink conjunctivae. Positive ET tube. NECK: No neck rigidity. CARDIOVASCULAR: S1, S2. Regular rhythm. LUNGS: Positive rhonchi and crepitations in the upper lung pulido bilaterally. CARDIOVASCULAR: S1, S2. Questionable soft systolic murmur at left sternal border, right second intercostal space noted today. ABDOMEN: Soft. Positive bowel sound. GENITALIA: Male. Positive Sharp catheter. EXTREMITIES: No pitting edema. No calf tenderness. no Homans sign. NEUROLOGIC: Patient is sedated, unresponsive. Cranial nerves II through XII limited. Gait examinations could not be tested. MUSCULOSKELETAL: Shows a body mass index of 25.1. DIAGNOSTICS: On 06/24/2017, WBC count is down from 18.5 to 11.4, hemoglobin and hematocrit are 19.1 and 54.8; platelets 59,000, manual platelets 60,000. Granulocytes 78% segs. PT/PTT 17.3, 22.1. Repeat ABG this morning, pH of 7.35, pCO2 of 34, pO2 of 82, bicarb 19, saturation of 98.6. Repeat VBG done today persistently shows lactic acid of 3.6 and 4.0 and 5.6 and 5.4. Vitamin D 25-hydroxy is 23. Procalcitonin 1.89, folate 15.9. B12 of 652, lactic acid is . Sodium 145, potassium 4.7, chloride 111, CO2 of 20, anion gap 19, BUN 29, creatinine 1.2, GFR greater than 60, glucose 133, hemoglobin A1c 6.1, uric acid 6.7, calcium 8.7, phosphorus 2.6, magnesium 1.7, total bili 2.6 and direct bili 1.0. AST 111, ALT 61, LDH 1118, CPK 285, MB percent 46. Troponin has peaked up to 0.14 from 0.03 to 0.07 to 0.14. Triglyceride is 294, cholesterol 155, LDL 59, HDL 54. TSH is initially 1.29, repeat 0.26, ammonia level 56. Repeat LDH 866 and CPK 306. Blood cultures and urine cultures, no growth. Patient underwent CT of the chest today. Echocardiogram and CT of the chest were noted. EKG was reviewed today, Olmedo waves have resolved. Patient is now in sinus bradycardia and sinus rhythm. IMPRESSION AND PLAN: 1. Ventilator-dependent respiratory failure. 2. Respiratory acidosis with hypercarbia and hypercapnia. 3. Hypercapnic respiratory failure. 4. Questionable drug overdose with Advil. 5. Status post pulseless electrical activity, cardiac arrest. 6. Questionable anoxic encephalopathy. 7. Severe symptomatic hypothermia with Olmedo wave. 8. Hypotension. 9. Sinus bradycardia. 10. Hypoxemia. 11. Leukocytosis with granulocytosis. 12. Erythrocytosis. 13. Thrombocytopenia. 14. Mild coagulopathy. 15. Hypercarbic respiratory failure. 16. Respiratory acidosis. 17. Severe lactic acidosis. 18. Hyperprocalcitoninemia. 19. Sick euthyroid syndrome. 20. Hypovitaminosis D. 21. Questionable acute non-ST elevation myocardial infarction with elevated troponin. 22. Mild rhabdomyolysis. 23. Lactic acidosis. 24. Prediabetes with hemoglobin A1c of 6.1. 25. Prerenal kidney injury. 26. Transaminitis and hyperbilirubinemia. 27. Hyperammonemia (resolved). 28. Hyperglycemia. 29. Hypertriglyceridemia. 30. Non-hemolyzed hyperkalemia. 31. Hyperphosphatemia. 32. Trace proteinuria and bacteriuria. 33. Urine drug screen positive for cannabinoids and opiates. 34. Left ventricular ejection fraction of 62%. 35. Sinus bradycardia. 36. Concentric left ventricular hypertrophy. 37. Grade 1 abnormal relaxation pattern. 38. Moderately calcified aortic valve with mild aortic re-stenosis. 39. Mildly thickened mitral valve. 40. Probable bicuspid aortic valve and moderately calcified aortic valve with mild valvular aortic stenosis. 41. Bilateral multilobar questionable aspiration versus ventilator dependent pneumonia. 42. Left axis deviation. 43. History of hepatic and alcoholic cirrhosis. 44. Status post hepatitis C, status post treatment. 45. Questionable anoxic brain injury. 46. History of hepatitis C, history of alcohol abuse. 47. Questionable sepsis versus systemic inflammatory response syndrome. 48. Elevated BNP, etiology undetermined. 49. Transient hyperammonemia. 50. . 51. Hypovitaminosis D. 52. Hypotension. 1. Status post pulseless electrical activity, cardiac arrest. 2. Questionable drug overdose with questionable Inderal overdose. 3. Severe hypothermia. 4. Status post pulseless electrical activity, cardiac arrest with return of spontaneous circulation. 5. Hypotension. 6. Hypoxemia. 7. Ventilator dependent respiratory failure. 8. Leukocytosis with granulocytosis. 9. Erythrocytosis. 10. Thrombocytopenia. 11. Mild coagulopathy. 12. Hypercapnic respiratory failure. 13. Respiratory acidosis. 14. Lactic acidosis. 15. Refractory lactic acidosis. 16. Slow resolving respiratory acidosis with hypercarbia and hypercapnia. 17. Non-hemolyzed hyperkalemia. 18. Hyperphosphatemia. 19. Prerenal kidney injury. 20. Hyperbilirubinemia. 21. Transaminitis. 22. Elevated BNP, etiology undetermined. 23. Questionable bilateral aspiration pneumonia. 24. Trace proteinuria and bacteriuria. 25. Urine drug screen positive for cannabinoids and opiates. 28. Severe hypothermia with olmedo waves on the EKG with intraventricular conduction.. 29. Bilateral aspiration pneumonia. 30. History of hepatic cirrhosis. 31. Cerebral cortical atrophy of the brain. 32. Chronic small-vessel ischemic disease of the brain. 33. Transverse sinus asymmetry. 34. Bilateral basal ganglia calcification. 35. Left ethmoid sinus partial opacification. 36. Status post cardiac arrest. 37. Questionable systemic inflammatory response syndrome versus sepsis. 38. History of hepatitis C and alcohol abuse. 39. History of hepatitis C and hepatic cirrhosis. Plan at this time, patient has been ordered repeat labs. Patient has been seen by the knuckle bender, ordered hepatitis C and HIV. Repeat CBC, blood cultures ordered. CURRENT CONSULTATIONS: Hematology/Oncology, Infectious Disease, Cardiology, Neurology and Interventional Radiology. MEDICATIONS: The patient is presently on dopamine drip. Patient is started on DuoNeb nebulizer every 4 hours. Patient has been started on heparin 5000 subcu every 12 hours. Humalog low-dose sliding scale coverage ordered every 6 hours. Patient was given overnight Kayexalate dose 15 g. Patient is started on Levophed drip because of hypotension. Patient is on Diprivan drip for sedation. Patient is on Protonix 40 IV daily. Patient was given a dose of sodium bicarbonate 1 amp overnight. Patient was given multiple IV fluid boluses, patient's IV fluid is adjusted to 125 mL per hour. Patient is started on Solu-Cortef 50 mg IV every 6 hours, vancomycin 1 g IV every 12 hours. Patient is on vasopressin at 0.03 units per minute. Patient is on Zosyn 3.375 IV every 6 hours. Patient has been ordered repeat CT of the head after Neurology evaluation. Patient has been ordered repeat EKG. Patient is on fingerstick blood sugar. Neuro checks. Seizure precaution. Sequential compression devices, TALIA stockings. Patient has been requested by Interventional Radiology for PICC line placement secondary to poor IV access as the patient has an IO (intraosseous) line placement. At present, patient's prognosis is extremely guarded to poor. CONDITION: Critical. PROGNOSIS: Guarded to poor. Time spent in the entire management more than 35 minutes. Dictated and electronically signed, not read. Geovanny Fairbanks MD MTDD
[2017-06-25] MEDS: Propofol 10 mg/ml 1,000 MG/100 ML VIAL IV PRN ×2 (02:54→08:34)
[2017-06-25] MEDS: Vancomycin 1gm in NS 250ml 1 GM/250 ML BAG IVPB SCH ×2 (03:12→17:19)
[2017-06-25] MEDS: NOREPINEPHRINE BIT/0.9 % NACL 4 MG/250 ML BAG IV PRN (05:00)
[2017-06-25] MEDS: Albuterol-Ipratrop 3 mg / 0.5 (3 ml) UD IH SCH ×5 (06:02→20:20)
[2017-06-25 06:38] LABS: ARTERIAL BLOOD GAS HCO3 20.8 mmol/L (21-28); ARTERIAL BLOOD GAS HEMOGLOBIN 13.8 g/dL (11.7-17.4); ARTERIAL BLOOD GAS O2 CONTENT 18.9 ML/dl (15-23); ARTERIAL BLOOD GAS O2 SAT 99.4 % (95-98); ARTERIAL BLOOD GAS PCO2 36 mm/Hg (35-45); ARTERIAL BLOOD GAS PH 7.37 (7.35-7.45); ARTERIAL BLOOD GAS TCO2 21.9 mmol.L (22-28)
[2017-06-25 07:17] LABS: TROPONIN I 0.04 ng/mL
[2017-06-25 08:21] LABS: ALB/GLOB RATIO 0.8 (1.1-1.8); ALBUMIN 2.4 g/dL (3.0-4.8); ALT/SGPT 53 U/L (7-56); AST/SGOT 69 U/L (17-59); BILIRUBIN,DIRECT 0.7 mg/dL (0.0-0.4); BLOOD UREA NITROGEN 34 mg/dL (7-21); GFR AFRICAN-AMERICAN > 60; GFR NON-AFRICAN AMERICAN > 60
--- NOTE | 2017-06-25 08:23 | RAD ---
HISTORY: pneumonia COMPARISON: 06/24/2017 at 12:38 a.m. FINDINGS: LUNGS: Left perihilar opacity. Possible artifact. Recommend follow-up to rule out developing pneumonia. No other opacity elsewhere. PLEURA: No significant pleural effusion identified, no pneumothorax apparent. CARDIOVASCULAR: Normal heart size. ET tube and NG tube unchanged. Right PICC catheter terminates in the region of the SVC. OSSEOUS STRUCTURES: No significant abnormalities. VISUALIZED UPPER ABDOMEN: Normal. OTHER FINDINGS: None. IMPRESSION: New right PICC catheter. Possible developing pneumonia left parahilar region. Follow-up advised.
[2017-06-25 08:24] LABS: CALCIUM 7.5 mg/dL (8.4-10.5)
[2017-06-25 08:31] LABS: ARTERIAL BLOOD GAS HCO3 13.8 mmol/L (21-28); ARTERIAL BLOOD GAS HEMOGLOBIN 10.3 g/dL (11.7-17.4); ARTERIAL BLOOD GAS O2 CAPACITY 14.2 mL/dl (16-24); ARTERIAL BLOOD GAS O2 CONTENT 13.8 ML/dl (15-23); ARTERIAL BLOOD GAS O2 SAT 97.5 % (95-98); ARTERIAL BLOOD GAS PCO2 28 mm/Hg (35-45); ARTERIAL BLOOD GAS TCO2 14.7 mmol.L (22-28)
--- NOTE | 2017-06-25 08:36 | HP ---
HISTORY OF PRESENT ILLNESS: The patient is a 66-year-old male who was brought into the emergency room by the EMS squad. Patient was brought into the emergency room by the EMS, [facility] after the patient underwent ACLS protocol. The patient was found unresponsive with agonal respirations at home. Patient was intubated by 7-Kenyan ET tube at 22 lip line. Patient was found to be in cardiac arrest while en route to the hospital. According to the triage note, patient was given epinephrine, etomidate with return of circulation. Patient was seen and evaluated in the emergency room by the ER physician, Dr. Fried, where the patient presented with cardiac arrest. According to the patient's daughter, patient's daughter has not talked to him since yesterday, which was 06/22/2017 and patient has not been answering his phone since the morning and when patient's daughter went to the patient's house, the patient was found unresponsive in the bed with pills identified by the pharmacy to be Adderall with the windows wide open likely all night. Patient's daughter called 911 and the EMS found the patient unresponsive, hypotensive and was intubated in the field. While en route to the hospital, patient developed PEA. Patient was started on ACLS protocol. Patient had an intraosseous line inserted in the left tibia and a dose of epinephrine was given. Patient was given a second dose of epinephrine in the emergency room. Patient regained circulation and patient regained sinus rhythm at 80 beats per minute with a blood pressure of 135/65 with the return of spontaneous circulation by the ER physician. CODE STATUS: Full code. LIVING WILL ADVANCE DIRECTIVE: None. Height is 5 feet 7 inches. Body weight is 160. ALLERGIES: NOT KNOWN. BMI is 25. HOME MEDICATIONS: None. SUBSTANCE AND SOCIAL HISTORY: Unobtainable. OCCUPATIONAL HISTORY: Unobtainable. PAST MEDICAL HISTORY: Significant for hepatitis C, history of cirrhosis, history of hypertension, history of questionable type 2 diabetes mellitus, history of alcohol abuse and dependence, history of substance abuse, history of leukopenia, history of anemia, history of thrombocytopenia, history of monocytosis, history of transaminitis, history of elevated alpha-fetoprotein marker, history of hepatitic C with hepatitis C RNA genotype 1a with initial hepatitis C RNA PCR of 881,099 in 03/2014 with undetected hepatitis C PCR RNA in 07/2015 with non-detected hepatitis C quantitative and hepatitis C in 04/2016 and 06/2016. Patient's past medical history is also significant for hepatic cirrhosis, history of hepatosplenomegaly, history of questionable poor compliance. Patient was seen in the emergency room by the ER physician. Patient was intubated in the field. Patient was found to be PEA. Past medical history is significant for hepatitis C status post Harvoni treatment. PHYSICAL EXAMINATION: GENERAL: Patient was seen. Patient was intubated. Patient was sedated. VITAL SIGNS: T max in the emergency room is 83 degrees to 85 degrees Fahrenheit. Patient was started on hypothermia. Patient was started on rewarming protocol. Heart rate was 48, 47, 53, 54 and 57. Blood pressure was 114/47, 114/50, 112/73, 94/65 and 98/64. Respirations 16. O2 sat was 90%, 91% and 94%. HEENT: Head examination, normocephalic and atraumatic. HEENT examination shows pink conjunctivae. Pupils are fixed. ET tube in place. NECK: No neck rigidity. CHEST: Symmetrical. LUNGS: Show positive coarse rhonchi and crepitations bilaterally. CARDIOVASCULAR: S1, S2. ABDOMEN: Soft. Positive bowel sound. No hepatosplenomegaly noted on gross examination. GENITALIA: Male. Positive Sharp catheter. EXTREMITIES: Show positive left tibia IO needle noted. No edema noted. SKIN: Warm and dry. NEUROLOGIC: Patient is not responsive, sedated. MUSCULOSKELETAL: Shows a body mass index of 25. DIAGNOSTICS: WBC 18.5, hemoglobin and hematocrit 19.7 and 60, platelet 111. Granulocytes 77. PT/PTT 17.2. INR 1.15. Initial ABG shows pH of 6.92, pCO2 of 80, pO2 of , bicarb 16, saturation of 100%. VBG shows a lactate of 5.4. Sodium 145; potassium 5.9, non-hemolyzed; chloride 110, CO2 of 22, anion gap 19, BUN 24, creatinine 1.3, GFR greater than 60, glucose 109, phosphorus 6.9. Total bili 2.0, direct bili 1.0, AST 96, LDH 1266, CPK 244. Troponin is 0.03. BNP 1640. Urine pH 5.5, specific gravity greater than 1.020, trace protein, moderate bacteria. Urine drug screen positive for opiate, positive for cannabinoid, alcohol level less than 10. RPR is nonreactive. Patient had a chest x-ray done, which shows bilateral coarse infiltrates. Positive ET tube. CT of the head was done in the emergency room, which was reviewed. EKG was done in the emergency room, which shows junctional rhythm with bundle-branch block pattern with intraventricular conduction delay. Repeat EKG was done, sinus rhythm, this is Olmedo wave. Patient was seen in the emergency room by the critical care corn detasseler. Patient was evaluated. Patient was treated in the emergency room. IMPRESSION AND PLAN: 1. Status post pulseless electrical activity, cardiac arrest. 2. Questionable drug overdose with questionable Inderal overdose. 3. Severe hypothermia. 4. Status post pulseless electrical activity, cardiac arrest with return of spontaneous circulation. 5. Hypotension. 6. Hypoxemia. 7. Ventilator dependent respiratory failure. 8. Leukocytosis with granulocytosis. 9. Erythrocytosis. 10. Thrombocytopenia. 11. Mild coagulopathy. 12. Hypercapnic respiratory failure. 13. Respiratory acidosis. 14. Lactic acidosis. 15. Refractory lactic acidosis. 16. Slow resolving respiratory acidosis with hypercarbia and hypercapnia. 17. Non-hemolyzed hyperkalemia. 18. Hyperphosphatemia. 19. Prerenal kidney injury. 20. Hyperbilirubinemia. 21. Transaminitis. 22. Elevated BNP, etiology undetermined. 23. Questionable bilateral aspiration pneumonia. 24. Trace proteinuria and bacteriuria. 25. Urine drug screen positive for cannabinoids and opiates. 28. Severe hypothermia with olmedo waves on the EKG with intraventricular conduction.. 29. Bilateral aspiration pneumonia. 30. History of hepatic cirrhosis. 31. Cerebral cortical atrophy of the brain. 32. Chronic small-vessel ischemic disease of the brain. 33. Transverse sinus asymmetry. 34. Bilateral basal ganglia calcification. 35. Left ethmoid sinus partial opacification. 36. Status post cardiac arrest. 37. Questionable systemic inflammatory response syndrome versus sepsis. 38. History of hepatitis C and alcohol abuse. 39. History of hepatitis C and hepatic cirrhosis. Plan at this time, the patient will be admitted to Intensive Care Unit. Patient at present is to be kept in the emergency room until the patient's hypothermia has stabilized and temperature improves. Patient has been ordered serial labs, serial CPK, serial lactic acid and serial troponin. Patient has been ordered CBC with manual platelet count. Blood and urine cultures have been ordered. Current consultations Hematology/Oncology, Infectious Disease, Cardiology, Neurology and Interventional Radiology ordered. The patient received multiple atropine treatments in the emergency room times six doses of atropine 0.5 mg. Patient is started on dopamine drip at 5 mcg. Patient was given epinephrine 1 mg in the emergency room. Patient is started on Protonix 40 IV daily. Patient has been given IV fluid boluses. Patient received Solu-Cortef 100 mg IV in the emergency room. Patient was given vancomycin 1 g IV in the emergency room. Patient has been placed on ventilator. Repeat EKG has been ordered. At present, the patient's condition is critical. Prognosis is guarded to poor, which has been informed to the patient's family including the patient's daughter, Racheal. Patient will be put on Neuro checks, seizure precaution, sequential compression devices, TALIA stockings. At present, patient's further management will be dependent upon the patient's clinical condition, hemodynamic status and as per the patient response to therapeutic intervention and as per the patient's diagnostic test results and as per recommendation by all the physicians involved in the care of the patient. Time spent in the entire patient's management, review of data and entire management is more than 1 hour 55 minutes. Dictated and electronically signed, not read. Geovanny Fairbanks MD
[2017-06-25 08:38] LABS: CK MB% 2.1 % (2.5-3.0)
[2017-06-25] MEDS ORDERED: Albumin Human 25% (25 gm/100 ml) IV ONE (09:14)
--- NOTE | 2017-06-25 09:46 | CT ---
PROCEDURE: CT HEAD WITHOUT CONTRAST. HISTORY: s/p cardiac arrest COMPARISON: 06/23/2017 TECHNIQUE: Axial computed tomography images were obtained through the head/brain without intravenous contrast. Radiation dose: Total exam DLP = 884.21 mGy-cm. This CT exam was performed using one or more of the following dose reduction techniques: Automated exposure control, adjustment of the mA and/or kV according to patient size, and/or use of iterative reconstruction technique. FINDINGS: HEMORRHAGE: No intracranial hemorrhage. BRAIN: No mass effect or edema. No atrophy or chronic microvascular ischemic changes. VENTRICLES: Unremarkable. No hydrocephalus. CALVARIUM: Unremarkable. PARANASAL SINUSES: Unremarkable as visualized. No significant inflammatory changes. MASTOID AIR CELLS: Unremarkable as visualized. No inflammatory changes. OTHER FINDINGS: None. IMPRESSION: Normal CT of the Head. No evidence of acute infarct.
--- NOTE | 2017-06-25 09:51 | CP.CCUPN ---
<Juan Coburn - Last Filed: 06/25/17 10:58> CCU Subjective - Physician Review Subjective (Free Text): Patient seen and evaluated bedside. No acute issues overnight. Patient intubated , will be extubated today. Some response to painful stimuli. Patient will be continued to monitored. Will wean off propofol. 06/25/17 10:46 CCU Objective - Vital Signs / Intake & Output Vital Signs (Last 4 hours): Vital Signs Temp Pulse BP Pulse Ox 06/25/17 07:40 99.0 F 69 95 06/25/17 07:30 99.0 F 73 101/76 95 06/25/17 07:20 99.0 F 68 91 L 06/25/17 07:10 99.1 F 69 93 L 06/25/17 07:00 99.0 F 73 107/66 96 06/25/17 06:50 98.8 F 81 77 L 06/25/17 06:41 98.8 F 66 97/65 L 96 06/25/17 06:40 98.8 F 66 95 06/25/17 06:30 98.8 F 74 97/67 L 100 06/25/17 06:20 98.6 F 72 97 06/25/17 06:10 98.4 F 76 100 06/25/17 06:00 98.2 F 70 96/70 L 100 Intake and Output (Last 8hrs): Intake & Output 06/24/17 06/25/17 06/25/17 22:59 06:59 14:59 Intake Total 4055 2277 100 Output Total 400 675 Balance 3655 1602 100 Intake: IV 4005 2277 100 Left Antecubital 100 278 Left Hand 2780 1500 Right Antecubital 250 299 Right Upper arm 286 Oral 0 Tube Feeding 50 Output: Urine 400 675 Urethral (Sharp) 400 675 Other: # Bowel Movements 0 0 - Physical Exam Physical Exam Limitations: Positive for: Other (lethargic, disoriented) Head: Positive for: Atraumatic, Normocephalic Pupils: Positive for: PERRL Conjunctiva: Positive for: Normal Mouth: Positive for: Moist Mucous Membranes Cardiovascular: Positive for: Regular Rate and Rhythm, Normal S1, S2. Negative for: Murmurs Abdomen: Positive for: Distention Genitourinary Male: Negative for: Erythema Upper Extremity: Positive for: NORMAL PULSES. Negative for: Swelling Lower Extremity: Positive for: Normal Inspection Neurological: Negative for: Speech Normal Skin: Positive for: Warm, Dry, Normal Color. Negative for: Rashes Psychiatric: Positive for: Alert. Negative for: Oriented x 3 - Medications Active Medications: Active Medications Generic Name Dose Route Start Last Admin Trade Name Freq PRN Reason Stop Dose Admin Albuterol/Ipratropium 3 ml 06/24/17 19:30 06/25/17 07:55 Duoneb 3 Mg/0.5 Mg (3 Ml) Ud IH 3 ml [id number] PETRA Administration Heparin Sodium (Porcine) 5,000 units 06/24/17 10:00 06/25/17 09:04 Heparin SC 5,000 units Q12 PETRA Administration Protocol Hydrocortisone Sodium Succinate 50 mg 06/25/17 08:15 06/25/17 08:52 Solu-Cortef IVP 50 mg Q8H PETRA Administration Vancomycin HCl 1 gm in 250 mls @ 167 mls/hr 06/24/17 04:00 06/25/17 03:12 Vancomycin 1gm IVPB 167 mls/hr Q12H PETRA Administration Protocol Propofol 1,000 mg in 100 mls @ 2.177 mls/hr 06/23/17 23:57 06/25/17 08:34 Diprivan IV 30 mcg/kg/min .Q24H PRN 13.064 mls/hr TITRATE PER MD ORDER Administration Protocol 5 MCG/KG/MIN Piperacillin Sod/Tazobactam Sod 100 mls @ 200 mls/hr 06/24/17 12:00 06/25/17 06:07 Zosyn 3.375 In Ns 100ml IVPB 07/01/17 12:01 200 mls/hr Q6 PETRA Administration Protocol Sodium Chloride 1,000 mls @ 125 mls/hr 06/24/17 08:15 06/24/17 22:18 Sodium Chloride 0.9% IV 125 mls/hr .Q8H PETRA Administration Vasopressin 20 units/ Sodium 101 mls @ 9.09 mls/hr 06/24/17 13:30 06/25/17 02 :00 Chloride IV 9.09 mls/hr .Q11H7M PETRA Administration Protocol 0.03 U/MIN Magnesium Sulfate 2 gm/ Sodium 104 mls @ 102 mls/hr 06/25/17 09:15 Chloride IVPB 06/25/17 13:17 Q3H [facility] Insulin Human Lispro 0 units 06/24/17 11:24 06/25/17 06:24 Humalog Low SC 1 units Q6 [facility] Administration Protocol Pantoprazole Sodium 40 mg 06/24/17 10:00 06/25/17 09:04 Protonix Inj IVP 40 mg DAILY PETRA Administration - Patient Studies Lab Studies: Lab Studies 06/25/17 06/25/17 06/25/17 Range/Units 08:20 06:34 06:30 PT (9.4-12.5) SECONDS INR (0.93-1.08) APTT (25.1-36.5) Seconds pCO2 28 L 36 (35-45) mm/Hg pO2 72.0 L 95.0 (30-55) mm/Hg HCO3 13.8 L 20.8 L (21-28) mmol/L ABG pH 7.30 L 7.37 (7.35-7.45) ABG Total CO2 14.7 L 21.9 L (22-28) mmol.L ABG O2 Saturation 97.5 99.4 H (95-98) % ABG O2 Content 13.8 L 18.9 (15-23) ML/dl ABG Base Excess -11.3 L -3.9 L (-2.0-3.0) mmol/L ABG Hemoglobin 10.3 L 13.8 (11.7-17.4) g/dL ABG Carboxyhemoglobin 1.7 H 1.6 H (0.5-1.5) % POC ABG HHb (Measured) 2.4 0.6 (0-5) % ABG Methemoglobin 1.3 0.7 (0.0-3.0) % ABG O2 Capacity 14.2 L 19.0 (16-24) mL/dl VBG pH (7.32-7.43) VBG pCO2 (40-60) VBG HCO3 (21-28) mmol/l VBG Total CO2 (22-28) mmol.L VBG O2 Sat (Calc) (40-65) % VBG Base Excess (0.0-2.0) mmol/L VBG Potassium (3.6-5.2) mmol/L Hgb O2 Saturation 94.6 L 97.1 (95.0-98.0) % Sodium (132-148) mmol/L Chloride (98-107) mmol/L Glucose (75-110) mg/dl Lactate (0.7-2.1) mmol/L FiO2 50.0 60.0 % Potassium (3.6-5.0) mmol/L Carbon Dioxide (21-33) mmol/L Anion Gap (10-20) BUN (7-21) mg/dL Creatinine (0.8-1.5) mg/dl Est GFR ( Amer) Est GFR (Non-Af Amer) POC Glucose (mg/dL) (65-110) mg/dL Random Glucose (70-110) mg/dL Hemoglobin A1c (4.2-6.5) % Fructosamine (190-270) umol/L Lactic Acid 2.6 H (0.7-2.1) mmol/L Calcium (8.4-10.5) mg/dL Ionized Calcium (4.80-5.60) mg/dL Phosphorus (2.5-4.5) mg/dL Magnesium (1.7-2.2) mg/dL Ferritin ng/mL Total Bilirubin (0.2-1.3) mg/dL Direct Bilirubin (0.0-0.4) mg/dL AST (17-59) U/L ALT (7-56) U/L Alkaline Phosphatase (38-126) U/L Ammonia (9-33) umol/L Lactate Dehydrogenase (333-699) U/L Total Creatine Kinase (35-230) U/L CK-MB (CK-2) (0.0-3.6) ng/mL CK-MB (CK-2) % (2.5-3.0) % Troponin I ng/mL Total Protein (5.8-8.3) g/dL Albumin (3.0-4.8) g/dL Globulin gm/dL Albumin/Globulin Ratio (1.1-1.8) Vitamin B12 (239-931) pg/mL 25-OH Vitamin D Total (30.0-100.0) NG/ML Folate ng/mL Procalcitonin (0.19-0.49) NG/ML Venous Blood Potassium (3.6-5.2) mmol/L RPR (NONREACTIVE) 0306/25/17 06/25/17 Range/Units 06:30 06:30 06:18 PT (9.4-12.5) SECONDS INR (0.93-1.08) APTT (25.1-36.5) Seconds pCO2 (35-45) mm/Hg pO2 (30-55) mm/Hg HCO3 (21-28) mmol/L ABG pH (7.35-7.45) ABG Total CO2 (22-28) mmol.L ABG O2 Saturation (95-98) % ABG O2 Content (15-23) ML/dl ABG Base Excess (-2.0-3.0) mmol/L ABG Hemoglobin (11.7-17.4) g/dL ABG Carboxyhemoglobin (0.5-1.5) % POC ABG HHb (Measured) (0-5) % ABG Methemoglobin (0.0-3.0) % ABG O2 Capacity (16-24) mL/dl VBG pH (7.32-7.43) VBG pCO2 (40-60) VBG HCO3 (21-28) mmol/l VBG Total CO2 (22-28) mmol.L VBG O2 Sat (Calc) (40-65) % VBG Base Excess (0.0-2.0) mmol/L VBG Potassium (3.6-5.2) mmol/L Hgb O2 Saturation (95.0-98.0) % Sodium 142 (132-148) mmol/L Chloride 113 H (98-107) mmol/L Glucose (75-110) mg/dl Lactate (0.7-2.1) mmol/L FiO2 % Potassium 4.0 (3.6-5.0) mmol/L Carbon Dioxide 23 (21-33) mmol/L Anion Gap 10 (10-20) BUN 34 H (7-21) mg/dL Creatinine 0.9 (0.8-1.5) mg/dl Est GFR ( Amer) > 60 Est GFR (Non-Af Amer) > 60 POC Glucose (mg/dL) 189 H (65-110) mg/dL Random Glucose 200 H (70-110) mg/dL Hemoglobin A1c (4.2-6.5) % Fructosamine (190-270) umol/L Lactic Acid (0.7-2.1) mmol/L Calcium 7.5 L (8.4-10.5) mg/dL Ionized Calcium (4.80-5.60) mg/dL Phosphorus 2.3 L (2.5-4.5) mg/dL Magnesium 1.6 L (1.7-2.2) mg/dL Ferritin ng/mL Total Bilirubin 1.7 H (0.2-1.3) mg/dL Direct Bilirubin 0.7 H (0.0-0.4) mg/dL AST 69 H D (17-59) U/L ALT 53 (7-56) U/L Alkaline Phosphatase 37 L D (38-126) U/L Ammonia 23 (9-33) umol/L Lactate Dehydrogenase (333-699) U/L Total Creatine Kinase 378 H (35-230) U/L CK-MB (CK-2) 8.0 H (0.0-3.6) ng/mL CK-MB (CK-2) % 2.1 L (2.5-3.0) % Troponin I 0.04 D ng/mL Total Protein 5.4 L (5.8-8.3) g/dL Albumin 2.4 L (3.0-4.8) g/dL Globulin 3.0 gm/dL Albumin/Globulin Ratio 0.8 L (1.1-1.8) Vitamin B12 (239-931) pg/mL 25-OH Vitamin D Total (30.0-100.0) NG/ML Folate ng/mL Procalcitonin (0.19-0.49) NG/ML Venous Blood Potassium (3.6-5.2) mmol/L RPR (NONREACTIVE) 06/25/17 06/24/17 06/24/17 Range/Units 00:07 19:15 18:26 PT (9.4-12.5) SECONDS INR (0.93-1.08) APTT (25.1-36.5) Seconds pCO2 (35-45) mm/Hg pO2 (30-55) mm/Hg HCO3 (21-28) mmol/L ABG pH (7.35-7.45) ABG Total CO2 (22-28) mmol.L ABG O2 Saturation (95-98) % ABG O2 Content (15-23) ML/dl ABG Base Excess (-2.0-3.0) mmol/L ABG Hemoglobin (11.7-17.4) g/dL ABG Carboxyhemoglobin (0.5-1.5) % POC ABG HHb (Measured) (0-5) % ABG Methemoglobin (0.0-3.0) % ABG O2 Capacity (16-24) mL/dl VBG pH (7.32-7.43) VBG pCO2 (40-60) VBG HCO3 (21-28) mmol/l VBG Total CO2 (22-28) mmol.L VBG O2 Sat (Calc) (40-65) % VBG Base Excess (0.0-2.0) mmol/L VBG Potassium (3.6-5.2) mmol/L Hgb O2 Saturation (95.0-98.0) % Sodium (132-148) mmol/L Chloride (98-107) mmol/L Glucose (75-110) mg/dl Lactate (0.7-2.1) mmol/L FiO2 % Potassium (3.6-5.0) mmol/L Carbon Dioxide (21-33) mmol/L Anion Gap (10-20) BUN (7-21) mg/dL Creatinine (0.8-1.5) mg/dl Est GFR ( Amer) Est GFR (Non-Af Amer) POC Glucose (mg/dL) 185 H 128 H 162 H (65-110) mg/dL Random Glucose (70-110) mg/dL Hemoglobin A1c (4.2-6.5) % Fructosamine (190-270) umol/L Lactic Acid (0.7-2.1) mmol/L Calcium (8.4-10.5) mg/dL Ionized Calcium (4.80-5.60) mg/dL Phosphorus (2.5-4.5) mg/dL Magnesium (1.7-2.2) mg/dL Ferritin ng/mL Total Bilirubin (0.2-1.3) mg/dL Direct Bilirubin (0.0-0.4) mg/dL AST (17-59) U/L ALT (7-56) U/L Alkaline Phosphatase (38-126) U/L Ammonia (9-33) umol/L Lactate Dehydrogenase (333-699) U/L Total Creatine Kinase (35-230) U/L CK-MB (CK-2) (0.0-3.6) ng/mL CK-MB (CK-2) % (2.5-3.0) % Troponin I ng/mL Total Protein (5.8-8.3) g/dL Albumin (3.0-4.8) g/dL Globulin gm/dL Albumin/Globulin Ratio (1.1-1.8) Vitamin B12 (239-931) pg/mL 25-OH Vitamin D Total (30.0-100.0) NG/ML Folate ng/mL Procalcitonin (0.19-0.49) NG/ML Venous Blood Potassium (3.6-5.2) mmol/L RPR (NONREACTIVE) 06/24/17 06/24/17 06/24/17 Range/Units 14:46 11:30 11:30 PT (9.4-12.5) SECONDS INR (0.93-1.08) APTT (25.1-36.5) Seconds pCO2 (35-45) mm/Hg pO2 (30-55) mm/Hg HCO3 (21-28) mmol/L ABG pH (7.35-7.45) ABG Total CO2 (22-28) mmol.L ABG O2 Saturation (95-98) % ABG O2 Content (15-23) ML/dl ABG Base Excess (-2.0-3.0) mmol/L ABG Hemoglobin (11.7-17.4) g/dL ABG Carboxyhemoglobin (0.5-1.5) % POC ABG HHb (Measured) (0-5) % ABG Methemoglobin (0.0-3.0) % ABG O2 Capacity (16-24) mL/dl VBG pH (7.32-7.43) VBG pCO2 (40-60) VBG HCO3 (21-28) mmol/l VBG Total CO2 (22-28) mmol.L VBG O2 Sat (Calc) (40-65) % VBG Base Excess (0.0-2.0) mmol/L VBG Potassium (3.6-5.2) mmol/L Hgb O2 Saturation (95.0-98.0) % Sodium (132-148) mmol/L Chloride (98-107) mmol/L Glucose (75-110) mg/dl Lactate (0.7-2.1) mmol/L FiO2 % Potassium (3.6-5.0) mmol/L Carbon Dioxide (21-33) mmol/L Anion Gap (10-20) BUN (7-21) mg/dL Creatinine (0.8-1.5) mg/dl Est GFR ( Amer) Est GFR (Non-Af Amer) POC Glucose (mg/dL) 127 H (65-110) mg/dL Random Glucose (70-110) mg/dL Hemoglobin A1c (4.2-6.5) % Fructosamine 271 H (190-270) umol/L Lactic Acid (0.7-2.1) mmol/L Calcium (8.4-10.5) mg/dL Ionized Calcium (4.80-5.60) mg/dL Phosphorus (2.5-4.5) mg/dL Magnesium (1.7-2.2) mg/dL Ferritin ng/mL Total Bilirubin (0.2-1.3) mg/dL Direct Bilirubin (0.0-0.4) mg/dL AST (17-59) U/L ALT (7-56) U/L Alkaline Phosphatase (38-126) U/L Ammonia (9-33) umol/L Lactate Dehydrogenase (333-699) U/L Total Creatine Kinase (35-230) U/L CK-MB (CK-2) (0.0-3.6) ng/mL CK-MB (CK-2) % (2.5-3.0) % Troponin I ng/mL Total Protein (5.8-8.3) g/dL Albumin (3.0-4.8) g/dL Globulin gm/dL Albumin/Globulin Ratio (1.1-1.8) Vitamin B12 (239-931) pg/mL 25-OH Vitamin D Total 23.0 L (30.0-100.0) NG/ML Folate ng/mL Procalcitonin (0.19-0.49) NG/ML Venous Blood Potassium (3.6-5.2) mmol/L RPR (NONREACTIVE) 06/24/17 06/24/17 06/24/17 Range/Units 11:30 11:30 11:30 PT 17.3 H (9.4-12.5) SECONDS INR 1.49 H (0.93-1.08) APTT 22.1 L (25.1-36.5) Seconds pCO2 (35-45) mm/Hg pO2 50 (30-55) mm/Hg HCO3 (21-28) mmol/L ABG pH (7.35-7.45) ABG Total CO2 (22-28) mmol.L ABG O2 Saturation (95-98) % ABG O2 Content (15-23) ML/dl ABG Base Excess (-2.0-3.0) mmol/L ABG Hemoglobin (11.7-17.4) g/dL ABG Carboxyhemoglobin (0.5-1.5) % POC ABG HHb (Measured) (0-5) % ABG Methemoglobin (0.0-3.0) % ABG O2 Capacity (16-24) mL/dl VBG pH 7.22 L (7.32-7.43) VBG pCO2 54.0 (40-60) VBG HCO3 22.1 (21-28) mmol/l VBG Total CO2 23.8 (22-28) mmol.L VBG O2 Sat (Calc) 87.3 H (40-65) % VBG Base Excess -6.1 L (0.0-2.0) mmol/L VBG Potassium 4.2 (3.6-5.2) mmol/L Hgb O2 Saturation (95.0-98.0) % Sodium 140.0 (132-148) mmol/L Chloride 110.0 H (98-107) mmol/L Glucose 151 H (75-110) mg/dl Lactate 4.0 H* (0.7-2.1) mmol/L FiO2 21.0 % Potassium (3.6-5.0) mmol/L Carbon Dioxide (21-33) mmol/L Anion Gap (10-20) BUN (7-21) mg/dL Creatinine (0.8-1.5) mg/dl Est GFR ( Amer) Est GFR (Non-Af Amer) POC Glucose (mg/dL) (65-110) mg/dL Random Glucose (70-110) mg/dL Hemoglobin A1c (4.2-6.5) % Fructosamine (190-270) umol/L Lactic Acid (0.7-2.1) mmol/L Calcium (8.4-10.5) mg/dL Ionized Calcium (4.80-5.60) mg/dL Phosphorus (2.5-4.5) mg/dL Magnesium (1.7-2.2) mg/dL Ferritin ng/mL Total Bilirubin (0.2-1.3) mg/dL Direct Bilirubin (0.0-0.4) mg/dL AST (17-59) U/L ALT (7-56) U/L Alkaline Phosphatase (38-126) U/L Ammonia (9-33) umol/L Lactate Dehydrogenase 868 H (333-699) U/L Total Creatine Kinase 306 H (35-230) U/L CK-MB (CK-2) 11.9 H (0.0-3.6) ng/mL CK-MB (CK-2) % (2.5-3.0) % Troponin I 0.14 H* ng/mL Total Protein (5.8-8.3) g/dL Albumin (3.0-4.8) g/dL Globulin gm/dL Albumin/Globulin Ratio (1.1-1.8) Vitamin B12 652 (239-931) pg/mL 25-OH Vitamin D Total (30.0-100.0) NG/ML Folate 15.9 ng/mL Procalcitonin (0.19-0.49) NG/ML Venous Blood Potassium 4.2 (3.6-5.2) mmol/L RPR (NONREACTIVE) 06/24/17 06/24/17 06/24/17 Range/Units 08:20 07:30 07:30 PT (9.4-12.5) SECONDS INR (0.93-1.08) APTT (25.1-36.5) Seconds pCO2 (35-45) mm/Hg pO2 (30-55) mm/Hg HCO3 (21-28) mmol/L ABG pH (7.35-7.45) ABG Total CO2 (22-28) mmol.L ABG O2 Saturation (95-98) % ABG O2 Content (15-23) ML/dl ABG Base Excess (-2.0-3.0) mmol/L ABG Hemoglobin (11.7-17.4) g/dL ABG Carboxyhemoglobin (0.5-1.5) % POC ABG HHb (Measured) (0-5) % ABG Methemoglobin (0.0-3.0) % ABG O2 Capacity (16-24) mL/dl VBG pH (7.32-7.43) VBG pCO2 (40-60) VBG HCO3 (21-28) mmol/l VBG Total CO2 (22-28) mmol.L VBG O2 Sat (Calc) (40-65) % VBG Base Excess (0.0-2.0) mmol/L VBG Potassium (3.6-5.2) mmol/L Hgb O2 Saturation (95.0-98.0) % Sodium (132-148) mmol/L Chloride (98-107) mmol/L Glucose (75-110) mg/dl Lactate (0.7-2.1) mmol/L FiO2 % Potassium (3.6-5.0) mmol/L Carbon Dioxide (21-33) mmol/L Anion Gap (10-20) BUN (7-21) mg/dL Creatinine (0.8-1.5) mg/dl Est GFR ( Amer) Est GFR (Non-Af Amer) POC Glucose (mg/dL) (65-110) mg/dL Random Glucose (70-110) mg/dL Hemoglobin A1c 6.1 (4.2-6.5) % Fructosamine (190-270) umol/L Lactic Acid (0.7-2.1) mmol/L Calcium (8.4-10.5) mg/dL Ionized Calcium 4.6 L (4.80-5.60) mg/dL Phosphorus (2.5-4.5) mg/dL Magnesium (1.7-2.2) mg/dL Ferritin ng/mL Total Bilirubin (0.2-1.3) mg/dL Direct Bilirubin (0.0-0.4) mg/dL AST (17-59) U/L ALT (7-56) U/L Alkaline Phosphatase (38-126) U/L Ammonia (9-33) umol/L Lactate Dehydrogenase (333-699) U/L Total Creatine Kinase (35-230) U/L CK-MB (CK-2) (0.0-3.6) ng/mL CK-MB (CK-2) % (2.5-3.0) % Troponin I ng/mL Total Protein (5.8-8.3) g/dL Albumin (3.0-4.8) g/dL Globulin gm/dL Albumin/Globulin Ratio (1.1-1.8) Vitamin B12 (239-931) pg/mL 25-OH Vitamin D Total (30.0-100.0) NG/ML Folate ng/mL Procalcitonin 1.89 H (0.19-0.49) NG/ML Venous Blood Potassium (3.6-5.2) mmol/L RPR Nonreactive (NONREACTIVE) 06/23/17 06/23/17 Range/Units 19:55 19:55 PT (9.4-12.5) SECONDS INR (0.93-1.08) APTT (25.1-36.5) Seconds pCO2 (35-45) mm/Hg pO2 (30-55) mm/Hg HCO3 (21-28) mmol/L ABG pH (7.35-7.45) ABG Total CO2 (22-28) mmol.L ABG O2 Saturation (95-98) % ABG O2 Content (15-23) ML/dl ABG Base Excess (-2.0-3.0) mmol/L ABG Hemoglobin (11.7-17.4) g/dL ABG Carboxyhemoglobin (0.5-1.5) % POC ABG HHb (Measured) (0-5) % ABG Methemoglobin (0.0-3.0) % ABG O2 Capacity (16-24) mL/dl VBG pH (7.32-7.43) VBG pCO2 (40-60) VBG HCO3 (21-28) mmol/l VBG Total CO2 (22-28) mmol.L VBG O2 Sat (Calc) (40-65) % VBG Base Excess (0.0-2.0) mmol/L VBG Potassium (3.6-5.2) mmol/L Hgb O2 Saturation (95.0-98.0) % Sodium (132-148) mmol/L Chloride (98-107) mmol/L Glucose (75-110) mg/dl Lactate (0.7-2.1) mmol/L FiO2 % Potassium (3.6-5.0) mmol/L Carbon Dioxide (21-33) mmol/L Anion Gap (10-20) BUN (7-21) mg/dL Creatinine (0.8-1.5) mg/dl Est GFR ( Amer) Est GFR (Non-Af Amer) POC Glucose (mg/dL) (65-110) mg/dL Random Glucose (70-110) mg/dL Hemoglobin A1c (4.2-6.5) % Fructosamine (190-270) umol/L Lactic Acid (0.7-2.1) mmol/L Calcium (8.4-10.5) mg/dL Ionized Calcium (4.80-5.60) mg/dL Phosphorus (2.5-4.5) mg/dL Magnesium (1.7-2.2) mg/dL Ferritin 1940.0 ng/mL Total Bilirubin (0.2-1.3) mg/dL Direct Bilirubin (0.0-0.4) mg/dL AST (17-59) U/L ALT (7-56) U/L Alkaline Phosphatase (38-126) U/L Ammonia (9-33) umol/L Lactate Dehydrogenase (333-699) U/L Total Creatine Kinase (35-230) U/L CK-MB (CK-2) (0.0-3.6) ng/mL CK-MB (CK-2) % (2.5-3.0) % Troponin I ng/mL Total Protein (5.8-8.3) g/dL Albumin (3.0-4.8) g/dL Globulin gm/dL Albumin/Globulin Ratio (1.1-1.8) Vitamin B12 (239-931) pg/mL 25-OH Vitamin D Total (30.0-100.0) NG/ML Folate ng/mL Procalcitonin 0.44 (0.19-0.49) NG/ML Venous Blood Potassium (3.6-5.2) mmol/L RPR (NONREACTIVE) Laboratory Results - last 24 hr 06/23/17 06/23/17 06/24/17 19:55 19:55 07:30 PT INR APTT pCO2 pO2 HCO3 ABG pH ABG Total CO2 ABG O2 Saturation ABG O2 Content ABG Base Excess ABG Hemoglobin ABG Carboxyhemoglobin POC ABG HHb (Measured) ABG Methemoglobin ABG O2 Capacity VBG pH VBG pCO2 VBG HCO3 VBG Total CO2 VBG O2 Sat (Calc) VBG Base Excess VBG Potassium Hgb O2 Saturation Sodium Chloride Glucose Lactate FiO2 Potassium Carbon Dioxide Anion Gap BUN Creatinine Est GFR ( Amer) Est GFR (Non-Af Amer) POC Glucose (mg/dL) Random Glucose Hemoglobin A1c Fructosamine Lactic Acid Calcium Ionized Calcium 4.6 L Phosphorus Magnesium Ferritin 1940.0 Total Bilirubin Direct Bilirubin AST ALT Alkaline Phosphatase Ammonia Lactate Dehydrogenase Total Creatine Kinase CK-MB (CK-2) CK-MB (CK-2) % Troponin I Total Protein Albumin Globulin Albumin/Globulin Ratio Vitamin B12 25-OH Vitamin D Total Folate Procalcitonin 0.44 Venous Blood Potassium RPR 06/24/17 06/24/17 06/24/17 07:30 08:20 11:30 PT INR APTT pCO2 pO2 HCO3 ABG pH ABG Total CO2 ABG O2 Saturation ABG O2 Content ABG Base Excess ABG Hemoglobin ABG Carboxyhemoglobin POC ABG HHb (Measured) ABG Methemoglobin ABG O2 Capacity VBG pH VBG pCO2 VBG HCO3 VBG Total CO2 VBG O2 Sat (Calc) VBG Base Excess VBG Potassium Hgb O2 Saturation Sodium Chloride Glucose Lactate FiO2 Potassium Carbon Dioxide Anion Gap BUN Creatinine Est GFR ( Amer) Est GFR (Non-Af Amer) POC Glucose (mg/dL) Random Glucose Hemoglobin A1c 6.1 Fructosamine Lactic Acid Calcium Ionized Calcium Phosphorus Magnesium Ferritin Total Bilirubin Direct Bilirubin AST ALT Alkaline Phosphatase Ammonia Lactate Dehydrogenase 868 H Total Creatine Kinase 306 H CK-MB (CK-2) 11.9 H CK-MB (CK-2) % Troponin I 0.14 H* Total Protein Albumin Globulin Albumin/Globulin Ratio Vitamin B12 652 25-OH Vitamin D Total Folate 15.9 Procalcitonin 1.89 H Venous Blood Potassium RPR Nonreactive 06/24/17 06/24/17 06/24/17 11:30 11:30 11:30 PT 17.3 H INR 1.49 H APTT 22.1 L pCO2 pO2 50 HCO3 ABG pH ABG Total CO2 ABG O2 Saturation ABG O2 Content ABG Base Excess ABG Hemoglobin ABG Carboxyhemoglobin POC ABG HHb (Measured) ABG Methemoglobin ABG O2 Capacity VBG pH 7.22 L VBG pCO2 54.0 VBG HCO3 22.1 VBG Total CO2 23.8 VBG O2 Sat (Calc) 87.3 H VBG Base Excess -6.1 L VBG Potassium 4.2 Hgb O2 Saturation Sodium 140.0 Chloride 110.0 H Glucose 151 H Lactate 4.0 H* FiO2 21.0 Potassium Carbon Dioxide Anion Gap BUN Creatinine Est GFR ( Amer) Est GFR (Non-Af Amer) POC Glucose (mg/dL) Random Glucose Hemoglobin A1c Fructosamine 271 H Lactic Acid Calcium Ionized Calcium Phosphorus Magnesium Ferritin Total Bilirubin Direct Bilirubin AST ALT Alkaline Phosphatase Ammonia Lactate Dehydrogenase Total Creatine Kinase CK-MB (CK-2) CK-MB (CK-2) % Troponin I Total Protein Albumin Globulin Albumin/Globulin Ratio Vitamin B12 25-OH Vitamin D Total Folate Procalcitonin Venous Blood Potassium 4.2 RPR 06/24/17 06/24/17 06/24/17 11:30 14:46 18:26 PT INR APTT pCO2 pO2 HCO3 ABG pH ABG Total CO2 ABG O2 Saturation ABG O2 Content ABG Base Excess ABG Hemoglobin ABG Carboxyhemoglobin POC ABG HHb (Measured) ABG Methemoglobin ABG O2 Capacity VBG pH VBG pCO2 VBG HCO3 VBG Total CO2 VBG O2 Sat (Calc) VBG Base Excess VBG Potassium Hgb O2 Saturation Sodium Chloride Glucose Lactate FiO2 Potassium Carbon Dioxide Anion Gap BUN Creatinine Est GFR ( Amer) Est GFR (Non-Af Amer) POC Glucose (mg/dL) 127 H 162 H Random Glucose Hemoglobin A1c Fructosamine Lactic Acid Calcium Ionized Calcium Phosphorus Magnesium Ferritin Total Bilirubin Direct Bilirubin AST ALT Alkaline Phosphatase Ammonia Lactate Dehydrogenase Total Creatine Kinase CK-MB (CK-2) CK-MB (CK-2) % Troponin I Total Protein Albumin Globulin Albumin/Globulin Ratio Vitamin B12 25-OH Vitamin D Total 23.0 L Folate Procalcitonin Venous Blood Potassium RPR 06/24/17 06/25/17 06/25/17 19:15 00:07 06:18 PT INR APTT pCO2 pO2 HCO3 ABG pH ABG Total CO2 ABG O2 Saturation ABG O2 Content ABG Base Excess ABG Hemoglobin ABG Carboxyhemoglobin POC ABG HHb (Measured) ABG Methemoglobin ABG O2 Capacity VBG pH VBG pCO2 VBG HCO3 VBG Total CO2 VBG O2 Sat (Calc) VBG Base Excess VBG Potassium Hgb O2 Saturation Sodium Chloride Glucose Lactate FiO2 Potassium Carbon Dioxide Anion Gap BUN Creatinine Est GFR ( Amer) Est GFR (Non-Af Amer) POC Glucose (mg/dL) 128 H 185 H 189 H Random Glucose Hemoglobin A1c Fructosamine Lactic Acid Calcium Ionized Calcium Phosphorus Magnesium Ferritin Total Bilirubin Direct Bilirubin AST ALT Alkaline Phosphatase Ammonia Lactate Dehydrogenase Total Creatine Kinase CK-MB (CK-2) CK-MB (CK-2) % Troponin I Total Protein Albumin Globulin Albumin/Globulin Ratio Vitamin B12 25-OH Vitamin D Total Folate Procalcitonin Venous Blood Potassium RPR 06/25/17 06/25/17 06/25/17 06:30 06:30 06:30 PT INR APTT pCO2 pO2 HCO3 ABG pH ABG Total CO2 ABG O2 Saturation ABG O2 Content ABG Base Excess ABG Hemoglobin ABG Carboxyhemoglobin POC ABG HHb (Measured) ABG Methemoglobin ABG O2 Capacity VBG pH VBG pCO2 VBG HCO3 VBG Total CO2 VBG O2 Sat (Calc) VBG Base Excess VBG Potassium Hgb O2 Saturation Sodium 142 Chloride 113 H Glucose Lactate FiO2 Potassium 4.0 Carbon Dioxide 23 Anion Gap 10 BUN 34 H Creatinine 0.9 Est GFR ( Amer) > 60 Est GFR (Non-Af Amer) > 60 POC Glucose (mg/dL) Random Glucose 200 H Hemoglobin A1c Fructosamine Lactic Acid 2.6 H Calcium 7.5 L Ionized Calcium Phosphorus 2.3 L Magnesium 1.6 L Ferritin Total Bilirubin 1.7 H Direct Bilirubin 0.7 H AST 69 H D ALT 53 Alkaline Phosphatase 37 L D Ammonia 23 Lactate Dehydrogenase Total Creatine Kinase 378 H CK-MB (CK-2) 8.0 H CK-MB (CK-2) % 2.1 L Troponin I 0.04 D Total Protein 5.4 L Albumin 2.4 L Globulin 3.0 Albumin/Globulin Ratio 0.8 L Vitamin B12 25-OH Vitamin D Total Folate Procalcitonin Venous Blood Potassium RPR 06/25/17 06/25/17 06:34 08:20 PT INR APTT pCO2 36 28 L pO2 95.0 72.0 L HCO3 20.8 L 13.8 L ABG pH 7.37 7.30 L ABG Total CO2 21.9 L 14.7 L ABG O2 Saturation 99.4 H 97.5 ABG O2 Content 18.9 13.8 L ABG Base Excess -3.9 L -11.3 L ABG Hemoglobin 13.8 10.3 L ABG Carboxyhemoglobin 1.6 H 1.7 H POC ABG HHb (Measured) 0.6 2.4 ABG Methemoglobin 0.7 1.3 ABG O2 Capacity 19.0 14.2 L VBG pH VBG pCO2 VBG HCO3 VBG Total CO2 VBG O2 Sat (Calc) VBG Base Excess VBG Potassium Hgb O2 Saturation 97.1 94.6 L Sodium Chloride Glucose Lactate FiO2 60.0 50.0 Potassium Carbon Dioxide Anion Gap BUN Creatinine Est GFR ( Amer) Est GFR (Non-Af Amer) POC Glucose (mg/dL) Random Glucose Hemoglobin A1c Fructosamine Lactic Acid Calcium Ionized Calcium Phosphorus Magnesium Ferritin Total Bilirubin Direct Bilirubin AST ALT Alkaline Phosphatase Ammonia Lactate Dehydrogenase Total Creatine Kinase CK-MB (CK-2) CK-MB (CK-2) % Troponin I Total Protein Albumin Globulin Albumin/Globulin Ratio Vitamin B12 25-OH Vitamin D Total Folate Procalcitonin Venous Blood Potassium RPR EKG/Cardiology Studies: Cardiology / EKG Studies 06/25/17 07:00 ELECTROCARDIOGRAM DAILY Comment: Reason For Exam: HYPOTHERMIA 06/26/17 07:00 ELECTROCARDIOGRAM DAILY Comment: Reason For Exam: HYPOTHERMIA 06/27/17 07:00 ELECTROCARDIOGRAM DAILY Comment: Reason For Exam: HYPOTHERMIA Fingerstick Blood Sugar Results: 189 Review of Systems - Review of Systems Systems not reviewed;Unavailable: Other Review of Systems: unable to obtain Assessment/Plan - Assessment and Plan (Free Text) Assessment: Patient is 66yo male with PMHx of Hep C s/p harvoni treatment, Et[place] abuse, found unconscious at home with window down, intubated in the field, subsequently had PEA arrest in the field given Epi x 2, ROSC obtained. Patient extubated today and started on precedex drip. He is also on levophed and vasopressin. Plan: Neuro: extubated Precedex CT Head (06/23) shows no acute intracranial findings Cardio: -cardiology consulted, recs appreciated, conservative management for now -Echo normal EF -O2 via ETT -maintain MAP>65 -levophed and vasopressin -PICC line Pulm: extubated CPAP/PS -CXR -ABG -maintain SpO2>90% ID: SIRS -infectious disease consulted, recs appreciated -Vancomycin and Zosyn -cultures no growth -steroids -LFTs -lactate 2.6 GI: NPO Protonix ppx Renal: -continue to replete electrolytes as needed Endo: Maintain euglycemia Heme/Onc: Erythrocytosis -daily CBC, CMP -heme consulted, follow recs , [place] DVT ppx: heparin GI ppx: protonix <Nito Powell - Last Filed: 06/25/17 13:44> CCU Objective - Vital Signs / Intake & Output Vital Signs (Last 4 hours): Vital Signs Temp Pulse Resp BP Pulse Ox 06/25/17 11:18 97.7 F 73 98 06/25/17 11:00 97.9 F 72 13 97/68 L 97 06/25/17 10:30 98.4 F 78 15 100/60 97 06/25/17 10:11 98.8 F 84 18 06/25/17 10:10 98.8 F 85 20 127/75 06/25/17 10:09 98.8 F 91 H 25 H 06/25/17 10:08 98.8 F 92 H 37 H 06/25/17 10:07 98.8 F 91 H 27 H 06/25/17 10:06 98.8 F 92 H 19 06/25/17 10:05 98.8 F 91 H 86 L 06/25/17 10:00 98.8 F 88 22 90 L 06/25/17 09:56 98.8 F 82 16 06/25/17 09:54 98.8 F 84 26 H 06/25/17 09:53 98.8 F 82 88 L 06/25/17 09:50 98.8 F 81 30 H Intake and Output (Last 8hrs): Intake & Output 06/24/17 06/25/17 06/25/17 22:59 06:59 14:59 Intake Total 4055 2277 122 Output Total 400 675 Balance 3655 1602 122 Intake: IV 4005 2277 122 Left Antecubital 100 278 Left Hand 2780 1500 Right Antecubital 250 299 Right Upper arm 286 Oral 0 Tube Feeding 50 Output: Urine 400 675 Urethral (Sharp) 400 675 Other: # Bowel Movements 0 0 - Medications Active Medications: Active Medications Generic Name Dose Route Start Last Admin Trade Name Freq PRN Reason Stop Dose Admin Albuterol/Ipratropium 3 ml 06/24/17 19:30 06/25/17 12:39 Duoneb 3 Mg/0.5 Mg (3 Ml) Ud IH 3 ml [id number] PETRA Administration Heparin Sodium (Porcine) 5,000 units 06/24/17 10:00 06/25/17 09:04 Heparin SC 5,000 units Q12 PETRA Administration Protocol Hydrocortisone Sodium Succinate 50 mg 06/25/17 08:15 06/25/17 08:52 Solu-Cortef IVP 50 mg Q8H PETRA Administration Vancomycin HCl 1 gm in 250 mls @ 167 mls/hr 06/24/17 04:00 06/25/17 03:12 Vancomycin 1gm IVPB 167 mls/hr Q12H PETRA Administration Protocol Propofol 1,000 mg in 100 mls @ 2.177 mls/hr 06/23/17 23:57 06/25/17 08:34 Diprivan IV 30 mcg/kg/min .Q24H PRN 13.064 mls/hr TITRATE PER MD ORDER Administration Protocol 5 MCG/KG/MIN Piperacillin Sod/Tazobactam Sod 100 mls @ 200 mls/hr 06/24/17 12:00 06/25/17 12:29 Zosyn 3.375 In Ns 100ml IVPB 07/01/17 12:01 200 mls/hr Q6 PETRA Administration Protocol Sodium Chloride 1,000 mls @ 125 mls/hr 06/24/17 08:15 06/25/17 10:15 Sodium Chloride 0.9% IV 125 mls/hr .Q8H PETRA Administration Vasopressin 20 units/ Sodium 101 mls @ 9.09 mls/hr 06/24/17 13:30 06/25/17 02 :00 Chloride IV 9.09 mls/hr .Q11H7M PETRA Administration Protocol 0.03 U/MIN Dexmedetomidine HCl 400 mcg in 100 mls @ 3.629 mls/hr 06/25/17 09:59 12:48 Precedex 400mcg/100ml IV 0.8 mcg/kg/hr .Q24H PRN 14.515 mls/hr Agitation Titration Protocol 0.2 MCG/KG/HR Insulin Human Lispro 0 units 06/24/17 11:24 03/27/18 12:13 Humalog Low SC Not Given Q6 [facility] Protocol Pantoprazole Sodium 40 mg 06/24/17 10:00 06/25/17 09:04 Protonix Inj IVP 40 mg DAILY PETRA Administration - Patient Studies Lab Studies: Microbiology Studies 06/23/17 22:43 MRSA Culture (Admit) - Final [place] MRSA NOT DETECTED Lab Studies 06/25/17 06/25/17 06/25/17 Range/Units 11:24 10:30 08:20 WBC 11.9 H (4.5-11.0) 10^3/ul RBC 3.92 (3.5-6.1) 10^6/uL Hgb 12.3 L D (14.0-18.0) g/dL Hct 36.9 L (42.0-52.0) % MCV 94.1 (80.0-105.0) fl MCH 31.4 (25.0-35.0) pg MCHC 33.3 (31.0-37.0) g/dl RDW 14.5 (11.5-14.5) % Plt Count 35 L* (120.0-450.0) 10^3/uL Manual Plt Count 54 L* (120-450) K/mm3 MPV 13.4 H (7.0-11.0) fl Gran % 85.1 H (50.0-68.0) % Lymph % (Auto) 5.1 L (22.0-35.0) % Tama % (Auto) 9.8 H (1.0-6.0) % Eos % (Auto) 0.0 L (1.5-5.0) % Baso % (Auto) 0.0 (0.0-3.0) % Gran # 10.11 H (1.4-6.5) Lymph # (Auto) 0.6 L (1.2-3.4) Tama # (Auto) 1.2 H (0.1-0.6) Eos # (Auto) 0.0 (0.0-0.7) Baso # (Auto) 0.00 (0.0-2.0) K/mm3 Retic Count 0.81 (0.5-1.5) % pCO2 28 L (35-45) mm/Hg pO2 72.0 L (80-100) mm/Hg HCO3 13.8 L (21-28) mmol/L ABG pH 7.30 L (7.35-7.45) ABG Total CO2 14.7 L (22-28) mmol.L ABG O2 Saturation 97.5 (95-98) % ABG O2 Content 13.8 L (15-23) ML/dl ABG Base Excess -11.3 L (-2.0-3.0) mmol/L ABG Hemoglobin 10.3 L (11.7-17.4) g/dL ABG Carboxyhemoglobin 1.7 H (0.5-1.5) % POC ABG HHb (Measured) 2.4 (0-5) % ABG Methemoglobin 1.3 (0.0-3.0) % ABG O2 Capacity 14.2 L (16-24) mL/dl Hgb O2 Saturation 94.6 L (95.0-98.0) % FiO2 50.0 % Sodium (132-148) mmol/L Potassium (3.6-5.0) mmol/L Chloride (98-107) mmol/L Carbon Dioxide (21-33) mmol/L Anion Gap (10-20) BUN (7-21) mg/dL Creatinine (0.8-1.5) mg/dl Est GFR ( Amer) Est GFR (Non-Af Amer) POC Glucose (mg/dL) 143 H (65-110) mg/dL Random Glucose (70-110) mg/dL Fructosamine (190-270) umol/L Lactic Acid (0.7-2.1) mmol/L Calcium (8.4-10.5) mg/dL Ionized Calcium (4.80-5.60) mg/dL Phosphorus (2.5-4.5) mg/dL Magnesium (1.7-2.2) mg/dL Ferritin ng/mL Total Bilirubin (0.2-1.3) mg/dL Direct Bilirubin (0.0-0.4) mg/dL AST (17-59) U/L ALT (7-56) U/L Alkaline Phosphatase (38-126) U/L Ammonia (9-33) umol/L Total Creatine Kinase (35-230) U/L CK-MB (CK-2) (0.0-3.6) ng/mL CK-MB (CK-2) % (2.5-3.0) % Troponin I ng/mL Total Protein (5.8-8.3) g/dL Albumin (3.0-4.8) g/dL Globulin gm/dL Albumin/Globulin Ratio (1.1-1.8) Vitamin B12 (239-931) pg/mL 25-OH Vitamin D Total (30.0-100.0) NG/ML Folate ng/mL Procalcitonin (0.19-0.49) NG/ML RPR (NONREACTIVE) Hepatitis A IgM Ab (NEGATIVE) Hep Bs Antigen (NEGATIVE) Hep B Core IgM Ab (NEGATIVE) HIV 1&2 Ag/Ab, 4th Gen (Nonreactive) 06/25/17 06/25/17 06/25/17 Range/Units 08:00 06:34 06:30 WBC (4.5-11.0) 10^3/ul RBC (3.5-6.1) 10^6/uL Hgb (14.0-18.0) g/dL Hct (42.0-52.0) % MCV (80.0-105.0) fl MCH (25.0-35.0) pg MCHC (31.0-37.0) g/dl RDW (11.5-14.5) % Plt Count (120.0-450.0) 10^3/uL Manual Plt Count (120-450) K/mm3 MPV (7.0-11.0) fl Gran % (50.0-68.0) % Lymph % (Auto) (22.0-35.0) % [place]ama % (Auto) (1.0-6.0) % Eos % (Auto) (1.5-5.0) % Baso % (Auto) (0.0-3.0) % Gran # (1.4-6.5) Lymph # (Auto) (1.2-3.4) Tama # (Auto) (0.1-0.6) Eos # (Auto) (0.0-0.7) Baso # (Auto) (0.0-2.0) K/mm3 Retic Count (0.5-1.5) % pCO2 36 (35-45) mm/Hg pO2 95.0 (80-100) mm/Hg HCO3 20.8 L (21-28) mmol/L ABG pH 7.37 (7.35-7.45) ABG Total CO2 21.9 L (22-28) mmol.L ABG O2 Saturation 99.4 H (95-98) % ABG O2 Content 18.9 (15-23) ML/dl ABG Base Excess -3.9 L (-2.0-3.0) mmol/L ABG Hemoglobin 13.8 (11.7-17.4) g/dL ABG Carboxyhemoglobin 1.6 H (0.5-1.5) % POC ABG HHb (Measured) 0.6 (0-5) % ABG Methemoglobin 0.7 (0.0-3.0) % ABG O2 Capacity 19.0 (16-24) mL/dl Hgb O2 Saturation 97.1 (95.0-98.0) % FiO2 60.0 % Sodium (132-148) mmol/L Potassium (3.6-5.0) mmol/L Chloride (98-107) mmol/L Carbon Dioxide (21-33) mmol/L Anion Gap (10-20) BUN (7-21) mg/dL Creatinine (0.8-1.5) mg/dl Est GFR ( Amer) Est GFR (Non-Af Amer) POC Glucose (mg/dL) (65-110) mg/dL Random Glucose (70-110) mg/dL Fructosamine (190-270) umol/L Lactic Acid 2.6 H (0.7-2.1) mmol/L Calcium (8.4-10.5) mg/dL Ionized Calcium (4.80-5.60) mg/dL Phosphorus (2.5-4.5) mg/dL Magnesium (1.7-2.2) mg/dL Ferritin ng/mL Total Bilirubin (0.2-1.3) mg/dL Direct Bilirubin (0.0-0.4) mg/dL AST (17-59) U/L ALT (7-56) U/L Alkaline Phosphatase (38-126) U/L Ammonia (9-33) umol/L Total Creatine Kinase (35-230) U/L CK-MB (CK-2) (0.0-3.6) ng/mL CK-MB (CK-2) % (2.5-3.0) % Troponin I ng/mL Total Protein (5.8-8.3) g/dL Albumin (3.0-4.8) g/dL Globulin gm/dL Albumin/Globulin Ratio (1.1-1.8) Vitamin B12 (239-931) pg/mL 25-OH Vitamin D Total (30.0-100.0) NG/ML Folate ng/mL Procalcitonin (0.19-0.49) NG/ML RPR (NONREACTIVE) Hepatitis A IgM Ab Negative (NEGATIVE) Hep Bs Antigen Negative (NEGATIVE) Hep B Core IgM Ab Negative (NEGATIVE) HIV 1&2 Ag/Ab, 4th Gen (Nonreactive) 06/25/17 06/25/17 06/25/17 Range/Units 06:30 06:30 06:18 WBC (4.5-11.0) 10^3/ul RBC (3.5-6.1) 10^6/uL Hgb (14.0-18.0) g/dL Hct (42.0-52.0) % MCV (80.0-105.0) fl MCH (25.0-35.0) pg MCHC (31.0-37.0) g/dl RDW (11.5-14.5) % Plt Count (120.0-450.0) 10^3/uL Manual Plt Count (120-450) K/mm3 MPV (7.0-11.0) fl Gran % (50.0-68.0) % Lymph % (Auto) (22.0-35.0) % [place] % (Auto) (1.0-6.0) % Eos % (Auto) (1.5-5.0) % Baso % (Auto) (0.0-3.0) % Gran # (1.4-6.5) Lymph # (Auto) (1.2-3.4) [place]ama # (Auto) (0.1-0.6) Eos # (Auto) (0.0-0.7) Baso # (Auto) (0.0-2.0) K/mm3 Retic Count (0.5-1.5) % pCO2 (35-45) mm/Hg pO2 (80-100) mm/Hg HCO3 (21-28) mmol/L ABG pH (7.35-7.45) ABG Total CO2 (22-28) mmol.L ABG O2 Saturation (95-98) % ABG O2 Content (15-23) ML/dl ABG Base Excess (-2.0-3.0) mmol/L ABG Hemoglobin (11.7-17.4) g/dL ABG Carboxyhemoglobin (0.5-1.5) % POC ABG HHb (Measured) (0-5) % ABG Methemoglobin (0.0-3.0) % ABG O2 Capacity (16-24) mL/dl Hgb O2 Saturation (95.0-98.0) % FiO2 % Sodium 142 (132-148) mmol/L Potassium 4.0 (3.6-5.0) mmol/L Chloride 113 H (98-107) mmol/L Carbon Dioxide 23 (21-33) mmol/L Anion Gap 10 (10-20) BUN 34 H (7-21) mg/dL Creatinine 0.9 (0.8-1.5) mg/dl Est GFR ( Amer) > 60 Est GFR (Non-Af Amer) > 60 POC Glucose (mg/dL) 189 H (65-110) mg/dL Random Glucose 200 H (70-110) mg/dL Fructosamine (190-270) umol/L Lactic Acid (0.7-2.1) mmol/L Calcium 7.5 L (8.4-10.5) mg/dL Ionized Calcium (4.80-5.60) mg/dL Phosphorus 2.3 L (2.5-4.5) mg/dL Magnesium 1.6 L (1.7-2.2) mg/dL Ferritin ng/mL Total Bilirubin 1.7 H (0.2-1.3) mg/dL Direct Bilirubin 0.7 H (0.0-0.4) mg/dL AST 69 H D (17-59) U/L ALT 53 (7-56) U/L Alkaline Phosphatase 37 L D (38-126) U/L Ammonia 23 (9-33) umol/L Total Creatine Kinase 378 H (35-230) U/L CK-MB (CK-2) 8.0 H (0.0-3.6) ng/mL CK-MB (CK-2) % 2.1 L (2.5-3.0) % Troponin I 0.04 D ng/mL Total Protein 5.4 L (5.8-8.3) g/dL Albumin 2.4 L (3.0-4.8) g/dL Globulin 3.0 gm/dL Albumin/Globulin Ratio 0.8 L (1.1-1.8) Vitamin B12 (239-931) pg/mL 25-OH Vitamin D Total (30.0-100.0) NG/ML Folate ng/mL Procalcitonin (0.19-0.49) NG/ML RPR (NONREACTIVE) Hepatitis A IgM Ab (NEGATIVE) Hep Bs Antigen (NEGATIVE) Hep B Core IgM Ab (NEGATIVE) HIV 1&2 Ag/Ab, 4th Gen (Nonreactive) 06/25/17 06/24/17 06/24/17 Range/Units 00:07 19:15 18:26 WBC (4.5-11.0) 10^3/ul RBC (3.5-6.1) 10^6/uL Hgb (14.0-18.0) g/dL Hct (42.0-52.0) % MCV (80.0-105.0) fl MCH (25.0-35.0) pg MCHC (31.0-37.0) g/dl RDW (11.5-14.5) % Plt Count (120.0-450.0) 10^3/uL Manual Plt Count (120-450) K/mm3 MPV (7.0-11.0) fl Gran % (50.0-68.0) % Lymph % (Auto) (22.0-35.0) % [place]ama % (Auto) (1.0-6.0) % Eos % (Auto) (1.5-5.0) % Baso % (Auto) (0.0-3.0) % Gran # (1.4-6.5) Lymph # (Auto) (1.2-3.4) [place]ama # (Auto) (0.1-0.6) Eos # (Auto) (0.0-0.7) Baso # (Auto) (0.0-2.0) K/mm3 Retic Count (0.5-1.5) % pCO2 (35-45) mm/Hg pO2 (80-100) mm/Hg HCO3 (21-28) mmol/L ABG pH (7.35-7.45) ABG Total CO2 (22-28) mmol.L ABG O2 Saturation (95-98) % ABG O2 Content (15-23) ML/dl ABG Base Excess (-2.0-3.0) mmol/L ABG Hemoglobin (11.7-17.4) g/dL ABG Carboxyhemoglobin (0.5-1.5) % POC ABG HHb (Measured) (0-5) % ABG Methemoglobin (0.0-3.0) % ABG O2 Capacity (16-24) mL/dl Hgb O2 Saturation (95.0-98.0) % FiO2 % Sodium (132-148) mmol/L Potassium (3.6-5.0) mmol/L Chloride (98-107) mmol/L Carbon Dioxide (21-33) mmol/L Anion Gap (10-20) BUN (7-21) mg/dL Creatinine (0.8-1.5) mg/dl Est GFR ( Amer) Est GFR (Non-Af Amer) POC Glucose (mg/dL) 185 H 128 H 162 H (65-110) mg/dL Random Glucose (70-110) mg/dL Fructosamine (190-270) umol/L Lactic Acid (0.7-2.1) mmol/L Calcium (8.4-10.5) mg/dL Ionized Calcium (4.80-5.60) mg/dL Phosphorus (2.5-4.5) mg/dL Magnesium (1.7-2.2) mg/dL Ferritin ng/mL Total Bilirubin (0.2-1.3) mg/dL Direct Bilirubin (0.0-0.4) mg/dL AST (17-59) U/L ALT (7-56) U/L Alkaline Phosphatase (38-126) U/L Ammonia (9-33) umol/L Total Creatine Kinase (35-230) U/L CK-MB (CK-2) (0.0-3.6) ng/mL CK-MB (CK-2) % (2.5-3.0) % Troponin I ng/mL Total Protein (5.8-8.3) g/dL Albumin (3.0-4.8) g/dL Globulin gm/dL Albumin/Globulin Ratio (1.1-1.8) Vitamin B12 (239-931) pg/mL 25-OH Vitamin D Total (30.0-100.0) NG/ML Folate ng/mL Procalcitonin (0.19-0.49) NG/ML RPR (NONREACTIVE) Hepatitis A IgM Ab (NEGATIVE) Hep Bs Antigen (NEGATIVE) Hep B Core IgM Ab (NEGATIVE) HIV 1&2 Ag/Ab, 4th Gen (Nonreactive) 06/24/17 06/24/17 06/24/17 Range/Units 14:46 11:30 11:30 WBC (4.5-11.0) 10^3/ul RBC (3.5-6.1) 10^6/uL Hgb (14.0-18.0) g/dL Hct (42.0-52.0) % MCV (80.0-105.0) fl MCH (25.0-35.0) pg MCHC (31.0-37.0) g/dl RDW (11.5-14.5) % Plt Count (120.0-450.0) 10^3/uL Manual Plt Count (120-450) K/mm3 MPV (7.0-11.0) fl Gran % (50.0-68.0) % Lymph % (Auto) (22.0-35.0) % [place]ama % (Auto) (1.0-6.0) % Eos % (Auto) (1.5-5.0) % Baso % (Auto) (0.0-3.0) % Gran # (1.4-6.5) Lymph # (Auto) (1.2-3.4) Tama # (Auto) (0.1-0.6) Eos # (Auto) (0.0-0.7) Baso # (Auto) (0.0-2.0) K/mm3 Retic Count (0.5-1.5) % pCO2 (35-45) mm/Hg pO2 (80-100) mm/Hg HCO3 (21-28) mmol/L ABG pH (7.35-7.45) ABG Total CO2 (22-28) mmol.L ABG O2 Saturation (95-98) % ABG O2 Content (15-23) ML/dl ABG Base Excess (-2.0-3.0) mmol/L ABG Hemoglobin (11.7-17.4) g/dL ABG Carboxyhemoglobin (0.5-1.5) % POC ABG HHb (Measured) (0-5) % ABG Methemoglobin (0.0-3.0) % ABG O2 Capacity (16-24) mL/dl Hgb O2 Saturation (95.0-98.0) % FiO2 % Sodium (132-148) mmol/L Potassium (3.6-5.0) mmol/L Chloride (98-107) mmol/L Carbon Dioxide (21-33) mmol/L Anion Gap (10-20) BUN (7-21) mg/dL Creatinine (0.8-1.5) mg/dl Est GFR ( Amer) Est GFR (Non-Af Amer) POC Glucose (mg/dL) 127 H (65-110) mg/dL Random Glucose (70-110) mg/dL Fructosamine (190-270) umol/L Lactic Acid (0.7-2.1) mmol/L Calcium (8.4-10.5) mg/dL Ionized Calcium (4.80-5.60) mg/dL Phosphorus (2.5-4.5) mg/dL Magnesium (1.7-2.2) mg/dL Ferritin ng/mL Total Bilirubin (0.2-1.3) mg/dL Direct Bilirubin (0.0-0.4) mg/dL AST (17-59) U/L ALT (7-56) U/L Alkaline Phosphatase (38-126) U/L Ammonia (9-33) umol/L Total Creatine Kinase (35-230) U/L CK-MB (CK-2) (0.0-3.6) ng/mL CK-MB (CK-2) % (2.5-3.0) % Troponin I ng/mL Total Protein (5.8-8.3) g/dL Albumin (3.0-4.8) g/dL Globulin gm/dL Albumin/Globulin Ratio (1.1-1.8) Vitamin B12 (239-931) pg/mL 25-OH Vitamin D Total 23.0 L (30.0-100.0) NG/ML Folate ng/mL Procalcitonin (0.19-0.49) NG/ML RPR (NONREACTIVE) Hepatitis A IgM Ab (NEGATIVE) Hep Bs Antigen (NEGATIVE) Hep B Core IgM Ab (NEGATIVE) HIV 1&2 Ag/Ab, 4th Gen Nonreactive (Nonreactive) 06/24/17 06/24/17 06/24/17 Range/Units 11:30 11:30 08:20 WBC (4.5-11.0) 10^3/ul RBC (3.5-6.1) 10^6/uL Hgb (14.0-18.0) g/dL Hct (42.0-52.0) % MCV (80.0-105.0) fl MCH (25.0-35.0) pg MCHC (31.0-37.0) g/dl RDW (11.5-14.5) % Plt Count (120.0-450.0) 10^3/uL Manual Plt Count (120-450) K/mm3 MPV (7.0-11.0) fl Gran % (50.0-68.0) % Lymph % (Auto) (22.0-35.0) % Tama % (Auto) (1.0-6.0) % Eos % (Auto) (1.5-5.0) % Baso % (Auto) (0.0-3.0) % Gran # (1.4-6.5) Lymph # (Auto) (1.2-3.4) Tama # (Auto) (0.1-0.6) Eos # (Auto) (0.0-0.7) Baso # (Auto) (0.0-2.0) K/mm3 Retic Count (0.5-1.5) % pCO2 (35-45) mm/Hg pO2 (80-100) mm/Hg HCO3 (21-28) mmol/L ABG pH (7.35-7.45) ABG Total CO2 (22-28) mmol.L ABG O2 Saturation (95-98) % ABG O2 Content (15-23) ML/dl ABG Base Excess (-2.0-3.0) mmol/L ABG Hemoglobin (11.7-17.4) g/dL ABG Carboxyhemoglobin (0.5-1.5) % POC ABG HHb (Measured) (0-5) % ABG Methemoglobin (0.0-3.0) % ABG O2 Capacity (16-24) mL/dl Hgb O2 Saturation (95.0-98.0) % FiO2 % Sodium (132-148) mmol/L Potassium (3.6-5.0) mmol/L Chloride (98-107) mmol/L Carbon Dioxide (21-33) mmol/L Anion Gap (10-20) BUN (7-21) mg/dL Creatinine (0.8-1.5) mg/dl Est GFR ( Amer) Est GFR (Non-Af Amer) POC Glucose (mg/dL) (65-110) mg/dL Random Glucose (70-110) mg/dL Fructosamine 271 H (190-270) umol/L Lactic Acid (0.7-2.1) mmol/L Calcium (8.4-10.5) mg/dL Ionized Calcium (4.80-5.60) mg/dL Phosphorus (2.5-4.5) mg/dL Magnesium (1.7-2.2) mg/dL Ferritin ng/mL Total Bilirubin (0.2-1.3) mg/dL Direct Bilirubin (0.0-0.4) mg/dL AST (17-59) U/L ALT (7-56) U/L Alkaline Phosphatase (38-126) U/L Ammonia (9-33) umol/L Total Creatine Kinase (35-230) U/L CK-MB (CK-2) (0.0-3.6) ng/mL CK-MB (CK-2) % (2.5-3.0) % Troponin I ng/mL Total Protein (5.8-8.3) g/dL Albumin (3.0-4.8) g/dL Globulin gm/dL Albumin/Globulin Ratio (1.1-1.8) Vitamin B12 652 (239-931) pg/mL 25-OH Vitamin D Total (30.0-100.0) NG/ML Folate 15.9 ng/mL Procalcitonin 1.89 H (0.19-0.49) NG/ML RPR Nonreactive (NONREACTIVE) Hepatitis A IgM Ab (NEGATIVE) Hep Bs Antigen (NEGATIVE) Hep B Core IgM Ab (NEGATIVE) HIV 1&2 Ag/Ab, 4th Gen (Nonreactive) 06/24/17 06/23/17 Range/Units 07:30 19:55 WBC (4.5-11.0) 10^3/ul RBC (3.5-6.1) 10^6/uL Hgb (14.0-18.0) g/dL Hct (42.0-52.0) % MCV (80.0-105.0) fl MCH (25.0-35.0) pg MCHC (31.0-37.0) g/dl RDW (11.5-14.5) % Plt Count (120.0-450.0) 10^3/uL Manual Plt Count (120-450) K/mm3 MPV (7.0-11.0) fl Gran % (50.0-68.0) % Lymph % (Auto) (22.0-35.0) % [place] % (Auto) (1.0-6.0) % Eos % (Auto) (1.5-5.0) % Baso % (Auto) (0.0-3.0) % Gran # (1.4-6.5) Lymph # (Auto) (1.2-3.4) [place] # (Auto) (0.1-0.6) Eos # (Auto) (0.0-0.7) Baso # (Auto) (0.0-2.0) K/mm3 Retic Count (0.5-1.5) % pCO2 (35-45) mm/Hg pO2 (80-100) mm/Hg HCO3 (21-28) mmol/L ABG pH (7.35-7.45) ABG Total CO2 (22-28) mmol.L ABG O2 Saturation (95-98) % ABG O2 Content (15-23) ML/dl ABG Base Excess (-2.0-3.0) mmol/L ABG Hemoglobin (11.7-17.4) g/dL ABG Carboxyhemoglobin (0.5-1.5) % POC ABG HHb (Measured) (0-5) % ABG Methemoglobin (0.0-3.0) % ABG O2 Capacity (16-24) mL/dl Hgb O2 Saturation (95.0-98.0) % FiO2 % Sodium (132-148) mmol/L Potassium (3.6-5.0) mmol/L Chloride (98-107) mmol/L Carbon Dioxide (21-33) mmol/L Anion Gap (10-20) BUN (7-21) mg/dL Creatinine (0.8-1.5) mg/dl Est GFR ( Amer) Est GFR (Non-Af Amer) POC Glucose (mg/dL) (65-110) mg/dL Random Glucose (70-110) mg/dL Fructosamine (190-270) umol/L Lactic Acid (0.7-2.1) mmol/L Calcium (8.4-10.5) mg/dL Ionized Calcium 4.6 L (4.80-5.60) mg/dL Phosphorus (2.5-4.5) mg/dL Magnesium (1.7-2.2) mg/dL Ferritin 1940.0 ng/mL Total Bilirubin (0.2-1.3) mg/dL Direct Bilirubin (0.0-0.4) mg/dL AST (17-59) U/L ALT (7-56) U/L Alkaline Phosphatase (38-126) U/L Ammonia (9-33) umol/L Total Creatine Kinase (35-230) U/L CK-MB (CK-2) (0.0-3.6) ng/mL CK-MB (CK-2) % (2.5-3.0) % Troponin I ng/mL Total Protein (5.8-8.3) g/dL Albumin (3.0-4.8) g/dL Globulin gm/dL Albumin/Globulin Ratio (1.1-1.8) Vitamin B12 (239-931) pg/mL 25-OH Vitamin D Total (30.0-100.0) NG/ML Folate ng/mL Procalcitonin (0.19-0.49) NG/ML RPR (NONREACTIVE) Hepatitis A IgM Ab (NEGATIVE) Hep Bs Antigen (NEGATIVE) Hep B Core IgM Ab (NEGATIVE) HIV 1&2 Ag/Ab, 4th Gen (Nonreactive) Laboratory Results - last 24 hr 06/23/17 06/24/17 06/24/17 19:55 07:30 08:20 WBC RBC Hgb Hct MCV MCH MCHC RDW Plt Count Manual Plt Count MPV Gran % Lymph % (Auto) [place] % (Auto) Eos % (Auto) Baso % (Auto) Gran # Lymph # (Auto) [place] # (Auto) Eos # (Auto) Baso # (Auto) Retic Count pCO2 pO2 HCO3 ABG pH ABG Total CO2 ABG O2 Saturation ABG O2 Content ABG Base Excess ABG Hemoglobin ABG Carboxyhemoglobin POC ABG HHb (Measured) ABG Methemoglobin ABG O2 Capacity Hgb O2 Saturation FiO2 Sodium Potassium Chloride Carbon Dioxide Anion Gap BUN Creatinine Est GFR ( Amer) Est GFR (Non-Af Amer) POC Glucose (mg/dL) Random Glucose Fructosamine Lactic Acid Calcium Ionized Calcium 4.6 L Phosphorus Magnesium Ferritin 1940.0 Total Bilirubin Direct Bilirubin AST ALT Alkaline Phosphatase Ammonia Total Creatine Kinase CK-MB (CK-2) CK-MB (CK-2) % Troponin I Total Protein Albumin Globulin Albumin/Globulin Ratio Vitamin B12 25-OH Vitamin D Total Folate Procalcitonin 1.89 H RPR Nonreactive Hepatitis A IgM Ab Hep Bs Antigen Hep B Core IgM Ab HIV 1&2 Ag/Ab, 4th Gen 06/24/17 06/24/17 06/24/17 11:30 11:30 11:30 WBC RBC Hgb Hct MCV MCH MCHC RDW Plt Count Manual Plt Count MPV Gran % Lymph % (Auto) [place] % (Auto) Eos % (Auto) Baso % (Auto) Gran # Lymph # (Auto) [place] # (Auto) Eos # (Auto) Baso # (Auto) Retic Count pCO2 pO2 HCO3 ABG pH ABG Total CO2 ABG O2 Saturation ABG O2 Content ABG Base Excess ABG Hemoglobin ABG Carboxyhemoglobin POC ABG HHb (Measured) ABG Methemoglobin ABG O2 Capacity Hgb O2 Saturation FiO2 Sodium Potassium Chloride Carbon Dioxide Anion Gap BUN Creatinine Est GFR ( Amer) Est GFR (Non-Af Amer) POC Glucose (mg/dL) Random Glucose Fructosamine 271 H Lactic Acid Calcium Ionized Calcium Phosphorus Magnesium Ferritin Total Bilirubin Direct Bilirubin AST ALT Alkaline Phosphatase Ammonia Total Creatine Kinase CK-MB (CK-2) CK-MB (CK-2) % Troponin I Total Protein Albumin Globulin Albumin/Globulin Ratio Vitamin B12 652 25-OH Vitamin D Total 23.0 L Folate 15.9 Procalcitonin RPR Hepatitis A IgM Ab Hep Bs Antigen Hep B Core IgM Ab HIV 1&2 Ag/Ab, 4th Gen 06/24/17 06/24/17 06/24/17 11:30 14:46 18:26 WBC RBC Hgb Hct MCV MCH MCHC RDW Plt Count Manual Plt Count MPV Gran % Lymph % (Auto) [place] % (Auto) Eos % (Auto) Baso % (Auto) Gran # Lymph # (Auto) [place] # (Auto) Eos # (Auto) Baso # (Auto) Retic Count pCO2 pO2 HCO3 ABG pH ABG Total CO2 ABG O2 Saturation ABG O2 Content ABG Base Excess ABG Hemoglobin ABG Carboxyhemoglobin POC ABG HHb (Measured) ABG Methemoglobin ABG O2 Capacity Hgb O2 Saturation FiO2 Sodium Potassium Chloride Carbon Dioxide Anion Gap BUN Creatinine Est GFR ( Amer) Est GFR (Non-Af Amer) POC Glucose (mg/dL) 127 H 162 H Random Glucose Fructosamine Lactic Acid Calcium Ionized Calcium Phosphorus Magnesium Ferritin Total Bilirubin Direct Bilirubin AST ALT Alkaline Phosphatase Ammonia Total Creatine Kinase CK-MB (CK-2) CK-MB (CK-2) % Troponin I Total Protein Albumin Globulin Albumin/Globulin Ratio Vitamin B12 25-OH Vitamin D Total Folate Procalcitonin RPR Hepatitis A IgM Ab Hep Bs Antigen Hep B Core IgM Ab HIV 1&2 Ag/Ab, 4th Gen Nonreactive 06/24/17 06/25/17 06/25/17 19:15 00:07 06:18 WBC RBC Hgb Hct MCV MCH MCHC RDW Plt Count Manual Plt Count MPV Gran % Lymph % (Auto) [place] % (Auto) Eos % (Auto) Baso % (Auto) Gran # Lymph # (Auto) [place] # (Auto) Eos # (Auto) Baso # (Auto) Retic Count pCO2 pO2 HCO3 ABG pH ABG Total CO2 ABG O2 Saturation ABG O2 Content ABG Base Excess ABG Hemoglobin ABG Carboxyhemoglobin POC ABG HHb (Measured) ABG Methemoglobin ABG O2 Capacity Hgb O2 Saturation FiO2 Sodium Potassium Chloride Carbon Dioxide Anion Gap BUN Creatinine Est GFR ( Amer) Est GFR (Non-Af Amer) POC Glucose (mg/dL) 128 H 185 H 189 H Random Glucose Fructosamine Lactic Acid Calcium Ionized Calcium Phosphorus Magnesium Ferritin Total Bilirubin Direct Bilirubin AST ALT Alkaline Phosphatase Ammonia Total Creatine Kinase CK-MB (CK-2) CK-MB (CK-2) % Troponin I Total Protein Albumin Globulin Albumin/Globulin Ratio Vitamin B12 25-OH Vitamin D Total Folate Procalcitonin RPR Hepatitis A IgM Ab Hep Bs Antigen Hep B Core IgM Ab HIV 1&2 Ag/Ab, 4th Gen 06/25/17 06/25/17 06/25/17 06:30 06:30 06:30 WBC RBC Hgb Hct MCV MCH MCHC RDW Plt Count Manual Plt Count MPV Gran % Lymph % (Auto) [place] % (Auto) Eos % (Auto) Baso % (Auto) Gran # Lymph # (Auto) [place] # (Auto) Eos # (Auto) Baso # (Auto) Retic Count pCO2 pO2 HCO3 ABG pH ABG Total CO2 ABG O2 Saturation ABG O2 Content ABG Base Excess ABG Hemoglobin ABG Carboxyhemoglobin POC ABG HHb (Measured) ABG Methemoglobin ABG O2 Capacity Hgb O2 Saturation FiO2 Sodium 142 Potassium 4.0 Chloride 113 H Carbon Dioxide 23 Anion Gap 10 BUN 34 H Creatinine 0.9 Est GFR ( Amer) > 60 Est GFR (Non-Af Amer) > 60 POC Glucose (mg/dL) Random Glucose 200 H Fructosamine Lactic Acid 2.6 H Calcium 7.5 L Ionized Calcium Phosphorus 2.3 L Magnesium 1.6 L Ferritin Total Bilirubin 1.7 H Direct Bilirubin 0.7 H AST 69 H D ALT 53 Alkaline Phosphatase 37 L D Ammonia 23 Total Creatine Kinase 378 H CK-MB (CK-2) 8.0 H CK-MB (CK-2) % 2.1 L Troponin I 0.04 D Total Protein 5.4 L Albumin 2.4 L Globulin 3.0 Albumin/Globulin Ratio 0.8 L Vitamin B12 25-OH Vitamin D Total Folate Procalcitonin RPR Hepatitis A IgM Ab Hep Bs Antigen Hep B Core IgM Ab HIV 1&2 Ag/Ab, 4th Gen 06/25/17 06/25/17 06/25/17 06:34 08:00 08:20 WBC RBC Hgb Hct MCV MCH MCHC RDW Plt Count Manual Plt Count MPV Gran % Lymph % (Auto) [place] % (Auto) Eos % (Auto) Baso % (Auto) Gran # Lymph # (Auto) [place] # (Auto) Eos # (Auto) Baso # (Auto) Retic Count pCO2 36 28 L pO2 95.0 72.0 L HCO3 20.8 L 13.8 L ABG pH 7.37 7.30 L ABG Total CO2 21.9 L 14.7 L ABG O2 Saturation 99.4 H 97.5 ABG O2 Content 18.9 13.8 L ABG Base Excess -3.9 L -11.3 L ABG Hemoglobin 13.8 10.3 L ABG Carboxyhemoglobin 1.6 H 1.7 H POC ABG HHb (Measured) 0.6 2.4 ABG Methemoglobin 0.7 1.3 ABG O2 Capacity 19.0 14.2 L Hgb O2 Saturation 97.1 94.6 L FiO2 60.0 50.0 Sodium Potassium Chloride Carbon Dioxide Anion Gap BUN Creatinine Est GFR ( Amer) Est GFR (Non-Af Amer) POC Glucose (mg/dL) Random Glucose Fructosamine Lactic Acid Calcium Ionized Calcium Phosphorus Magnesium Ferritin Total Bilirubin Direct Bilirubin AST ALT Alkaline Phosphatase Ammonia Total Creatine Kinase CK-MB (CK-2) CK-MB (CK-2) % Troponin I Total Protein Albumin Globulin Albumin/Globulin Ratio Vitamin B12 25-OH Vitamin D Total Folate Procalcitonin RPR Hepatitis A IgM Ab Negative Hep Bs Antigen Negative Hep B Core IgM Ab Negative HIV 1&2 Ag/Ab, 4th Gen 06/25/17 06/25/17 10:30 11:24 WBC 11.9 H RBC 3.92 Hgb 12.3 L D Hct 36.9 L MCV 94.1 MCH 31.4 MCHC 33.3 RDW 14.5 Plt Count 35 L* Manual Plt Count 54 L* MPV 13.4 H Gran % 85.1 H Lymph % (Auto) 5.1 L Tama % (Auto) 9.8 H Eos % (Auto) 0.0 L Baso % (Auto) 0.0 Gran # 10.11 H Lymph # (Auto) 0.6 L Tama # (Auto) 1.2 H Eos # (Auto) 0.0 Baso # (Auto) 0.00 Retic Count 0.81 pCO2 pO2 HCO3 ABG pH ABG Total CO2 ABG O2 Saturation ABG O2 Content ABG Base Excess ABG Hemoglobin ABG Carboxyhemoglobin POC ABG HHb (Measured) ABG Methemoglobin ABG O2 Capacity Hgb O2 Saturation FiO2 Sodium Potassium Chloride Carbon Dioxide Anion Gap BUN Creatinine Est GFR ( Amer) Est GFR (Non-Af Amer) POC Glucose (mg/dL) 143 H Random Glucose Fructosamine Lactic Acid Calcium Ionized Calcium Phosphorus Magnesium Ferritin Total Bilirubin Direct Bilirubin AST ALT Alkaline Phosphatase Ammonia Total Creatine Kinase CK-MB (CK-2) CK-MB (CK-2) % Troponin I Total Protein Albumin Globulin Albumin/Globulin Ratio Vitamin B12 25-OH Vitamin D Total Folate Procalcitonin RPR Hepatitis A IgM Ab Hep Bs Antigen Hep B Core IgM Ab HIV 1&2 Ag/Ab, 4th Gen EKG/Cardiology Studies: Cardiology / EKG Studies 06/25/17 07:00 ELECTROCARDIOGRAM DAILY Comment: Reason For Exam: HYPOTHERMIA 06/26/17 07:00 ELECTROCARDIOGRAM DAILY Comment: Reason For Exam: HYPOTHERMIA 06/27/17 07:00 ELECTROCARDIOGRAM DAILY Comment: Reason For Exam: HYPOTHERMIA Attending/Attestation - Attestation I have personally seen and examined this patient.: Yes I have fully participated in the care of the patient.: Yes Notes (Text): 06/25/17 13:37 66 yo male with PEA arrest due to cannabis and opiod overdose, with ROSC and subsequent intubation. Passed PST today, alert, awake, at times agitated when off sedation most likely due to ET irritation. Successfully extubated, but confused and agitated, despite being able to follow commands. Patient is known alcoholic-->alcohol withdrawal?: ativan 4 mg IV given and precedex started. CTH is unremarkable, besides patient is moving all extremities. 02sat 98% on 50 fi02 high flow-->will taper. On abx for CAP/aspiration pneumonia. Will continue with HOB>35 degrees. avoid hyperthermia, hypo and hyperglycemia. Maintain euvolemia. neuro follow up. DVT/GI prophylaxis. hematologic abberancies addressed by Dr. Ross (hemon) ccm time 40 min
[2017-06-25] MEDS: Dexmedetomidine 400mcg/100mL 400 MCG/100 ML BOTTLE IV PRN ×2 (10:00→17:26)
[2017-06-25] MEDS ORDERED: Dexmedetomidine 400mcg/100mL 400 MCG/100 ML BOTTLE ONE (10:07)
[2017-06-25] MEDS: Sodium Chloride 0.9% 1,000 ML IV SCH ×2 (10:15→17:22)
[2017-06-25] MEDS: Magnesium Sulfate 2 GM in Sodium Chloride 0.9% 100 ML IVPB SCH ×3 (10:27→17:16)
[2017-06-25 10:36] LABS: GRAN # 10.11 (1.4-6.5); GRAN % 85.1 % (50.0-68.0); LYMPH # 0.6 (1.2-3.4); LYMPH % 5.1 % (22.0-35.0); MEAN CELL VOLUME 94.1 fl (80.0-105.0); MEAN CORPUSCULAR HEMOGLOBIN 31.4 pg (25.0-35.0); MEAN CORPUSCULAR HGB CONC 33.3 g/dl (31.0-37.0); MEAN PLATELET VOLUME 13.4 fl (7.0-11.0); MONO # 1.2 (0.1-0.6); MONO % 9.8 % (1.0-6.0); PLATELET COUNT 35 10^3/uL (120.0-450.0); RBC 3.92 10^6/uL (3.5-6.1); RED CELL DISTRIBUTION WIDTH 14.5 % (11.5-14.5); WHITE BLOOD COUNT 11.9 10^3/ul (4.5-11.0)
[2017-06-25 11:00] LABS: HEMOGLOBIN 12.3 g/dL (14.0-18.0)
[2017-06-25 11:56] LABS: PLATELET COUNT MANUAL 54 K/mm3 (120-450)
[2017-06-25 12:40] LABS: HEPATITIS B SURFACE AG Negative (NEGATIVE)
[2017-06-25 12:47] LABS: HEPATITIS A IGM NEGATIVE (NEGATIVE); HEPATITIS B CORE AB NEGATIVE (NEGATIVE)
--- NOTE | 2017-06-25 14:00 | PN ---
DATE: SUBJECTIVE: The patient is comfortable. He had sedation vacation a few minutes ago, which he tolerated very well with rapid shallow breathing index 51. He was able to follow commands. PHYSICAL EXAMINATION GENERAL: He was slightly agitated during sedation vacation and was trying to pull the tube out; however, was able to follow commands as was mentioned above. VITAL SIGNS: He is completely off of pressors with blood pressure 102/60. His oxygen saturation varies between 93% and 96% on 50% FiO2. ABG is pending. Temperature 99. End-tidal CO2 on the monitor 41. Heart rate 76. ENT: Head and neck atraumatic. LUNGS: Clear to auscultation bilaterally. HEART: Regular rate and rhythm. S1, S2 normal. ABDOMEN: Soft, nontender, and nondistended. MUSCULOSKELETAL: No C/C/E. NEUROLOGIC: The patient moves all extremities spontaneously. SKIN: Moist. PSYCH: The patient is alert, awake and following commands. LABORATORY DATA: WBC 11.4, hemoglobin 19.1, platelet count 16,000. Sodium 142, potassium 4, chloride 113, carbon dioxide 23, BUN 34, creatinine 0.9, glucose 200 and lactic acid 2.6 - down from 4. MEDICATIONS: DuoNeb every 4 hours, heparin, hydrocortisone 50 mg IV every 8 hours (tapered down from every 6 hours in light of resolution of distributive shock), Regular insulin sliding scale low protocol, Protonix, normal saline 125 mL per hour, vancomycin and Zosyn. Chest x-ray, no active pulmonary disease. ASSESSMENT AND PLAN: A 66-year-old gentleman who initially presented with pulseless electrical activity arrest in the setting of opiates and cannabinoid overdose. He is normotensive, normothermic and euglycemic at the present time. He tolerated pressure support trial and is going for a CAT scan of the head. There is no acute intracranial pathology or cerebral edema found. The patient will be extubated provided his ABG returned within acceptable numbers. We will continue to target euvolemia, euglycemia, normothermia and oxygen saturation more than 90%. Addendum: successfully extubated to high flow 50%fi02 and 60L/min flow. initially confused and agitated-->etoh withdrawal? ativan 4 mg IV given, precededx started, now at 0.8 mcg/kg/hr: BP 101/60, HR 70, 02sat (50% fi02) 98% , very comfortable, no respiratory distress, RR 15-20 ccm time 40 min Nito Powell MD MTDDavid
[2017-06-25 14:08] LABS: HEPATITIS C ANTIBODY REACTIVE (NEGATIVE)
--- NOTE | 2017-06-25 15:30 | PN ---
DATE: 06/25/2017 REASON FOR CONSULTATION: Cardiac evaluation, status post CPR, loss of consciousness, intubated, cardiac arrest. The patient intubated off sedation in the process of possible attempt for weaning off the vent, does not follow simple commands. OBJECTIVE: GENERAL: Not in apparent distress, lying flat, being intubated on vasopressors. VITAL SIGNS: Temperature afebrile, heart rate 69, blood pressure 107/66. HEENT: PERRLA. Extraocular muscles intact. NECK: Supple. No carotid bruit or thyromegaly. CHEST: Clear to auscultation. HEART: S1 and S2 regular. ABDOMEN: Soft. EXTREMITIES: Clubbing and cyanosis negative. LABORATORY DATA: Blood workup as follows: WBC 11.4, hemoglobin , hematocrit 54.8, platelet count 60. Chemistry shows sodium 142, potassium 4, chloride 113, carbon dioxide 23, anion gap of 10, BUN 34, creatinine 0.9, total bili 1.7. AST 620, ALT 53, alkaline phosphatase 37, total CPK 378, , troponin 0.01. IMPRESSION: So far, no evidence of acute myocardial infarction, borderline troponin secondary to cardiopulmonary resuscitation, status post unresponsive found at home, status post cardiac arrest, status post cardiopulmonary resuscitation, intubated, advanced cardiac life support, status post advanced cardiac life support protocol, status post being intubated. Information obtained from the daughter since the patient has history of hypertension, also the tox screen is positive for cannabis, indica and opioids, possibly overdose of substances cannot be excluded. The patient had echocardiography done yesterday that revealed normal left ventricular function, left ventricular hypertrophy, moderately calcified is a probably bicuspid aortic valve, mild valvular, aortic stenosis possibly reported and no significant mitral regurgitation, no tricuspid valve regurgitation noted while the patient was on the vent. Most likely borderline troponin is secondary to advanced cardiac life support cardiopulmonary resuscitation, polycythemia, possibly some substance abuse, tox screen is positive, respiratory failure. RECOMMENDATIONS: Wean of the vent as tolerated, discontinue vasopressor. Discussed in length with the Dr. Powell. Once the patient is extubated, consider risk stratification. We will follow with you. Continue broad-spectrum antibiotics. Thank you, Dr. Fairbanks, for providing us the opportunity in taking care of the patient, Jorje Monzon. Remy Rai MD [facility] # [id number]
[2017-06-25 17:42] LABS: FOLATE 9.3 ng/mL
--- NOTE | 2017-06-25 21:01 | CARD ---
APPROVED REPORT EKG Measurement Heart [id number] <Conclusion> Normal sinus rhythm Prolonged QT Abnormal ECG
--- NOTE | 2017-06-25 21:17 | CP.PCM.PN ---
Subjective - Date & Time of Evaluation Date of Evaluation: 06/25/17 Time of Evaluation: 20:00 - Subjective Subjective: Extubated, drowsy but arousable Objective - Vital Signs/Intake and Output Vital Signs (last 24 hours): Temp Pulse Resp BP Pulse Ox 97.7 F 59 L 13 97/68 L 98 06/25/17 11:18 06/25/17 16:57 06/25/17 11:00 06/25/17 11:00 06/25/17 11:18 Intake and Output: 06/25/17 06/26/17 18:59 06:59 Intake Total 206 2150 Output Total 700 Balance 206 1450 - Medications Medications: Current Medications Albuterol/Ipratropium (Duoneb 3 Mg/0.5 Mg (3 Ml) Ud) 3 ml IH [id number] [facility] Last Admin: 06/25/17 16:10 Dose: 3 ml Heparin Sodium (Porcine) (Heparin) 5,000 units SC Q12 PETRA PRN Reason: Protocol Last Admin: 06/25/17 09:04 Dose: 5,000 units Hydrocortisone Sodium Succinate (Solu-Cortef) 50 mg IVP Q8H [facility] Last Admin: 06/25/17 17:20 Dose: 50 mg Vancomycin HCl (Vancomycin 1gm) 1 gm in 250 mls @ 167 mls/hr IVPB Q12H PETRA PRN Reason: Protocol Last Admin: 06/25/17 17:19 Dose: 167 mls/hr Propofol (Diprivan) 1,000 mg in 100 mls @ 2.177 mls/hr IV .Q24H PRN; Protocol; 5 MCG/KG/MIN PRN Reason: TITRATE PER MD ORDER Last Titration: 06/25/17 20:36 Dose: Infused Piperacillin Sod/Tazobactam Sod (Zosyn 3.375 In Ns 100ml) 100 mls @ 200 mls/hr IVPB Q6 PETRA PRN Reason: Protocol Stop: 07/01/17 12:01 Last Admin: 06/25/17 17:19 Dose: 200 mls/hr Sodium Chloride (Sodium Chloride 0.9%) 1,000 mls @ 125 mls/hr IV .Q8H [facility] Last Admin: 06/25/17 17:22 Dose: 125 mls/hr Vasopressin 20 units/ Sodium (Chloride) 101 mls @ 9.09 mls/hr IV .Q11H7M PETRA; 0.03 U/MIN PRN Reason: Protocol Last Admin: 06/25/17 02:00 Dose: 9.09 mls/hr Insulin Human Lispro (Humalog Low) 0 units SC Q6 PETRA PRN Reason: Protocol Last Admin: 06/25/17 18:15 Dose: Not Given Pantoprazole Sodium (Protonix Inj) 40 mg IVP DAILY PETRA Last Admin: 06/25/17 09:04 Dose: 40 mg - Labs Labs: 06/25/17 10:30 06/25/17 06:30 PT 17.3 SECONDS (9.4-12.5) H 06/24/17 11:30 INR 1.49 (0.93-1.08) H 06/24/17 11:30 APTT 22.1 Seconds (25.1-36.5) L 06/24/17 11:30 - Head Exam Head Exam: ATRAUMATIC - Eye Exam Eye Exam: Normal appearance - ENT Exam ENT Exam: Mucous Membranes Dry - Respiratory Exam Respiratory Exam: NORMAL BREATHING PATTERN - Cardiovascular Exam Cardiovascular Exam: +S1, +S2 - GI/Abdominal Exam GI & Abdominal Exam: Normal Bowel Sounds Assessment and Plan (1) Thrombocytopenia Assessment & Plan: liver disease ? exacerbated from baseline due to bone marrow suppression from ETOH Status: Acute (2) Anemia Assessment & Plan: pt had erythrocytosis but now anemic may have been hemoconcentrated ? bone marrow suppression from ETOH elevated ferritin consistent with chronic disease Status: Acute (3) Splenomegaly Assessment & Plan: likely portal HTN related from cirrhosis Status: Acute (4) Coagulopathy Assessment & Plan: liver disease likely nutritional component Status: Acute
--- NOTE | 2017-06-25 22:09 | PN ---
DATE: 06/25/2017 SUBJECTIVE: The patient is in bed, in no acute distress, was seen early this morning in the ICU, room 129, bed 4. PHYSICAL EXAMINATION: VITAL SIGNS: Temperature is 97, blood pressure is 98/60, respiratory rate of 18. HEENT: Unremarkable. NECK: Supple. LUNGS: Decreased breath sounds. HEART: S1, S2. ABDOMEN: Soft. LABORATORY [place]: [place] [address], hemoglobin of 12. Chemistries reveal a BUN of 34, creatinine of 0.9. Urinalysis is noted. Microbiology reveals the blood cultures no growth. Chest x-ray is noted with a left perihilar opacity, possibly developing left perihilar lesion. Blood cultures are negative. Nares cultures are negative for MRSA and urine cultures are negative. Patient's HIV is negative, hepatitis profile is negative and the procalcitonin is elevated yesterday at 1.89. MEDICATIONS: Reviewed. ASSESSMENT AND PLAN: A 66-year-old male who was seen early this morning in 129, bed 4 with history of hepatitis C, treated with Harvoni, history of substance abuse history including EtOH, found unresponsive by the ENT service at home and with systemic inflammatory response syndrome, acute encephalopathy, substance abuse, pulseless electrical activity, with hypothermia, currently on vancomycin and Zosyn with elevated procalcitonin, questionable pneumonia from home, negative cultures, on vanco and Zosyn at this time. We will follow closely with you. Tello Traore MD
[2017-06-26] MEDS: Albuterol-Ipratrop 3 mg / 0.5 (3 ml) UD IH SCH ×7 (00:50→23:30)
[2017-06-26] MEDS: Sodium Chloride 0.9% 1,000 ML IV SCH (01:15)
[2017-06-26] MEDS: Dexmedetomidine 400mcg/100mL 400 MCG/100 ML BOTTLE IV PRN ×6 (01:20→21:24)
[2017-06-26] MEDS: Vancomycin 1gm in NS 250ml 1 GM/250 ML BAG IVPB SCH ×2 (03:25→16:48)
[2017-06-26] MEDS: Piperacillin/Tazobact 3.375 gm 100 ML IVPB SCH ×3 (05:10→18:00)
[2017-06-26 06:33] LABS: GRAN # 10.12 (1.4-6.5); GRAN % 88.8 % (50.0-68.0); LYMPH # 0.6 (1.2-3.4); LYMPH % 5.2 % (22.0-35.0); MEAN CELL VOLUME 93.6 fl (80.0-105.0); MEAN CORPUSCULAR HEMOGLOBIN 31.6 pg (25.0-35.0); MEAN CORPUSCULAR HGB CONC 33.7 g/dl (31.0-37.0); MEAN PLATELET VOLUME 13.1 fl (7.0-11.0); MONO # 0.7 (0.1-0.6); RBC 4.56 10^6/uL (3.5-6.1); RED CELL DISTRIBUTION WIDTH 14.7 % (11.5-14.5); WHITE BLOOD COUNT 11.4 10^3/ul (4.5-11.0)
[2017-06-26 06:40] LABS: ARTERIAL BLOOD GAS HCO3 20.3 mmol/L (21-28); ARTERIAL BLOOD GAS HEMOGLOBIN 14.4 g/dL (11.7-17.4); ARTERIAL BLOOD GAS O2 CAPACITY 19.7 mL/dl (16-24); ARTERIAL BLOOD GAS O2 CONTENT 18.7 ML/dl (15-23); ARTERIAL BLOOD GAS O2 SAT 95.1 % (95-98); ARTERIAL BLOOD GAS PCO2 36 mm/Hg (35-45); ARTERIAL BLOOD GAS PH 7.36 (7.35-7.45); ARTERIAL BLOOD GAS TCO2 21.4 mmol.L (22-28)
[2017-06-26 06:50] LABS: HEMOGLOBIN 14.4 g/dL (14.0-18.0); PLATELET COUNT 30 10^3/uL (120.0-450.0)
[2017-06-26 06:59] LABS: TROPONIN I 0.07 ng/mL
[2017-06-26 07:05] LABS: ALT/SGPT 50 U/L (7-56); AST/SGOT 62 U/L (17-59); BILIRUBIN,DIRECT 0.7 mg/dL (0.0-0.4); BLOOD UREA NITROGEN 29 mg/dL (7-21); CALCIUM 8.3 mg/dL (8.4-10.5); GFR AFRICAN-AMERICAN > 60; GFR NON-AFRICAN AMERICAN > 60
[2017-06-26] MEDS: Insulin Lispro (humaLOG) LOW Coverage SC SCH ×4 (07:45→22:28)
[2017-06-26 08:01] LABS: PLATELET COUNT MANUAL 39 K/mm3 (120-450)
[2017-06-26 08:05] LABS: CK MB% 2.2 % (2.5-3.0); CK-MB 8.4 ng/mL (0.0-3.6)
[2017-06-26] MEDS: Morphine 4 mg/ml ISec IVP PRN (08:16)
--- NOTE | 2017-06-26 08:40 | PN ---
DATE: 06/25/2017 SUBJECTIVE: Patient is seen in ICU, bed 4. Patient is lying in the bed, intubated. Patient is still on some pressors. Patient's overnight nurse's notes were reviewed. Patient was found to be restless and combative overnight. Diprivan drip was titrated. Patient, today morning, is responsive to painful stimuli. PHYSICAL EXAMINATION: VITAL SIGNS: Temperature has gone up to 98.8 to 99. Telemetry shows sinus rhythm to sinus tachycardia. Blood pressure in the last 24 hours is averaging systolic of 110 and 120s, diastolic in 70s. Respiration is vent dependent and vent supported. O2 sat, intermittently, patient has been in mid-to-high 90s percent. Intake, yesterday 16, 20; output 12, 50. Today's intake documented 4055, output only 400. HEENT: Head examination normocephalic, atraumatic. HEENT examination shows pinkish conjunctivae. Anicteric sclerae. No oropharyngeal lesion. Positive ET tube noted. Patient is responsive to painful stimuli. CHEST: Symmetrical. LUNGS: Shows positive rhonchi bilaterally, upper lung pulido. Crepitations bilaterally. CARDIOVASCULAR: S1, S2, regular rhythm. Positive systolic murmur at left second intercostal space, right second intercostal space. ABDOMEN: Soft. Positive bowel sounds. No hepatosplenomegaly noted. GENITALIA: Male. Positive Sharp catheter. EXTREMITIES: Show no pitting edema, no calf tenderness, no Homans' sign. NEUROLOGIC: Patient is only responsive to painful stimuli. PSYCHIATRIC: Not applicable. MUSCULOSKELETAL: Shows a body mass index of 25. DIAGNOSTICS: On 06/25, WBC 11.9, hemoglobin/hematocrit 12.3 and 37, platelet 54,000. Initial ABG at 6:30 in the morning, pH of 7.37, pCO2 36, pO2 95, bicarb 21, saturation of 99.4, 60% FiO2. Sodium 142; potassium 4.0; chloride 113; CO2 23; anion gap 10; BUN 34; creatinine 0.9; GFR greater than 60; glucose 200, 189; lactic acid 2.6; calcium is 7.5. Phosphorus 2.3, magnesium 1.6, total bili , direct bili 0.7, AST 69, alk phos 37, ammonia 23. CPK 378. Troponin down to 0.04, total protein 5.4, albumin 2.4. Vitamin B12 greater than 1000. Vitamin D 25-hydroxy 23. RPR is nonreactive. Hepatitis A IgM is negative. Hepatitis B surface antigen is negative. Hepatitis C antibody is reactive. HIV is nonreactive. MRSA nonditected. Blood urine cultures negative so far. Patient had a repeat CT of the head done yesterday as per Neurology recommendation, which was negative for any stroke. Chest x-ray was done. Chest x-ray shows bilateral infiltrates, positive ET tube, NG tube and patient had a right PICC line catheter placement. Repeat EKG was done today, which shows sinus rhythm. IMPRESSION AND PLAN: 1. Status post pulseless electrical activity cardiac arrest. 2. Severe hypothermia. 3. Questionable Adderall versus opiate versus cannabinoid overdose. 4. History of hepatitis C and hepatic cirrhosis. 5. Ventilator dependent respiratory failure. 6. Elevated troponin secondary to cardiopulmonary resuscitation. 7. Left ventricular hypertrophy. 8. Bicuspid moderately calcified aortic valve with mild valvular aortic stenosis. 9. Status post severe hypothermia. 10. Hypertension. 11. Sinus bradycardia. 12. Hypoxemia. 13. Leukocytosis with granulocytosis. 14. Thrombocytopenia. 15. Erythrocytosis. 16. Coagulopathy. 17. Lactic acidosis. 18. Hypercapnic hypercarbic respiratory failure with respiratory acidosis. 19. Prerenal kidney injury. 20. Steroid-induced hyperglycemia with prediabetes. 21. Hyper . 22. Hypocalcemia. 23. Hypophosphatemia, hypomagnesemia. 24. Transaminitis with hyperbilirubinemia. 25. Questionable mild rhabdomyolysis with elevated CPK. 26. Protein malnutrition. 27. Hypoalbuminemia. 28. Hypovitaminosis D. 29. Hyperprocalcitoninemia. 30. Hypertriglyceridemia. 31. Elevated brain natriuretic peptide, etiology undetermined. 32. Proteinuria, bacteriuria. 33. Urine drug screen positive for opiates and cannabinoids. 34. Reactive hepatitis C with history of hepatic cirrhosis and hepatitis C status post Harvoni treatment. 35. Bilateral multilobar questionable ventilator-dependent aspiration pneumonia. 36. Status post right upper extremity PICC line placement. 37. Erythrocytosis. 38. Splenomegaly. 39. Coagulopathy, 40. Questionable anoxic brain injury. 41. Systemic inflammatory response syndrome versus possible sepsis. 42. Questionable history of polysubstance abuse and alcohol abuse. 1. Ventilator-dependent respiratory failure. 2. Respiratory acidosis with hypercarbia and hypercapnia. 3. Hypercapnic respiratory failure. 4. Questionable drug overdose with Advil. 5. Status post pulseless electrical activity, cardiac arrest. 6. Questionable anoxic encephalopathy. 7. Severe symptomatic hypothermia with Olmedo wave. 8. Hypotension. 9. Sinus bradycardia. 10. Hypoxemia. 11. Leukocytosis with granulocytosis. 12. Erythrocytosis. 13. Thrombocytopenia. 14. Mild coagulopathy. 15. Hypercarbic respiratory failure. 16. Respiratory acidosis. 17. Severe lactic acidosis. 18. Hyperprocalcitoninemia. 19. Sick euthyroid syndrome. 20. Hypovitaminosis D. 21. Questionable acute non-ST elevation myocardial infarction with elevated troponin. 22. Mild rhabdomyolysis. 23. Lactic acidosis. 24. Prediabetes with hemoglobin A1c of 6.1. 25. Prerenal kidney injury. 26. Transaminitis and hyperbilirubinemia. 27. Hyperammonemia (resolved). 28. Hyperglycemia. 29. Hypertriglyceridemia. 30. Non-hemolyzed hyperkalemia. 31. Hyperphosphatemia. 32. Trace proteinuria and bacteriuria. 33. Urine drug screen positive for cannabinoids and opiates. 34. Left ventricular ejection fraction of 62%. 35. Sinus bradycardia. 36. Concentric left ventricular hypertrophy. 37. Grade 1 abnormal relaxation pattern. 38. Moderately calcified aortic valve with mild aortic re-stenosis. 39. Mildly thickened mitral valve. 40. Probable bicuspid aortic valve and moderately calcified aortic valve with mild valvular aortic stenosis. 41. Bilateral multilobar questionable aspiration versus ventilator dependent pneumonia. 42. Left axis deviation. 43. History of hepatic and alcoholic cirrhosis. 44. Status post hepatitis C, status post treatment. 45. Questionable anoxic brain injury. 46. History of hepatitis C, history of alcohol abuse. 47. Questionable sepsis versus systemic inflammatory response syndrome. 48. Elevated BNP, etiology undetermined. 49. Transient hyperammonemia. 50. . 51. Hypovitaminosis D. 52. Hypotension. 1. Status post pulseless electrical activity, cardiac arrest. 2. Questionable drug overdose with questionable Inderal overdose. 3. Severe hypothermia. 4. Status post pulseless electrical activity, cardiac arrest with return of spontaneous circulation. 5. Hypotension. 6. Hypoxemia. 7. Ventilator dependent respiratory failure. 8. Leukocytosis with granulocytosis. 9. Erythrocytosis. 10. Thrombocytopenia. 11. Mild coagulopathy. 12. Hypercapnic respiratory failure. 13. Respiratory acidosis. 14. Lactic acidosis. 15. Refractory lactic acidosis. 16. Slow resolving respiratory acidosis with hypercarbia and hypercapnia. 17. Non-hemolyzed hyperkalemia. 18. Hyperphosphatemia. 19. Prerenal kidney injury. 20. Hyperbilirubinemia. 21. Transaminitis. 22. Elevated BNP, etiology undetermined. 23. Questionable bilateral aspiration pneumonia. 24. Trace proteinuria and bacteriuria. 25. Urine drug screen positive for cannabinoids and opiates. 28. Severe hypothermia with olmedo waves on the EKG with intraventricular conduction.. 29. Bilateral aspiration pneumonia. 30. History of hepatic cirrhosis. 31. Cerebral cortical atrophy of the brain. 32. Chronic small-vessel ischemic disease of the brain. 33. Transverse sinus asymmetry. 34. Bilateral basal ganglia calcification. 35. Left ethmoid sinus partial opacification. 36. Status post cardiac arrest. 37. Questionable systemic inflammatory response syndrome versus sepsis. 38. History of hepatitis C and alcohol abuse. 39. History of hepatitis C and hepatic cirrhosis. Plan at this time, patient is in the process of getting ready for extubation by the shirt hemmer. Patient has been ordered serial daily labs. Patient has awaiting hepatitis C RNA, JAK2 mutation, repeat CBC, manual platelet count ordered, ABG ordered. CURRENT CONSULTATIONS: Hematology/Oncology, Infectious Disease, Cardiology, Neurology, Interventional Radiology. Patient has been given a dose of albumin 25 g x1. Patient is on DuoNeb nebulizer every 4 hours, heparin 5000 units subcu every 12, Humalog low-dose sliding scale coverage every 6, Diprivan drip. Patient has also been on vasopressin and Levophed drip overnight. Patient is on Protonix 40 IV daily, IV fluid 0.9 normal saline at 125 mL an hour, Solu-Cortef 50 mg IV every 8, vancomycin 1 g IV every 12, Zosyn 3.375 g IV every 6. Repeat EKG ordered. Patient is on neuro checks. SCDs, TALIA stockjose. In addition, patient's condition was updated to the patient's daughter, Racheal Monzon, at area code [phone]. I have updated the patient's daughter, Racheal, about the patient's condition, diagnosis, overall [id number] prognosis and critical condition. All updates were explained to the patient's daughter at length and all questions concerned answered, which the patient's daughter acknowledged and understood. Patient's daughter and the patient's sister, , has requested that the family has finally identified the patient's primary care physician, which is Dr. Hernandez and requesting transfer of the patient's care to Dr. Hernandez. At this time, patient will be continued on the above therapeutic intervention inpatient service and attending change and transfer will be done to Dr. Bg Hernandez. Patient was officially endorsed to Dr. Hernandez today and Dr. Hernandez was informed about the patient's transfer to his service today. Time spent in the entire management, more than 35 minutes. Dictated and electronically signed, not read. Geovanny Fairbanks MD [facility]
--- NOTE | 2017-06-26 08:51 | PN ---
DATE: 06/25/2017 SUBJECTIVE: The patient is extubated, lying in bed, sedated. He is currently unresponsive to verbal or painful stimuli. MEDICATIONS: Currently include DuoNeb inhaler, heparin 5000 units subcutaneous every 12 hours, Precedex 400 mcg at 0.2 mcg per kg per hour, Protonix 40 mg once a day, hydrocortisone succinate 50 mg IV every 8 hours, vancomycin 1 g IV every 12 hours, vasopressin at 0.03 units per minute, and Zosyn 3.375 mg IV every 6 hours. PHYSICAL EXAMINATION: HEENT: Reveals sclerae to be white, conjunctivae pink. NECK: Supple. CHEST: Reveals scattered rhonchi. HEART: Reveals regular rate and rhythm. ABDOMEN: Soft, nontender. EXTREMITIES: Show no edema. LABORATORY DATA: Reveal blood sugar 143, total bilirubin is 1.7, AST 69, ALT 53, alkaline phosphatase of 37. Hepatitis serology shows hepatitis C antibody positivity. Hepatitis A and B are negative. IMPRESSION: 1. Respiratory failure secondary to presumed drug overdose. 2. Khe-VV-hcmyldemy myocardial infarction. 3. Elevated liver enzymes, which are trending downwards. The patient does have a history of hepatitis C, which was treated with antivirals. RECOMMENDATIONS: 1. Continue supportive care. 2. Continue broad-spectrum antibiotics for possible sepsis/SIRS. Jose Stone MD
--- NOTE | 2017-06-26 09:35 | RAD ---
HISTORY: intubated, pna COMPARISON: 06/25/2017 FINDINGS: LUNGS: There is increasing vascular congestion and bilateral infiltrates. The pattern is more consistent with CHF PLEURA: No significant pleural effusion identified, no pneumothorax apparent. CARDIOVASCULAR: Normal. OSSEOUS STRUCTURES: No significant abnormalities. VISUALIZED UPPER ABDOMEN: Normal. OTHER FINDINGS: None. IMPRESSION: There is increasing vascular congestion and bilateral infiltrates. The pattern is more consistent with CHF
--- NOTE | 2017-06-26 10:36 | CP.CCUPN ---
<Juan Coburn - Last Filed: 06/26/17 10:32> CCU Subjective - Physician Review Subjective (Free Text): Patient seen and evaluated bedside. No acute issues overnight. Patient agitated this morning, given ativan. Continued on precedex drip. Currently not any levophed or vasopressin. CCU Objective - Vital Signs / Intake & Output Vital Signs (Last 4 hours): Vital Signs Pulse BP 06/26/17 07:45 75 06/26/17 07:26 120/79 06/26/17 06:45 54 L 177/116 H Intake and Output (Last 8hrs): Intake & Output 06/25/17 06/26/17 06/26/17 22:59 06:59 14:59 Intake Total 2234 2449 100 Output Total 700 400 Balance 1533 2048 100 Weight 189 lb Intake: IV 2234 2449 100 Right Antecubital 299 Right Upper arm 2049 2049 Oral 0 Output: Urine 700 400 Urethral (Sharp) 700 400 Other: # Bowel Movements 0 - Physical Exam Head: Positive for: Atraumatic, Normocephalic Pupils: Positive for: PERRL Conjunctiva: Positive for: Normal Mouth: Positive for: Moist Mucous Membranes Neck: Positive for: Other (supple) Cardiovascular: Positive for: Regular Rate and Rhythm, Normal S1, S2. Negative for: Murmurs Abdomen: Positive for: Distention Genitourinary Male: Negative for: Erythema Upper Extremity: Positive for: NORMAL PULSES. Negative for: Swelling Lower Extremity: Positive for: Normal Inspection Neurological: Negative for: Speech Normal Skin: Positive for: Warm, Dry, Normal Color. Negative for: Rashes Psychiatric: Positive for: Alert, Oriented x 3 - Medications Active Medications: Active Medications Generic Name Dose Route Start Last Admin Trade Name Freq PRN Reason Stop Dose Admin Albuterol/Ipratropium 3 ml 06/24/17 19:30 06/26/17 07:56 Duoneb 3 Mg/0.5 Mg (3 Ml) Ud IH 3 ml [id number] PETRA Administration Heparin Sodium (Porcine) 5,000 units 06/24/17 10:00 06/26/17 10:09 Heparin SC 5,000 units Q12 PETRA Administration Protocol Hydrocortisone Sodium Succinate 50 mg 06/26/17 07:30 06/26/17 08:18 Solu-Cortef IVP 50 mg Q12H PETRA Administration Vancomycin HCl 1 gm in 250 mls @ 167 mls/hr 06/24/17 04:00 06/26/17 03:25 Vancomycin 1gm IVPB 167 mls/hr Q12H PETRA Administration Protocol Propofol 1,000 mg in 100 mls @ 2.177 mls/hr 06/23/17 23:57 06/25/17 20:36 Diprivan IV Infused .Q24H PRN Titration TITRATE PER MD ORDER Protocol 5 MCG/KG/MIN Piperacillin Sod/Tazobactam Sod 100 mls @ 200 mls/hr 06/24/17 12:00 06/26/17 05:10 Zosyn 3.375 In Ns 100ml IVPB 07/01/17 12:01 200 mls/hr Q6 PETRA Administration Protocol Vasopressin 20 units/ Sodium 101 mls @ 9.09 mls/hr 06/24/17 13:30 06/25/17 02 :00 Chloride IV 9.09 mls/hr .Q11H7M PETRA Administration Protocol 0.03 U/MIN Dexmedetomidine HCl 400 mcg in 100 mls @ 3.629 mls/hr 06/26/17 00:55 08:42 Precedex 400mcg/100ml IV 0.8 mcg/kg/hr .Q24H PRN 14.515 mls/hr Agitation Titration Protocol 0.2 MCG/KG/HR Insulin Human Lispro 0 units 06/24/17 11:24 06/26/17 07:45 Humalog Low SC 1 units Q6 PETRA Administration Protocol Lorazepam 2 mg 06/25/17 21:21 06/26/17 04:47 Ativan IVP 2 mg Q4H PRN Administration Anxiety Protocol Morphine Sulfate 4 mg 06/26/17 07:57 06/26/17 08:16 Morphine IVP 4 mg Q4H PRN Administration Pain, severe (8-10) Pantoprazole Sodium 40 mg 06/24/17 10:00 06/26/17 10:10 Protonix Inj IVP 40 mg DAILY PETRA Administration - Patient Studies Lab Studies: Microbiology Studies 06/23/17 22:43 MRSA Culture (Admit) - Final Naris MRSA NOT DETECTED Lab Studies 06/26/17 06/26/17 06/26/17 Range/Units 07:26 06:30 06:18 WBC (4.5-11.0) 10^3/ul RBC (3.5-6.1) 10^6/uL Hgb (14.0-18.0) g/dL Hct (42.0-52.0) % MCV (80.0-105.0) fl MCH (25.0-35.0) pg MCHC (31.0-37.0) g/dl RDW (11.5-14.5) % Plt Count (120.0-450.0) 10^3/uL Manual Plt Count (120-450) K/mm3 MPV (7.0-11.0) fl Gran % (50.0-68.0) % Lymph % (Auto) (22.0-35.0) % [place] % (Auto) (1.0-6.0) % Eos % (Auto) (1.5-5.0) % Baso % (Auto) (0.0-3.0) % Gran # (1.4-6.5) Lymph # (Auto) (1.2-3.4) [place] # (Auto) (0.1-0.6) Eos # (Auto) (0.0-0.7) Baso # (Auto) (0.0-2.0) K/mm3 Retic Count (0.5-1.5) % pCO2 36 (35-45) mm/Hg pO2 58.0 L (80-100) mm/Hg HCO3 20.3 L (21-28) mmol/L ABG pH 7.36 (7.35-7.45) ABG Total CO2 21.4 L (22-28) mmol.L ABG O2 Saturation 95.1 (95-98) % ABG O2 Content 18.7 (15-23) ML/dl ABG Base Excess -4.5 L (-2.0-3.0) mmol/L ABG Hemoglobin 14.4 (11.7-17.4) g/dL ABG Carboxyhemoglobin 1.8 H (0.5-1.5) % POC ABG HHb (Measured) 4.8 (0-5) % ABG Methemoglobin 0.9 (0.0-3.0) % ABG O2 Capacity 19.7 (16-24) mL/dl Hgb O2 Saturation 92.4 L (95.0-98.0) % FiO2 70.0 % Sodium (132-148) mmol/L Potassium (3.6-5.0) mmol/L Chloride (98-107) mmol/L Carbon Dioxide (21-33) mmol/L Anion Gap (10-20) BUN (7-21) mg/dL Creatinine (0.8-1.5) mg/dl Est GFR ( Amer) Est GFR (Non-Af Amer) POC Glucose (mg/dL) 156 H (65-110) mg/dL Random Glucose (70-110) mg/dL Lactic Acid 1.5 (0.7-2.1) mmol/L Calcium (8.4-10.5) mg/dL Magnesium (1.7-2.2) mg/dL Ferritin ng/mL Total Bilirubin (0.2-1.3) mg/dL Direct Bilirubin (0.0-0.4) mg/dL AST (17-59) U/L ALT (7-56) U/L Alkaline Phosphatase (38-126) U/L Ammonia (9-33) umol/L Total Creatine Kinase (35-230) U/L CK-MB (CK-2) (0.0-3.6) ng/mL CK-MB (CK-2) % (2.5-3.0) % Troponin I ng/mL Total Protein (5.8-8.3) g/dL Albumin (3.0-4.8) g/dL Globulin gm/dL Albumin/Globulin Ratio (1.1-1.8) Vitamin B12 (239-931) pg/mL Folate ng/mL Hepatitis A IgM Ab (NEGATIVE) Hep Bs Antigen (NEGATIVE) Hep B Core IgM Ab (NEGATIVE) Hepatitis C Antibody (NEGATIVE) Hepatitis C RNA (<15) IU/mL HCV RNA Quant (PCR) (<1.18) Log IU/mL HIV 1&2 Ag/Ab, 4th Gen (Nonreactive) 06/26/17 06/26/17 06/26/17 Range/Units 06:18 06:18 06:18 WBC 11.4 H (4.5-11.0) 10^3/ul RBC 4.56 (3.5-6.1) 10^6/uL Hgb 14.4 D (14.0-18.0) g/dL Hct 42.7 (42.0-52.0) % MCV 93.6 (80.0-105.0) fl MCH 31.6 (25.0-35.0) pg MCHC 33.7 (31.0-37.0) g/dl RDW 14.7 H (11.5-14.5) % Plt Count 30 L* (120.0-450.0) 10^3/uL Manual Plt Count 39 L* (120-450) K/mm3 MPV 13.1 H (7.0-11.0) fl Gran % 88.8 H (50.0-68.0) % Lymph % (Auto) 5.2 L (22.0-35.0) % [place] % (Auto) 6.0 (1.0-6.0) % Eos % (Auto) 0.0 L (1.5-5.0) % Baso % (Auto) 0.0 (0.0-3.0) % Gran # 10.12 H (1.4-6.5) Lymph # (Auto) 0.6 L (1.2-3.4) [place] # (Auto) 0.7 H (0.1-0.6) Eos # (Auto) 0.0 (0.0-0.7) Baso # (Auto) 0.00 (0.0-2.0) K/mm3 Retic Count (0.5-1.5) % pCO2 (35-45) mm/Hg pO2 (80-100) mm/Hg HCO3 (21-28) mmol/L ABG pH (7.35-7.45) ABG Total CO2 (22-28) mmol.L ABG O2 Saturation (95-98) % ABG O2 Content (15-23) ML/dl ABG Base Excess (-2.0-3.0) mmol/L ABG Hemoglobin (11.7-17.4) g/dL ABG Carboxyhemoglobin (0.5-1.5) % POC ABG HHb (Measured) (0-5) % ABG Methemoglobin (0.0-3.0) % ABG O2 Capacity (16-24) mL/dl Hgb O2 Saturation (95.0-98.0) % FiO2 % Sodium 149 H (132-148) mmol/L Potassium 4.1 (3.6-5.0) mmol/L Chloride 118 H (98-107) mmol/L Carbon Dioxide 22 (21-33) mmol/L Anion Gap 13 (10-20) BUN 29 H (7-21) mg/dL Creatinine 0.8 (0.8-1.5) mg/dl Est GFR ( Amer) > 60 Est GFR (Non-Af Amer) > 60 POC Glucose (mg/dL) (65-110) mg/dL Random Glucose 153 H (70-110) mg/dL Lactic Acid (0.7-2.1) mmol/L Calcium 8.3 L (8.4-10.5) mg/dL Magnesium 2.5 H (1.7-2.2) mg/dL Ferritin ng/mL Total Bilirubin 1.7 H (0.2-1.3) mg/dL Direct Bilirubin 0.7 H (0.0-0.4) mg/dL AST 62 H (17-59) U/L ALT 50 (7-56) U/L Alkaline Phosphatase 47 (38-126) U/L Ammonia 13 (9-33) umol/L Total Creatine Kinase 380 H (35-230) U/L CK-MB (CK-2) 8.4 H (0.0-3.6) ng/mL CK-MB (CK-2) % 2.2 L (2.5-3.0) % Troponin I 0.07 D ng/mL Total Protein 6.1 (5.8-8.3) g/dL Albumin 3.0 (3.0-4.8) g/dL Globulin 3.1 gm/dL Albumin/Globulin Ratio 1.0 L (1.1-1.8) Vitamin B12 (239-931) pg/mL Folate ng/mL Hepatitis A IgM Ab (NEGATIVE) Hep Bs Antigen (NEGATIVE) Hep B Core IgM Ab (NEGATIVE) Hepatitis C Antibody (NEGATIVE) Hepatitis C RNA (<15) IU/mL HCV RNA Quant (PCR) (<1.18) Log IU/mL HIV 1&2 Ag/Ab, 4th Gen (Nonreactive) 06/26/17 06/25/17 06/25/17 Range/Units 00:00 18:14 11:24 WBC (4.5-11.0) 10^3/ul RBC (3.5-6.1) 10^6/uL Hgb (14.0-18.0) g/dL Hct (42.0-52.0) % MCV (80.0-105.0) fl MCH (25.0-35.0) pg MCHC (31.0-37.0) g/dl RDW (11.5-14.5) % Plt Count (120.0-450.0) 10^3/uL Manual Plt Count (120-450) K/mm3 MPV (7.0-11.0) fl Gran % (50.0-68.0) % Lymph % (Auto) (22.0-35.0) % [place] % (Auto) (1.0-6.0) % Eos % (Auto) (1.5-5.0) % Baso % (Auto) (0.0-3.0) % Gran # (1.4-6.5) Lymph # (Auto) (1.2-3.4) [place] # (Auto) (0.1-0.6) Eos # (Auto) (0.0-0.7) Baso # (Auto) (0.0-2.0) K/mm3 Retic Count (0.5-1.5) % pCO2 (35-45) mm/Hg pO2 (80-100) mm/Hg HCO3 (21-28) mmol/L ABG pH (7.35-7.45) ABG Total CO2 (22-28) mmol.L ABG O2 Saturation (95-98) % ABG O2 Content (15-23) ML/dl ABG Base Excess (-2.0-3.0) mmol/L ABG Hemoglobin (11.7-17.4) g/dL ABG Carboxyhemoglobin (0.5-1.5) % POC ABG HHb (Measured) (0-5) % ABG Methemoglobin (0.0-3.0) % ABG O2 Capacity (16-24) mL/dl Hgb O2 Saturation (95.0-98.0) % FiO2 % Sodium (132-148) mmol/L Potassium (3.6-5.0) mmol/L Chloride (98-107) mmol/L Carbon Dioxide (21-33) mmol/L Anion Gap (10-20) BUN (7-21) mg/dL Creatinine (0.8-1.5) mg/dl Est GFR ( Amer) Est GFR (Non-Af Amer) POC Glucose (mg/dL) 146 H 144 H 143 H (65-110) mg/dL Random Glucose (70-110) mg/dL Lactic Acid (0.7-2.1) mmol/L Calcium (8.4-10.5) mg/dL Magnesium (1.7-2.2) mg/dL Ferritin ng/mL Total Bilirubin (0.2-1.3) mg/dL Direct Bilirubin (0.0-0.4) mg/dL AST (17-59) U/L ALT (7-56) U/L Alkaline Phosphatase (38-126) U/L Ammonia (9-33) umol/L Total Creatine Kinase (35-230) U/L CK-MB (CK-2) (0.0-3.6) ng/mL CK-MB (CK-2) % (2.5-3.0) % Troponin I ng/mL Total Protein (5.8-8.3) g/dL Albumin (3.0-4.8) g/dL Globulin gm/dL Albumin/Globulin Ratio (1.1-1.8) Vitamin B12 (239-931) pg/mL Folate ng/mL Hepatitis A IgM Ab (NEGATIVE) Hep Bs Antigen (NEGATIVE) Hep B Core IgM Ab (NEGATIVE) Hepatitis C Antibody (NEGATIVE) Hepatitis C RNA (<15) IU/mL HCV RNA Quant (PCR) (<1.18) Log IU/mL HIV 1&2 Ag/Ab, 4th Gen (Nonreactive) 06/25/17 06/25/17 06/25/17 Range/Units 10:30 08:00 06:30 WBC 11.9 H (4.5-11.0) 10^3/ul RBC 3.92 (3.5-6.1) 10^6/uL Hgb 12.3 L D (14.0-18.0) g/dL Hct 36.9 L (42.0-52.0) % MCV 94.1 (80.0-105.0) fl MCH 31.4 (25.0-35.0) pg MCHC 33.3 (31.0-37.0) g/dl RDW 14.5 (11.5-14.5) % Plt Count 35 L* (120.0-450.0) 10^3/uL Manual Plt Count 54 L* (120-450) K/mm3 MPV 13.4 H (7.0-11.0) fl Gran % 85.1 H (50.0-68.0) % Lymph % (Auto) 5.1 L (22.0-35.0) % [place] % (Auto) 9.8 H (1.0-6.0) % Eos % (Auto) 0.0 L (1.5-5.0) % Baso % (Auto) 0.0 (0.0-3.0) % Gran # 10.11 H (1.4-6.5) Lymph # (Auto) 0.6 L (1.2-3.4) [place] # (Auto) 1.2 H (0.1-0.6) Eos # (Auto) 0.0 (0.0-0.7) Baso # (Auto) 0.00 (0.0-2.0) K/mm3 Retic Count 0.81 (0.5-1.5) % pCO2 (35-45) mm/Hg pO2 (80-100) mm/Hg HCO3 (21-28) mmol/L ABG pH (7.35-7.45) ABG Total CO2 (22-28) mmol.L ABG O2 Saturation (95-98) % ABG O2 Content (15-23) ML/dl ABG Base Excess (-2.0-3.0) mmol/L ABG Hemoglobin (11.7-17.4) g/dL ABG Carboxyhemoglobin (0.5-1.5) % POC ABG HHb (Measured) (0-5) % ABG Methemoglobin (0.0-3.0) % ABG O2 Capacity (16-24) mL/dl Hgb O2 Saturation (95.0-98.0) % FiO2 % Sodium (132-148) mmol/L Potassium (3.6-5.0) mmol/L Chloride (98-107) mmol/L Carbon Dioxide (21-33) mmol/L Anion Gap (10-20) BUN (7-21) mg/dL Creatinine (0.8-1.5) mg/dl Est GFR ( Amer) Est GFR (Non-Af Amer) POC Glucose (mg/dL) (65-110) mg/dL Random Glucose (70-110) mg/dL Lactic Acid (0.7-2.1) mmol/L Calcium (8.4-10.5) mg/dL Magnesium (1.7-2.2) mg/dL Ferritin 453.0 ng/mL Total Bilirubin (0.2-1.3) mg/dL Direct Bilirubin (0.0-0.4) mg/dL AST (17-59) U/L ALT (7-56) U/L Alkaline Phosphatase (38-126) U/L Ammonia (9-33) umol/L Total Creatine Kinase (35-230) U/L CK-MB (CK-2) (0.0-3.6) ng/mL CK-MB (CK-2) % (2.5-3.0) % Troponin I ng/mL Total Protein (5.8-8.3) g/dL Albumin (3.0-4.8) g/dL Globulin gm/dL Albumin/Globulin Ratio (1.1-1.8) Vitamin B12 > 1000 H (239-931) pg/mL Folate 9.3 ng/mL Hepatitis A IgM Ab Negative (NEGATIVE) Hep Bs Antigen Negative (NEGATIVE) Hep B Core IgM Ab Negative (NEGATIVE) Hepatitis C Antibody Reactive (NEGATIVE) Hepatitis C RNA (<15) IU/mL HCV RNA Quant (PCR) (<1.18) Log IU/mL HIV 1&2 Ag/Ab, 4th Gen (Nonreactive) 06/24/17 06/24/17 Range/Units 13:20 11:30 WBC (4.5-11.0) 10^3/ul RBC (3.5-6.1) 10^6/uL Hgb (14.0-18.0) g/dL Hct (42.0-52.0) % MCV (80.0-105.0) fl MCH (25.0-35.0) pg MCHC (31.0-37.0) g/dl RDW (11.5-14.5) % Plt Count (120.0-450.0) 10^3/uL Manual Plt Count (120-450) K/mm3 MPV (7.0-11.0) fl Gran % (50.0-68.0) % Lymph % (Auto) (22.0-35.0) % [place] % (Auto) (1.0-6.0) % Eos % (Auto) (1.5-5.0) % Baso % (Auto) (0.0-3.0) % Gran # (1.4-6.5) Lymph # (Auto) (1.2-3.4) [place] # (Auto) (0.1-0.6) Eos # (Auto) (0.0-0.7) Baso # (Auto) (0.0-2.0) K/mm3 Retic Count (0.5-1.5) % pCO2 (35-45) mm/Hg pO2 (80-100) mm/Hg HCO3 (21-28) mmol/L ABG pH (7.35-7.45) ABG Total CO2 (22-28) mmol.L ABG O2 Saturation (95-98) % ABG O2 Content (15-23) ML/dl ABG Base Excess (-2.0-3.0) mmol/L ABG Hemoglobin (11.7-17.4) g/dL ABG Carboxyhemoglobin (0.5-1.5) % POC ABG HHb (Measured) (0-5) % ABG Methemoglobin (0.0-3.0) % ABG O2 Capacity (16-24) mL/dl Hgb O2 Saturation (95.0-98.0) % FiO2 % Sodium (132-148) mmol/L Potassium (3.6-5.0) mmol/L Chloride (98-107) mmol/L Carbon Dioxide (21-33) mmol/L Anion Gap (10-20) BUN (7-21) mg/dL Creatinine (0.8-1.5) mg/dl Est GFR ( Amer) Est GFR (Non-Af Amer) POC Glucose (mg/dL) (65-110) mg/dL Random Glucose (70-110) mg/dL Lactic Acid (0.7-2.1) mmol/L Calcium (8.4-10.5) mg/dL Magnesium (1.7-2.2) mg/dL Ferritin ng/mL Total Bilirubin (0.2-1.3) mg/dL Direct Bilirubin (0.0-0.4) mg/dL AST (17-59) U/L ALT (7-56) U/L Alkaline Phosphatase (38-126) U/L Ammonia (9-33) umol/L Total Creatine Kinase (35-230) U/L CK-MB (CK-2) (0.0-3.6) ng/mL CK-MB (CK-2) % (2.5-3.0) % Troponin I ng/mL Total Protein (5.8-8.3) g/dL Albumin (3.0-4.8) g/dL Globulin gm/dL Albumin/Globulin Ratio (1.1-1.8) Vitamin B12 (239-931) pg/mL Folate ng/mL Hepatitis A IgM Ab (NEGATIVE) Hep Bs Antigen (NEGATIVE) Hep B Core IgM Ab (NEGATIVE) Hepatitis C Antibody (NEGATIVE) Hepatitis C RNA <15 not detected (<15) IU/mL HCV RNA Quant (PCR) <1.18 not detected (<1.18) Log IU/mL HIV 1&2 Ag/Ab, 4th Gen Nonreactive (Nonreactive) Laboratory Results - last 24 hr 06/24/17 06/24/17 06/25/17 11:30 13:20 06:30 WBC RBC Hgb Hct MCV MCH MCHC RDW Plt Count Manual Plt Count MPV Gran % Lymph % (Auto) [place] % (Auto) Eos % (Auto) Baso % (Auto) Gran # Lymph # (Auto) [place] # (Auto) Eos # (Auto) Baso # (Auto) Retic Count pCO2 pO2 HCO3 ABG pH ABG Total CO2 ABG O2 Saturation ABG O2 Content ABG Base Excess ABG Hemoglobin ABG Carboxyhemoglobin POC ABG HHb (Measured) ABG Methemoglobin ABG O2 Capacity Hgb O2 Saturation FiO2 Sodium Potassium Chloride Carbon Dioxide Anion Gap BUN Creatinine Est GFR ( Amer) Est GFR (Non-Af Amer) POC Glucose (mg/dL) Random Glucose Lactic Acid Calcium Magnesium Ferritin 453.0 Total Bilirubin Direct Bilirubin AST ALT Alkaline Phosphatase Ammonia Total Creatine Kinase CK-MB (CK-2) CK-MB (CK-2) % Troponin I Total Protein Albumin Globulin Albumin/Globulin Ratio Vitamin B12 > 1000 H Folate 9.3 Hepatitis A IgM Ab Hep Bs Antigen Hep B Core IgM Ab Hepatitis C Antibody Hepatitis C RNA <15 not detected HCV RNA Quant (PCR) <1.18 not detected HIV 1&2 Ag/Ab, 4th Gen Nonreactive 06/25/17 06/25/17 06/25/17 08:00 10:30 11:24 WBC 11.9 H RBC 3.92 Hgb 12.3 L D Hct 36.9 L MCV 94.1 MCH 31.4 MCHC 33.3 RDW 14.5 Plt Count 35 L* Manual Plt Count 54 L* MPV 13.4 H Gran % 85.1 H Lymph % (Auto) 5.1 L [place] % (Auto) 9.8 H Eos % (Auto) 0.0 L Baso % (Auto) 0.0 Gran # 10.11 H Lymph # (Auto) 0.6 L [place] # (Auto) 1.2 H Eos # (Auto) 0.0 Baso # (Auto) 0.00 Retic Count 0.81 pCO2 pO2 HCO3 ABG pH ABG Total CO2 ABG O2 Saturation ABG O2 Content ABG Base Excess ABG Hemoglobin ABG Carboxyhemoglobin POC ABG HHb (Measured) ABG Methemoglobin ABG O2 Capacity Hgb O2 Saturation FiO2 Sodium Potassium Chloride Carbon Dioxide Anion Gap BUN Creatinine Est GFR ( Amer) Est GFR (Non-Af Amer) POC Glucose (mg/dL) 143 H Random Glucose Lactic Acid Calcium Magnesium Ferritin Total Bilirubin Direct Bilirubin AST ALT Alkaline Phosphatase Ammonia Total Creatine Kinase CK-MB (CK-2) CK-MB (CK-2) % Troponin I Total Protein Albumin Globulin Albumin/Globulin Ratio Vitamin B12 Folate Hepatitis A IgM Ab Negative Hep Bs Antigen Negative Hep B Core IgM Ab Negative Hepatitis C Antibody Reactive Hepatitis C RNA HCV RNA Quant (PCR) HIV 1&2 Ag/Ab, 4th Gen 06/25/17 06/26/17 06/26/17 18:14 00:00 06:18 WBC 11.4 H RBC 4.56 Hgb 14.4 D Hct 42.7 MCV 93.6 MCH 31.6 MCHC 33.7 RDW 14.7 H Plt Count 30 L* Manual Plt Count 39 L* MPV 13.1 H Gran % 88.8 H Lymph % (Auto) 5.2 L [place] % (Auto) 6.0 Eos % (Auto) 0.0 L Baso % (Auto) 0.0 Gran # 10.12 H Lymph # (Auto) 0.6 L [place] # (Auto) 0.7 H Eos # (Auto) 0.0 Baso # (Auto) 0.00 Retic Count pCO2 pO2 HCO3 ABG pH ABG Total CO2 ABG O2 Saturation ABG O2 Content ABG Base Excess ABG Hemoglobin ABG Carboxyhemoglobin POC ABG HHb (Measured) ABG Methemoglobin ABG O2 Capacity Hgb O2 Saturation FiO2 Sodium Potassium Chloride Carbon Dioxide Anion Gap BUN Creatinine Est GFR ( Amer) Est GFR (Non-Af Amer) POC Glucose (mg/dL) 144 H 146 H Random Glucose Lactic Acid Calcium Magnesium Ferritin Total Bilirubin Direct Bilirubin AST ALT Alkaline Phosphatase Ammonia Total Creatine Kinase CK-MB (CK-2) CK-MB (CK-2) % Troponin I Total Protein Albumin Globulin Albumin/Globulin Ratio Vitamin B12 Folate Hepatitis A IgM Ab Hep Bs Antigen Hep B Core IgM Ab Hepatitis C Antibody Hepatitis C RNA HCV RNA Quant (PCR) HIV 1&2 Ag/Ab, 4th Gen 06/26/17 06/26/17 06/26/17 06:18 06:18 06:18 WBC RBC Hgb Hct MCV MCH MCHC RDW Plt Count Manual Plt Count MPV Gran % Lymph % (Auto) [place] % (Auto) Eos % (Auto) Baso % (Auto) Gran # Lymph # (Auto) [place] # (Auto) Eos # (Auto) Baso # (Auto) Retic Count pCO2 pO2 HCO3 ABG pH ABG Total CO2 ABG O2 Saturation ABG O2 Content ABG Base Excess ABG Hemoglobin ABG Carboxyhemoglobin POC ABG HHb (Measured) ABG Methemoglobin ABG O2 Capacity Hgb O2 Saturation FiO2 Sodium 149 H Potassium 4.1 Chloride 118 H Carbon Dioxide 22 Anion Gap 13 BUN 29 H Creatinine 0.8 Est GFR ( Amer) > 60 Est GFR (Non-Af Amer) > 60 POC Glucose (mg/dL) Random Glucose 153 H Lactic Acid 1.5 Calcium 8.3 L Magnesium 2.5 H Ferritin Total Bilirubin 1.7 H Direct Bilirubin 0.7 H AST 62 H ALT 50 Alkaline Phosphatase 47 Ammonia 13 Total Creatine Kinase 380 H CK-MB (CK-2) 8.4 H CK-MB (CK-2) % 2.2 L Troponin I 0.07 D Total Protein 6.1 Albumin 3.0 Globulin 3.1 Albumin/Globulin Ratio 1.0 L Vitamin B12 Folate Hepatitis A IgM Ab Hep Bs Antigen Hep B Core IgM Ab Hepatitis C Antibody Hepatitis C RNA HCV RNA Quant (PCR) HIV 1&2 Ag/Ab, 4th Gen 06/26/17 06/26/17 06:30 07:26 WBC RBC Hgb Hct MCV MCH MCHC RDW Plt Count Manual Plt Count MPV Gran % Lymph % (Auto) [place] % (Auto) Eos % (Auto) Baso % (Auto) Gran # Lymph # (Auto) [place] # (Auto) Eos # (Auto) Baso # (Auto) Retic Count pCO2 36 pO2 58.0 L HCO3 20.3 L ABG pH 7.36 ABG Total CO2 21.4 L ABG O2 Saturation 95.1 ABG O2 Content 18.7 ABG Base Excess -4.5 L ABG Hemoglobin 14.4 ABG Carboxyhemoglobin 1.8 H POC ABG HHb (Measured) 4.8 ABG Methemoglobin 0.9 ABG O2 Capacity 19.7 Hgb O2 Saturation 92.4 L FiO2 70.0 Sodium Potassium Chloride Carbon Dioxide Anion Gap BUN Creatinine Est GFR ( Amer) Est GFR (Non-Af Amer) POC Glucose (mg/dL) 156 H Random Glucose Lactic Acid Calcium Magnesium Ferritin Total Bilirubin Direct Bilirubin AST ALT Alkaline Phosphatase Ammonia Total Creatine Kinase CK-MB (CK-2) CK-MB (CK-2) % Troponin I Total Protein Albumin Globulin Albumin/Globulin Ratio Vitamin B12 Folate Hepatitis A IgM Ab Hep Bs Antigen Hep B Core IgM Ab Hepatitis C Antibody Hepatitis C RNA HCV RNA Quant (PCR) HIV 1&2 Ag/Ab, 4th Gen EKG/Cardiology Studies: Cardiology / EKG Studies 06/26/17 07:00 ELECTROCARDIOGRAM DAILY Comment: Reason For Exam: HYPOTHERMIA 06/27/17 07:00 ELECTROCARDIOGRAM DAILY Comment: Reason For Exam: HYPOTHERMIA Fingerstick Blood Sugar Results: 156 Review of Systems - Review of Systems Systems not reviewed;Unavailable: Uncooperative Review of Systems: unable to obtain Assessment/Plan - Assessment and Plan (Free Text) Assessment: Patient is 66yo male with PMHx of Hep C s/p harvoni treatment, Et[place] abuse, found unconscious at home with window down, intubated in the field, subsequently had PEA arrest in the field given Epi x 2, ROSC obtained. Patient extubated yesterday. Currently on precedex drip. Plan to diures today. Plan: Neuro: extubated Precedex CT Head (06/23) shows no acute intracranial findings Cardio: -cardiology consulted, recs appreciated, conservative management for now -Echo normal EF -O2 via ETT -maintain MAP>65 -PICC line Pulm: -BIPAP -extubated -CXR -ABG -maintain SpO2>90% ID: SIRS -infectious disease consulted, recs appreciated -Vancomycin and Zosyn -cultures no growth -steroids -LFTs GI: NPO Protonix ppx Renal: -continue to replete electrolytes as needed -diures -monitor fluid balance Endo: -Maintain euglycemia Heme/Onc: -daily CBC, CMP -heme consulted, follow recs , [place] -thrombocytopenia DVT ppx: heparin GI ppx: protonix <Nito Stevenson - Last Filed: 06/26/17 14:52> CCU Objective - Vital Signs / Intake & Output Vital Signs (Last 4 hours): Vital Signs Pulse BP 06/26/17 12:50 61 06/26/17 11:59 63 181/111 H Intake and Output (Last 8hrs): Intake & Output 06/25/17 06/26/17 06/26/17 22:59 06:59 14:59 Intake Total 2234 2449 100 Output Total 700 400 Balance 1534 2049 100 Weight 189 lb 194 lb Intake: IV 2234 2449 100 Right Antecubital 299 Right Upper arm 2049 2049 Oral 0 Output: Urine 700 400 Urethral (Sharp) 700 400 Other: # Bowel Movements 0 - Medications Active Medications: Active Medications Generic Name Dose Route Start Last Admin Trade Name Freq PRN Reason Stop Dose Admin Albuterol/Ipratropium 3 ml 06/24/17 19:30 06/26/17 10:47 Duoneb 3 Mg/0.5 Mg (3 Ml) Ud IH 3 ml [id number] PETRA Administration Heparin Sodium (Porcine) 5,000 units 06/24/17 10:00 06/26/17 10:09 Heparin SC 5,000 units Q12 PETRA Administration Protocol Hydrocortisone Sodium Succinate 50 mg 06/26/17 07:30 06/26/17 08:18 Solu-Cortef IVP 50 mg Q12H PETRA Administration Vancomycin HCl 1 gm in 250 mls @ 167 mls/hr 06/24/17 04:00 06/26/17 03:25 Vancomycin 1gm IVPB 167 mls/hr Q12H PETRA Administration Protocol Propofol 1,000 mg in 100 mls @ 2.177 mls/hr 06/23/17 23:57 06/25/17 20:36 Diprivan IV Infused .Q24H PRN Titration TITRATE PER MD ORDER Protocol 5 MCG/KG/MIN Piperacillin Sod/Tazobactam Sod 100 mls @ 200 mls/hr 06/24/17 12:00 06/26/17 12:14 Zosyn 3.375 In Ns 100ml IVPB 07/01/17 12:01 200 mls/hr Q6 PETRA Administration Protocol Vasopressin 20 units/ Sodium 101 mls @ 9.09 mls/hr 06/24/17 13:30 06/25/17 02 :00 Chloride IV 9.09 mls/hr .Q11H7M PETRA Administration Protocol 0.03 U/MIN Dexmedetomidine HCl 400 mcg in 100 mls @ 3.629 mls/hr 06/26/17 00:55 12:04 Precedex 400mcg/100ml IV 1 mcg/kg/hr .Q24H PRN 18.144 mls/hr Agitation Administration Protocol 0.2 MCG/KG/HR Insulin Human Lispro 0 units 06/24/17 11:24 06/26/17 12:30 Humalog Low SC 1 units Q6 PETRA Administration Protocol Lorazepam 2 mg 06/25/17 21:21 06/26/17 11:48 Ativan IVP 2 mg Q4H PRN Administration Anxiety Protocol Morphine Sulfate 4 mg 06/26/17 07:57 06/26/17 08:16 Morphine IVP 4 mg Q4H PRN Administration Pain, severe (8-10) Pantoprazole Sodium 40 mg 06/24/17 10:00 06/26/17 10:10 Protonix Inj IVP 40 mg DAILY PETRA Administration - Patient Studies Lab Studies: Microbiology Studies 06/23/17 22:43 MRSA Culture (Admit) - Final Naris MRSA NOT DETECTED Lab Studies 06/26/17 06/26/17 06/26/17 Range/Units 11:52 07:26 06:30 WBC (4.5-11.0) 10^3/ul RBC (3.5-6.1) 10^6/uL Hgb (14.0-18.0) g/dL Hct (42.0-52.0) % MCV (80.0-105.0) fl MCH (25.0-35.0) pg MCHC (31.0-37.0) g/dl RDW (11.5-14.5) % Plt Count (120.0-450.0) 10^3/uL Manual Plt Count (120-450) K/mm3 MPV (7.0-11.0) fl Gran % (50.0-68.0) % Lymph % (Auto) (22.0-35.0) % [place] % (Auto) (1.0-6.0) % Eos % (Auto) (1.5-5.0) % Baso % (Auto) (0.0-3.0) % Gran # (1.4-6.5) Lymph # (Auto) (1.2-3.4) [place] # (Auto) (0.1-0.6) Eos # (Auto) (0.0-0.7) Baso # (Auto) (0.0-2.0) K/mm3 pCO2 36 (35-45) mm/Hg pO2 58.0 L (80-100) mm/Hg HCO3 20.3 L (21-28) mmol/L ABG pH 7.36 (7.35-7.45) ABG Total CO2 21.4 L (22-28) mmol.L ABG O2 Saturation 95.1 (95-98) % ABG O2 Content 18.7 (15-23) ML/dl ABG Base Excess -4.5 L (-2.0-3.0) mmol/L ABG Hemoglobin 14.4 (11.7-17.4) g/dL ABG Carboxyhemoglobin 1.8 H (0.5-1.5) % POC ABG HHb (Measured) 4.8 (0-5) % ABG Methemoglobin 0.9 (0.0-3.0) % ABG O2 Capacity 19.7 (16-24) mL/dl Hgb O2 Saturation 92.4 L (95.0-98.0) % FiO2 70.0 % Sodium (132-148) mmol/L Potassium (3.6-5.0) mmol/L Chloride (98-107) mmol/L Carbon Dioxide (21-33) mmol/L Anion Gap (10-20) BUN (7-21) mg/dL Creatinine (0.8-1.5) mg/dl Est GFR ( Amer) Est GFR (Non-Af Amer) POC Glucose (mg/dL) 185 H 156 H (65-110) mg/dL Random Glucose (70-110) mg/dL Lactic Acid (0.7-2.1) mmol/L Calcium (8.4-10.5) mg/dL Magnesium (1.7-2.2) mg/dL Erythropoietin (2.6-18.5) mIU/mL Ferritin ng/mL Total Bilirubin (0.2-1.3) mg/dL Direct Bilirubin (0.0-0.4) mg/dL AST (17-59) U/L ALT (7-56) U/L Alkaline Phosphatase (38-126) U/L Ammonia (9-33) umol/L Total Creatine Kinase (35-230) U/L CK-MB (CK-2) (0.0-3.6) ng/mL CK-MB (CK-2) % (2.5-3.0) % Troponin I ng/mL Total Protein (5.8-8.3) g/dL Albumin (3.0-4.8) g/dL Globulin gm/dL Albumin/Globulin Ratio (1.1-1.8) Vitamin B12 (239-931) pg/mL Folate ng/mL Hepatitis C RNA (<15) IU/mL HCV RNA Quant (PCR) (<1.18) Log IU/mL 06/26/17 06/26/17 06/26/17 Range/Units 06:18 06:18 06:18 WBC (4.5-11.0) 10^3/ul RBC (3.5-6.1) 10^6/uL Hgb (14.0-18.0) g/dL Hct (42.0-52.0) % MCV (80.0-105.0) fl MCH (25.0-35.0) pg MCHC (31.0-37.0) g/dl RDW (11.5-14.5) % Plt Count (120.0-450.0) 10^3/uL Manual Plt Count (120-450) K/mm3 MPV (7.0-11.0) fl Gran % (50.0-68.0) % Lymph % (Auto) (22.0-35.0) % [place] % (Auto) (1.0-6.0) % Eos % (Auto) (1.5-5.0) % Baso % (Auto) (0.0-3.0) % Gran # (1.4-6.5) Lymph # (Auto) (1.2-3.4) [place] # (Auto) (0.1-0.6) Eos # (Auto) (0.0-0.7) Baso # (Auto) (0.0-2.0) K/mm3 pCO2 (35-45) mm/Hg pO2 (80-100) mm/Hg HCO3 (21-28) mmol/L ABG pH (7.35-7.45) ABG Total CO2 (22-28) mmol.L ABG O2 Saturation (95-98) % ABG O2 Content (15-23) ML/dl ABG Base Excess (-2.0-3.0) mmol/L ABG Hemoglobin (11.7-17.4) g/dL ABG Carboxyhemoglobin (0.5-1.5) % POC ABG HHb (Measured) (0-5) % ABG Methemoglobin (0.0-3.0) % ABG O2 Capacity (16-24) mL/dl Hgb O2 Saturation (95.0-98.0) % FiO2 % Sodium 149 H (132-148) mmol/L Potassium 4.1 (3.6-5.0) mmol/L Chloride 118 H (98-107) mmol/L Carbon Dioxide 22 (21-33) mmol/L Anion Gap 13 (10-20) BUN 29 H (7-21) mg/dL Creatinine 0.8 (0.8-1.5) mg/dl Est GFR ( Amer) > 60 Est GFR (Non-Af Amer) > 60 POC Glucose (mg/dL) (65-110) mg/dL Random Glucose 153 H (70-110) mg/dL Lactic Acid 1.5 (0.7-2.1) mmol/L Calcium 8.3 L (8.4-10.5) mg/dL Magnesium 2.5 H (1.7-2.2) mg/dL Erythropoietin (2.6-18.5) mIU/mL Ferritin ng/mL Total Bilirubin 1.7 H (0.2-1.3) mg/dL Direct Bilirubin 0.7 H (0.0-0.4) mg/dL AST 62 H (17-59) U/L ALT 50 (7-56) U/L Alkaline Phosphatase 47 (38-126) U/L Ammonia 13 (9-33) umol/L Total Creatine Kinase 380 H (35-230) U/L CK-MB (CK-2) 8.4 H (0.0-3.6) ng/mL CK-MB (CK-2) % 2.2 L (2.5-3.0) % Troponin I 0.07 D ng/mL Total Protein 6.1 (5.8-8.3) g/dL Albumin 3.0 (3.0-4.8) g/dL Globulin 3.1 gm/dL Albumin/Globulin Ratio 1.0 L (1.1-1.8) Vitamin B12 (239-931) pg/mL Folate ng/mL Hepatitis C RNA (<15) IU/mL HCV RNA Quant (PCR) (<1.18) Log IU/mL 06/26/17 06/26/17 06/25/17 Range/Units 06:18 00:00 18:14 WBC 11.4 H (4.5-11.0) 10^3/ul RBC 4.56 (3.5-6.1) 10^6/uL Hgb 14.4 D (14.0-18.0) g/dL Hct 42.7 (42.0-52.0) % MCV 93.6 (80.0-105.0) fl MCH 31.6 (25.0-35.0) pg MCHC 33.7 (31.0-37.0) g/dl RDW 14.7 H (11.5-14.5) % Plt Count 30 L* (120.0-450.0) 10^3/uL Manual Plt Count 39 L* (120-450) K/mm3 MPV 13.1 H (7.0-11.0) fl Gran % 88.8 H (50.0-68.0) % Lymph % (Auto) 5.2 L (22.0-35.0) % [place] % (Auto) 6.0 (1.0-6.0) % Eos % (Auto) 0.0 L (1.5-5.0) % Baso % (Auto) 0.0 (0.0-3.0) % Gran # 10.12 H (1.4-6.5) Lymph # (Auto) 0.6 L (1.2-3.4) [place] # (Auto) 0.7 H (0.1-0.6) Eos # (Auto) 0.0 (0.0-0.7) Baso # (Auto) 0.00 (0.0-2.0) K/mm3 pCO2 (35-45) mm/Hg pO2 (80-100) mm/Hg HCO3 (21-28) mmol/L ABG pH (7.35-7.45) ABG Total CO2 (22-28) mmol.L ABG O2 Saturation (95-98) % ABG O2 Content (15-23) ML/dl ABG Base Excess (-2.0-3.0) mmol/L ABG Hemoglobin (11.7-17.4) g/dL ABG Carboxyhemoglobin (0.5-1.5) % POC ABG HHb (Measured) (0-5) % ABG Methemoglobin (0.0-3.0) % ABG O2 Capacity (16-24) mL/dl Hgb O2 Saturation (95.0-98.0) % FiO2 % Sodium (132-148) mmol/L Potassium (3.6-5.0) mmol/L Chloride (98-107) mmol/L Carbon Dioxide (21-33) mmol/L Anion Gap (10-20) BUN (7-21) mg/dL Creatinine (0.8-1.5) mg/dl Est GFR ( Amer) Est GFR (Non-Af Amer) POC Glucose (mg/dL) 146 H 144 H (65-110) mg/dL Random Glucose (70-110) mg/dL Lactic Acid (0.7-2.1) mmol/L Calcium (8.4-10.5) mg/dL Magnesium (1.7-2.2) mg/dL Erythropoietin (2.6-18.5) mIU/mL Ferritin ng/mL Total Bilirubin (0.2-1.3) mg/dL Direct Bilirubin (0.0-0.4) mg/dL AST (17-59) U/L ALT (7-56) U/L Alkaline Phosphatase (38-126) U/L Ammonia (9-33) umol/L Total Creatine Kinase (35-230) U/L CK-MB (CK-2) (0.0-3.6) ng/mL CK-MB (CK-2) % (2.5-3.0) % Troponin I ng/mL Total Protein (5.8-8.3) g/dL Albumin (3.0-4.8) g/dL Globulin gm/dL Albumin/Globulin Ratio (1.1-1.8) Vitamin B12 (239-931) pg/mL Folate ng/mL Hepatitis C RNA (<15) IU/mL HCV RNA Quant (PCR) (<1.18) Log IU/mL 06/25/17 06/25/17 06/24/17 Range/Units 06:30 06:15 13:20 WBC (4.5-11.0) 10^3/ul RBC (3.5-6.1) 10^6/uL Hgb (14.0-18.0) g/dL Hct (42.0-52.0) % MCV (80.0-105.0) fl MCH (25.0-35.0) pg MCHC (31.0-37.0) g/dl RDW (11.5-14.5) % Plt Count (120.0-450.0) 10^3/uL Manual Plt Count (120-450) K/mm3 MPV (7.0-11.0) fl Gran % (50.0-68.0) % Lymph % (Auto) (22.0-35.0) % [place] % (Auto) (1.0-6.0) % Eos % (Auto) (1.5-5.0) % Baso % (Auto) (0.0-3.0) % Gran # (1.4-6.5) Lymph # (Auto) (1.2-3.4) [place] # (Auto) (0.1-0.6) Eos # (Auto) (0.0-0.7) Baso # (Auto) (0.0-2.0) K/mm3 pCO2 (35-45) mm/Hg pO2 (80-100) mm/Hg HCO3 (21-28) mmol/L ABG pH (7.35-7.45) ABG Total CO2 (22-28) mmol.L ABG O2 Saturation (95-98) % ABG O2 Content (15-23) ML/dl ABG Base Excess (-2.0-3.0) mmol/L ABG Hemoglobin (11.7-17.4) g/dL ABG Carboxyhemoglobin (0.5-1.5) % POC ABG HHb (Measured) (0-5) % ABG Methemoglobin (0.0-3.0) % ABG O2 Capacity (16-24) mL/dl Hgb O2 Saturation (95.0-98.0) % FiO2 % Sodium (132-148) mmol/L Potassium (3.6-5.0) mmol/L Chloride (98-107) mmol/L Carbon Dioxide (21-33) mmol/L Anion Gap (10-20) BUN (7-21) mg/dL Creatinine (0.8-1.5) mg/dl Est GFR ( Amer) Est GFR (Non-Af Amer) POC Glucose (mg/dL) (65-110) mg/dL Random Glucose (70-110) mg/dL Lactic Acid (0.7-2.1) mmol/L Calcium (8.4-10.5) mg/dL Magnesium (1.7-2.2) mg/dL Erythropoietin 25.2 H (2.6-18.5) mIU/mL Ferritin 453.0 ng/mL Total Bilirubin (0.2-1.3) mg/dL Direct Bilirubin (0.0-0.4) mg/dL AST (17-59) U/L ALT (7-56) U/L Alkaline Phosphatase (38-126) U/L Ammonia (9-33) umol/L Total Creatine Kinase (35-230) U/L CK-MB (CK-2) (0.0-3.6) ng/mL CK-MB (CK-2) % (2.5-3.0) % Troponin I ng/mL Total Protein (5.8-8.3) g/dL Albumin (3.0-4.8) g/dL Globulin gm/dL Albumin/Globulin Ratio (1.1-1.8) Vitamin B12 > 1000 H (239-931) pg/mL Folate 9.3 ng/mL Hepatitis C RNA <15 not detected (<15) IU/mL HCV RNA Quant (PCR) <1.18 not detected (<1.18) Log IU/mL Laboratory Results - last 24 hr 06/24/17 06/25/17 06/25/17 13:20 06:15 06:30 WBC RBC Hgb Hct MCV MCH MCHC RDW Plt Count Manual Plt Count MPV Gran % Lymph % (Auto) [place] % (Auto) Eos % (Auto) Baso % (Auto) Gran # Lymph # (Auto) [place] # (Auto) Eos # (Auto) Baso # (Auto) pCO2 pO2 HCO3 ABG pH ABG Total CO2 ABG O2 Saturation ABG O2 Content ABG Base Excess ABG Hemoglobin ABG Carboxyhemoglobin POC ABG HHb (Measured) ABG Methemoglobin ABG O2 Capacity Hgb O2 Saturation FiO2 Sodium Potassium Chloride Carbon Dioxide Anion Gap BUN Creatinine Est GFR ( Amer) Est GFR (Non-Af Amer) POC Glucose (mg/dL) Random Glucose Lactic Acid Calcium Magnesium Erythropoietin 25.2 H Ferritin 453.0 Total Bilirubin Direct Bilirubin AST ALT Alkaline Phosphatase Ammonia Total Creatine Kinase CK-MB (CK-2) CK-MB (CK-2) % Troponin I Total Protein Albumin Globulin Albumin/Globulin Ratio Vitamin B12 > 1000 H Folate 9.3 Hepatitis C RNA <15 not detected HCV RNA Quant (PCR) <1.18 not detected 06/25/17 06/26/17 06/26/17 18:14 00:00 06:18 WBC 11.4 H RBC 4.56 Hgb 14.4 D Hct 42.7 MCV 93.6 MCH 31.6 MCHC 33.7 RDW 14.7 H Plt Count 30 L* Manual Plt Count 39 L* MPV 13.1 H Gran % 88.8 H Lymph % (Auto) 5.2 L [place] % (Auto) 6.0 Eos % (Auto) 0.0 L Baso % (Auto) 0.0 Gran # 10.12 H Lymph # (Auto) 0.6 L [place] # (Auto) 0.7 H Eos # (Auto) 0.0 Baso # (Auto) 0.00 pCO2 pO2 HCO3 ABG pH ABG Total CO2 ABG O2 Saturation ABG O2 Content ABG Base Excess ABG Hemoglobin ABG Carboxyhemoglobin POC ABG HHb (Measured) ABG Methemoglobin ABG O2 Capacity Hgb O2 Saturation FiO2 Sodium Potassium Chloride Carbon Dioxide Anion Gap BUN Creatinine Est GFR ( Amer) Est GFR (Non-Af Amer) POC Glucose (mg/dL) 144 H 146 H Random Glucose Lactic Acid Calcium Magnesium Erythropoietin Ferritin Total Bilirubin Direct Bilirubin AST ALT Alkaline Phosphatase Ammonia Total Creatine Kinase CK-MB (CK-2) CK-MB (CK-2) % Troponin I Total Protein Albumin Globulin Albumin/Globulin Ratio Vitamin B12 Folate Hepatitis C RNA HCV RNA Quant (PCR) 06/26/17 06/26/17 06/26/17 06:18 06:18 06:18 WBC RBC Hgb Hct MCV MCH MCHC RDW Plt Count Manual Plt Count MPV Gran % Lymph % (Auto) [place] % (Auto) Eos % (Auto) Baso % (Auto) Gran # Lymph # (Auto) [place] # (Auto) Eos # (Auto) Baso # (Auto) pCO2 pO2 HCO3 ABG pH ABG Total CO2 ABG O2 Saturation ABG O2 Content ABG Base Excess ABG Hemoglobin ABG Carboxyhemoglobin POC ABG HHb (Measured) ABG Methemoglobin ABG O2 Capacity Hgb O2 Saturation FiO2 Sodium 149 H Potassium 4.1 Chloride 118 H Carbon Dioxide 22 Anion Gap 13 BUN 29 H Creatinine 0.8 Est GFR ( Amer) > 60 Est GFR (Non-Af Amer) > 60 POC Glucose (mg/dL) Random Glucose 153 H Lactic Acid 1.5 Calcium 8.3 L Magnesium 2.5 H Erythropoietin Ferritin Total Bilirubin 1.7 H Direct Bilirubin 0.7 H AST 62 H ALT 50 Alkaline Phosphatase 47 Ammonia 13 Total Creatine Kinase 380 H CK-MB (CK-2) 8.4 H CK-MB (CK-2) % 2.2 L Troponin I 0.07 D Total Protein 6.1 Albumin 3.0 Globulin 3.1 Albumin/Globulin Ratio 1.0 L Vitamin B12 Folate Hepatitis C RNA HCV RNA Quant (PCR) 06/26/17 06/26/17 06/26/17 06:30 07:26 11:52 WBC RBC Hgb Hct MCV MCH MCHC RDW Plt Count Manual Plt Count MPV Gran % Lymph % (Auto) [place] % (Auto) Eos % (Auto) Baso % (Auto) Gran # Lymph # (Auto) [place] # (Auto) Eos # (Auto) Baso # (Auto) pCO2 36 pO2 58.0 L HCO3 20.3 L ABG pH 7.36 ABG Total CO2 21.4 L ABG O2 Saturation 95.1 ABG O2 Content 18.7 ABG Base Excess -4.5 L ABG Hemoglobin 14.4 ABG Carboxyhemoglobin 1.8 H POC ABG HHb (Measured) 4.8 ABG Methemoglobin 0.9 ABG O2 Capacity 19.7 Hgb O2 Saturation 92.4 L FiO2 70.0 Sodium Potassium Chloride Carbon Dioxide Anion Gap BUN Creatinine Est GFR ( Amer) Est GFR (Non-Af Amer) POC Glucose (mg/dL) 156 H 185 H Random Glucose Lactic Acid Calcium Magnesium Erythropoietin Ferritin Total Bilirubin Direct Bilirubin AST ALT Alkaline Phosphatase Ammonia Total Creatine Kinase CK-MB (CK-2) CK-MB (CK-2) % Troponin I Total Protein Albumin Globulin Albumin/Globulin Ratio Vitamin B12 Folate Hepatitis C RNA HCV RNA Quant (PCR) EKG/Cardiology Studies: Cardiology / EKG Studies 06/26/17 07:00 ELECTROCARDIOGRAM DAILY Comment: Reason For Exam: HYPOTHERMIA 06/27/17 07:00 ELECTROCARDIOGRAM DAILY Comment: Reason For Exam: HYPOTHERMIA Attending/Attestation - Attestation I have personally seen and examined this patient.: Yes I have fully participated in the care of the patient.: Yes I have reviewed all pertinent clinical information: Yes Notes (Text): 06/26/17 14:[address] stevenson note
--- NOTE | 2017-06-26 12:57 | PN ---
DATE: 06/26/2017 SUBJECTIVE: The patient is seen and examined at bedside. He was slightly more agitated, likely due to alcohol withdrawal/delirium overnight. His Precedex drip was increased to 1.5 mcg/kg/hour. Early in the morning, Precedex was decreased to 1 mcg/kg/hour and the patient started to wake up. Slightly delirious, agitated; however, at times more oriented. 2 mg of Ativan was given. The patient is more comfortable now. FIO2 requirement overnight increased from 50% to 70%. Chest x-ray showed more vascular congestion bilaterally and questionable but likely right middle lobe atelectasis. The patient was put on BiPAP for positive pressure, mostly, with FIO2 of 60% (14/8/60%), oxygen saturation on that setting is 92%. The patient was given Lasix 40 mg IV once with intent to have neg fluid balance of > 1L today. Nebulizer therapy was also given. Postural drainage, chest PT and incentive spirometry when the patient is more lucid was also ordered. The patient tolerates BiPAP currently okay. PHYSICAL EXAMINATION: VITAL SIGNS: Heart rate 76, blood pressure 131/81, respiratory rate 24. Vt 450 mL . Temperature 96.6, oxygen saturation 92%. ENT: Head and neck atraumatic. LUNGS: Decreased breath sounds bilaterally, right more than left. HEART: Regular rate and rhythm. S1, S2 distant. ABDOMEN: Soft, nontender and nondistended. MUSCULOSKELETAL: No C/C/E (of note, the patient is positive about 8 L over 2-day period). SKIN: Moist. PSYCH: The patient is slightly agitated, at times confused and at times lucid (? delirium). LABORATORY DATA: ABG is 7.36/36/58% on 70% FIO2. WBC 11.4, down from 11.9; hemoglobin 14.4; platelet count 13. Sodium 149, potassium 4.1, chloride 118, carbon dioxide 22, BUN 29, creatinine 0.8 (fluids are stopped, Lasix given). Lactic acid 1.5, glucose 156, AST 62, ALT 50, total bilirubin 1.7, stable. Ammonia 13. Chest x-ray showed right middle lobe infiltrate and bilateral vascular congestion. MEDICATIONS: Hydrocortisone decreased to 50 mg IV every 12 hours, DuoNeb every 4 hours, Precedex, Lasix one time given, heparin subcu, regular insulin sliding scale low protocol, Ativan 2 mg IV every 4 hours p.r.n., Protonix, vancomycin, Zosyn. ASSESSMENT AND PLAN: This is a 66-year-old gentleman with history of alcohol, opiates and marijuana abuse, who presented to ICU after pulseless electrical activity arrest at home. The patient had regained spontaneous circulation 5 minutes into cardiopulmonary resuscitation. He was successfully extubated yesterday, but appears to be fluid overloaded now. One dose of Lasix was given. Bilevel positive airway pressure applied. Aggressive chest PT ordered. Bronchodilator therapy ordered. Lactic acidosis resolved. The patient is hemodynamically stable. We will aim at -1 L fluid balance for today. We will continue with deep venous thrombosis, gastrointestinal prophylaxis. Head of bed elevated at >35 degrees. N.p.o. for now. I stopped the IV fluids. We will monitor and correct electrolytes. Echocardiogram did not reveal significant left ventricular systolic dysfunction; however, 2 days ago showed flattened interventricular septum, which may suggest fluid or pressure overload. The patient likely has delirium whether alcohol withdrawal related or Intensive Care Unit post arrest delirium. He is on Precedex and benzodiazepines p.r.n. We will try small dose of opiates to see if that would help with his agitation in case he is withdrawing from opiates as well. We will continue with antibiotics. ID Service is following. ccm time 40 min Nito Powell MD MTDDavid
--- NOTE | 2017-06-26 13:29 | CP.PCM.PN ---
Subjective - Date & Time of Evaluation Date of Evaluation: 06/26/17 Time of Evaluation: 13:27 - Subjective Subjective: Mr. Monzon was seen and examined at the bedside in ICU. He is lethargic and on bipap for oxygen supplement. According to the staff, he was agitated, restless earlier that ativan was given. Currently on precedex drip and vital signs are stable. He does facial grimacing as a response to pain stimuli.He is on bilateral wrist restraint for patient safety.Repeat CT scan of the head showed no acute intracranial findings. Objective - Vital Signs/Intake and Output Vital Signs (last 24 hours): Temp Pulse Resp BP Pulse Ox 96.8 F L 61 22 181/111 H 93 L 06/26/17 04:02 06/26/17 12:50 06/26/17 04:02 06/26/17 11:59 06/26/17 04:02 Intake and Output: 06/26/17 06/26/17 06:59 18:59 Intake Total 4599 100 Output Total 1100 Balance 3499 100 - Medications Medications: Current Medications Albuterol/Ipratropium (Duoneb 3 Mg/0.5 Mg (3 Ml) Ud) 3 ml IH [id number] [facility] Last Admin: 06/26/17 10:47 Dose: 3 ml Heparin Sodium (Porcine) (Heparin) 5,000 units SC Q12 PETRA PRN Reason: Protocol Last Admin: 06/26/17 10:09 Dose: 5,000 units Hydrocortisone Sodium Succinate (Solu-Cortef) 50 mg IVP Q12H [facility] Last Admin: 06/26/17 08:18 Dose: 50 mg Vancomycin HCl (Vancomycin 1gm) 1 gm in 250 mls @ 167 mls/hr IVPB Q12H PETRA PRN Reason: Protocol Last Admin: 06/26/17 03:25 Dose: 167 mls/hr Propofol (Diprivan) 1,000 mg in 100 mls @ 2.177 mls/hr IV .Q24H PRN; Protocol; 5 MCG/KG/MIN PRN Reason: TITRATE PER MD ORDER Last Titration: 06/25/17 20:36 Dose: Infused Piperacillin Sod/Tazobactam Sod (Zosyn 3.375 In Ns 100ml) 100 mls @ 200 mls/hr IVPB Q6 PETRA PRN Reason: Protocol Stop: 07/01/17 12:01 Last Admin: 06/26/17 12:14 Dose: 200 mls/hr Vasopressin 20 units/ Sodium (Chloride) 101 mls @ 9.09 mls/hr IV .Q11H7M PETRA; 0.03 U/MIN PRN Reason: Protocol Last Admin: 06/25/17 02:00 Dose: 9.09 mls/hr Dexmedetomidine HCl (Precedex 400mcg/100ml) 400 mcg in 100 mls @ 3.629 mls/hr IV .Q24H PRN; Protocol; 0.2 MCG/KG/HR PRN Reason: Agitation Last Admin: 06/26/17 12:04 Dose: 1 mcg/kg/hr, 18.144 mls/hr Insulin Human Lispro (Humalog Low) 0 units SC Q6 PETRA PRN Reason: Protocol Last Admin: 06/26/17 12:30 Dose: 1 units Lorazepam (Ativan) 2 mg IVP Q4H PRN; Protocol PRN Reason: Anxiety Last Admin: 06/26/17 11:48 Dose: 2 mg Morphine Sulfate (Morphine) 4 mg IVP Q4H PRN PRN Reason: Pain, severe (8-10) Last Admin: 06/26/17 08:16 Dose: 4 mg Pantoprazole Sodium (Protonix Inj) 40 mg IVP DAILY PETRA Last Admin: 06/26/17 10:10 Dose: 40 mg - Labs Labs: 06/26/17 06:18 06/26/17 06:18 PT 17.3 SECONDS (9.4-12.5) H 06/24/17 11:30 INR 1.49 (0.93-1.08) H 06/24/17 11:30 APTT 22.1 Seconds (25.1-36.5) L 06/24/17 11:30 - Constitutional Appears: No Acute Distress - Head Exam Head Exam: NORMAL INSPECTION - Eye Exam Pupil Exam: PERRL Additional comments: sluggish to react. - Neurological Exam Neuro motor strength exam: Left Upper Extremity: 2/1, Right Upper Extremity: 2/1 , Left Lower Extremity: 2/1, Right Lower Extremity: 2/1 Additional comments: He was given ativan for his agitation, at present he is lethargic. Assessment and Plan (1) Anoxic brain injury Assessment & Plan: Case discussed with Dr. Pratt, continue all current medical regimen. Recommend to treat any electrolyte, hemtologic abnormalities. Pending EEG results.There is no new recommendations from neurology. Status: Acute
--- NOTE | 2017-06-26 14:39 | PN ---
DATE: REASON FOR THE CONSULTATION: Cardiac evaluation status post CPR, loss of conscious, intubated, cardiac arrest. Now, the patient is successfully extubated, very combative. SUBJECTIVE: The patient denies any chest pain. Complained of abdominal pain. Two-point Morgan restraint. Very combative. OBJECTIVE: GENERAL: Very restless and combative, on CPAP. Prior that the patient after extubation of the high-flow oxygen, now on CPAP. VITAL SIGNS: Temperature afebrile, heart rate 75, blood pressure 120/79. HEENT: PERRLA. Extraocular muscles intact. NECK: Supple. No carotid bruit. No thyromegaly. CHEST: Clear to auscultation. HEART: S1 and S2, regular. ABDOMEN: Soft. EXTREMITIES: Clubbing and cyanosis negative. LABORATORY DATA: Blood workup as follows: WBC 11.4, hemoglobin 14.4, hematocrit 42.7, and platelet count 30. Chemistry shows sodium 149, potassium 4, chloride 118, carbon dioxide 22, anion gap of 30. BUN 29, creatinine of 0.8. Maximum troponin 0.14, status post CPR. Most likely is secondary to CPR, status post cardiac arrest, status post possibly overdose, cannabis intake and opium positive in tox screen. ASSESSMENT: Status post pulseless electrical activity, status post cardiac arrest, found to be unconscious at home. Information obtained from the daughter who is not sure whether the patient was on some narcotic medication at home. She is trying to get information from pharmacy. History of coagulopathy, severe thrombocytopenia. No evidence of acute myocardial infarction. No evidence of acute coronary syndrome. Borderline positive troponin of 0.14, most likely secondary to cardiopulmonary resuscitation. Status post respiratory failure, status post intubated. Most recent echo done yesterday revealed a normal left ventricular function, left ventricular hypertrophy, moderate calcified probably bicuspid aortic valve, mild valvular aortic stenosis possibly. No significant mitral regurgitation, no significant tricuspid regurgitation reported. RECOMMENDATIONS: Continue CPAP as tolerated. P.r.n. hydralazine. DVT prophylaxis. Continue gentle diuretics. The patient is not on beta-brittany because at this time the patient is bradycardic, very combative. When the patient is stable and cooperative, we will consider a stress test, probably early next week for his risk stratification because etiology is not clear of unconscious and cardiac arrest. Most likely secondary to overdose of the substance, but needs to rule out underlying coronary artery disease, although is unlikely to be a coronary event. The patient has normal LV function and EKG is normal. Troponin is only borderline 0.14 after CPR, but for risk stratification, suggest a stress test, probably early next week by Saturday or Saturday when the patient is more cooperative, now is very combative, 2-point restraint. We will follow with you. Thank you, Dr. Fairbanks/David for providing us the opportunity in taking care of Jorje Nicolás. Interim, continue antibiotic for possible pneumonia, sepsis. Remy Rai MD
--- NOTE | 2017-06-26 19:30 | CARD ---
APPROVED REPORT EKG Measurement Heart [id number] <Conclusion> Normal sinus rhythm Prolonged QT Abnormal ECG
--- NOTE | 2017-06-26 21:06 | PN ---
DATE: SUBJECTIVE: Patient is a 66-year-old white male with a history of chronic hepatitis C status post Harvoni treatment. Patient also has a history of chronic alcoholism and occasional cannabis abuse. He also has history of anxiety disorder, he had taken lorazepam as an outpatient. Patient was last seen by myself in April; however, he did miss his appointment in May. 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 Patient has had banding of esophageal varices in the past. Patient was found in a near comatose state at home near an open window, was really hypothermic, had EMS and advanced life support started in the field, brought to the emergency room, resuscitated. In the emergency room, was found to be in a comatose state, unresponsive, intubated, sedated, treated with hydration. Patient initially was found to have an elevated white count of 18,500; elevated hemoglobin 19.7; severe dehydration; rhabdomyolysis with elevated CPKs; remained ventilated and intubated for several days. Hepatitis screen was positive and the hepatitis C toxicology screen was positive for cannabis and opiates. Patient eventually was able to be extubated. He is extubated and without sedation. Patient has extremely behavior and agitated behavior. So he was re-sedated to continue to control the patient's activity until he is metabolically more stable. LABORATORY DATA: Most recently showed hemoglobin of 14.7. He did have a drop in his platelet count to 30,000. He was seen in the ICU today, sedated, nonresponsive, markedly distended with fluid in an anasarca configuration with increased fluid in the upper and lower extremities and the abdomen and the pelvis. Heart examination was regular sinus rhythm. Chest showed some rhonchi bilaterally. Abdomen was distended, but bowel sounds were mildly hyperactive. There is no guarding or tenderness noted. Patient had multiple CTs of the head, which did not reveal any acute activities, with recent chest x-ray showing a possible development of left lower lobe pneumonia. Patient is on IV antibiotics. He is on BiPAP at this point. He has received albumin, hydralazine to control his blood pressure, lorazepam for agitation, heparin drip which will be discontinued. He is on furosemide, insulin for control of blood sugar. He is on vancomycin and some vasopressors and Zosyn. IMPRESSION AND PLAN: A 66-year-old white male, presenting with severe, acute illness, possibly brought on by opiates and cannabis and severe hypothermia, arrhythmia, cardiac arrest, thrombocytopenia, possibly secondary to heparin, possible early developing of the aspiration level of pneumonia, which will be a toxic metabolic encephalopathy. Bg Hernandez MD
--- NOTE | 2017-06-26 21:54 | PN ---
DATE: 06/26/2017 SUBJECTIVE: Patient is in bed, in no acute distress, nontoxic. PHYSICAL EXAMINATION: VITAL SIGNS: Temperature is 96, blood pressure is 181/111, heart rate of 63, respiratory rate of 21. HEENT: Unremarkable. NECK: Supple. LUNGS: Have decreased breath sounds. HEART: Normal S1, S2. ABDOMEN: Soft, nontender. LABORATORY DATA: Noted and Dr. Powell's note is reviewed. ASSESSMENT AND PLAN: A 66-year-old male who was seen early this morning in [facility], bed 4, with a history of hepatitis C, treated Harvoni; history of substance abuse including alcohol abuse; found unresponsive by the EMT service at home with systemic inflammatory response syndrome, acute encephalopathy, substance abuse, and pulseless electrical activity with hypothermia, on vancomycin and Zosyn, and questionable pneumonia. Thus far, blood and urine cultures are negative and nasal methicillin-resistant Staphylococcus aureus is not detected. We will follow closely with you. Chest x-ray is done today. Increasing vascular congestion, bilateral infiltrates, however is more consistent with congestive heart failure. We will treat the procalcitonin. Tello Traore MD
[2017-06-27] MEDS: Insulin Lispro (humaLOG) LOW Coverage SC SCH ×4 (00:15→19:38)
[2017-06-27] MEDS: Piperacillin/Tazobact 3.375 gm 100 ML IVPB SCH ×4 (00:19→18:45)
[2017-06-27] MEDS: Dexmedetomidine 400mcg/100mL 400 MCG/100 ML BOTTLE IV PRN ×2 (02:11→06:28)
[2017-06-27] MEDS: Vancomycin 1gm in NS 250ml 1 GM/250 ML BAG IVPB SCH (04:47)
[2017-06-27] MEDS: Albuterol-Ipratrop 3 mg / 0.5 (3 ml) UD IH SCH ×5 (04:57→20:23)
[2017-06-27 06:14] LABS: ARTERIAL BLOOD GAS HEMOGLOBIN 13.6 g/dL (11.7-17.4); ARTERIAL BLOOD GAS O2 CAPACITY 18.8 mL/dl (16-24); ARTERIAL BLOOD GAS O2 CONTENT 18.7 ML/dl (15-23); ARTERIAL BLOOD GAS O2 SAT 99.4 % (95-98); ARTERIAL BLOOD GAS PCO2 39 mm/Hg (35-45); ARTERIAL BLOOD GAS PH 7.36 (7.35-7.45); ARTERIAL BLOOD GAS TCO2 23.2 mmol.L (22-28)
[2017-06-27 06:49] LABS: TROPONIN I 0.05 ng/mL
[2017-06-27 07:10] LABS: ALBUMIN 3.4 g/dL (3.0-4.8); BILIRUBIN,DIRECT 0.8 mg/dL (0.0-0.4)
--- NOTE | 2017-06-27 07:27 | RAD ---
HISTORY: PNA COMPARISON: Portable chest 06/26/2017. FINDINGS: Right PICC unchanged in position. LUNGS: Diminished bilateral airspace disease limited residual at the medial bases bilaterally. PLEURA: Likely mild left pleural effusion. No right pleural effusion. No pneumothorax bilaterally. CARDIOVASCULAR: Stable cardiomediastinal silhouette including diminishing CHF pattern. OSSEOUS STRUCTURES: No significant abnormalities. VISUALIZED UPPER ABDOMEN: Normal. OTHER FINDINGS: None. IMPRESSION: Diminishing CHF pattern. Limited residual airspace disease medial bases bilaterally. Lowe pleural effusion diminished as well.
[2017-06-27 08:44] LABS: ALBUMIN 3.5 g/dL (3.0-4.8); ALT/SGPT 45 U/L (7-56); AST/SGOT 55 U/L (17-59); BLOOD UREA NITROGEN 33 mg/dL (7-21); CALCIUM 8.8 mg/dL (8.4-10.5); GFR AFRICAN-AMERICAN > 60; GFR NON-AFRICAN AMERICAN > 60
[2017-06-27 12:23] LABS: GRAN # 9.04 (1.4-6.5); GRAN % 90.8 % (50.0-68.0); HEMOGLOBIN 15.7 g/dL (14.0-18.0); LYMPH # 0.6 (1.2-3.4); LYMPH % 5.8 % (22.0-35.0); MEAN CELL VOLUME 92.6 fl (80.0-105.0); MEAN CORPUSCULAR HEMOGLOBIN 32.1 pg (25.0-35.0); MEAN CORPUSCULAR HGB CONC 34.7 g/dl (31.0-37.0); MEAN PLATELET VOLUME 12.3 fl (7.0-11.0); MONO # 0.3 (0.1-0.6); MONO % 3.4 % (1.0-6.0); RBC 4.89 10^6/uL (3.5-6.1); RED CELL DISTRIBUTION WIDTH 14.6 % (11.5-14.5)
[2017-06-27 12:27] LABS: PLATELET COUNT 26 10^3/uL (120.0-450.0)
[2017-06-27 12:40] LABS: BLOOD UREA NITROGEN 32 mg/dL (7-21); CALCIUM 8.7 mg/dL (8.4-10.5); GFR AFRICAN-AMERICAN > 60; GFR NON-AFRICAN AMERICAN > 60
[2017-06-27 12:47] LABS: BAND 4 % (0-2); LYMPHOCYTE 4 % (22.0-35.0); METAMYELOCYTE 1 %; MONOCYTE 7 % (1.0-6.0); NEUTROPHIL 84 % (50.0-70.0)
[2017-06-27 12:48] LABS: PLATELET ESTIMATE LOW (NORMAL)
[2017-06-27] MEDS: DiphenhydrAMINE 50 mg/ml Inj IVP SCH ×2 (13:27→21:49)
[2017-06-27] MEDS ORDERED: Valproate 1,000 MG in Sodium Chloride 0.9% 100 ML IVPB ONE (13:30)
--- NOTE | 2017-06-27 13:46 | PN ---
DATE: 06/27/2017 SUBJECTIVE: The patient is seen and examined at bedside. He is on Precedex 1.5 mcg/kg per hour. Just received additional dose of 2 mg of Ativan; however, did not receive any additional sedation at night. The patient is negative almost 3 liters since yesterday. PHYSICAL EXAMINATION VITAL SIGNS: Heart rate 49 to 50, blood pressure 125/82, respiratory rate 20, oxygen saturation 96-97% on 55% of FiO2. His ABG on BiPAP 12/11 are 7.36/39/104. The patient will be switched to high flow oxygen. ENT: Head and neck atraumatic. LUNGS: Clear to auscultation bilaterally. HEART: Regular rate and rhythm. S1, S2 normal. ABDOMEN: Soft, nontender, nondistended. MUSCULOSKELETAL: No C/C/E. NEUROLOGIC: The patient moving all extremities spontaneously. SKIN: Moist. PSYCHIATRIC: The patient is sedated. LABORATORY DATA: ABG as above. WBC 11.4, down from 11.9; hemoglobin 14.4, platelet count 13,000. Lactic acid 2.1. Sodium 149, potassium 4.1, chloride 118, carbon dioxide 22, BUN 29, creatinine 0.8, glucose 153. MEDICATIONS: DuoNeb every 4 hours, Precedex, Lasix 40 mg once, hydralazine p.r.n., hydrocortisone 50 mg IV every 12 hours, Regular insulin sliding scale low protocol, Ativan 2 mg IV every 4 hours p.r.n., morphine 4 mg IV every 4 hours p.r.n., Protonix, Zosyn. Chest x-ray, looks much improved vascular congestion. ASSESSMENT AND PLAN: This is a 66-year-old gentleman who presented to ICU [facility] after short-term pulseless electrical activity arrest. He was successfully extubated yesterday. He was aggressively diuresed yesterday, which substantially improved his respiratory and gas exchange status. He will be switched form bilevel positive airway pressure to high flow oxygen. He does not have signs of cardiomyopathy on echo and is not retaining CO2 on arterial blood gas. We will try to taper down his sedation and work with Ativan p.r.n, depakote q12 (as per neurology). Most likely, the patient is withdrawing from alcohol. We will also try to utilize non-medicamentose approach to the patient's delirium including optimizing sleep and circadian rhythms. The patient will be n.p.o. for now. We will continue to maintain euvolemia, euglycemia, normothermia, and oxygen saturation more than 90%. The patient will be diuresed today as well. We will continue with deep venous thrombosis and gastrointestinal prophylaxis. ccm time 40 min The patient is on mechanical deep venous thrombosis prophylaxis due to severe thrombocytopenia. Nito Powell MD PREM
--- NOTE | 2017-06-27 14:00 | CP.CCUPN ---
<Mitesh Zamudio - Last Filed: 06/27/17 14:24> CCU Subjective - Physician Review Subjective (Free Text): Patient seen and examined at bedside. Patient sedated on precedex drip this AM. Patient responding to tactile stimuli. ROS unobtainable due to patient being sedated. CCU Objective - Vital Signs / Intake & Output Vital Signs (Last 4 hours): Vital Signs Temp Pulse Resp BP Pulse Ox 06/27/17 11:00 94.1 F L 50 L 18 130/80 95 06/27/17 10:31 93.7 F L 58 L 20 156/87 H 95 06/27/17 10:22 93.6 F L 61 93 L 06/27/17 10:00 93.4 F L 45 L 17 127/74 94 L Intake and Output (Last 8hrs): Intake & Output 06/26/17 06/27/17 06/27/17 22:59 06:59 14:59 Intake Total 100 200 Balance 100 200 Intake: IV 100 200 - Physical Exam Head: Positive for: Atraumatic, Normocephalic Conjunctiva: Positive for: Normal Mouth: Positive for: Moist Mucous Membranes Cardiovascular: Positive for: Regular Rate and Rhythm, Normal S1, S2. Negative for: Murmurs Abdomen: Positive for: Normal Bowel Sounds. Negative for: Tenderness, Distention, Peritoneal Signs Genitourinary Male: Negative for: Erythema Lower Extremity: Positive for: Normal Inspection Neurological: Negative for: Speech Normal Skin: Positive for: Warm, Dry, Normal Color. Negative for: Rashes Psychiatric: Negative for: Alert - Medications Active Medications: Active Medications Generic Name Dose Route Start Last Admin Trade Name Freq PRN Reason Stop Dose Admin Albuterol/Ipratropium 3 ml 06/24/17 19:30 06/27/17 10:57 Duoneb 3 Mg/0.5 Mg (3 Ml) Ud IH 3 ml [id number] PETRA Administration Diphenhydramine HCl 50 mg 06/27/17 14:00 06/27/17 13:27 Benadryl IVP 50 mg Q8 PETRA Administration Hydralazine HCl 10 mg 06/27/17 05:45 06/27/17 07:41 Apresoline IVP 10 mg Q6 PRN Administration Systolic Blood Pressure Hydrocortisone Sodium Succinate 50 mg 06/26/17 07:30 06/27/17 07:54 Solu-Cortef IVP 50 mg Q12H PETRA Administration Propofol 1,000 mg in 100 mls @ 2.177 mls/hr 06/23/17 23:57 06/25/17 20:36 Diprivan IV Infused .Q24H PRN Titration TITRATE PER MD ORDER Protocol 5 MCG/KG/MIN Piperacillin Sod/Tazobactam Sod 100 mls @ 200 mls/hr 06/24/17 12:00 06/27/17 12:37 Zosyn 3.375 In Ns 100ml IVPB 07/01/17 12:01 200 mls/hr Q6 PETRA Administration Protocol Dexmedetomidine HCl 400 mcg in 100 mls @ 3.629 mls/hr 06/26/17 00:55 06:28 Precedex 400mcg/100ml IV 1 mcg/kg/hr .Q24H PRN 18.144 mls/hr Agitation Administration Protocol 0.2 MCG/KG/HR Potassium Chloride 20 meq in 100 mls @ 50 mls/hr 06/27/17 10:15 06/27/17 12: 49 Potassium Chloride 20 Meq/100 Ml IVPB 06/27/17 14:14 50 mls/hr Q2H PETRA Administration Valproate Sodium 1,000 mg/ 110 mls @ 100 mls/hr 06/27/17 13:30 Sodium Chloride IVPB 06/27/17 14:35 ONCE ONE Insulin Human Lispro 0 units 06/24/17 11:24 06/27/17 13:14 Humalog Low SC Not Given Q6 EPTRA Protocol Lorazepam 2 mg 06/25/17 21:21 06/27/17 12:04 Ativan IVP 2 mg Q4H PRN Administration Anxiety Protocol Morphine Sulfate 4 mg 06/26/17 07:57 06/26/17 08:16 Morphine IVP 4 mg Q4H PRN Administration Pain, severe (8-10) Pantoprazole Sodium 40 mg 06/24/17 10:00 06/27/17 09:21 Protonix Inj IVP 40 mg DAILY PETRA Administration - Patient Studies Lab Studies: Lab Studies 06/27/17 06/27/17 06/27/17 Range/Units 12:33 11:42 11:00 WBC (4.5-11.0) 10^3/ul RBC (3.5-6.1) 10^6/uL Hgb (14.0-18.0) g/dL Hct (42.0-52.0) % MCV (80.0-105.0) fl MCH (25.0-35.0) pg MCHC (31.0-37.0) g/dl RDW (11.5-14.5) % Plt Count (120.0-450.0) 10^3/uL Manual Plt Count 27 L* (120-450) K/mm3 MPV (7.0-11.0) fl Gran % (50.0-68.0) % Lymph % (Auto) (22.0-35.0) % Martin % (Auto) (1.0-6.0) % Eos % (Auto) (1.5-5.0) % Baso % (Auto) (0.0-3.0) % Gran # (1.4-6.5) Lymph # (Auto) (1.2-3.4) Martin # (Auto) (0.1-0.6) Eos # (Auto) (0.0-0.7) Baso # (Auto) (0.0-2.0) K/mm3 Neutrophils % (Manual) (50.0-70.0) % Band Neutrophils % (0-2) % Lymphocytes % (Manual) (22.0-35.0) % Monocytes % (Manual) (1.0-6.0) % Metamyelocytes % % Platelet Evaluation (NORMAL) pCO2 (35-45) mm/Hg pO2 (80-100) mm/Hg HCO3 (21-28) mmol/L ABG pH (7.35-7.45) ABG Total CO2 (22-28) mmol.L ABG O2 Saturation (95-98) % ABG O2 Content (15-23) ML/dl ABG Base Excess (-2.0-3.0) mmol/L ABG Hemoglobin (11.7-17.4) g/dL ABG Carboxyhemoglobin (0.5-1.5) % POC ABG HHb (Measured) (0-5) % ABG Methemoglobin (0.0-3.0) % ABG O2 Capacity (16-24) mL/dl Hgb O2 Saturation (95.0-98.0) % FiO2 % Sodium 151 H (132-148) mmol/L Potassium 2.7 L* (3.6-5.0) mmol/L Chloride 113 H (98-107) mmol/L Carbon Dioxide 28 (21-33) mmol/L Anion Gap 13 (10-20) BUN 32 H (7-21) mg/dL Creatinine 0.7 L (0.8-1.5) mg/dl Est GFR ( Amer) > 60 Est GFR (Non-Af Amer) > 60 POC Glucose (mg/dL) 161 H (65-110) mg/dL Random Glucose 164 H (70-110) mg/dL Lactic Acid (0.7-2.1) mmol/L Calcium 8.7 (8.4-10.5) mg/dL Magnesium (1.7-2.2) mg/dL Total Bilirubin (0.2-1.3) mg/dL Direct Bilirubin (0.0-0.4) mg/dL AST (17-59) U/L ALT (7-56) U/L Alkaline Phosphatase (38-126) U/L Ammonia (9-33) umol/L Total Creatine Kinase (35-230) U/L Troponin I ng/mL Total Protein (5.8-8.3) g/dL Albumin (3.0-4.8) g/dL Globulin gm/dL Albumin/Globulin Ratio (1.1-1.8) Procalcitonin (0.19-0.49) NG/ML 06/27/17 06/27/17 06/27/17 Range/Units 11:00 08:19 06:25 WBC 10.0 (4.5-11.0) 10^3/ul RBC 4.89 (3.5-6.1) 10^6/uL Hgb 15.7 (14.0-18.0) g/dL Hct 45.3 (42.0-52.0) % MCV 92.6 (80.0-105.0) fl MCH 32.1 (25.0-35.0) pg MCHC 34.7 (31.0-37.0) g/dl RDW 14.6 H (11.5-14.5) % Plt Count 26 L* (120.0-450.0) 10^3/uL Manual Plt Count (120-450) K/mm3 MPV 12.3 H (7.0-11.0) fl Gran % 90.8 H (50.0-68.0) % Lymph % (Auto) 5.8 L (22.0-35.0) % Martin % (Auto) 3.4 (1.0-6.0) % Eos % (Auto) 0.0 L (1.5-5.0) % Baso % (Auto) 0.0 (0.0-3.0) % Gran # 9.04 H (1.4-6.5) Lymph # (Auto) 0.6 L (1.2-3.4) Martin # (Auto) 0.3 (0.1-0.6) Eos # (Auto) 0.0 (0.0-0.7) Baso # (Auto) 0.00 (0.0-2.0) K/mm3 Neutrophils % (Manual) 84 H (50.0-70.0) % Band Neutrophils % 4 H (0-2) % Lymphocytes % (Manual) 4 L (22.0-35.0) % Monocytes % (Manual) 7 H (1.0-6.0) % Metamyelocytes % 1 % Platelet Evaluation Low (NORMAL) pCO2 (35-45) mm/Hg pO2 (80-100) mm/Hg HCO3 (21-28) mmol/L ABG pH (7.35-7.45) ABG Total CO2 (22-28) mmol.L ABG O2 Saturation (95-98) % ABG O2 Content (15-23) ML/dl ABG Base Excess (-2.0-3.0) mmol/L ABG Hemoglobin (11.7-17.4) g/dL ABG Carboxyhemoglobin (0.5-1.5) % POC ABG HHb (Measured) (0-5) % ABG Methemoglobin (0.0-3.0) % ABG O2 Capacity (16-24) mL/dl Hgb O2 Saturation (95.0-98.0) % FiO2 % Sodium 153 H (132-148) mmol/L Potassium 3.0 L (3.6-5.0) mmol/L Chloride 117 H (98-107) mmol/L Carbon Dioxide 26 (21-33) mmol/L Anion Gap 14 (10-20) BUN 33 H (7-21) mg/dL Creatinine 0.8 (0.8-1.5) mg/dl Est GFR ( Amer) > 60 Est GFR (Non-Af Amer) > 60 POC Glucose (mg/dL) (65-110) mg/dL Random Glucose 154 H (70-110) mg/dL Lactic Acid 2.1 (0.7-2.1) mmol/L Calcium 8.8 (8.4-10.5) mg/dL Magnesium (1.7-2.2) mg/dL Total Bilirubin 2.4 H (0.2-1.3) mg/dL Direct Bilirubin (0.0-0.4) mg/dL AST 55 (17-59) U/L ALT 45 (7-56) U/L Alkaline Phosphatase 69 (38-126) U/L Ammonia (9-33) umol/L Total Creatine Kinase (35-230) U/L Troponin I ng/mL Total Protein 6.9 (5.8-8.3) g/dL Albumin 3.5 (3.0-4.8) g/dL Globulin 3.4 gm/dL Albumin/Globulin Ratio 1.0 L (1.1-1.8) Procalcitonin (0.19-0.49) NG/ML 06/27/17 06/27/17 06/27/17 Range/Units 06:25 05:53 05:40 WBC (4.5-11.0) 10^3/ul RBC (3.5-6.1) 10^6/uL Hgb (14.0-18.0) g/dL Hct (42.0-52.0) % MCV (80.0-105.0) fl MCH (25.0-35.0) pg MCHC (31.0-37.0) g/dl RDW (11.5-14.5) % Plt Count (120.0-450.0) 10^3/uL Manual Plt Count (120-450) K/mm3 MPV (7.0-11.0) fl Gran % (50.0-68.0) % Lymph % (Auto) (22.0-35.0) % Martin % (Auto) (1.0-6.0) % Eos % (Auto) (1.5-5.0) % Baso % (Auto) (0.0-3.0) % Gran # (1.4-6.5) Lymph # (Auto) (1.2-3.4) Martin # (Auto) (0.1-0.6) Eos # (Auto) (0.0-0.7) Baso # (Auto) (0.0-2.0) K/mm3 Neutrophils % (Manual) (50.0-70.0) % Band Neutrophils % (0-2) % Lymphocytes % (Manual) (22.0-35.0) % Monocytes % (Manual) (1.0-6.0) % Metamyelocytes % % Platelet Evaluation (NORMAL) pCO2 39 (35-45) mm/Hg pO2 104.0 H (80-100) mm/Hg HCO3 22.0 (21-28) mmol/L ABG pH 7.36 (7.35-7.45) ABG Total CO2 23.2 (22-28) mmol.L ABG O2 Saturation 99.4 H (95-98) % ABG O2 Content 18.7 (15-23) ML/dl ABG Base Excess -3.1 L (-2.0-3.0) mmol/L ABG Hemoglobin 13.6 (11.7-17.4) g/dL ABG Carboxyhemoglobin 1.6 H (0.5-1.5) % POC ABG HHb (Measured) 0.6 (0-5) % ABG Methemoglobin 0.9 (0.0-3.0) % ABG O2 Capacity 18.8 (16-24) mL/dl Hgb O2 Saturation 97.0 (95.0-98.0) % FiO2 55.0 % Sodium (132-148) mmol/L Potassium (3.6-5.0) mmol/L Chloride (98-107) mmol/L Carbon Dioxide (21-33) mmol/L Anion Gap (10-20) BUN (7-21) mg/dL Creatinine (0.8-1.5) mg/dl Est GFR ( Amer) Est GFR (Non-Af Amer) POC Glucose (mg/dL) 142 H (65-110) mg/dL Random Glucose (70-110) mg/dL Lactic Acid (0.7-2.1) mmol/L Calcium (8.4-10.5) mg/dL Magnesium (1.7-2.2) mg/dL Total Bilirubin (0.2-1.3) mg/dL Direct Bilirubin (0.0-0.4) mg/dL AST (17-59) U/L ALT (7-56) U/L Alkaline Phosphatase (38-126) U/L Ammonia < 9 L (9-33) umol/L Total Creatine Kinase (35-230) U/L Troponin I ng/mL Total Protein (5.8-8.3) g/dL Albumin (3.0-4.8) g/dL Globulin gm/dL Albumin/Globulin Ratio (1.1-1.8) Procalcitonin (0.19-0.49) NG/ML 06/27/17 06/27/17 06/27/17 Range/Units 05:40 05:20 00:06 WBC (4.5-11.0) 10^3/ul RBC (3.5-6.1) 10^6/uL Hgb (14.0-18.0) g/dL Hct (42.0-52.0) % MCV (80.0-105.0) fl MCH (25.0-35.0) pg MCHC (31.0-37.0) g/dl RDW (11.5-14.5) % Plt Count (120.0-450.0) 10^3/uL Manual Plt Count 39 L* (120-450) K/mm3 MPV (7.0-11.0) fl Gran % (50.0-68.0) % Lymph % (Auto) (22.0-35.0) % Martin % (Auto) (1.0-6.0) % Eos % (Auto) (1.5-5.0) % Baso % (Auto) (0.0-3.0) % Gran # (1.4-6.5) Lymph # (Auto) (1.2-3.4) Martin # (Auto) (0.1-0.6) Eos # (Auto) (0.0-0.7) Baso # (Auto) (0.0-2.0) K/mm3 Neutrophils % (Manual) (50.0-70.0) % Band Neutrophils % (0-2) % Lymphocytes % (Manual) (22.0-35.0) % Monocytes % (Manual) (1.0-6.0) % Metamyelocytes % % Platelet Evaluation (NORMAL) pCO2 (35-45) mm/Hg pO2 (80-100) mm/Hg HCO3 (21-28) mmol/L ABG pH (7.35-7.45) ABG Total CO2 (22-28) mmol.L ABG O2 Saturation (95-98) % ABG O2 Content (15-23) ML/dl ABG Base Excess (-2.0-3.0) mmol/L ABG Hemoglobin (11.7-17.4) g/dL ABG Carboxyhemoglobin (0.5-1.5) % POC ABG HHb (Measured) (0-5) % ABG Methemoglobin (0.0-3.0) % ABG O2 Capacity (16-24) mL/dl Hgb O2 Saturation (95.0-98.0) % FiO2 % Sodium (132-148) mmol/L Potassium (3.6-5.0) mmol/L Chloride (98-107) mmol/L Carbon Dioxide (21-33) mmol/L Anion Gap (10-20) BUN (7-21) mg/dL Creatinine (0.8-1.5) mg/dl Est GFR ( Amer) Est GFR (Non-Af Amer) POC Glucose (mg/dL) 139 H (65-110) mg/dL Random Glucose (70-110) mg/dL Lactic Acid (0.7-2.1) mmol/L Calcium (8.4-10.5) mg/dL Magnesium 2.3 H (1.7-2.2) mg/dL Total Bilirubin 2.3 H (0.2-1.3) mg/dL Direct Bilirubin 0.8 H (0.0-0.4) mg/dL AST 55 (17-59) U/L ALT 48 (7-56) U/L Alkaline Phosphatase 68 (38-126) U/L Ammonia (9-33) umol/L Total Creatine Kinase 224 (35-230) U/L Troponin I 0.05 D ng/mL Total Protein 6.9 (5.8-8.3) g/dL Albumin 3.4 (3.0-4.8) g/dL Globulin 3.5 gm/dL Albumin/Globulin Ratio 1.0 L (1.1-1.8) Procalcitonin (0.19-0.49) NG/ML 06/26/17 06/26/17 Range/Units 19:52 07:00 WBC (4.5-11.0) 10^3/ul RBC (3.5-6.1) 10^6/uL Hgb (14.0-18.0) g/dL Hct (42.0-52.0) % MCV (80.0-105.0) fl MCH (25.0-35.0) pg MCHC (31.0-37.0) g/dl RDW (11.5-14.5) % Plt Count (120.0-450.0) 10^3/uL Manual Plt Count (120-450) K/mm3 MPV (7.0-11.0) fl Gran % (50.0-68.0) % Lymph % (Auto) (22.0-35.0) % Martin % (Auto) (1.0-6.0) % Eos % (Auto) (1.5-5.0) % Baso % (Auto) (0.0-3.0) % Gran # (1.4-6.5) Lymph # (Auto) (1.2-3.4) Martin # (Auto) (0.1-0.6) Eos # (Auto) (0.0-0.7) Baso # (Auto) (0.0-2.0) K/mm3 Neutrophils % (Manual) (50.0-70.0) % Band Neutrophils % (0-2) % Lymphocytes % (Manual) (22.0-35.0) % Monocytes % (Manual) (1.0-6.0) % Metamyelocytes % % Platelet Evaluation (NORMAL) pCO2 (35-45) mm/Hg pO2 (80-100) mm/Hg HCO3 (21-28) mmol/L ABG pH (7.35-7.45) ABG Total CO2 (22-28) mmol.L ABG O2 Saturation (95-98) % ABG O2 Content (15-23) ML/dl ABG Base Excess (-2.0-3.0) mmol/L ABG Hemoglobin (11.7-17.4) g/dL ABG Carboxyhemoglobin (0.5-1.5) % POC ABG HHb (Measured) (0-5) % ABG Methemoglobin (0.0-3.0) % ABG O2 Capacity (16-24) mL/dl Hgb O2 Saturation (95.0-98.0) % FiO2 % Sodium (132-148) mmol/L Potassium (3.6-5.0) mmol/L Chloride (98-107) mmol/L Carbon Dioxide (21-33) mmol/L Anion Gap (10-20) BUN (7-21) mg/dL Creatinine (0.8-1.5) mg/dl Est GFR ( Amer) Est GFR (Non-Af Amer) POC Glucose (mg/dL) 164 H (65-110) mg/dL Random Glucose (70-110) mg/dL Lactic Acid (0.7-2.1) mmol/L Calcium (8.4-10.5) mg/dL Magnesium (1.7-2.2) mg/dL Total Bilirubin (0.2-1.3) mg/dL Direct Bilirubin (0.0-0.4) mg/dL AST (17-59) U/L ALT (7-56) U/L Alkaline Phosphatase (38-126) U/L Ammonia (9-33) umol/L Total Creatine Kinase (35-230) U/L Troponin I ng/mL Total Protein (5.8-8.3) g/dL Albumin (3.0-4.8) g/dL Globulin gm/dL Albumin/Globulin Ratio (1.1-1.8) Procalcitonin 0.45 (0.19-0.49) NG/ML Laboratory Results - last 24 hr 06/26/17 06/26/17 06/27/17 07:00 19:52 00:06 WBC RBC Hgb Hct MCV MCH MCHC RDW Plt Count Manual Plt Count MPV Gran % Lymph % (Auto) Martin % (Auto) Eos % (Auto) Baso % (Auto) Gran # Lymph # (Auto) Martin # (Auto) Eos # (Auto) Baso # (Auto) Neutrophils % (Manual) Band Neutrophils % Lymphocytes % (Manual) Monocytes % (Manual) Metamyelocytes % Platelet Evaluation pCO2 pO2 HCO3 ABG pH ABG Total CO2 ABG O2 Saturation ABG O2 Content ABG Base Excess ABG Hemoglobin ABG Carboxyhemoglobin POC ABG HHb (Measured) ABG Methemoglobin ABG O2 Capacity Hgb O2 Saturation FiO2 Sodium Potassium Chloride Carbon Dioxide Anion Gap BUN Creatinine Est GFR ( Amer) Est GFR (Non-Af Amer) POC Glucose (mg/dL) 164 H 139 H Random Glucose Lactic Acid Calcium Magnesium Total Bilirubin Direct Bilirubin AST ALT Alkaline Phosphatase Ammonia Total Creatine Kinase Troponin I Total Protein Albumin Globulin Albumin/Globulin Ratio Procalcitonin 0.45 06/27/17 06/27/17 06/27/17 05:20 05:40 05:40 WBC RBC Hgb Hct MCV MCH MCHC RDW Plt Count Manual Plt Count 39 L* MPV Gran % Lymph % (Auto) Martin % (Auto) Eos % (Auto) Baso % (Auto) Gran # Lymph # (Auto) Martin # (Auto) Eos # (Auto) Baso # (Auto) Neutrophils % (Manual) Band Neutrophils % Lymphocytes % (Manual) Monocytes % (Manual) Metamyelocytes % Platelet Evaluation pCO2 39 pO2 104.0 H HCO3 22.0 ABG pH 7.36 ABG Total CO2 23.2 ABG O2 Saturation 99.4 H ABG O2 Content 18.7 ABG Base Excess -3.1 L ABG Hemoglobin 13.6 ABG Carboxyhemoglobin 1.6 H POC ABG HHb (Measured) 0.6 ABG Methemoglobin 0.9 ABG O2 Capacity 18.8 Hgb O2 Saturation 97.0 FiO2 55.0 Sodium Potassium Chloride Carbon Dioxide Anion Gap BUN Creatinine Est GFR ( Amer) Est GFR (Non-Af Amer) POC Glucose (mg/dL) Random Glucose Lactic Acid Calcium Magnesium 2.3 H Total Bilirubin 2.3 H Direct Bilirubin 0.8 H AST 55 ALT 48 Alkaline Phosphatase 68 Ammonia Total Creatine Kinase 224 Troponin I 0.05 D Total Protein 6.9 Albumin 3.4 Globulin 3.5 Albumin/Globulin Ratio 1.0 L Procalcitonin 06/27/17 06/27/17 06/27/17 05:53 06:25 06:25 WBC RBC Hgb Hct MCV MCH MCHC RDW Plt Count Manual Plt Count MPV Gran % Lymph % (Auto) Martin % (Auto) Eos % (Auto) Baso % (Auto) Gran # Lymph # (Auto) Martin # (Auto) Eos # (Auto) Baso # (Auto) Neutrophils % (Manual) Band Neutrophils % Lymphocytes % (Manual) Monocytes % (Manual) Metamyelocytes % Platelet Evaluation pCO2 pO2 HCO3 ABG pH ABG Total CO2 ABG O2 Saturation ABG O2 Content ABG Base Excess ABG Hemoglobin ABG Carboxyhemoglobin POC ABG HHb (Measured) ABG Methemoglobin ABG O2 Capacity Hgb O2 Saturation FiO2 Sodium Potassium Chloride Carbon Dioxide Anion Gap BUN Creatinine Est GFR ( Amer) Est GFR (Non-Af Amer) POC Glucose (mg/dL) 142 H Random Glucose Lactic Acid 2.1 Calcium Magnesium Total Bilirubin Direct Bilirubin AST ALT Alkaline Phosphatase Ammonia < 9 L Total Creatine Kinase Troponin I Total Protein Albumin Globulin Albumin/Globulin Ratio Procalcitonin 06/27/17 06/27/17 06/27/17 08:19 11:00 11:00 WBC 10.0 RBC 4.89 Hgb 15.7 Hct 45.3 MCV 92.6 MCH 32.1 MCHC 34.7 RDW 14.6 H Plt Count 26 L* Manual Plt Count MPV 12.3 H Gran % 90.8 H Lymph % (Auto) 5.8 L Martin % (Auto) 3.4 Eos % (Auto) 0.0 L Baso % (Auto) 0.0 Gran # 9.04 H Lymph # (Auto) 0.6 L Martin # (Auto) 0.3 Eos # (Auto) 0.0 Baso # (Auto) 0.00 Neutrophils % (Manual) 84 H Band Neutrophils % 4 H Lymphocytes % (Manual) 4 L Monocytes % (Manual) 7 H Metamyelocytes % 1 Platelet Evaluation Low pCO2 pO2 HCO3 ABG pH ABG Total CO2 ABG O2 Saturation ABG O2 Content ABG Base Excess ABG Hemoglobin ABG Carboxyhemoglobin POC ABG HHb (Measured) ABG Methemoglobin ABG O2 Capacity Hgb O2 Saturation FiO2 Sodium 153 H 151 H Potassium 3.0 L 2.7 L* Chloride 117 H 113 H Carbon Dioxide 26 28 Anion Gap 14 13 BUN 33 H 32 H Creatinine 0.8 0.7 L Est GFR ( Amer) > 60 > 60 Est GFR (Non-Af Amer) > 60 > 60 POC Glucose (mg/dL) Random Glucose 154 H 164 H Lactic Acid Calcium 8.8 8.7 Magnesium Total Bilirubin 2.4 H Direct Bilirubin AST 55 ALT 45 Alkaline Phosphatase 69 Ammonia Total Creatine Kinase Troponin I Total Protein 6.9 Albumin 3.5 Globulin 3.4 Albumin/Globulin Ratio 1.0 L Procalcitonin 06/27/17 06/27/17 11:42 12:33 WBC RBC Hgb Hct MCV MCH MCHC RDW Plt Count Manual Plt Count 27 L* MPV Gran % Lymph % (Auto) Martin % (Auto) Eos % (Auto) Baso % (Auto) Gran # Lymph # (Auto) Martin # (Auto) Eos # (Auto) Baso # (Auto) Neutrophils % (Manual) Band Neutrophils % Lymphocytes % (Manual) Monocytes % (Manual) Metamyelocytes % Platelet Evaluation pCO2 pO2 HCO3 ABG pH ABG Total CO2 ABG O2 Saturation ABG O2 Content ABG Base Excess ABG Hemoglobin ABG Carboxyhemoglobin POC ABG HHb (Measured) ABG Methemoglobin ABG O2 Capacity Hgb O2 Saturation FiO2 Sodium Potassium Chloride Carbon Dioxide Anion Gap BUN Creatinine Est GFR ( Amer) Est GFR (Non-Af Amer) POC Glucose (mg/dL) 161 H Random Glucose Lactic Acid Calcium Magnesium Total Bilirubin Direct Bilirubin AST ALT Alkaline Phosphatase Ammonia Total Creatine Kinase Troponin I Total Protein Albumin Globulin Albumin/Globulin Ratio Procalcitonin EKG/Cardiology Studies: Cardiology / EKG Studies 06/26/17 21:31 EKG [ELECTROCARDIOGRAM] Stat Comment: Reason For Exam: bradycardia 06/27/17 07:00 ELECTROCARDIOGRAM DAILY Comment: Reason For Exam: HYPOTHERMIA Fingerstick Blood Sugar Results: 88 Assessment/Plan - Assessment and Plan (Free Text) Plan: 66 y/o male with PMH of Hep C s/p harvoni treatment, EtOh abuse presents s/p cardiac arrest. Patient has been extubated and aggresively diuresed, however patient remains agitated. Precedex drip taken off at this time. Neurology recommends Valproic acid IV for agitation. Patient also displaying worsening thrombocytopenia, will continue to monitor daily. Continue current medical management. Neuro: Prededex stopped Valproic acid as per Neuro Cardio: -Bradycardic, hemodynamically stable -maintain MAP>65 -Hydralazine prn for BP Pulm: -HFNC -maintain SpO2>90% Heme/ID: -Zosyn -cultures negative -Taper steroids -Thrombocytopenia -SCDs for DVT prophylaxis GI: -NPO -Protonix ppx Renal: -replete electrolytes as needed -Strict I's and O's -Maintain euvolemia Endo: -Maintain euglycemia Lizz, PGY-2 <Niot Powell - Last Filed: 06/27/17 17:13> CCU Objective - Vital Signs / Intake & Output Vital Signs (Last 4 hours): Vital Signs Temp Pulse Resp BP Pulse Ox 06/27/17 15:00 97.0 F L 60 16 119/76 93 L 06/27/17 14:30 96.8 F L 64 18 134/83 94 L 06/27/17 14:00 96.8 F L 64 17 139/89 95 06/27/17 13:31 150/97 H 06/27/17 13:30 96.6 F L 66 17 95 Intake and Output (Last 8hrs): Intake & Output 06/27/17 06/27/17 06/27/17 06:59 14:59 22:59 Intake Total 200 50 Balance 200 50 Intake: IV 200 50 - Medications Active Medications: Active Medications Generic Name Dose Route Start Last Admin Trade Name Freq PRN Reason Stop Dose Admin Albuterol/Ipratropium 3 ml 06/24/17 19:30 06/27/17 16:53 Duoneb 3 Mg/0.5 Mg (3 Ml) Ud IH 3 ml [id number] PETRA Administration Diphenhydramine HCl 50 mg 06/27/17 14:00 06/27/17 13:27 Benadryl IVP 50 mg Q8 PETRA Administration Hydralazine HCl 10 mg 06/27/17 05:45 06/27/17 07:41 Apresoline IVP 10 mg Q6 PRN Administration Systolic Blood Pressure Hydrocortisone Sodium Succinate 50 mg 06/28/17 10:00 Solu-Cortef IVP DAILY PETRA Propofol 1,000 mg in 100 mls @ 2.177 mls/hr 06/23/17 23:57 06/25/17 20:36 Diprivan IV Infused .Q24H PRN Titration TITRATE PER MD ORDER Protocol 5 MCG/KG/MIN Piperacillin Sod/Tazobactam Sod 100 mls @ 200 mls/hr 06/24/17 12:00 06/27/17 12:37 Zosyn 3.375 In Ns 100ml IVPB 07/01/17 12:01 200 mls/hr Q6 PETRA Administration Protocol Dexmedetomidine HCl 400 mcg in 100 mls @ 3.629 mls/hr 06/26/17 00:55 12:01 Precedex 400mcg/100ml IV 0 mcg/kg/hr .Q24H PRN 0 mls/hr Agitation Titration Protocol 0.2 MCG/KG/HR Valproate Sodium 500 mg/ 105 mls @ 100 mls/hr 06/27/17 22:00 Sodium Chloride IVPB Q12 PETRA Insulin Human Lispro 0 units 06/24/17 11:24 06/27/17 13:14 Humalog Low SC Not Given Q6 PETRA Protocol Lorazepam 2 mg 06/25/17 21:21 06/27/17 12:04 Ativan IVP 2 mg Q4H PRN Administration Anxiety Protocol Morphine Sulfate 4 mg 06/26/17 07:57 06/26/17 08:16 Morphine IVP 4 mg Q4H PRN Administration Pain, severe (8-10) Pantoprazole Sodium 40 mg 06/24/17 10:00 06/27/17 09:21 Protonix Inj IVP 40 mg DAILY PETRA Administration - Patient Studies Lab Studies: Lab Studies 06/27/17 06/27/17 06/27/17 Range/Units 16:15 12:33 11:42 WBC (4.5-11.0) 10^3/ul RBC (3.5-6.1) 10^6/uL Hgb (14.0-18.0) g/dL Hct (42.0-52.0) % MCV (80.0-105.0) fl MCH (25.0-35.0) pg MCHC (31.0-37.0) g/dl RDW (11.5-14.5) % Plt Count (120.0-450.0) 10^3/uL Manual Plt Count 27 L* (120-450) K/mm3 MPV (7.0-11.0) fl Gran % (50.0-68.0) % Lymph % (Auto) (22.0-35.0) % Martin % (Auto) (1.0-6.0) % Eos % (Auto) (1.5-5.0) % Baso % (Auto) (0.0-3.0) % Gran # (1.4-6.5) Lymph # (Auto) (1.2-3.4) Martin # (Auto) (0.1-0.6) Eos # (Auto) (0.0-0.7) Baso # (Auto) (0.0-2.0) K/mm3 Neutrophils % (Manual) (50.0-70.0) % Band Neutrophils % (0-2) % Lymphocytes % (Manual) (22.0-35.0) % Monocytes % (Manual) (1.0-6.0) % Metamyelocytes % % Platelet Evaluation (NORMAL) pCO2 (35-45) mm/Hg pO2 (80-100) mm/Hg HCO3 (21-28) mmol/L ABG pH (7.35-7.45) ABG Total CO2 (22-28) mmol.L ABG O2 Saturation (95-98) % ABG O2 Content (15-23) ML/dl ABG Base Excess (-2.0-3.0) mmol/L ABG Hemoglobin (11.7-17.4) g/dL ABG Carboxyhemoglobin (0.5-1.5) % POC ABG HHb (Measured) (0-5) % ABG Methemoglobin (0.0-3.0) % ABG O2 Capacity (16-24) mL/dl Hgb O2 Saturation (95.0-98.0) % FiO2 % Sodium 151 H (132-148) mmol/L Potassium 3.9 (3.6-5.0) mmol/L Chloride 114 H (98-107) mmol/L Carbon Dioxide 29 (21-33) mmol/L Anion Gap 12 (10-20) BUN 31 H (7-21) mg/dL Creatinine 0.7 L (0.8-1.5) mg/dl Est GFR ( Amer) > 60 Est GFR (Non-Af Amer) > 60 POC Glucose (mg/dL) 161 H (65-110) mg/dL Random Glucose 141 H (70-110) mg/dL Lactic Acid (0.7-2.1) mmol/L Calcium 8.4 (8.4-10.5) mg/dL Magnesium (1.7-2.2) mg/dL Total Bilirubin (0.2-1.3) mg/dL Direct Bilirubin (0.0-0.4) mg/dL AST (17-59) U/L ALT (7-56) U/L Alkaline Phosphatase (38-126) U/L Ammonia (9-33) umol/L Total Creatine Kinase (35-230) U/L Troponin I ng/mL Total Protein (5.8-8.3) g/dL Albumin (3.0-4.8) g/dL Globulin gm/dL Albumin/Globulin Ratio (1.1-1.8) Procalcitonin (0.19-0.49) NG/ML 06/27/17 06/27/17 06/27/17 Range/Units 11:00 11:00 08:19 WBC 10.0 (4.5-11.0) 10^3/ul RBC 4.89 (3.5-6.1) 10^6/uL Hgb 15.7 (14.0-18.0) g/dL Hct 45.3 (42.0-52.0) % MCV 92.6 (80.0-105.0) fl MCH 32.1 (25.0-35.0) pg MCHC 34.7 (31.0-37.0) g/dl RDW 14.6 H (11.5-14.5) % Plt Count 26 L* (120.0-450.0) 10^3/uL Manual Plt Count (120-450) K/mm3 MPV 12.3 H (7.0-11.0) fl Gran % 90.8 H (50.0-68.0) % Lymph % (Auto) 5.8 L (22.0-35.0) % Martin % (Auto) 3.4 (1.0-6.0) % Eos % (Auto) 0.0 L (1.5-5.0) % Baso % (Auto) 0.0 (0.0-3.0) % Gran # 9.04 H (1.4-6.5) Lymph # (Auto) 0.6 L (1.2-3.4) Martin # (Auto) 0.3 (0.1-0.6) Eos # (Auto) 0.0 (0.0-0.7) Baso # (Auto) 0.00 (0.0-2.0) K/mm3 Neutrophils % (Manual) 84 H (50.0-70.0) % Band Neutrophils % 4 H (0-2) % Lymphocytes % (Manual) 4 L (22.0-35.0) % Monocytes % (Manual) 7 H (1.0-6.0) % Metamyelocytes % 1 % Platelet Evaluation Low (NORMAL) pCO2 (35-45) mm/Hg pO2 (80-100) mm/Hg HCO3 (21-28) mmol/L ABG pH (7.35-7.45) ABG Total CO2 (22-28) mmol.L ABG O2 Saturation (95-98) % ABG O2 Content (15-23) ML/dl ABG Base Excess (-2.0-3.0) mmol/L ABG Hemoglobin (11.7-17.4) g/dL ABG Carboxyhemoglobin (0.5-1.5) % POC ABG HHb (Measured) (0-5) % ABG Methemoglobin (0.0-3.0) % ABG O2 Capacity (16-24) mL/dl Hgb O2 Saturation (95.0-98.0) % FiO2 % Sodium 151 H 153 H (132-148) mmol/L Potassium 2.7 L* 3.0 L (3.6-5.0) mmol/L Chloride 113 H 117 H (98-107) mmol/L Carbon Dioxide 28 26 (21-33) mmol/L Anion Gap 13 14 (10-20) BUN 32 H 33 H (7-21) mg/dL Creatinine 0.7 L 0.8 (0.8-1.5) mg/dl Est GFR ( Amer) > 60 > 60 Est GFR (Non-Af Amer) > 60 > 60 POC Glucose (mg/dL) (65-110) mg/dL Random Glucose 164 H 154 H (70-110) mg/dL Lactic Acid (0.7-2.1) mmol/L Calcium 8.7 8.8 (8.4-10.5) mg/dL Magnesium (1.7-2.2) mg/dL Total Bilirubin 2.4 H (0.2-1.3) mg/dL Direct Bilirubin (0.0-0.4) mg/dL AST 55 (17-59) U/L ALT 45 (7-56) U/L Alkaline Phosphatase 69 (38-126) U/L Ammonia (9-33) umol/L Total Creatine Kinase (35-230) U/L Troponin I ng/mL Total Protein 6.9 (5.8-8.3) g/dL Albumin 3.5 (3.0-4.8) g/dL Globulin 3.4 gm/dL Albumin/Globulin Ratio 1.0 L (1.1-1.8) Procalcitonin (0.19-0.49) NG/ML 06/27/17 06/27/17 06/27/17 Range/Units 06:25 06:25 05:53 WBC (4.5-11.0) 10^3/ul RBC (3.5-6.1) 10^6/uL Hgb (14.0-18.0) g/dL Hct (42.0-52.0) % MCV (80.0-105.0) fl MCH (25.0-35.0) pg MCHC (31.0-37.0) g/dl RDW (11.5-14.5) % Plt Count (120.0-450.0) 10^3/uL Manual Plt Count (120-450) K/mm3 MPV (7.0-11.0) fl Gran % (50.0-68.0) % Lymph % (Auto) (22.0-35.0) % Martin % (Auto) (1.0-6.0) % Eos % (Auto) (1.5-5.0) % Baso % (Auto) (0.0-3.0) % Gran # (1.4-6.5) Lymph # (Auto) (1.2-3.4) Martin # (Auto) (0.1-0.6) Eos # (Auto) (0.0-0.7) Baso # (Auto) (0.0-2.0) K/mm3 Neutrophils % (Manual) (50.0-70.0) % Band Neutrophils % (0-2) % Lymphocytes % (Manual) (22.0-35.0) % Monocytes % (Manual) (1.0-6.0) % Metamyelocytes % % Platelet Evaluation (NORMAL) pCO2 (35-45) mm/Hg pO2 (80-100) mm/Hg HCO3 (21-28) mmol/L ABG pH (7.35-7.45) ABG Total CO2 (22-28) mmol.L ABG O2 Saturation (95-98) % ABG O2 Content (15-23) ML/dl ABG Base Excess (-2.0-3.0) mmol/L ABG Hemoglobin (11.7-17.4) g/dL ABG Carboxyhemoglobin (0.5-1.5) % POC ABG HHb (Measured) (0-5) % ABG Methemoglobin (0.0-3.0) % ABG O2 Capacity (16-24) mL/dl Hgb O2 Saturation (95.0-98.0) % FiO2 % Sodium (132-148) mmol/L Potassium (3.6-5.0) mmol/L Chloride (98-107) mmol/L Carbon Dioxide (21-33) mmol/L Anion Gap (10-20) BUN (7-21) mg/dL Creatinine (0.8-1.5) mg/dl Est GFR ( Amer) Est GFR (Non-Af Amer) POC Glucose (mg/dL) 142 H (65-110) mg/dL Random Glucose (70-110) mg/dL Lactic Acid 2.1 (0.7-2.1) mmol/L Calcium (8.4-10.5) mg/dL Magnesium (1.7-2.2) mg/dL Total Bilirubin (0.2-1.3) mg/dL Direct Bilirubin (0.0-0.4) mg/dL AST (17-59) U/L ALT (7-56) U/L Alkaline Phosphatase (38-126) U/L Ammonia < 9 L (9-33) umol/L Total Creatine Kinase (35-230) U/L Troponin I ng/mL Total Protein (5.8-8.3) g/dL Albumin (3.0-4.8) g/dL Globulin gm/dL Albumin/Globulin Ratio (1.1-1.8) Procalcitonin (0.19-0.49) NG/ML 06/27/17 06/27/17 06/27/17 Range/Units 05:40 05:40 05:20 WBC (4.5-11.0) 10^3/ul RBC (3.5-6.1) 10^6/uL Hgb (14.0-18.0) g/dL Hct (42.0-52.0) % MCV (80.0-105.0) fl MCH (25.0-35.0) pg MCHC (31.0-37.0) g/dl RDW (11.5-14.5) % Plt Count (120.0-450.0) 10^3/uL Manual Plt Count 39 L* (120-450) K/mm3 MPV (7.0-11.0) fl Gran % (50.0-68.0) % Lymph % (Auto) (22.0-35.0) % Martin % (Auto) (1.0-6.0) % Eos % (Auto) (1.5-5.0) % Baso % (Auto) (0.0-3.0) % Gran # (1.4-6.5) Lymph # (Auto) (1.2-3.4) Martin # (Auto) (0.1-0.6) Eos # (Auto) (0.0-0.7) Baso # (Auto) (0.0-2.0) K/mm3 Neutrophils % (Manual) (50.0-70.0) % Band Neutrophils % (0-2) % Lymphocytes % (Manual) (22.0-35.0) % Monocytes % (Manual) (1.0-6.0) % Metamyelocytes % % Platelet Evaluation (NORMAL) pCO2 39 (35-45) mm/Hg pO2 104.0 H (80-100) mm/Hg HCO3 22.0 (21-28) mmol/L ABG pH 7.36 (7.35-7.45) ABG Total CO2 23.2 (22-28) mmol.L ABG O2 Saturation 99.4 H (95-98) % ABG O2 Content 18.7 (15-23) ML/dl ABG Base Excess -3.1 L (-2.0-3.0) mmol/L ABG Hemoglobin 13.6 (11.7-17.4) g/dL ABG Carboxyhemoglobin 1.6 H (0.5-1.5) % POC ABG HHb (Measured) 0.6 (0-5) % ABG Methemoglobin 0.9 (0.0-3.0) % ABG O2 Capacity 18.8 (16-24) mL/dl Hgb O2 Saturation 97.0 (95.0-98.0) % FiO2 55.0 % Sodium (132-148) mmol/L Potassium (3.6-5.0) mmol/L Chloride (98-107) mmol/L Carbon Dioxide (21-33) mmol/L Anion Gap (10-20) BUN (7-21) mg/dL Creatinine (0.8-1.5) mg/dl Est GFR ( Amer) Est GFR (Non-Af Amer) POC Glucose (mg/dL) (65-110) mg/dL Random Glucose (70-110) mg/dL Lactic Acid (0.7-2.1) mmol/L Calcium (8.4-10.5) mg/dL Magnesium 2.3 H (1.7-2.2) mg/dL Total Bilirubin 2.3 H (0.2-1.3) mg/dL Direct Bilirubin 0.8 H (0.0-0.4) mg/dL AST 55 (17-59) U/L ALT 48 (7-56) U/L Alkaline Phosphatase 68 (38-126) U/L Ammonia (9-33) umol/L Total Creatine Kinase 224 (35-230) U/L Troponin I 0.05 D ng/mL Total Protein 6.9 (5.8-8.3) g/dL Albumin 3.4 (3.0-4.8) g/dL Globulin 3.5 gm/dL Albumin/Globulin Ratio 1.0 L (1.1-1.8) Procalcitonin (0.19-0.49) NG/ML 06/27/17 06/26/17 06/26/17 Range/Units 00:06 19:52 07:00 WBC (4.5-11.0) 10^3/ul RBC (3.5-6.1) 10^6/uL Hgb (14.0-18.0) g/dL Hct (42.0-52.0) % MCV (80.0-105.0) fl MCH (25.0-35.0) pg MCHC (31.0-37.0) g/dl RDW (11.5-14.5) % Plt Count (120.0-450.0) 10^3/uL Manual Plt Count (120-450) K/mm3 MPV (7.0-11.0) fl Gran % (50.0-68.0) % Lymph % (Auto) (22.0-35.0) % Martin % (Auto) (1.0-6.0) % Eos % (Auto) (1.5-5.0) % Baso % (Auto) (0.0-3.0) % Gran # (1.4-6.5) Lymph # (Auto) (1.2-3.4) Martin # (Auto) (0.1-0.6) Eos # (Auto) (0.0-0.7) Baso # (Auto) (0.0-2.0) K/mm3 Neutrophils % (Manual) (50.0-70.0) % Band Neutrophils % (0-2) % Lymphocytes % (Manual) (22.0-35.0) % Monocytes % (Manual) (1.0-6.0) % Metamyelocytes % % Platelet Evaluation (NORMAL) pCO2 (35-45) mm/Hg pO2 (80-100) mm/Hg HCO3 (21-28) mmol/L ABG pH (7.35-7.45) ABG Total CO2 (22-28) mmol.L ABG O2 Saturation (95-98) % ABG O2 Content (15-23) ML/dl ABG Base Excess (-2.0-3.0) mmol/L ABG Hemoglobin (11.7-17.4) g/dL ABG Carboxyhemoglobin (0.5-1.5) % POC ABG HHb (Measured) (0-5) % ABG Methemoglobin (0.0-3.0) % ABG O2 Capacity (16-24) mL/dl Hgb O2 Saturation (95.0-98.0) % FiO2 % Sodium (132-148) mmol/L Potassium (3.6-5.0) mmol/L Chloride (98-107) mmol/L Carbon Dioxide (21-33) mmol/L Anion Gap (10-20) BUN (7-21) mg/dL Creatinine (0.8-1.5) mg/dl Est GFR ( Amer) Est GFR (Non-Af Amer) POC Glucose (mg/dL) 139 H 164 H (65-110) mg/dL Random Glucose (70-110) mg/dL Lactic Acid (0.7-2.1) mmol/L Calcium (8.4-10.5) mg/dL Magnesium (1.7-2.2) mg/dL Total Bilirubin (0.2-1.3) mg/dL Direct Bilirubin (0.0-0.4) mg/dL AST (17-59) U/L ALT (7-56) U/L Alkaline Phosphatase (38-126) U/L Ammonia (9-33) umol/L Total Creatine Kinase (35-230) U/L Troponin I ng/mL Total Protein (5.8-8.3) g/dL Albumin (3.0-4.8) g/dL Globulin gm/dL Albumin/Globulin Ratio (1.1-1.8) Procalcitonin 0.45 (0.19-0.49) NG/ML Laboratory Results - last 24 hr 06/26/17 06/26/17 06/27/17 07:00 19:52 00:06 WBC RBC Hgb Hct MCV MCH MCHC RDW Plt Count Manual Plt Count MPV Gran % Lymph % (Auto) Martin % (Auto) Eos % (Auto) Baso % (Auto) Gran # Lymph # (Auto) Martin # (Auto) Eos # (Auto) Baso # (Auto) Neutrophils % (Manual) Band Neutrophils % Lymphocytes % (Manual) Monocytes % (Manual) Metamyelocytes % Platelet Evaluation pCO2 pO2 HCO3 ABG pH ABG Total CO2 ABG O2 Saturation ABG O2 Content ABG Base Excess ABG Hemoglobin ABG Carboxyhemoglobin POC ABG HHb (Measured) ABG Methemoglobin ABG O2 Capacity Hgb O2 Saturation FiO2 Sodium Potassium Chloride Carbon Dioxide Anion Gap BUN Creatinine Est GFR ( Amer) Est GFR (Non-Af Amer) POC Glucose (mg/dL) 164 H 139 H Random Glucose Lactic Acid Calcium Magnesium Total Bilirubin Direct Bilirubin AST ALT Alkaline Phosphatase Ammonia Total Creatine Kinase Troponin I Total Protein Albumin Globulin Albumin/Globulin Ratio Procalcitonin 0.45 06/27/17 06/27/17 06/27/17 05:20 05:40 05:40 WBC RBC Hgb Hct MCV MCH MCHC RDW Plt Count Manual Plt Count 39 L* MPV Gran % Lymph % (Auto) Martin % (Auto) Eos % (Auto) Baso % (Auto) Gran # Lymph # (Auto) Martin # (Auto) Eos # (Auto) Baso # (Auto) Neutrophils % (Manual) Band Neutrophils % Lymphocytes % (Manual) Monocytes % (Manual) Metamyelocytes % Platelet Evaluation pCO2 39 pO2 104.0 H HCO3 22.0 ABG pH 7.36 ABG Total CO2 23.2 ABG O2 Saturation 99.4 H ABG O2 Content 18.7 ABG Base Excess -3.1 L ABG Hemoglobin 13.6 ABG Carboxyhemoglobin 1.6 H POC ABG HHb (Measured) 0.6 ABG Methemoglobin 0.9 ABG O2 Capacity 18.8 Hgb O2 Saturation 97.0 FiO2 55.0 Sodium Potassium Chloride Carbon Dioxide Anion Gap BUN Creatinine Est GFR ( Amer) Est GFR (Non-Af Amer) POC Glucose (mg/dL) Random Glucose Lactic Acid Calcium Magnesium 2.3 H Total Bilirubin 2.3 H Direct Bilirubin 0.8 H AST 55 ALT 48 Alkaline Phosphatase 68 Ammonia Total Creatine Kinase 224 Troponin I 0.05 D Total Protein 6.9 Albumin 3.4 Globulin 3.5 Albumin/Globulin Ratio 1.0 L Procalcitonin 06/27/17 06/27/17 06/27/17 05:53 06:25 06:25 WBC RBC Hgb Hct MCV MCH MCHC RDW Plt Count Manual Plt Count MPV Gran % Lymph % (Auto) Martin % (Auto) Eos % (Auto) Baso % (Auto) Gran # Lymph # (Auto) Martin # (Auto) Eos # (Auto) Baso # (Auto) Neutrophils % (Manual) Band Neutrophils % Lymphocytes % (Manual) Monocytes % (Manual) Metamyelocytes % Platelet Evaluation pCO2 pO2 HCO3 ABG pH ABG Total CO2 ABG O2 Saturation ABG O2 Content ABG Base Excess ABG Hemoglobin ABG Carboxyhemoglobin POC ABG HHb (Measured) ABG Methemoglobin ABG O2 Capacity Hgb O2 Saturation FiO2 Sodium Potassium Chloride Carbon Dioxide Anion Gap BUN Creatinine Est GFR ( Amer) Est GFR (Non-Af Amer) POC Glucose (mg/dL) 142 H Random Glucose Lactic Acid 2.1 Calcium Magnesium Total Bilirubin Direct Bilirubin AST ALT Alkaline Phosphatase Ammonia < 9 L Total Creatine Kinase Troponin I Total Protein Albumin Globulin Albumin/Globulin Ratio Procalcitonin 06/27/17 06/27/17 06/27/17 08:19 11:00 11:00 WBC 10.0 RBC 4.89 Hgb 15.7 Hct 45.3 MCV 92.6 MCH 32.1 MCHC 34.7 RDW 14.6 H Plt Count 26 L* Manual Plt Count MPV 12.3 H Gran % 90.8 H Lymph % (Auto) 5.8 L Martin % (Auto) 3.4 Eos % (Auto) 0.0 L Baso % (Auto) 0.0 Gran # 9.04 H Lymph # (Auto) 0.6 L Martin # (Auto) 0.3 Eos # (Auto) 0.0 Baso # (Auto) 0.00 Neutrophils % (Manual) 84 H Band Neutrophils % 4 H Lymphocytes % (Manual) 4 L Monocytes % (Manual) 7 H Metamyelocytes % 1 Platelet Evaluation Low pCO2 pO2 HCO3 ABG pH ABG Total CO2 ABG O2 Saturation ABG O2 Content ABG Base Excess ABG Hemoglobin ABG Carboxyhemoglobin POC ABG HHb (Measured) ABG Methemoglobin ABG O2 Capacity Hgb O2 Saturation FiO2 Sodium 153 H 151 H Potassium 3.0 L 2.7 L* Chloride 117 H 113 H Carbon Dioxide 26 28 Anion Gap 14 13 BUN 33 H 32 H Creatinine 0.8 0.7 L Est GFR ( Amer) > 60 > 60 Est GFR (Non-Af Amer) > 60 > 60 POC Glucose (mg/dL) Random Glucose 154 H 164 H Lactic Acid Calcium 8.8 8.7 Magnesium Total Bilirubin 2.4 H Direct Bilirubin AST 55 ALT 45 Alkaline Phosphatase 69 Ammonia Total Creatine Kinase Troponin I Total Protein 6.9 Albumin 3.5 Globulin 3.4 Albumin/Globulin Ratio 1.0 L Procalcitonin 06/27/17 06/27/17 06/27/17 11:42 12:33 16:15 WBC RBC Hgb Hct MCV MCH MCHC RDW Plt Count Manual Plt Count 27 L* MPV Gran % Lymph % (Auto) Martin % (Auto) Eos % (Auto) Baso % (Auto) Gran # Lymph # (Auto) Martin # (Auto) Eos # (Auto) Baso # (Auto) Neutrophils % (Manual) Band Neutrophils % Lymphocytes % (Manual) Monocytes % (Manual) Metamyelocytes % Platelet Evaluation pCO2 pO2 HCO3 ABG pH ABG Total CO2 ABG O2 Saturation ABG O2 Content ABG Base Excess ABG Hemoglobin ABG Carboxyhemoglobin POC ABG HHb (Measured) ABG Methemoglobin ABG O2 Capacity Hgb O2 Saturation FiO2 Sodium 151 H Potassium 3.9 Chloride 114 H Carbon Dioxide 29 Anion Gap 12 BUN 31 H Creatinine 0.7 L Est GFR ( Amer) > 60 Est GFR (Non-Af Amer) > 60 POC Glucose (mg/dL) 161 H Random Glucose 141 H Lactic Acid Calcium 8.4 Magnesium Total Bilirubin Direct Bilirubin AST ALT Alkaline Phosphatase Ammonia Total Creatine Kinase Troponin I Total Protein Albumin Globulin Albumin/Globulin Ratio Procalcitonin EKG/Cardiology Studies: Cardiology / EKG Studies 06/26/17 21:31 EKG [ELECTROCARDIOGRAM] Stat Comment: Reason For Exam: bradycardia 06/27/17 07:00 ELECTROCARDIOGRAM DAILY Comment: Reason For Exam: HYPOTHERMIA Attending/Attestation - Attestation I have personally seen and examined this patient.: Yes I have fully participated in the care of the patient.: Yes I have reviewed all pertinent clinical information: Yes Notes (Text): 06/27/17 17:[address] Powell note
--- NOTE | 2017-06-27 14:06 | CP.PCM.PN ---
Subjective - Date & Time of Evaluation Date of Evaluation: 06/27/17 Time of Evaluation: 14:05 - Subjective Subjective: Mr. Monzon was seen and examined at the bedside in ICU.He is awake, alert with episode of agitation, combativeness. He was medicated with ativan x 3. He remains on bilateral wrist restraints. He is unable to follow simple commands, but able to utter clear words. He remains on high flow oxygen and saturating at above 95%. Objective - Vital Signs/Intake and Output Vital Signs (last 24 hours): Temp Pulse Resp BP Pulse Ox 94.1 F L 50 L 18 130/80 95 06/27/17 11:00 06/27/17 11:00 06/27/17 11:00 06/27/17 11:00 06/27/17 11:00 Intake and Output: 06/27/17 06/27/17 06:59 18:59 Intake Total 300 Balance 300 - Medications Medications: Current Medications Albuterol/Ipratropium (Duoneb 3 Mg/0.5 Mg (3 Ml) Ud) 3 ml IH [id number] PETRA Last Admin: 06/27/17 10:57 Dose: 3 ml Diphenhydramine HCl (Benadryl) 50 mg IVP Q8 PETRA Last Admin: 06/27/17 13:27 Dose: 50 mg Hydralazine HCl (Apresoline) 10 mg IVP Q6 PRN PRN Reason: Systolic Blood Pressure Last Admin: 06/27/17 07:41 Dose: 10 mg Hydrocortisone Sodium Succinate (Solu-Cortef) 50 mg IVP Q12H PETRA Last Admin: 06/27/17 07:54 Dose: 50 mg Propofol (Diprivan) 1,000 mg in 100 mls @ 2.177 mls/hr IV .Q24H PRN; Protocol; 5 MCG/KG/MIN PRN Reason: TITRATE PER MD ORDER Last Titration: 06/25/17 20:36 Dose: Infused Piperacillin Sod/Tazobactam Sod (Zosyn 3.375 In Ns 100ml) 100 mls @ 200 mls/hr IVPB Q6 PETRA PRN Reason: Protocol Stop: 07/01/17 12:01 Last Admin: 06/27/17 12:37 Dose: 200 mls/hr Dexmedetomidine HCl (Precedex 400mcg/100ml) 400 mcg in 100 mls @ 3.629 mls/hr IV .Q24H PRN; Protocol; 0.2 MCG/KG/HR PRN Reason: Agitation Last Admin: 06/27/17 06:28 Dose: 1 mcg/kg/hr, 18.144 mls/hr Potassium Chloride (Potassium Chloride 20 Meq/100 Ml) 20 meq in 100 mls @ 50 mls/hr IVPB Q2H PETRA Stop: 06/27/17 14:14 Last Admin: 06/27/17 12:49 Dose: 50 mls/hr Valproate Sodium 1,000 mg/ (Sodium Chloride) 110 mls @ 100 mls/hr IVPB ONCE ONE Stop: 06/27/17 14:35 Valproate Sodium 500 mg/ (Sodium Chloride) 105 mls @ 100 mls/hr IVPB Q12 PETRA Insulin Human Lispro (Humalog Low) 0 units SC Q6 PETRA PRN Reason: Protocol Last Admin: 06/27/17 13:14 Dose: Not Given Lorazepam (Ativan) 2 mg IVP Q4H PRN; Protocol PRN Reason: Anxiety Last Admin: 06/27/17 12:04 Dose: 2 mg Morphine Sulfate (Morphine) 4 mg IVP Q4H PRN PRN Reason: Pain, severe (8-10) Last Admin: 06/26/17 08:16 Dose: 4 mg Pantoprazole Sodium (Protonix Inj) 40 mg IVP DAILY [facility] Last Admin: 06/27/17 09:21 Dose: 40 mg - Labs Labs: 06/27/17 11:00 06/27/17 11:00 PT 17.3 SECONDS (9.4-12.5) H 06/24/17 11:30 INR 1.49 (0.93-1.08) H 06/24/17 11:30 APTT 22.1 Seconds (25.1-36.5) L 06/24/17 11:30 - Constitutional Appears: No Acute Distress - Head Exam Head Exam: NORMAL INSPECTION - Neurological Exam Neurological Exam: Alert, Awake Neuro motor strength exam: Left Upper Extremity: 5, Right Upper Extremity: 5, Left Lower Extremity: 5, Right Lower Extremity: 5 Additional comments: He is confused, agitated, combative, unable to follow any commands. moves all extremities spontaneously. Assessment and Plan (1) Altered mental status Assessment & Plan: Case discussed with Dr. Pratt, continue all current medical regimen. Recommend depakote 500 mg IV Q 12 for mood stabilizer and benadryl 50 mg IV Q 8 PRN for agitation. Status: Acute
--- NOTE | 2017-06-27 14:36 | PN ---
DATE: SUBJECTIVE: A 66-year-old white male with history of hepatitis C, mild hypertension, and history of alcohol abuse in the past. The patient is in the intensive care unit, bed 4. He is more awake and alert, and somewhat oriented today. He does recognize myself as his primary care physician. The patient is slightly hypothermic today. He is on a hypothermia blanket. His vital signs are stable. He did have some spikes in his blood pressure today, but have resolved. Currently, his blood pressure 162/82. He is on nasal oxygen. OBJECTIVE: VITAL SIGNS: Stable. CHEST: Shows rhonchi bilaterally. A repeat chest x-ray shows less pleural effusion and less congestive heart failure. EXTREMITIES: He had decreased swelling in his upper and lower extremities after a couple of doses of Lasix. LABORATORY DATA: He is hyponatremic, today potassium been replaced. The potassium is 3. Hemoglobin and white count are stable. Platelet count has gone from 30 up to 60s; currently 39. He is off heparin drip. He is on some steroids. His sodium is up to 153, is being hydrated. He has had intermittent doses of Lasix. His bilirubin is 2.4. His blood sugars are well controlled. The patient is at this point in guarded condition. He is receiving IV antibiotics and steroids, the potassium replacement, and oxygen therapy. Bg Hernandez MD
[2017-06-27 17:09] LABS: BLOOD UREA NITROGEN 31 mg/dL (7-21); CALCIUM 8.4 mg/dL (8.4-10.5); GFR AFRICAN-AMERICAN > 60; GFR NON-AFRICAN AMERICAN > 60
--- NOTE | 2017-06-27 18:27 | CARD ---
APPROVED REPORT EKG Measurement Heart [id number] <Conclusion> Sinus bradycardia Possible Left atrial enlargement Nonspecific intraventricular block Nonspecific T wave abnormality Abnormal ECG
--- NOTE | 2017-06-27 21:07 | PN ---
DATE: 06/27/2017 LOCATION: Patient in CCU 129, bed 4. REASON FOR CONSULTATION: Cardiac evaluation, status post CPR; loss of consciousness. Patient was intubated, now successfully extubated. SUBJECTIVE: Patient is combative, but there is no history of chest pain, shortness of breath, or palpitation at present. PHYSICAL EXAMINATION: VITAL SIGNS: Blood pressure 119/76, respirations 18, pulse 64, temperature 97. HEENT: Head is normocephalic. Eyes: Pupils normal. Conjunctivae normal. Nose and throat normal. NECK: JVP low. Carotid equal. THORAX: AP diameter normal. LUNGS: Clear. CARDIOVASCULAR: S1 and S2. ABDOMEN: Soft and nontender. No organomegaly. Bowel sounds normal. EXTREMITIES: No clubbing, no cyanosis. LABORATORY DATA: WBC 10, hemoglobin 15.7, hematocrit 45.3, and platelets 26. Sodium 151, potassium 2.7. BUN 32, creatinine 0.7. Sugar 161. Total bilirubin 2.4. AST and ALT normal. Troponin on 06/25 was 0.04. DIAGNOSES: Patient is status post cardiopulmonary resuscitation, pulseless electrical activity, status post intubation and also successfully extubation. Patient was found unconscious at home. Initial toxicology positive for opioids and cannabinoids. Maximum troponin 0.4 may be related to CPR, hypernatremia, renal dysfunction, hypokalemia, thrombocytopenia. Echo done two days ago showed normal left ventricular function, left ventricular hypertrophy, moderate calcified probably bicuspid aortic valve, possible mild valvular aortic stenosis, no significant mitral regurgitation, no significant tricuspid regurgitation. Probably patient's unconsciousness and event probably related to maybe intake of some narcotics, anyhow the etiology is not very clear. Left ventricular function is normal on echo, unlikely coronary event. Troponin also borderline positive, but patient had CPR. Patient is getting hydralazine 10 mg IV every 6 hours p.r.n. Patient got dexmedetomidine IV drip. Patient is on propofol drip, Protonix 40 IV daily, hydrocortisone 50 mg IV every 12 hours, piperacillin and tazobactam 100 mL IV every 6 hours. We will repeat labs in the morning and will follow with you closely. Remy Ellis MD
--- NOTE | 2017-06-27 22:06 | CP.PCM.PN ---
Subjective - Date & Time of Evaluation Date of Evaluation: 06/27/17 Time of Evaluation: 19:00 - Subjective Subjective: Appears comfortable, periods of agitation per nursing Objective - Vital Signs/Intake and Output Vital Signs (last 24 hours): Temp Pulse Resp BP Pulse Ox 99.0 F 83 22 166/102 H 92 L 06/27/17 20:31 06/27/17 20:31 06/27/17 20:31 06/27/17 20:31 06/27/17 20:31 Intake and Output: 06/27/17 06/28/17 18:59 06:59 Intake Total 750 Output Total 2850 Balance -2100 - Medications Medications: Current Medications Albuterol/Ipratropium (Duoneb 3 Mg/0.5 Mg (3 Ml) Ud) 3 ml IH [id number] PETRA Last Admin: 06/27/17 20:23 Dose: 3 ml Diphenhydramine HCl (Benadryl) 50 mg IVP Q8 PETRA Last Admin: 06/27/17 21:49 Dose: 50 mg Hydralazine HCl (Apresoline) 10 mg IVP Q6 PRN PRN Reason: Systolic Blood Pressure Last Admin: 06/27/17 07:41 Dose: 10 mg Hydrocortisone Sodium Succinate (Solu-Cortef) 50 mg IVP DAILY PETRA Propofol (Diprivan) 1,000 mg in 100 mls @ 2.177 mls/hr IV .Q24H PRN; Protocol; 5 MCG/KG/MIN PRN Reason: TITRATE PER MD ORDER Last Titration: 06/25/17 20:36 Dose: Infused Piperacillin Sod/Tazobactam Sod (Zosyn 3.375 In Ns 100ml) 100 mls @ 200 mls/hr IVPB Q6 PETRA PRN Reason: Protocol Stop: 07/01/17 12:01 Last Admin: 06/27/17 18:45 Dose: 200 mls/hr Dexmedetomidine HCl (Precedex 400mcg/100ml) 400 mcg in 100 mls @ 3.629 mls/hr IV .Q24H PRN; Protocol; 0.2 MCG/KG/HR PRN Reason: Agitation Last Titration: 06/27/17 12:01 Dose: 0 mcg/kg/hr, 0 mls/hr Valproate Sodium 500 mg/ (Sodium Chloride) 105 mls @ 100 mls/hr IVPB Q12 PETRA Insulin Human Lispro (Humalog Low) 0 units SC Q6 PETRA PRN Reason: Protocol Last Admin: 06/27/17 19:38 Dose: Not Given Lorazepam (Ativan) 4 mg IVP Q4H PRN; Protocol PRN Reason: Anxiety Last Admin: 06/27/17 18:38 Dose: 4 mg Morphine Sulfate (Morphine) 4 mg IVP Q4H PRN PRN Reason: Pain, severe (8-10) Last Admin: 06/26/17 08:16 Dose: 4 mg Pantoprazole Sodium (Protonix Inj) 40 mg IVP DAILY PETRA Last Admin: 06/27/17 09:21 Dose: 40 mg - Labs Labs: 06/27/17 11:00 06/27/17 16:15 PT 17.3 SECONDS (9.4-12.5) H 06/24/17 11:30 INR 1.49 (0.93-1.08) H 06/24/17 11:30 APTT 22.1 Seconds (25.1-36.5) L 06/24/17 11:30 - Head Exam Head Exam: ATRAUMATIC - Eye Exam Eye Exam: Normal appearance - ENT Exam ENT Exam: Mucous Membranes Dry - Respiratory Exam Respiratory Exam: NORMAL BREATHING PATTERN - Cardiovascular Exam Cardiovascular Exam: +S1, +S2 - GI/Abdominal Exam GI & Abdominal Exam: Normal Bowel Sounds Assessment and Plan (1) Thrombocytopenia Assessment & Plan: liver disease, splenic sequestration ? exacerbated from baseline due to bone marrow suppression from ETOH Status: Acute (2) Splenomegaly Assessment & Plan: likely portal HTN related from cirrhosis Status: Acute (3) Coagulopathy Assessment & Plan: liver disease likely nutritional component Status: Acute
[2017-06-27] MEDS: Valproate 500 MG in Sodium Chloride 0.9% 100 ML IVPB SCH (22:31)
--- NOTE | 2017-06-27 22:37 | PN ---
DATE: 06/27/2017 SUBJECTIVE: Patient was seen today in the CCU 129, bed 4. Patient has no fevers and no chills. PHYSICAL EXAMINATION: VITAL SIGNS: Temperature is 97, blood pressure is 119/70, respiratory rate of 18, heart rate of 60 with O2 saturation of 93. HEENT: Unremarkable. NECK: Supple. LUNGS: Have decreased breath sounds. HEART: Normal S1, S2. ABDOMEN: Soft. LABORATORY DATA: Reveals the patient has a white count that is down to 10,000, hemoglobin of 15, platelets of 26,000 and BUN of 31, creatinine of 0.7. Microbiology is noted, urinalysis is noted, and serology is noted. Microbiology reveals the cultures are negative. REVIEW OF ORDERS: Reveals the patient to be on Zosyn. ASSESSMENT AND PLAN: This is a 66-year-old male, was seen early this morning with a history of hepatitis C, was treated with Harvoni, history of substance abuse including alcohol abuse, was found to be unresponsive per EMT service at home with systemic inflammatory response syndrome, acute encephalopathy, substance abuse, pulseless electrical activity with hypothermia and intermittent vancomycin and Zosyn, questionable pneumonia with negative blood cultures, negative urine cultures, negative nasal methicillin-resistant Staphylococcus aureus. Patient's human immunodeficiency virus is negative. Hepatitis C is undetectable and currently on Zosyn and the procalcitonin from yesterday 0.45, which is improved from 1.89. We will complete a short course of antibiotic, Zosyn. Dr. Powell's note is reviewed. We will follow closely with you. Tello Traore MD
[2017-06-27] MEDS ORDERED: Dextrose 50% SYRINGE Inj (50 ml) ONE (23:11)
[2017-06-27] MEDS ORDERED: Dextrose 50% SYRINGE Inj (50 ml) IVP ONE (23:19)
[2017-06-28] MEDS: Albuterol-Ipratrop 3 mg / 0.5 (3 ml) UD IH SCH ×7 (00:28→23:45)
[2017-06-28] MEDS: Insulin Lispro (humaLOG) LOW Coverage SC SCH ×4 (01:17→17:00)
[2017-06-28] MEDS: Dexmedetomidine 400mcg/100mL 400 MCG/100 ML BOTTLE IV PRN (02:40)
[2017-06-28] MEDS: Piperacillin/Tazobact 3.375 gm 100 ML IVPB SCH ×5 (02:57→18:20)
[2017-06-28 05:08] LABS: ARTERIAL BLOOD GAS HCO3 30.6 mmol/L (21-28); ARTERIAL BLOOD GAS HEMOGLOBIN 14.6 g/dL (11.7-17.4); ARTERIAL BLOOD GAS O2 CAPACITY 19.8 mL/dl (16-24); ARTERIAL BLOOD GAS O2 CONTENT 19.3 ML/dl (15-23); ARTERIAL BLOOD GAS O2 SAT 97.3 % (95-98); ARTERIAL BLOOD GAS PCO2 45 mm/Hg (35-45); ARTERIAL BLOOD GAS PH 7.44 (7.35-7.45)
[2017-06-28 08:04] LABS: ALB/GLOB RATIO 0.9 (1.1-1.8); ALBUMIN 2.9 g/dL (3.0-4.8); ALT/SGPT 46 U/L (7-56); AST/SGOT 62 U/L (17-59); BLOOD UREA NITROGEN 27 mg/dL (7-21); CALCIUM 8.5 mg/dL (8.4-10.5); GFR AFRICAN-AMERICAN > 60; GFR NON-AFRICAN AMERICAN > 60
[2017-06-28] MEDS: DiphenhydrAMINE 50 mg/ml Inj IVP SCH ×3 (08:44→21:30)
[2017-06-28 09:11] LABS: PLATELET COUNT MANUAL 36 K/mm3 (120-450)
--- NOTE | 2017-06-28 09:15 | RAD ---
HISTORY: [facility] COMPARISON: June 27, 2017. FINDINGS: LUNGS: Stable bilateral infiltrates left greater than right. PLEURA: No significant interval change compared to the prior examination(s). CARDIOVASCULAR: No radiographic findings to suggest acute or significant cardiovascular disease. PICC line in satisfactory position OSSEOUS STRUCTURES: No significant abnormalities. VISUALIZED UPPER ABDOMEN: Normal. OTHER FINDINGS: None. IMPRESSION: No acute interval changes. Stable bilateral infiltrates. Stable position of PICC line.
[2017-06-28] MEDS: Valproate 500 MG in Sodium Chloride 0.9% 100 ML IVPB SCH ×2 (10:40→21:29)
--- NOTE | 2017-06-28 13:04 | CP.PCM.PN ---
Subjective - Date & Time of Evaluation Date of Evaluation: 06/28/17 Time of Evaluation: 13:04 - Subjective Subjective: Mr. Monzon was seen and examined at the bedside in ICU. He is awake,alert with episode of confusion time ( 1980), place ( [facility]), person ( [facility]) . He is less agitated today, able to answer some questions. He is able to follow some commands such as field accommodation and squeezing his hand. He remains on bilateral wrist restraints for patient safety. He remains on high flow oxygen and saturating at above 95%. Objective - Vital Signs/Intake and Output Vital Signs (last 24 hours): Temp Pulse Resp BP Pulse Ox 98.6 F 55 L 26 H 177/96 H 97 06/28/17 09:01 06/28/17 09:01 06/28/17 09:01 06/28/17 09:01 06/28/17 09:01 Intake and Output: 06/28/17 06/28/17 06:59 18:59 Intake Total 390 Output Total 1000 Balance -610 - Medications Medications: Current Medications Albuterol/Ipratropium (Duoneb 3 Mg/0.5 Mg (3 Ml) Ud) 3 ml IH [id number] [facility] Last Admin: 06/28/17 04:39 Dose: 3 ml Diphenhydramine HCl (Benadryl) 50 mg IVP Q8 [facility] Last Admin: 06/28/17 08:44 Dose: Not Given Hydralazine HCl (Apresoline) 10 mg IVP Q6 PRN PRN Reason: Systolic Blood Pressure Last Admin: 06/27/17 07:41 Dose: 10 mg Hydrocortisone Sodium Succinate (Solu-Cortef) 50 mg IVP DAILY [facility] Last Admin: 06/28/17 09:24 Dose: 50 mg Propofol (Diprivan) 1,000 mg in 100 mls @ 2.177 mls/hr IV .Q24H PRN; Protocol; 5 MCG/KG/MIN PRN Reason: TITRATE PER MD ORDER Last Titration: 06/25/17 20:36 Dose: Infused Piperacillin Sod/Tazobactam Sod (Zosyn 3.375 In Ns 100ml) 100 mls @ 200 mls/hr IVPB Q6 [facility]RA PRN Reason: Protocol Stop: 07/01/17 12:01 Last Admin: 06/28/17 08:52 Dose: 200 mls/hr Dexmedetomidine HCl (Precedex 400mcg/100ml) 400 mcg in 100 mls @ 3.629 mls/hr IV .Q24H PRN; Protocol; 0.2 MCG/KG/HR PRN Reason: Agitation Last Titration: 06/28/17 05:30 Dose: 0 mcg/kg/hr, 0 mls/hr Valproate Sodium 500 mg/ (Sodium Chloride) 105 mls @ 100 mls/hr IVPB Q12 [facility]RA Last Admin: 06/28/17 10:40 Dose: 100 mls/hr Potassium Chloride (Potassium Chloride 20 Meq/100 Ml) 20 meq in 100 mls @ 50 mls/hr IVPB Q2H PETRA Stop: 06/28/17 14:14 Last Admin: 06/28/17 11:33 Dose: 50 mls/hr Insulin Human Lispro (Humalog Low) 0 units SC Q6 PETRA PRN Reason: Protocol Last Admin: 06/28/17 08:45 Dose: Not Given Lorazepam (Ativan) 4 mg IVP Q4H PRN; Protocol PRN Reason: Anxiety Last Admin: 06/28/17 08:51 Dose: 4 mg Morphine Sulfate (Morphine) 4 mg IVP Q4H PRN PRN Reason: Pain, severe (8-10) Last Admin: 06/26/17 08:16 Dose: 4 mg Pantoprazole Sodium (Protonix Inj) 40 mg IVP DAILY [facility]RA Last Admin: 06/28/17 09:24 Dose: 40 mg - Labs Labs: 06/27/17 11:00 06/28/17 05:50 PT 17.3 SECONDS (9.4-12.5) H 06/24/17 11:30 INR 1.49 (0.93-1.08) H 06/24/17 11:30 APTT 22.1 Seconds (25.1-36.5) L 06/24/17 11:30 - Constitutional Appears: No Acute Distress - Head Exam Head Exam: NORMAL INSPECTION - Neurological Exam Neurological Exam: Awake Neuro motor strength exam: Left Upper Extremity: 4, Right Upper Extremity: 4, Left Lower Extremity: 4, Right Lower Extremity: 4 Additional comments: Alert with episode of confusion. He follow simple commands. Assessment and Plan (1) Altered mental status Assessment & Plan: Case discussed with Dr. Pratt, continue all current medical regimen. Recommend continue depakote 500 mg IV Q 12 for mood stabilizer and benadryl 50 mg IV Q 8 PRN for agitation. Status: Acute
--- NOTE | 2017-06-28 13:44 | CP.CCUPN ---
<Juan Coburn - Last Filed: 06/28/17 13:38> CCU Subjective - Physician Review Subjective (Free Text): Patient seen and evaluated bedside. No acute issues overnight. Patient only oriented self and to place. Unable to obtain full ROS 06/28/17 13:38 CCU Objective - Vital Signs / Intake & Output Vital Signs (Last 4 hours): Vital Signs Pulse 06/28/17 10:00 69 Intake and Output (Last 8hrs): Intake & Output 06/27/17 06/28/17 06/28/17 22:59 06:59 14:59 Intake Total 750 340 Output Total 2850 1000 Balance -2100 -660 Intake: IV 750 340 Right Upper arm 700 300 Oral 0 0 Output: Urine 2850 1000 Urethral (Sharp) 2850 1000 Stool 0 Emesis 0 Other: # Bowel Movements 0 - Physical Exam Head: Positive for: Atraumatic, Normocephalic Conjunctiva: Positive for: Normal Mouth: Positive for: Moist Mucous Membranes Cardiovascular: Positive for: Regular Rate and Rhythm, Normal S1, S2. Negative for: Murmurs Abdomen: Positive for: Normal Bowel Sounds. Negative for: Tenderness, Distention, Peritoneal Signs Genitourinary Male: Negative for: Erythema Upper Extremity: Positive for: Other (intraosseous needle in left tibia) Lower Extremity: Positive for: Normal Inspection Neurological: Negative for: Speech Normal Skin: Positive for: Warm, Dry, Normal Color. Negative for: Rashes Psychiatric: Positive for: Alert. Negative for: Oriented x 3 - Medications Active Medications: Active Medications Generic Name Dose Route Start Last Admin Trade Name Freq PRN Reason Stop Dose Admin Albuterol/Ipratropium 3 ml 06/24/17 19:30 06/28/17 12:30 Duoneb 3 Mg/0.5 Mg (3 Ml) Ud IH 3 ml [id number] PETRA Administration Diphenhydramine HCl 50 mg 06/27/17 14:00 06/28/17 08:44 Benadryl IVP Not Given Q8 PETRA Hydralazine HCl 10 mg 06/27/17 05:45 06/27/17 07:41 Apresoline IVP 10 mg Q6 PRN Administration Systolic Blood Pressure Hydrocortisone Sodium Succinate 50 mg 06/28/17 10:00 06/28/17 09:24 Solu-Cortef IVP 50 mg DAILY PETRA Administration Propofol 1,000 mg in 100 mls @ 2.177 mls/hr 06/23/17 23:57 06/25/17 20:36 Diprivan IV Infused .Q24H PRN Titration TITRATE PER MD ORDER Protocol 5 MCG/KG/MIN Piperacillin Sod/Tazobactam Sod 100 mls @ 200 mls/hr 06/24/17 12:00 06/28/17 08:52 Zosyn 3.375 In Ns 100ml IVPB 07/01/17 12:01 200 mls/hr Q6 PETRA Administration Protocol Dexmedetomidine HCl 400 mcg in 100 mls @ 3.629 mls/hr 06/26/17 00:55 05:30 Precedex 400mcg/100ml IV 0 mcg/kg/hr .Q24H PRN 0 mls/hr Agitation Titration Protocol 0.2 MCG/KG/HR Valproate Sodium 500 mg/ 105 mls @ 100 mls/hr 06/27/17 22:00 06/28/17 10:40 Sodium Chloride IVPB 100 mls/hr Q12 PETRA Administration Potassium Chloride 20 meq in 100 mls @ 50 mls/hr 06/28/17 10:15 06/28/17 11: 33 Potassium Chloride 20 Meq/100 Ml IVPB 06/28/17 14:14 50 mls/hr Q2H PETRA Administration Insulin Human Lispro 0 units 06/24/17 11:24 06/28/17 08:45 Humalog Low SC Not Given Q6 PETRA Protocol Lorazepam 4 mg 06/27/17 18:17 06/28/17 08:51 Ativan IVP 4 mg Q4H PRN Administration Anxiety Protocol Morphine Sulfate 4 mg 06/26/17 07:57 06/26/17 08:16 Morphine IVP 4 mg Q4H PRN Administration Pain, severe (8-10) Pantoprazole Sodium 40 mg 06/24/17 10:00 06/28/17 09:24 Protonix Inj IVP 40 mg DAILY PETRA Administration - Patient Studies Lab Studies: Lab Studies 06/28/17 06/28/17 06/28/17 Range/Units 11:01 08:21 05:50 Manual Plt Count (120-450) K/mm3 Retic Count (0.5-1.5) % pCO2 (35-45) mm/Hg pO2 (80-100) mm/Hg HCO3 (21-28) mmol/L ABG pH (7.35-7.45) ABG Total CO2 (22-28) mmol.L ABG O2 Saturation (95-98) % ABG O2 Content (15-23) ML/dl ABG Base Excess (-2.0-3.0) mmol/L ABG Hemoglobin (11.7-17.4) g/dL ABG Carboxyhemoglobin (0.5-1.5) % POC ABG HHb (Measured) (0-5) % ABG Methemoglobin (0.0-3.0) % ABG O2 Capacity (16-24) mL/dl Hgb O2 Saturation (95.0-98.0) % FiO2 % Sodium 156 H* (132-148) mmol/L Potassium 2.6 L* D (3.6-5.0) mmol/L Chloride 115 H (98-107) mmol/L Carbon Dioxide 31 (21-33) mmol/L Anion Gap 12 (10-20) BUN 27 H (7-21) mg/dL Creatinine 0.8 (0.8-1.5) mg/dl Est GFR ( Amer) > 60 Est GFR (Non-Af Amer) > 60 POC Glucose (mg/dL) 110 95 (65-110) mg/dL Random Glucose 96 (70-110) mg/dL Calcium 8.5 (8.4-10.5) mg/dL Total Bilirubin 3.2 H (0.2-1.3) mg/dL AST 62 H (17-59) U/L ALT 46 (7-56) U/L Alkaline Phosphatase 73 (38-126) U/L Total Protein 6.0 (5.8-8.3) g/dL Albumin 2.9 L (3.0-4.8) g/dL Globulin 3.1 gm/dL Albumin/Globulin Ratio 0.9 L (1.1-1.8) 06/28/17 06/28/17 06/28/17 Range/Units 05:50 05:30 05:01 Manual Plt Count 36 L* (120-450) K/mm3 Retic Count 0.89 (0.5-1.5) % pCO2 45 (35-45) mm/Hg pO2 74.0 L (80-100) mm/Hg HCO3 30.6 H (21-28) mmol/L ABG pH 7.44 (7.35-7.45) ABG Total CO2 32.0 H (22-28) mmol.L ABG O2 Saturation 97.3 (95-98) % ABG O2 Content 19.3 (15-23) ML/dl ABG Base Excess 5.5 H (-2.0-3.0) mmol/L ABG Hemoglobin 14.6 (11.7-17.4) g/dL ABG Carboxyhemoglobin 2.0 H (0.5-1.5) % POC ABG HHb (Measured) 2.6 (0-5) % ABG Methemoglobin 1.4 (0.0-3.0) % ABG O2 Capacity 19.8 (16-24) mL/dl Hgb O2 Saturation 94.0 L (95.0-98.0) % FiO2 50.0 % Sodium (132-148) mmol/L Potassium (3.6-5.0) mmol/L Chloride (98-107) mmol/L Carbon Dioxide (21-33) mmol/L Anion Gap (10-20) BUN (7-21) mg/dL Creatinine (0.8-1.5) mg/dl Est GFR ( Amer) Est GFR (Non-Af Amer) POC Glucose (mg/dL) 99 (65-110) mg/dL Random Glucose (70-110) mg/dL Calcium (8.4-10.5) mg/dL Total Bilirubin (0.2-1.3) mg/dL AST (17-59) U/L ALT (7-56) U/L Alkaline Phosphatase (38-126) U/L Total Protein (5.8-8.3) g/dL Albumin (3.0-4.8) g/dL Globulin gm/dL Albumin/Globulin Ratio (1.1-1.8) 06/28/17 06/28/17 06/28/17 Range/Units 03:27 01:56 01:07 Manual Plt Count (120-450) K/mm3 Retic Count (0.5-1.5) % pCO2 (35-45) mm/Hg pO2 (80-100) mm/Hg HCO3 (21-28) mmol/L ABG pH (7.35-7.45) ABG Total CO2 (22-28) mmol.L ABG O2 Saturation (95-98) % ABG O2 Content (15-23) ML/dl ABG Base Excess (-2.0-3.0) mmol/L ABG Hemoglobin (11.7-17.4) g/dL ABG Carboxyhemoglobin (0.5-1.5) % POC ABG HHb (Measured) (0-5) % ABG Methemoglobin (0.0-3.0) % ABG O2 Capacity (16-24) mL/dl Hgb O2 Saturation (95.0-98.0) % FiO2 % Sodium (132-148) mmol/L Potassium (3.6-5.0) mmol/L Chloride (98-107) mmol/L Carbon Dioxide (21-33) mmol/L Anion Gap (10-20) BUN (7-21) mg/dL Creatinine (0.8-1.5) mg/dl Est GFR ( Amer) Est GFR (Non-Af Amer) POC Glucose (mg/dL) 75 77 78 (65-110) mg/dL Random Glucose (70-110) mg/dL Calcium (8.4-10.5) mg/dL Total Bilirubin (0.2-1.3) mg/dL AST (17-59) U/L ALT (7-56) U/L Alkaline Phosphatase (38-126) U/L Total Protein (5.8-8.3) g/dL Albumin (3.0-4.8) g/dL Globulin gm/dL Albumin/Globulin Ratio (1.1-1.8) 06/27/17 06/27/17 06/27/17 Range/Units 23:50 22:57 19:01 Manual Plt Count (120-450) K/mm3 Retic Count (0.5-1.5) % pCO2 (35-45) mm/Hg pO2 (80-100) mm/Hg HCO3 (21-28) mmol/L ABG pH (7.35-7.45) ABG Total CO2 (22-28) mmol.L ABG O2 Saturation (95-98) % ABG O2 Content (15-23) ML/dl ABG Base Excess (-2.0-3.0) mmol/L ABG Hemoglobin (11.7-17.4) g/dL ABG Carboxyhemoglobin (0.5-1.5) % POC ABG HHb (Measured) (0-5) % ABG Methemoglobin (0.0-3.0) % ABG O2 Capacity (16-24) mL/dl Hgb O2 Saturation (95.0-98.0) % FiO2 % Sodium (132-148) mmol/L Potassium (3.6-5.0) mmol/L Chloride (98-107) mmol/L Carbon Dioxide (21-33) mmol/L Anion Gap (10-20) BUN (7-21) mg/dL Creatinine (0.8-1.5) mg/dl Est GFR ( Amer) Est GFR (Non-Af Amer) POC Glucose (mg/dL) 90 49 L 81 (65-110) mg/dL Random Glucose (70-110) mg/dL Calcium (8.4-10.5) mg/dL Total Bilirubin (0.2-1.3) mg/dL AST (17-59) U/L ALT (7-56) U/L Alkaline Phosphatase (38-126) U/L Total Protein (5.8-8.3) g/dL Albumin (3.0-4.8) g/dL Globulin gm/dL Albumin/Globulin Ratio (1.1-1.8) 06/27/17 Range/Units 16:15 Manual Plt Count (120-450) K/mm3 Retic Count (0.5-1.5) % pCO2 (35-45) mm/Hg pO2 (80-100) mm/Hg HCO3 (21-28) mmol/L ABG pH (7.35-7.45) ABG Total CO2 (22-28) mmol.L ABG O2 Saturation (95-98) % ABG O2 Content (15-23) ML/dl ABG Base Excess (-2.0-3.0) mmol/L ABG Hemoglobin (11.7-17.4) g/dL ABG Carboxyhemoglobin (0.5-1.5) % POC ABG HHb (Measured) (0-5) % ABG Methemoglobin (0.0-3.0) % ABG O2 Capacity (16-24) mL/dl Hgb O2 Saturation (95.0-98.0) % FiO2 % Sodium 151 H (132-148) mmol/L Potassium 3.9 (3.6-5.0) mmol/L Chloride 114 H (98-107) mmol/L Carbon Dioxide 29 (21-33) mmol/L Anion Gap 12 (10-20) BUN 31 H (7-21) mg/dL Creatinine 0.7 L (0.8-1.5) mg/dl Est GFR ( Amer) > 60 Est GFR (Non-Af Amer) > 60 POC Glucose (mg/dL) (65-110) mg/dL Random Glucose 141 H (70-110) mg/dL Calcium 8.4 (8.4-10.5) mg/dL Total Bilirubin (0.2-1.3) mg/dL AST (17-59) U/L ALT (7-56) U/L Alkaline Phosphatase (38-126) U/L Total Protein (5.8-8.3) g/dL Albumin (3.0-4.8) g/dL Globulin gm/dL Albumin/Globulin Ratio (1.1-1.8) Laboratory Results - last 24 hr 06/27/17 06/27/17 06/27/17 16:15 19:01 22:57 Manual Plt Count Retic Count pCO2 pO2 HCO3 ABG pH ABG Total CO2 ABG O2 Saturation ABG O2 Content ABG Base Excess ABG Hemoglobin ABG Carboxyhemoglobin POC ABG HHb (Measured) ABG Methemoglobin ABG O2 Capacity Hgb O2 Saturation FiO2 Sodium 151 H Potassium 3.9 Chloride 114 H Carbon Dioxide 29 Anion Gap 12 BUN 31 H Creatinine 0.7 L Est GFR ( Amer) > 60 Est GFR (Non-Af Amer) > 60 POC Glucose (mg/dL) 81 49 L Random Glucose 141 H Calcium 8.4 Total Bilirubin AST ALT Alkaline Phosphatase Total Protein Albumin Globulin Albumin/Globulin Ratio 06/27/17 06/28/17 06/28/17 23:50 01:07 01:56 Manual Plt Count Retic Count pCO2 pO2 HCO3 ABG pH ABG Total CO2 ABG O2 Saturation ABG O2 Content ABG Base Excess ABG Hemoglobin ABG Carboxyhemoglobin POC ABG HHb (Measured) ABG Methemoglobin ABG O2 Capacity Hgb O2 Saturation FiO2 Sodium Potassium Chloride Carbon Dioxide Anion Gap BUN Creatinine Est GFR ( Amer) Est GFR (Non-Af Amer) POC Glucose (mg/dL) 90 78 77 Random Glucose Calcium Total Bilirubin AST ALT Alkaline Phosphatase Total Protein Albumin Globulin Albumin/Globulin Ratio 06/28/17 06/28/17 06/28/17 03:27 05:01 05:30 Manual Plt Count Retic Count pCO2 45 pO2 74.0 L HCO3 30.6 H ABG pH 7.44 ABG Total CO2 32.0 H ABG O2 Saturation 97.3 ABG O2 Content 19.3 ABG Base Excess 5.5 H ABG Hemoglobin 14.6 ABG Carboxyhemoglobin 2.0 H POC ABG HHb (Measured) 2.6 ABG Methemoglobin 1.4 ABG O2 Capacity 19.8 Hgb O2 Saturation 94.0 L FiO2 50.0 Sodium Potassium Chloride Carbon Dioxide Anion Gap BUN Creatinine Est GFR ( Amer) Est GFR (Non-Af Amer) POC Glucose (mg/dL) 75 99 Random Glucose Calcium Total Bilirubin AST ALT Alkaline Phosphatase Total Protein Albumin Globulin Albumin/Globulin Ratio 06/28/17 06/28/17 06/28/17 05:50 05:50 08:21 Manual Plt Count 36 L* Retic Count 0.89 pCO2 pO2 HCO3 ABG pH ABG Total CO2 ABG O2 Saturation ABG O2 Content ABG Base Excess ABG Hemoglobin ABG Carboxyhemoglobin POC ABG HHb (Measured) ABG Methemoglobin ABG O2 Capacity Hgb O2 Saturation FiO2 Sodium 156 H* Potassium 2.6 L* D Chloride 115 H Carbon Dioxide 31 Anion Gap 12 BUN 27 H Creatinine 0.8 Est GFR ( Amer) > 60 Est GFR (Non-Af Amer) > 60 POC Glucose (mg/dL) 95 Random Glucose 96 Calcium 8.5 Total Bilirubin 3.2 H AST 62 H ALT 46 Alkaline Phosphatase 73 Total Protein 6.0 Albumin 2.9 L Globulin 3.1 Albumin/Globulin Ratio 0.9 L 06/28/17 11:01 Manual Plt Count Retic Count pCO2 pO2 HCO3 ABG pH ABG Total CO2 ABG O2 Saturation ABG O2 Content ABG Base Excess ABG Hemoglobin ABG Carboxyhemoglobin POC ABG HHb (Measured) ABG Methemoglobin ABG O2 Capacity Hgb O2 Saturation FiO2 Sodium Potassium Chloride Carbon Dioxide Anion Gap BUN Creatinine Est GFR ( Amer) Est GFR (Non-Af Amer) POC Glucose (mg/dL) 110 Random Glucose Calcium Total Bilirubin AST ALT Alkaline Phosphatase Total Protein Albumin Globulin Albumin/Globulin Ratio Fingerstick Blood Sugar Results: 110 Review of Systems - Review of Systems Systems not reviewed;Unavailable: Other Review of Systems: unable to obtain ROS Critical Care Progress Note - Nutrition Nutrition: Nutrition Category Date Time Status Liquid Diet [DIET] Diets 06/28/17 Dinner Ordered Assessment/Plan - Assessment and Plan (Free Text) Assessment: 66 y/o male with PMH of Hep C s/p harvoni treatment, EtOh abuse presents s/p cardiac arrest. Patient has been extubated and aggresively diuresed, however patient remains agitated. Patient is not any sedation and receiving Ativan for agitation. Plan: Neuro: -oriented to self and place -Valproic acid -no sedation currently -Ativan PRN -Avoid drips Cardio: -hemodynamically stable -maintain MAP>65 -Hydralazine prn for BP Pulm: -HFNC -maintain SpO2>90% -Taper FiO2 -Chest xray Heme/ID: -Zosyn -cultures negative -Taper steroids -Thrombocytopenia -SCDs for DVT prophylaxis GI: -NPO -Protonix ppx -swallow eval Renal: -replete electrolytes as needed -Strict I's and O's -Maintain euvolemia -free water 200cc [id number] -K repleted Endo: -Maintain euglycemia <Nito Powell - Last Filed: 06/28/17 17:31> CCU Objective - Vital Signs / Intake & Output Vital Signs (Last 4 hours): Vital Signs Temp Pulse Resp BP Pulse Ox 06/28/17 15:46 98.4 F 64 06/28/17 15:38 98.4 F 62 06/28/17 15:35 98.6 F 61 06/28/17 15:34 98.6 F 65 06/28/17 15:30 98.6 F 62 26 H 192/109 H 06/28/17 15:29 98.6 F 66 06/28/17 15:26 98.8 F 71 06/28/17 15:12 98.6 F 72 06/28/17 15:00 98.6 F 62 22 177/116 H 06/28/17 14:58 98.6 F 69 95 06/28/17 14:45 98.6 F 60 95 06/28/17 14:41 98.6 F 67 95 06/28/17 14:30 184/110 H 06/28/17 14:29 98.6 F 66 22 96 06/28/17 14:17 98.6 F 67 92 L 06/28/17 14:16 98.6 F 66 98 06/28/17 14:14 98.6 F 66 98 06/28/17 14:01 98.6 F 60 31 H 06/28/17 14:00 64 176/99 H 06/28/17 13:59 98.6 F 64 21 06/28/17 13:58 98.6 F 55 L 25 H 06/28/17 13:57 98.6 F 60 25 H 06/28/17 13:56 98.6 F 72 22 06/28/17 13:55 98.4 F 60 29 H 06/28/17 13:54 98.4 F 61 25 H 06/28/17 13:53 98.6 F 63 06/28/17 13:52 98.6 F 68 26 H 06/28/17 13:51 98.6 F 78 27 H 06/28/17 13:50 98.6 F 69 25 H 06/28/17 13:49 98.6 F 67 27 H 06/28/17 13:48 98.6 F 71 06/28/17 13:47 98.6 F 78 41 H 06/28/17 13:46 98.6 F 75 18 06/28/17 13:45 98.6 F 72 16 06/28/17 13:44 98.6 F 65 20 06/28/17 13:43 98.6 F 67 30 H 06/28/17 13:42 98.6 F 71 20 06/28/17 13:41 98.6 F 61 06/28/17 13:40 98.6 F 70 17 06/28/17 13:39 98.6 F 68 15 06/28/17 13:38 98.6 F 77 29 H Intake and Output (Last 8hrs): Intake & Output 06/28/17 06/28/17 06/28/17 06:59 14:59 22:59 Intake Total 340 Output Total 1000 Balance -660 Intake: IV 340 Right Upper arm 300 Oral 0 Output: Urine 1000 Urethral (Sharp) 1000 Other: # Bowel Movements 0 - Medications Active Medications: Active Medications Generic Name Dose Route Start Last Admin Trade Name Freq PRN Reason Stop Dose Admin Albuterol/Ipratropium 3 ml 06/24/17 19:30 06/28/17 12:30 Duoneb 3 Mg/0.5 Mg (3 Ml) Ud IH 3 ml [id number] PETRA Administration Diphenhydramine HCl 50 mg 06/27/17 14:00 06/28/17 13:58 Benadryl IVP 50 mg Q8 PETRA Administration Hydralazine HCl 10 mg 06/27/17 05:45 06/27/17 07:41 Apresoline IVP 10 mg Q6 PRN Administration Systolic Blood Pressure Hydrocortisone Sodium Succinate 50 mg 06/28/17 10:00 06/28/17 09:24 Solu-Cortef IVP 50 mg DAILY PETRA Administration Propofol 1,000 mg in 100 mls @ 2.177 mls/hr 06/23/17 23:57 06/25/17 20:36 Diprivan IV Infused .Q24H PRN Titration TITRATE PER MD ORDER Protocol 5 MCG/KG/MIN Piperacillin Sod/Tazobactam Sod 100 mls @ 200 mls/hr 06/24/17 12:00 06/28/17 13:52 Zosyn 3.375 In Ns 100ml IVPB 07/01/17 12:01 Not Given Q6 PETRA Protocol Dexmedetomidine HCl 400 mcg in 100 mls @ 3.629 mls/hr 06/26/17 00:55 05:30 Precedex 400mcg/100ml IV 0 mcg/kg/hr .Q24H PRN 0 mls/hr Agitation Titration Protocol 0.2 MCG/KG/HR Valproate Sodium 500 mg/ 105 mls @ 100 mls/hr 06/27/17 22:00 06/28/17 10:40 Sodium Chloride IVPB 100 mls/hr Q12 PETRA Administration Insulin Human Lispro 0 units 06/24/17 11:24 06/28/17 13:53 Humalog Low SC Not Given Q6 PETRA Protocol Lorazepam 4 mg 06/27/17 18:17 06/28/17 08:51 Ativan IVP 4 mg Q4H PRN Administration Anxiety Protocol Morphine Sulfate 4 mg 06/26/17 07:57 06/26/17 08:16 Morphine IVP 4 mg Q4H PRN Administration Pain, severe (8-10) Pantoprazole Sodium 40 mg 06/24/17 10:00 06/28/17 09:24 Protonix Inj IVP 40 mg DAILY PETRA Administration - Patient Studies Lab Studies: Lab Studies 06/28/17 06/28/17 06/28/17 Range/Units 16:43 11:01 09:20 Manual Plt Count (120-450) K/mm3 Retic Count (0.5-1.5) % pCO2 (35-45) mm/Hg pO2 (80-100) mm/Hg HCO3 (21-28) mmol/L ABG pH (7.35-7.45) ABG Total CO2 (22-28) mmol.L ABG O2 Saturation (95-98) % ABG O2 Content (15-23) ML/dl ABG Base Excess (-2.0-3.0) mmol/L ABG Hemoglobin (11.7-17.4) g/dL ABG Carboxyhemoglobin (0.5-1.5) % POC ABG HHb (Measured) (0-5) % ABG Methemoglobin (0.0-3.0) % ABG O2 Capacity (16-24) mL/dl Hgb O2 Saturation (95.0-98.0) % FiO2 % Sodium (132-148) mmol/L Potassium (3.6-5.0) mmol/L Chloride (98-107) mmol/L Carbon Dioxide (21-33) mmol/L Anion Gap (10-20) BUN (7-21) mg/dL Creatinine (0.8-1.5) mg/dl Est GFR ( Amer) Est GFR (Non-Af Amer) POC Glucose (mg/dL) 141 H 110 (65-110) mg/dL Random Glucose (70-110) mg/dL Calcium (8.4-10.5) mg/dL Total Bilirubin (0.2-1.3) mg/dL AST (17-59) U/L ALT (7-56) U/L Alkaline Phosphatase (38-126) U/L Total Protein (5.8-8.3) g/dL Albumin (3.0-4.8) g/dL Globulin gm/dL Albumin/Globulin Ratio (1.1-1.8) Procalcitonin 0.24 (0.19-0.49) NG/ML 06/28/17 06/28/17 06/28/17 Range/Units 08:21 05:50 05:50 Manual Plt Count 36 L* (120-450) K/mm3 Retic Count 0.89 (0.5-1.5) % pCO2 (35-45) mm/Hg pO2 (80-100) mm/Hg HCO3 (21-28) mmol/L ABG pH (7.35-7.45) ABG Total CO2 (22-28) mmol.L ABG O2 Saturation (95-98) % ABG O2 Content (15-23) ML/dl ABG Base Excess (-2.0-3.0) mmol/L ABG Hemoglobin (11.7-17.4) g/dL ABG Carboxyhemoglobin (0.5-1.5) % POC ABG HHb (Measured) (0-5) % ABG Methemoglobin (0.0-3.0) % ABG O2 Capacity (16-24) mL/dl Hgb O2 Saturation (95.0-98.0) % FiO2 % Sodium 156 H* (132-148) mmol/L Potassium 2.6 L* D (3.6-5.0) mmol/L Chloride 115 H (98-107) mmol/L Carbon Dioxide 31 (21-33) mmol/L Anion Gap 12 (10-20) BUN 27 H (7-21) mg/dL Creatinine 0.8 (0.8-1.5) mg/dl Est GFR ( Amer) > 60 Est GFR (Non-Af Amer) > 60 POC Glucose (mg/dL) 95 (65-110) mg/dL Random Glucose 96 (70-110) mg/dL Calcium 8.5 (8.4-10.5) mg/dL Total Bilirubin 3.2 H (0.2-1.3) mg/dL AST 62 H (17-59) U/L ALT 46 (7-56) U/L Alkaline Phosphatase 73 (38-126) U/L Total Protein 6.0 (5.8-8.3) g/dL Albumin 2.9 L (3.0-4.8) g/dL Globulin 3.1 gm/dL Albumin/Globulin Ratio 0.9 L (1.1-1.8) Procalcitonin (0.19-0.49) NG/ML 06/28/17 06/28/17 06/28/17 Range/Units 05:30 05:01 03:27 Manual Plt Count (120-450) K/mm3 Retic Count (0.5-1.5) % pCO2 45 (35-45) mm/Hg pO2 74.0 L (80-100) mm/Hg HCO3 30.6 H (21-28) mmol/L ABG pH 7.44 (7.35-7.45) ABG Total CO2 32.0 H (22-28) mmol.L ABG O2 Saturation 97.3 (95-98) % ABG O2 Content 19.3 (15-23) ML/dl ABG Base Excess 5.5 H (-2.0-3.0) mmol/L ABG Hemoglobin 14.6 (11.7-17.4) g/dL ABG Carboxyhemoglobin 2.0 H (0.5-1.5) % POC ABG HHb (Measured) 2.6 (0-5) % ABG Methemoglobin 1.4 (0.0-3.0) % ABG O2 Capacity 19.8 (16-24) mL/dl Hgb O2 Saturation 94.0 L (95.0-98.0) % FiO2 50.0 % Sodium (132-148) mmol/L Potassium (3.6-5.0) mmol/L Chloride (98-107) mmol/L Carbon Dioxide (21-33) mmol/L Anion Gap (10-20) BUN (7-21) mg/dL Creatinine (0.8-1.5) mg/dl Est GFR ( Amer) Est GFR (Non-Af Amer) POC Glucose (mg/dL) 99 75 (65-110) mg/dL Random Glucose (70-110) mg/dL Calcium (8.4-10.5) mg/dL Total Bilirubin (0.2-1.3) mg/dL AST (17-59) U/L ALT (7-56) U/L Alkaline Phosphatase (38-126) U/L Total Protein (5.8-8.3) g/dL Albumin (3.0-4.8) g/dL Globulin gm/dL Albumin/Globulin Ratio (1.1-1.8) Procalcitonin (0.19-0.49) NG/ML 06/28/17 06/28/17 06/27/17 Range/Units 01:56 01:07 23:50 Manual Plt Count (120-450) K/mm3 Retic Count (0.5-1.5) % pCO2 (35-45) mm/Hg pO2 (80-100) mm/Hg HCO3 (21-28) mmol/L ABG pH (7.35-7.45) ABG Total CO2 (22-28) mmol.L ABG O2 Saturation (95-98) % ABG O2 Content (15-23) ML/dl ABG Base Excess (-2.0-3.0) mmol/L ABG Hemoglobin (11.7-17.4) g/dL ABG Carboxyhemoglobin (0.5-1.5) % POC ABG HHb (Measured) (0-5) % ABG Methemoglobin (0.0-3.0) % ABG O2 Capacity (16-24) mL/dl Hgb O2 Saturation (95.0-98.0) % FiO2 % Sodium (132-148) mmol/L Potassium (3.6-5.0) mmol/L Chloride (98-107) mmol/L Carbon Dioxide (21-33) mmol/L Anion Gap (10-20) BUN (7-21) mg/dL Creatinine (0.8-1.5) mg/dl Est GFR ( Amer) Est GFR (Non-Af Amer) POC Glucose (mg/dL) 77 78 90 (65-110) mg/dL Random Glucose (70-110) mg/dL Calcium (8.4-10.5) mg/dL Total Bilirubin (0.2-1.3) mg/dL AST (17-59) U/L ALT (7-56) U/L Alkaline Phosphatase (38-126) U/L Total Protein (5.8-8.3) g/dL Albumin (3.0-4.8) g/dL Globulin gm/dL Albumin/Globulin Ratio (1.1-1.8) Procalcitonin (0.19-0.49) NG/ML 06/27/17 06/27/17 Range/Units 22:57 19:01 Manual Plt Count (120-450) K/mm3 Retic Count (0.5-1.5) % pCO2 (35-45) mm/Hg pO2 (80-100) mm/Hg HCO3 (21-28) mmol/L ABG pH (7.35-7.45) ABG Total CO2 (22-28) mmol.L ABG O2 Saturation (95-98) % ABG O2 Content (15-23) ML/dl ABG Base Excess (-2.0-3.0) mmol/L ABG Hemoglobin (11.7-17.4) g/dL ABG Carboxyhemoglobin (0.5-1.5) % POC ABG HHb (Measured) (0-5) % ABG Methemoglobin (0.0-3.0) % ABG O2 Capacity (16-24) mL/dl Hgb O2 Saturation (95.0-98.0) % FiO2 % Sodium (132-148) mmol/L Potassium (3.6-5.0) mmol/L Chloride (98-107) mmol/L Carbon Dioxide (21-33) mmol/L Anion Gap (10-20) BUN (7-21) mg/dL Creatinine (0.8-1.5) mg/dl Est GFR ( Amer) Est GFR (Non-Af Amer) POC Glucose (mg/dL) 49 L 81 (65-110) mg/dL Random Glucose (70-110) mg/dL Calcium (8.4-10.5) mg/dL Total Bilirubin (0.2-1.3) mg/dL AST (17-59) U/L ALT (7-56) U/L Alkaline Phosphatase (38-126) U/L Total Protein (5.8-8.3) g/dL Albumin (3.0-4.8) g/dL Globulin gm/dL Albumin/Globulin Ratio (1.1-1.8) Procalcitonin (0.19-0.49) NG/ML Laboratory Results - last 24 hr 06/27/17 06/27/17 06/27/17 19:01 22:57 23:50 Manual Plt Count Retic Count pCO2 pO2 HCO3 ABG pH ABG Total CO2 ABG O2 Saturation ABG O2 Content ABG Base Excess ABG Hemoglobin ABG Carboxyhemoglobin POC ABG HHb (Measured) ABG Methemoglobin ABG O2 Capacity Hgb O2 Saturation FiO2 Sodium Potassium Chloride Carbon Dioxide Anion Gap BUN Creatinine Est GFR ( Amer) Est GFR (Non-Af Amer) POC Glucose (mg/dL) 81 49 L 90 Random Glucose Calcium Total Bilirubin AST ALT Alkaline Phosphatase Total Protein Albumin Globulin Albumin/Globulin Ratio Procalcitonin 06/28/17 06/28/17 06/28/17 01:07 01:56 03:27 Manual Plt Count Retic Count pCO2 pO2 HCO3 ABG pH ABG Total CO2 ABG O2 Saturation ABG O2 Content ABG Base Excess ABG Hemoglobin ABG Carboxyhemoglobin POC ABG HHb (Measured) ABG Methemoglobin ABG O2 Capacity Hgb O2 Saturation FiO2 Sodium Potassium Chloride Carbon Dioxide Anion Gap BUN Creatinine Est GFR ( Amer) Est GFR (Non-Af Amer) POC Glucose (mg/dL) 78 77 75 Random Glucose Calcium Total Bilirubin AST ALT Alkaline Phosphatase Total Protein Albumin Globulin Albumin/Globulin Ratio Procalcitonin 06/28/17 06/28/17 06/28/17 05:01 05:30 05:50 Manual Plt Count 36 L* Retic Count 0.89 pCO2 45 pO2 74.0 L HCO3 30.6 H ABG pH 7.44 ABG Total CO2 32.0 H ABG O2 Saturation 97.3 ABG O2 Content 19.3 ABG Base Excess 5.5 H ABG Hemoglobin 14.6 ABG Carboxyhemoglobin 2.0 H POC ABG HHb (Measured) 2.6 ABG Methemoglobin 1.4 ABG O2 Capacity 19.8 Hgb O2 Saturation 94.0 L FiO2 50.0 Sodium Potassium Chloride Carbon Dioxide Anion Gap BUN Creatinine Est GFR ( Amer) Est GFR (Non-Af Amer) POC Glucose (mg/dL) 99 Random Glucose Calcium Total Bilirubin AST ALT Alkaline Phosphatase Total Protein Albumin Globulin Albumin/Globulin Ratio Procalcitonin 06/28/17 06/28/17 06/28/17 05:50 08:21 09:20 Manual Plt Count Retic Count pCO2 pO2 HCO3 ABG pH ABG Total CO2 ABG O2 Saturation ABG O2 Content ABG Base Excess ABG Hemoglobin ABG Carboxyhemoglobin POC ABG HHb (Measured) ABG Methemoglobin ABG O2 Capacity Hgb O2 Saturation FiO2 Sodium 156 H* Potassium 2.6 L* D Chloride 115 H Carbon Dioxide 31 Anion Gap 12 BUN 27 H Creatinine 0.8 Est GFR ( Amer) > 60 Est GFR (Non-Af Amer) > 60 POC Glucose (mg/dL) 95 Random Glucose 96 Calcium 8.5 Total Bilirubin 3.2 H AST 62 H ALT 46 Alkaline Phosphatase 73 Total Protein 6.0 Albumin 2.9 L Globulin 3.1 Albumin/Globulin Ratio 0.9 L Procalcitonin 0.24 06/28/17 06/28/17 11:01 16:43 Manual Plt Count Retic Count pCO2 pO2 HCO3 ABG pH ABG Total CO2 ABG O2 Saturation ABG O2 Content ABG Base Excess ABG Hemoglobin ABG Carboxyhemoglobin POC ABG HHb (Measured) ABG Methemoglobin ABG O2 Capacity Hgb O2 Saturation FiO2 Sodium Potassium Chloride Carbon Dioxide Anion Gap BUN Creatinine Est GFR ( Amer) Est GFR (Non-Af Amer) POC Glucose (mg/dL) 110 141 H Random Glucose Calcium Total Bilirubin AST ALT Alkaline Phosphatase Total Protein Albumin Globulin Albumin/Globulin Ratio Procalcitonin Critical Care Progress Note - Nutrition Nutrition: Nutrition Category Date Time Status Liquid Diet [DIET] Diets 06/28/17 Dinner Ordered Attending/Attestation - Attestation I have personally seen and examined this patient.: Yes I have fully participated in the care of the patient.: Yes I have reviewed all pertinent clinical information: Yes Notes (Text): 06/28/17 17:28 66 yo after PEA arrest due to ?opiates overdose, successfully extubated 2 days ago, now in delirium (ETOH withdrawal, ICU delirium). Requires ativan prn, but appears a bit more lucid today. able to drink and eat. Na rising, free water PO ordered-->patient mostly able to follow commands even though confused. Also on depakote q12h. aggressively supplementing K-->will repeat BMP. Off of sedation drips. dvt/gi prophylaxis ccm time 40 min
--- NOTE | 2017-06-28 14:33 | PN ---
DATE: LOCATION: ICU, bed 4. SUBJECTIVE: The patient is more awake and alert today. He is still combative, he is still on 4-point restraints. He is on nasal oxygen. He is having no shortness of breath, no complaints. He has stable bilateral infiltrates on his chest x-ray, left greater than right. He also is still hypernatremic and hypokalemic. He is being replaced. He is still being hydrated. We are going to start with clear liquid diet today. PHYSICAL EXAMINATION: VITAL SIGNS: Stable. He is afebrile today. He is still somewhat hypertensive with blood pressure 176/96. CHEST: Shows rhonchi in all lung pulido, but decreased from the prior day. ABDOMEN: Soft. EXTREMITIES: Without cyanosis, clubbing, or edema. There is less swelling. LABORATORY DATA: His H and H are within normal limits. FINAL IMPRESSION: He is status post cardiac arrest, overdosed with opiates and cannabis, hypothermia, acute respiratory failure, severe change in mental status, confusion, agitation, history of cirrhosis and hepatitis C, history of esophageal varices in the past. PLAN: To continue treatment of agitation and confusion. Continue with blood pressure control and replace potassium. We will start to wean his diuretic and start hydration. The patient is also on IV antibiotics and plan is to continue and follow him clinically. Bg Hernandez MD
[2017-06-28 19:51] LABS: ALBUMIN 2.9 g/dL (3.0-4.8); ALT/SGPT 47 U/L (7-56); AST/SGOT 70 U/L (17-59); BLOOD UREA NITROGEN 21 mg/dL (7-21); CALCIUM 8.1 mg/dL (8.4-10.5); GFR AFRICAN-AMERICAN > 60; GFR NON-AFRICAN AMERICAN > 60
--- NOTE | 2017-06-28 21:26 | CP.PCM.PN ---
Subjective - Date & Time of Evaluation Date of Evaluation: 06/28/17 Time of Evaluation: 18:00 - Subjective Subjective: Confused but able to converse Objective - Vital Signs/Intake and Output Vital Signs (last 24 hours): Temp Pulse Resp BP Pulse Ox 98.8 F 69 20 179/106 H 98 06/28/17 19:27 06/28/17 19:31 06/28/17 19:27 06/28/17 19:31 06/28/17 19:27 Intake and Output: 06/28/17 06/29/17 18:59 06:59 Intake Total 650 Output Total 2350 Balance -1700 - Medications Medications: Current Medications Albuterol/Ipratropium (Duoneb 3 Mg/0.5 Mg (3 Ml) Ud) 3 ml IH [id number] [facility] Last Admin: 06/28/17 19:45 Dose: 3 ml Diphenhydramine HCl (Benadryl) 50 mg IVP Q8 [facility] Last Admin: 06/28/17 13:58 Dose: 50 mg Hydralazine HCl (Apresoline) 10 mg IVP Q6 PRN PRN Reason: Systolic Blood Pressure Last Admin: 06/28/17 19:31 Dose: 10 mg Hydrocortisone Sodium Succinate (Solu-Cortef) 50 mg IVP DAILY [facility] Last Admin: 06/28/17 09:24 Dose: 50 mg Propofol (Diprivan) 1,000 mg in 100 mls @ 2.177 mls/hr IV .Q24H PRN; Protocol; 5 MCG/KG/MIN PRN Reason: TITRATE PER MD ORDER Last Titration: 06/25/17 20:36 Dose: Infused Piperacillin Sod/Tazobactam Sod (Zosyn 3.375 In Ns 100ml) 100 mls @ 200 mls/hr IVPB Q6 [facility]RA PRN Reason: Protocol Stop: 07/01/17 12:01 Last Admin: 06/28/17 18:20 Dose: 200 mls/hr Dexmedetomidine HCl (Precedex 400mcg/100ml) 400 mcg in 100 mls @ 3.629 mls/hr IV .Q24H PRN; Protocol; 0.2 MCG/KG/HR PRN Reason: Agitation Last Titration: 06/28/17 05:30 Dose: 0 mcg/kg/hr, 0 mls/hr Valproate Sodium 500 mg/ (Sodium Chloride) 105 mls @ 100 mls/hr IVPB Q12 [facility] Last Admin: 06/28/17 10:40 Dose: 100 mls/hr Potassium Chloride (Potassium Chloride 20 Meq/100 Ml) 20 meq in 100 mls @ 50 mls/hr IVPB Q2H [facility] Stop: 06/28/17 21:44 Last Admin: 06/28/17 19:05 Dose: 50 mls/hr Insulin Human Lispro (Humalog Low) 0 units SC Q6 [facility] PRN Reason: Protocol Last Admin: 06/28/17 17:00 Dose: Not Given Lorazepam (Ativan) 4 mg IVP Q4H PRN; Protocol PRN Reason: Anxiety Last Admin: 06/28/17 08:51 Dose: 4 mg Morphine Sulfate (Morphine) 4 mg IVP Q4H PRN PRN Reason: Pain, severe (8-10) Last Admin: 06/26/17 08:16 Dose: 4 mg Pantoprazole Sodium (Protonix Inj) 40 mg IVP DAILY [facility] Last Admin: 06/28/17 09:24 Dose: 40 mg - Labs Labs: 06/27/17 11:00 06/28/17 19:15 PT 17.3 SECONDS (9.4-12.5) H 06/24/17 11:30 INR 1.49 (0.93-1.08) H 06/24/17 11:30 APTT 22.1 Seconds (25.1-36.5) L 06/24/17 11:30 - Head Exam Head Exam: ATRAUMATIC - Eye Exam Eye Exam: Normal appearance - ENT Exam ENT Exam: Mucous Membranes Dry - Respiratory Exam Respiratory Exam: NORMAL BREATHING PATTERN - Cardiovascular Exam Cardiovascular Exam: +S1, +S2 - GI/Abdominal Exam GI & Abdominal Exam: Normal Bowel Sounds Assessment and Plan (1) Thrombocytopenia Assessment & Plan: liver disease, splenic sequestration ? exacerbated from baseline due to bone marrow suppression from ETOH slightly improved Status: Acute (2) Splenomegaly Assessment & Plan: likely portal HTN related from cirrhosis Status: Acute (3) Coagulopathy Assessment & Plan: liver disease likely nutritional component Status: Acute
--- NOTE | 2017-06-28 21:50 | PN ---
DATE: 06/28/2017 LOCATION: Patient in CCU 129, bed 4. REASON FOR CONSULTATION: Cardiac evaluation, status post CPR, loss of consciousness. Patient was intubated, now successfully extubated. SUBJECTIVE: Patient is still combative and confused, but he is more alert today. Denies chest pain, shortness of breath, or palpitations. Patient in restraints because of confusion and agitation. PHYSICAL EXAMINATION VITAL SIGNS: Blood pressure 162/84 this morning, respirations 23, pulse 64, temperature 98.4. HEENT: Head is normocephalic. Eyes, pupils are normal. Conjunctivae are normal. NECK: JVP low. Carotids are equal. THORAX: AP diameter normal. LUNGS: No significant rales. CARDIOVASCULAR: S1 and S2. ABDOMEN: Soft, no tenderness, no organomegaly. EXTREMITIES: No clubbing. No cyanosis. LABORATORY DATA: Shows WBC 10.0, hemoglobin 15.7, hematocrit 45.3, platelets 26. Prothrombin time 17.3 with INR 1.49. PTT 22.1 on 06/24/2017. Sodium 156, potassium 2.6, BUN 27, creatinine 0.8, random sugar 141, total bilirubin 3.2, AST 62, ALT 46. Chest x-ray showed stable bilateral infiltrates, left more than right. DIAGNOSES: Status post cardiopulmonary resuscitation, pulseless electric activity status post intubation and successful extubation. Initial toxicology positive for opioid and cannabinoids. Maximum troponin 0.4, maybe related to CPR. Hypernatremia, renal dysfunction, hypokalemia, thrombocytopenia, change in mental status, confusion, agitation, history of cirrhosis of liver and hepatitis C, history of esophageal varices in the past. PLAN: patient getting potassium therapy because potassium was persistently low, still has hypernatremia. Patient on DuoNeb nebulizer therapy, piperacillin and tazobactam 100 mL IV every 6 hours, hydrocortisone 50 mg IV daily, Protonix 40 IV daily. Patient getting dexmedetomidine drip. Echo done on this admission showed normal left ventricular function, left ventricular hypertrophy, moderate calcification in aortic valve, possible bicuspid aortic valve, possible mild valvular aortic stenosis. No significant mitral regurgitation. No significant tricuspid regurgitation. Probably patient's unconsciousness and event of cardiorespiratory arrest probably related to maybe intake of narcotics; anyhow, etiology is not very clear, but unlikely coronary event because patient's LV function on echo is normal. We will follow with you. Remy Ellis MD
--- NOTE | 2017-06-28 22:10 | CP.PCM.PN ---
Subjective - Date & Time of Evaluation Date of Evaluation: 06/28/17 Time of Evaluation: 09:20 - Subjective Subjective: No fevers, not in distress. Objective - Vital Signs/Intake and Output Vital Signs (last 24 hours): Temp Pulse Resp BP Pulse Ox 98.4 F 50 L 22 119/59 L 94 L 06/28/17 05:30 06/28/17 05:30 06/28/17 05:30 06/28/17 05:30 06/28/17 05:30 Intake and Output: 06/28/17 06/28/17 06:59 18:59 Intake Total 90 Balance 90 - Medications Medications: Current Medications Albuterol/Ipratropium (Duoneb 3 Mg/0.5 Mg (3 Ml) Ud) 3 ml IH [id number] [facility] Last Admin: 06/28/17 04:39 Dose: 3 ml Diphenhydramine HCl (Benadryl) 50 mg IVP Q8 [facility] Last Admin: 06/28/17 08:44 Dose: Not Given Hydralazine HCl (Apresoline) 10 mg IVP Q6 PRN PRN Reason: Systolic Blood Pressure Last Admin: 06/27/17 07:41 Dose: 10 mg Hydrocortisone Sodium Succinate (Solu-Cortef) 50 mg IVP DAILY [facility] Propofol (Diprivan) 1,000 mg in 100 mls @ 2.177 mls/hr IV .Q24H PRN; Protocol; 5 MCG/KG/MIN PRN Reason: TITRATE PER MD ORDER Last Titration: 06/25/17 20:36 Dose: Infused Piperacillin Sod/Tazobactam Sod (Zosyn 3.375 In Ns 100ml) 100 mls @ 200 mls/hr IVPB Q6 [facility] PRN Reason: Protocol Stop: 07/01/17 12:01 Last Admin: 06/28/17 02:57 Dose: 200 mls/hr Dexmedetomidine HCl (Precedex 400mcg/100ml) 400 mcg in 100 mls @ 3.629 mls/hr IV .Q24H PRN; Protocol; 0.2 MCG/KG/HR PRN Reason: Agitation Last Titration: 06/28/17 05:30 Dose: 0 mcg/kg/hr, 0 mls/hr Valproate Sodium 500 mg/ (Sodium Chloride) 105 mls @ 100 mls/hr IVPB Q12 [facility] Last Admin: 06/27/17 22:31 Dose: 100 mls/hr Insulin Human Lispro (Humalog Low) 0 units SC Q6 [facility] PRN Reason: Protocol Last Admin: 06/28/17 08:45 Dose: Not Given Lorazepam (Ativan) 4 mg IVP Q4H PRN; Protocol PRN Reason: Anxiety Last Admin: 06/28/17 01:24 Dose: 4 mg Morphine Sulfate (Morphine) 4 mg IVP Q4H PRN PRN Reason: Pain, severe (8-10) Last Admin: 06/26/17 08:16 Dose: 4 mg Pantoprazole Sodium (Protonix Inj) 40 mg IVP DAILY [facility] Last Admin: 06/27/17 09:21 Dose: 40 mg - Labs Labs: 06/27/17 11:00 06/28/17 05:50 PT 17.3 SECONDS (9.4-12.5) H 06/24/17 11:30 INR 1.49 (0.93-1.08) H 06/24/17 11:30 APTT 22.1 Seconds (25.1-36.5) L 06/24/17 11:30 - Constitutional Appears: Chronically Ill - Head Exam Head Exam: NORMAL INSPECTION - ENT Exam ENT Exam: Mucous Membranes Moist - Neck Exam Neck Exam: Meningismus - Respiratory Exam Respiratory Exam: Decreased Breath Sounds - Cardiovascular Exam Cardiovascular Exam: +S1, +S2 - GI/Abdominal Exam GI & Abdominal Exam: Soft. absent: Tenderness Assessment and Plan - Assessment and Plan (Free Text) Plan: Assessment Systemic Inflammatory Response Syndrome, consider due to acute encephalopathy from substance use with pulseless electrical activity S/P ACLS and resuscitation now S/P VDRF and hypothermia, R/O sepsis from HCAP chronic active Hepatitis C S/P treatment with [facility] history of substance abuse including ethanol abuse Plan continue Zosyn day 5 to complete 4-7 days of therapy
[2017-06-28] MEDS: Morphine 4 mg/ml ISec IVP PRN (23:10)
[2017-06-29 01:09] LABS: BLOOD UREA NITROGEN 18 mg/dL (7-21); CALCIUM 8.2 mg/dL (8.4-10.5); GFR AFRICAN-AMERICAN > 60; GFR NON-AFRICAN AMERICAN > 60
[2017-06-29] MEDS: Albuterol-Ipratrop 3 mg / 0.5 (3 ml) UD IH SCH ×6 (04:00→21:45)
[2017-06-29] MEDS: DiphenhydrAMINE 50 mg/ml Inj IVP SCH ×3 (05:22→22:13)
[2017-06-29] MEDS: Piperacillin/Tazobact 3.375 gm 100 ML IVPB SCH ×3 (05:25→13:33)
[2017-06-29] MEDS: Insulin Lispro (humaLOG) LOW Coverage SC SCH ×4 (06:00→17:20)
[2017-06-29 06:01] LABS: ARTERIAL BLOOD GAS HCO3 28.6 mmol/L (21-28); ARTERIAL BLOOD GAS HEMOGLOBIN 16.1 g/dL (11.7-17.4); ARTERIAL BLOOD GAS O2 CAPACITY 21.9 mL/dl (16-24); ARTERIAL BLOOD GAS O2 CONTENT 21.6 ML/dl (15-23); ARTERIAL BLOOD GAS O2 SAT 98.5 % (95-98); ARTERIAL BLOOD GAS PCO2 35 mm/Hg (35-45); ARTERIAL BLOOD GAS PH 7.52 (7.35-7.45); ARTERIAL BLOOD GAS TCO2 29.7 mmol.L (22-28)
[2017-06-29 08:26] LABS: HEMOGLOBIN 15.5 g/dL (14.0-18.0); MEAN CELL VOLUME 91.6 fl (80.0-105.0); MEAN CORPUSCULAR HEMOGLOBIN 31.8 pg (25.0-35.0); MEAN CORPUSCULAR HGB CONC 34.8 g/dl (31.0-37.0); RBC 4.87 10^6/uL (3.5-6.1); RED CELL DISTRIBUTION WIDTH 14.1 % (11.5-14.5); WHITE BLOOD COUNT 11.2 10^3/ul (4.5-11.0)
[2017-06-29 08:39] LABS: ALB/GLOB RATIO 0.9 (1.1-1.8); ALT/SGPT 50 U/L (7-56); AST/SGOT 62 U/L (17-59); BLOOD UREA NITROGEN 16 mg/dL (7-21); CALCIUM 8.4 mg/dL (8.4-10.5); GFR AFRICAN-AMERICAN > 60; GFR NON-AFRICAN AMERICAN > 60
[2017-06-29] MEDS: Valproate 500 MG in Sodium Chloride 0.9% 100 ML IVPB SCH ×2 (09:24→22:12)
--- NOTE | 2017-06-29 10:31 | RAD ---
HISTORY: Pneumonia. COMPARISON: June 28, 2017. FINDINGS: LUNGS: Improved aeration of the lungs. PLEURA: No significant pleural effusion identified, no pneumothorax apparent. CARDIOVASCULAR: PICC line in satisfactory position OSSEOUS STRUCTURES: No significant abnormalities. VISUALIZED UPPER ABDOMEN: Normal. OTHER FINDINGS: None. IMPRESSION: Interval improvement in bilateral infiltrates identified on the most recent examination, June 28, 2017.
[2017-06-29] MEDS ORDERED: Potassium Chloride 40 mEq/30 ml LIQ UD PO ONE (11:43)
--- NOTE | 2017-06-29 12:22 | PN ---
DATE: 06/29/2017 EMPLOYEE BENEFITS DIRECTOR NOTE LOCATION: [facility]. SUBJECTIVE: The patient is resting in bed, still quite confused with the diagnosis of altered mental status/encephalopathy. The patient has no complaints of obvious pain or congestion. No nauseousness or vomiting. No significant cough or shortness of breath. No abdominal pain. No fever. PHYSICAL EXAMINATION: VITAL SIGNS: Physical exam note that his temperature is 99.1, his pulse is 77, respirations are 30 and his BP is 143/88. O2 saturation is 100%. SKIN: Warm and dry. HEENT: Head atraumatic, normocephalic. Eyes reactive to light. Ear, nose and throat seemed to be within normal limits. NECK: Supple. No JVD. No thyroid enlargement. No lymph nodes. HEART: Has regular rate and rhythm. Normal S1, S2. LUNGS: Reveal good breath sounds bilaterally, but does have mild rhonchi at the bases. ABDOMEN: Soft. Decreased bowel sounds. GENITALIA AND RECTAL: Deferred. MUSCULOSKELETAL: No joint deformities. EXTREMITIES: Reveal trace lower extremity edema. NEUROLOGICAL: He is confused with some altered mental status. LABORATORY DATA: As far as laboratories, his white count is 11.2, hemoglobin is 15.5, hematocrit 44.6 with platelets of 55,000. Arterial blood gas reveals a pH of 7.25, pCO2 of 35, pO2 of 85. This is on a high flow of 50%. His sodium is 150, potassium 3.2, chloride 110, CO2 of 33 with BUN of 16, creatinine of 0.7 and a glucose of 98. As far as his chest x-ray, there may be right middle lobe infiltrative process, possible left lower lobe as well. IMPRESSION As far as my impression, this patient has respiratory failure requiring high-flow O2 support, possible right middle lobe, right lower lobe infiltrates/pneumonia. The patient presented with hypochromia and opioid overdose secondary to substance abuse. He has encephalopathy with altered mental status, possible sepsis and hypernatremia and hypokalemia. The patient has a history of chronic active hepatitis and is noted to have thrombocytopenia. PLAN: As far as our plan, we will continue with O2 support via the high-flow. Follow his arterial blood gas and chest x-ray closely. The patient is on DuoNeb as a bronchodilator and is on Protonix as well as Solu-Cortef. He is getting Zosyn as far as antibiotics. We will continue to follow closely and treat aggressively along with the other consultants and the primary care doctor. Raymond Martinez MD
--- NOTE | 2017-06-29 17:43 | PN ---
DATE: 06/29/2017 LOCATION: The patient in CCU 129, bed 4. REASON FOR CONSULTATION AND FOLLOWUP: Cardiac evaluation, status post CPR, loss of consciousness. The patient was intubated and now successfully extubated. SUBJECTIVE: The patient is still confused. He is in restraints. Apparently, no respiratory distress. OBJECTIVE: VITAL SIGNS: Show blood pressure 168/98, respirations 24, pulse 75, and temperature 98.6. LUNGS: No significant rales. CARDIOVASCULAR: S1 and S2. ABDOMEN: Soft. No tenderness. No organomegaly. EXTREMITIES: No clubbing, no cyanosis. LABORATORY DATA: WBC 11.2, hemoglobin 15.5, hematocrit 44.6, and platelets 37. Sodium 150, potassium 3.2. BUN 16, creatinine 0.7. Total bilirubin 3.9. AST 62, ALT 50. DIAGNOSES: Status post cardiopulmonary resuscitation, pulseless electric activity, status post intubation and successful extubation; initial toxicology positive for opioid and cannabinoids; maximum troponin 0.4, maybe related to cardiopulmonary resuscitation; hypernatremia; renal dysfunction; hypokalemia; thrombocytopenia; change in mental status; confused; agitated; history of cirrhosis of liver and hepatitis C; history of esophageal varices in the past. Echocardiogram done on this admission showed normal left ventricular function, left ventricular hypertrophy, moderate calcification in the aortic valve, possible bicuspid aortic valve, possible mild valvular aortic stenosis. No significant mitral regurgitation, no significant tricuspid regurgitation. PLAN: Probably, the patient's initial episode not related to coronary event. LV is normal. Cardiorespiratory arrest probably related to maybe intake of narcotics. Anyhow, etiology is not very clear. Still, potassium is low. We will give K therapy. The patient got 40 mEq of potassium p.o. once. We will give 2 K-riders also and we will follow lab. The patient is on hydrocortisone 50 IV daily, valproate IV every 12 hours. The patient is on propofol IV, albuterol, ipratropium, nebulizer therapy, dexmedetomidine drip 2 mcg/kg/hour. We will follow with you. Remy Ellis MD
--- NOTE | 2017-06-29 21:03 | CP.PCM.PN ---
Subjective - Date & Time of Evaluation Date of Evaluation: 06/29/17 Time of Evaluation: 18:00 - Subjective Subjective: Restless in bed Objective - Vital Signs/Intake and Output Vital Signs (last 24 hours): Temp Pulse Resp BP Pulse Ox 98.1 F 69 19 145/94 H 100 06/29/17 18:59 06/29/17 18:59 06/29/17 18:59 06/29/17 19:00 06/29/17 18:59 Intake and Output: 06/29/17 06/30/17 18:59 06:59 Intake Total 1520 Output Total 1550 Balance -30 - Medications Medications: Current Medications Albuterol/Ipratropium (Duoneb 3 Mg/0.5 Mg (3 Ml) Ud) 3 ml IH [id number] [facility] Last Admin: 06/29/17 16:30 Dose: Not Given Diphenhydramine HCl (Benadryl) 50 mg IVP Q8 [facility] Last Admin: 06/29/17 14:03 Dose: 50 mg Hydralazine HCl (Apresoline) 10 mg IVP Q6 PRN PRN Reason: Systolic Blood Pressure Last Admin: 06/29/17 15:03 Dose: 10 mg Hydrocortisone Sodium Succinate (Solu-Cortef) 50 mg IVP DAILY [facility] Last Admin: 06/29/17 09:25 Dose: 50 mg Propofol (Diprivan) 1,000 mg in 100 mls @ 2.177 mls/hr IV .Q24H PRN; Protocol; 5 MCG/KG/MIN PRN Reason: TITRATE PER MD ORDER Last Titration: 06/25/17 20:36 Dose: Infused Dexmedetomidine HCl (Precedex 400mcg/100ml) 400 mcg in 100 mls @ 3.629 mls/hr IV .Q24H PRN; Protocol; 0.2 MCG/KG/HR PRN Reason: Agitation Last Titration: 06/28/17 05:30 Dose: 0 mcg/kg/hr, 0 mls/hr Valproate Sodium 500 mg/ (Sodium Chloride) 105 mls @ 100 mls/hr IVPB Q12 [facility] Last Admin: 06/29/17 09:24 Dose: 100 mls/hr Insulin Human Lispro (Humalog Low) 0 units SC Q6 [facility] PRN Reason: Protocol Last Admin: 06/29/17 17:20 Dose: Not Given Lorazepam (Ativan) 4 mg IVP Q4H PRN; Protocol PRN Reason: Anxiety Last Admin: 06/29/17 19:53 Dose: 4 mg Morphine Sulfate (Morphine) 4 mg IVP Q4H PRN PRN Reason: Pain, severe (8-10) Last Admin: 06/28/17 23:10 Dose: 4 mg Pantoprazole Sodium (Protonix Inj) 40 mg IVP DAILY [facility] Last Admin: 06/29/17 09:25 Dose: 40 mg - Labs Labs: 06/29/17 08:00 06/29/17 08:00 PT 17.3 SECONDS (9.4-12.5) H 06/24/17 11:30 INR 1.49 (0.93-1.08) H 06/24/17 11:30 APTT 22.1 Seconds (25.1-36.5) L 06/24/17 11:30 - Head Exam Head Exam: ATRAUMATIC - Eye Exam Eye Exam: Normal appearance - ENT Exam ENT Exam: Mucous Membranes Dry - Respiratory Exam Respiratory Exam: NORMAL BREATHING PATTERN - Cardiovascular Exam Cardiovascular Exam: +S1, +S2 - GI/Abdominal Exam GI & Abdominal Exam: Normal Bowel Sounds Assessment and Plan (1) Thrombocytopenia Assessment & Plan: liver disease, splenic sequestration ? exacerbated from baseline due to bone marrow suppression from ETOH slightly improved Status: Acute (2) Splenomegaly Assessment & Plan: likely portal HTN related from cirrhosis Status: Acute (3) Coagulopathy Assessment & Plan: liver disease likely nutritional component Status: Acute
[2017-06-30] MEDS: Albuterol-Ipratrop 3 mg / 0.5 (3 ml) UD IH SCH ×6 (00:05→21:53)
[2017-06-30] MEDS: Insulin Lispro (humaLOG) LOW Coverage SC SCH ×5 (00:39→23:00)
--- NOTE | 2017-06-30 00:58 | PN ---
DATE: SUBJECTIVE: The patient is in the ICU, 129, bed 4. The patient seen this morning, and no fevers and chills reported. PHYSICAL EXAMINATION: VITAL SIGNS: Temperature is 98, blood pressure is 140/90, respiratory rate of 19, heart rate of 76. HEENT: Unremarkable. NECK: Supple. LUNGS: Have decreased breath sounds. HEART: Normal S1 and S2. ABDOMEN: Soft, nontender. LABORATORY DATA: Reveals a white count of 11,200, hemoglobin of 15, platelets are low at 37. Chemistries reveals a BUN of 16 and creatinine 0.7. Urinalysis is noted, and toxicology is noted. Serology, RPR is negative. Hepatitis C RNA is not detected. Chest x-ray is improved aeration. Review of orders reveals the patient is now off of antibiotics. ASSESSMENT AND PLAN: This is a 66-year-old male seen early this morning in 129, bed 4, with sepsis with systemic inflammatory response syndrome, with acute encephalopathy from substance and pulseless electrical activity status post advanced cardiac life support and resuscitation, status post ventilatory-dependant respiratory failure, hypothermia, and day #6 of Zosyn which has been discontinued by pharmacy, currently off of antibiotics. We will follow closely with you. The patient is at risk for developing nosocomial infections. Tello Traore MD
[2017-06-30] MEDS: DiphenhydrAMINE 50 mg/ml Inj IVP SCH ×3 (05:58→21:33)
--- NOTE | 2017-06-30 06:05 | CP.PCM.PN ---
Subjective - Date & Time of Evaluation Date of Evaluation: 06/30/17 Time of Evaluation: 06:05 - Subjective Subjective: Mr. Monzon was seen and examined at the bedside in ICU. He is awake,alert with episode of confusion time ( 1980), place ( [facility]), person ( [facility]) . He is less agitated, able to answer some questions. He is able to participate in a conversation, able to follow some commands such as field accommodation and squeezing his hand. He remains on bilateral wrist restraints for patient safety. He remains on high flow oxygen and saturating at above 95%.There was no untoward events overnight. Objective - Vital Signs/Intake and Output Vital Signs (last 24 hours): Temp Pulse Resp BP Pulse Ox 98.7 F 69 16 151/87 H 100 06/30/17 04:00 06/30/17 05:00 06/30/17 05:00 06/30/17 05:00 06/30/17 05:00 Intake and Output: 06/29/17 06/30/17 18:59 06:59 Intake Total 1520 Output Total 1550 Balance -30 - Medications Medications: Current Medications Albuterol/Ipratropium (Duoneb 3 Mg/0.5 Mg (3 Ml) Ud) 3 ml IH [id number] [facility] Last Admin: 06/30/17 03:30 Dose: 3 ml Diphenhydramine HCl (Benadryl) 50 mg IVP Q8 [facility] Last Admin: 06/30/17 05:58 Dose: 50 mg Hydralazine HCl (Apresoline) 10 mg IVP Q6 PRN PRN Reason: Systolic Blood Pressure Last Admin: 06/29/17 15:03 Dose: 10 mg Hydrocortisone Sodium Succinate (Solu-Cortef) 50 mg IVP DAILY [facility] Last Admin: 06/29/17 09:25 Dose: 50 mg Propofol (Diprivan) 1,000 mg in 100 mls @ 2.177 mls/hr IV .Q24H PRN; Protocol; 5 MCG/KG/MIN PRN Reason: TITRATE PER MD ORDER Last Titration: 06/25/17 20:36 Dose: Infused Dexmedetomidine HCl (Precedex 400mcg/100ml) 400 mcg in 100 mls @ 3.629 mls/hr IV .Q24H PRN; Protocol; 0.2 MCG/KG/HR PRN Reason: Agitation Last Titration: 06/28/17 05:30 Dose: 0 mcg/kg/hr, 0 mls/hr Valproate Sodium 500 mg/ (Sodium Chloride) 105 mls @ 100 mls/hr IVPB Q12 [facility] Last Admin: 06/29/17 22:12 Dose: 100 mls/hr Insulin Human Lispro (Humalog Low) 0 units SC Q6 [facility] PRN Reason: Protocol Last Admin: 06/30/17 00:39 Dose: Not Given Lorazepam (Ativan) 4 mg IVP Q4H PRN; Protocol PRN Reason: Anxiety Last Admin: 06/30/17 04:54 Dose: 4 mg Morphine Sulfate (Morphine) 4 mg IVP Q4H PRN PRN Reason: Pain, severe (8-10) Last Admin: 06/28/17 23:10 Dose: 4 mg Pantoprazole Sodium (Protonix Inj) 40 mg IVP DAILY [facility] Last Admin: 06/29/17 09:25 Dose: 40 mg - Labs Labs: 06/29/17 08:00 06/29/17 08:00 PT 17.3 SECONDS (9.4-12.5) H 06/24/17 11:30 INR 1.49 (0.93-1.08) H 06/24/17 11:30 APTT 22.1 Seconds (25.1-36.5) L 06/24/17 11:30 - Constitutional Appears: No Acute Distress - Head Exam Head Exam: NORMAL INSPECTION - Neurological Exam Neurological Exam: Alert, Awake Neuro motor strength exam: Left Upper Extremity: 5, Right Upper Extremity: 5, Left Lower Extremity: 5, Right Lower Extremity: 5 Additional comments: Neurological improved from previous examination, able to participate in a conversation with minimal confusion. He is able to follow some commands. Sensation is intact. Assessment and Plan (1) Altered mental status Assessment & Plan: Case discussed with Dr. Pratt, continue all current medical regimen. Recommend continue depakote 500 mg IV Q 12 for mood stabilizer and benadryl 50 mg IV Q 8 PRN for agitation. Recommend to treat any underlying electrolyte abnormalities. Status: Acute
[2017-06-30 06:20] LABS: ALB/GLOB RATIO 0.9 (1.1-1.8); ALBUMIN 2.9 g/dL (3.0-4.8); ALT/SGPT 43 U/L (7-56); AST/SGOT 47 U/L (17-59); BLOOD UREA NITROGEN 18 mg/dL (7-21); CALCIUM 8.7 mg/dL (8.4-10.5); GFR AFRICAN-AMERICAN > 60; GFR NON-AFRICAN AMERICAN > 60
[2017-06-30] MEDS: Valproate 500 MG in Sodium Chloride 0.9% 100 ML IVPB SCH ×2 (10:01→22:04)
--- NOTE | 2017-06-30 13:34 | PN ---
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 The patient is on nasal cannula and O2 saturations continued to be very good. He has occasional cough, but no increased respiratory distress. No chest pain or abdominal pain. No fever, chills, nausea, or vomiting. PHYSICAL EXAMINATION: VITAL SIGNS: His temperature is 98.7, his pulse is 75, respirations of 27, and BP is 127/81. O2 saturation is 100%. HEENT: Head is atraumatic, normocephalic. Eyes reactive to light. Ear, nose, and throat seem to be within normal limits. NECK: Supple. No JVD. No thyroid enlargement or lymph nodes. HEART: Regular rate and rhythm. Normal S1, S2. LUNGS: Reveal rare rhonchi at the bases. ABDOMEN: Soft. Decreased bowel sounds. GENITALIA: Deferred. RECTAL: Deferred. MUSCULOSKELETAL: No joint deformities. EXTREMITIES: Reveal no significant edema. NEUROLOGIC: He is confused at times. Moving all extremities. LABORATORY DATA: As far as his laboratories are concerned, patient's sodium is 148, potassium 3.3, chloride 108, CO2 of 33. BUN of 18, creatinine of 0.6. Glucose of 108. IMPRESSION: The patient has mild respiratory failure, but continues to improve. He has a possible right middle lobe and right lower lobe infiltrate/pneumonia. The patient presented with opioid overdose secondary to drug abuse. He has encephalopathy with altered mental status and chronic active hepatitis and thrombocytopenia. PLAN: We will continue with O2 via nasal cannula and follow his O2 saturations closely. The patient will continue with DuoNeb, Protonix, Solu-Cortef, and Zosyn. We will continue to treat aggressively along with the other consultants and the primary care doctor. Raymond Martinez MD
--- NOTE | 2017-06-30 15:20 | PN ---
DATE: 06/30/2017 SUBJECTIVE: The patient is in bed, in no acute distress, nontoxic. PHYSICAL EXAMINATION: VITAL SIGNS: Temperature is 98, blood pressure is 120/80, respiratory rate of 25, heart rate of 74. HEENT: Unremarkable. NECK: Supple. LUNGS: Decreased breath sounds. HEART: Normal S1, S2. ABDOMEN: Soft, nontender. LABORATORY EXAMINATION: Reveals the patient's white count of 11,200, hemoglobin of 15. BUN of 18, creatinine of 0.6. Urinalysis is noted. Microbiology is noted. Review of orders reveals the patient is off antibiotics. ASSESSMENT AND PLAN: A 66-year-old male seen in [facility], bed 4 with sepsis and systemic inflammatory response syndrome, acute encephalopathy, substance abuse, pulseless electrical activity, status post advanced cardiac life support and resuscitation, status post ventilator dependent respiratory failure, extubated, hypothermia, has completed antibiotics. Currently off antibiotics. The patient is at risk for developing nosocomial infections. We will follow closely with you. Tello Traore MD
[2017-06-30] MEDS ORDERED: Potassium Chloride 40 mEq/30 ml LIQ UD PO ONE (17:11)
--- NOTE | 2017-06-30 22:19 | PN ---
DATE: 06/30/2017 LOCATION: Patient in CCU 129, bed 4. REASON FOR CONSULTATION AND FOLLOWUP: Status post CPR. The patient was intubated and now successfully extubated. Patient is confused. SUBJECTIVE: The patient is conscious, alert, but is confused. Apparently, no respiratory distress at this moment. PHYSICAL EXAMINATION: VITAL SIGNS: Blood pressure 126/69, respirations 18, pulse 72, patient is afebrile. HEENT: Head atraumatic, normocephalic. Eyes, pupil normal. Conjunctiva normal. Nose and throat normal. NECK: JVP low. Carotids equal. THORAX: AP diameter normal. LUNGS: Basilar rhonchi. CARDIOVASCULAR: S1 and S2. ABDOMEN: Soft, no tenderness, no organomegaly. EXTREMITIES: No clubbing. No cyanosis. LABORATORY DATA: WBC 11.2, hemoglobin 15.5, hematocrit 44.6, platelets 37. Sodium 148, potassium 3.3, BUN 18, creatinine 0.6. Random sugar 135. Total bilirubin 2.6. AST, ALT normal. DIAGNOSES: Status post cardiopulmonary resuscitation, pulseless electric activity, status post intubation and successful extubation; initial toxicology positive for opioid and cannabinoids; maximum troponin 0.4, may be related to cardiopulmonary resuscitation; hypernatremia has improved today; hypokalemia; thrombocytopenia; change in mental status; confused; agitated; history of cirrhosis of liver and hepatitis C; history of esophageal varices in the past. Echocardiogram on this admission showed normal left ventricular function, left ventricular hypertrophy, moderate calcification in the aortic valve, possible bicuspid aortic valve, possible mild valvular aortic stenosis. No significant mitral regurgitation, no significant tricuspid regurgitation. PLAN: Patient's state comatose at home, status post cardiorespiratory arrest, which probably was related to his opioid injection, does not seem to be AL because LV function is normal on echo. We will give potassium therapy and repeat labs in the morning. Patient on DuoNeb and nebulizer therapy, Protonix 40 IV daily, hydrocortisone 50 mg IV daily, valproate 500 mg IV every 12 hours, hydralazine 10 mg IV every 6 hours p.r.n., diphenhydramine 50 mg IV every 8 hours. Repeat labs in the morning. We will follow with you. Remy Ellis MD [facility] # [id number]
[2017-07-01] MEDS: Albuterol-Ipratrop 3 mg / 0.5 (3 ml) UD IH SCH ×6 (05:50→20:23)
--- NOTE | 2017-07-01 06:01 | PN ---
SUBJECTIVE: A 66-year-old white male in the ICU. The patient is improving steadily. PHYSICAL EXAMINATION VITAL SIGNS: He is afebrile today. His blood pressure is 163/93. HEART: Sinus rhythm. LUNGS: He has less rales and rhonchi. ABDOMEN: He has less edema. He is tolerating a modified diet. EXTREMITIES: He has less edema in his arms and legs. NEUROLOGIC: The patient is still confused and disoriented, but he is awake and alert and able to carry on conversation. LABORATORY DATA: His sodium has dropped to 148, potassium is increased to 3.3. His platelet count is still low at 37. He does have a history of hepatitis C, cirrhosis and splenomegaly. The patient had been on heparin, but it has been stopped. Vital signs are stable. Plan is to continue IV antibiotics, fluids and bronchodilators. The patient was recommended by Dr. Pratt to start on Depakote and for agitation. Hopefully, we will be able to stop restraints and increase his diet over the next 24 hours and possibly get this patient out of bed to chair. FINAL IMPRESSION: A 66-year-old white male status post drug overdose, hypothermia, cardiac arrest, resuscitation, thrombocytopenia, hyponatremia, dehydration, and history of hepatitis C with cirrhosis. Bg Hernandez MD
[2017-07-01] MEDS: DiphenhydrAMINE 50 mg/ml Inj IVP SCH (06:05)
[2017-07-01] MEDS: Insulin Lispro (humaLOG) LOW Coverage SC SCH ×3 (06:41→18:53)
[2017-07-01 07:08] LABS: EOS # 0.2 (0.0-0.7); EOS % 2.5 % (1.5-5.0); GRAN # 4.58 (1.4-6.5); GRAN % 67.3 % (50.0-68.0); HEMOGLOBIN 15.9 g/dL (14.0-18.0); LYMPH # 1.1 (1.2-3.4); LYMPH % 15.9 % (22.0-35.0); MEAN CELL VOLUME 95.3 fl (80.0-105.0); MEAN CORPUSCULAR HEMOGLOBIN 32.2 pg (25.0-35.0); MEAN CORPUSCULAR HGB CONC 33.8 g/dl (31.0-37.0); MEAN PLATELET VOLUME 12.5 fl (7.0-11.0); MONO % 14.3 % (1.0-6.0); RBC 4.94 10^6/uL (3.5-6.1); RED CELL DISTRIBUTION WIDTH 14.6 % (11.5-14.5); WHITE BLOOD COUNT 6.8 10^3/ul (4.5-11.0)
[2017-07-01 07:20] LABS: ALB/GLOB RATIO 0.9 (1.1-1.8); ALBUMIN 2.9 g/dL (3.0-4.8); ALT/SGPT 37 U/L (7-56); AST/SGOT 39 U/L (17-59); BLOOD UREA NITROGEN 21 mg/dL (7-21); CALCIUM 9.1 mg/dL (8.4-10.5); GFR AFRICAN-AMERICAN > 60; GFR NON-AFRICAN AMERICAN > 60
[2017-07-01] MEDS: Valproate 500 MG in Sodium Chloride 0.9% 100 ML IVPB SCH (09:03)
[2017-07-01] MEDS: Acetylcysteine 20% Inhal Soln (4ml) IH SCH ×2 (11:33→20:24)
--- NOTE | 2017-07-01 11:58 | CP.CCUPN ---
<Juan Coburn - Last Filed: 07/01/17 12:00> CCU Subjective - Physician Review Subjective (Free Text): Patient seen and evaluated bedside. No acute issues overnight. Patient only oriented self and to place. Denies any complaints. 07/01/17 11:56 CCU Objective - Vital Signs / Intake & Output Intake and Output (Last 8hrs): Intake & Output 06/30/17 07/01/17 07/01/17 22:59 06:59 14:59 Intake Total 1120 Output Total 700 Balance 420 Intake: IV 200 Right Upper arm 200 Oral 920 Output: Urine 700 Urethral (Sharp) 700 Other: # Bowel Movements 0 - Physical Exam Head: Positive for: Atraumatic, Normocephalic Pupils: Positive for: PERRL Conjunctiva: Positive for: Normal Mouth: Positive for: Moist Mucous Membranes Cardiovascular: Positive for: Regular Rate and Rhythm, Normal S1, S2. Negative for: Murmurs Abdomen: Positive for: Normal Bowel Sounds. Negative for: Tenderness, Distention, Peritoneal Signs Genitourinary Male: Negative for: Erythema Upper Extremity: Positive for: Other (intraosseous needle in left tibia) Lower Extremity: Positive for: Normal Inspection Neurological: Negative for: Speech Normal Skin: Positive for: Warm, Dry, Normal Color. Negative for: Rashes Psychiatric: Positive for: Alert. Negative for: Oriented x 3 - Medications Active Medications: Active Medications Generic Name Dose Route Start Last Admin Trade Name Freq PRN Reason Stop Dose Admin Acetylcysteine 2 ml 06/30/17 22:00 07/01/17 11:33 Acetylcysteine 20% IH 2 ml Q12 PETRA Administration Albuterol/Ipratropium 3 ml 06/24/17 19:30 07/01/17 11:33 Duoneb 3 Mg/0.5 Mg (3 Ml) Ud IH 3 ml [id number] PETRA Administration Valproate Sodium 500 mg/ 105 mls @ 100 mls/hr 06/27/17 22:00 07/01/17 09:03 Sodium Chloride IVPB 100 mls/hr Q12 PETRA Administration Insulin Human Lispro 0 units 06/24/17 11:24 07/01/17 06:41 Humalog Low SC Not Given Q6 PETRA Protocol Lorazepam 4 mg 06/27/17 18:17 06/30/17 04:54 Ativan IVP 4 mg Q4H PRN Administration Anxiety Protocol Morphine Sulfate 4 mg 06/26/17 07:57 06/28/17 23:10 Morphine IVP 4 mg Q4H PRN Administration Pain, severe (8-10) Pantoprazole Sodium 40 mg 06/24/17 10:00 07/01/17 09:25 Protonix Inj IVP 40 mg DAILY PETRA Administration - Patient Studies Lab Studies: Lab Studies 07/01/17 07/01/17 07/01/17 Range/Units 06:32 05:00 05:00 WBC 6.8 D (4.5-11.0) 10^3/ul RBC 4.94 (3.5-6.1) 10^6/uL Hgb 15.9 (14.0-18.0) g/dL Hct 47.1 (42.0-52.0) % MCV 95.3 D (80.0-105.0) fl MCH 32.2 (25.0-35.0) pg MCHC 33.8 (31.0-37.0) g/dl RDW 14.6 H (11.5-14.5) % Plt Count 41 L* (120.0-450.0) 10^3/uL Manual Plt Count 50 L* (120-450) K/mm3 MPV 12.5 H (7.0-11.0) fl Gran % 67.3 (50.0-68.0) % Lymph % (Auto) 15.9 L (22.0-35.0) % [place] % (Auto) 14.3 H (1.0-6.0) % Eos % (Auto) 2.5 (1.5-5.0) % Baso % (Auto) 0.0 (0.0-3.0) % Gran # 4.58 (1.4-6.5) Lymph # (Auto) 1.1 L (1.2-3.4) [place] # (Auto) 1.0 H (0.1-0.6) Eos # (Auto) 0.2 (0.0-0.7) Baso # (Auto) 0.00 (0.0-2.0) K/mm3 Sodium 148 (132-148) mmol/L Potassium 4.2 (3.6-5.0) mmol/L Chloride 109 H (98-107) mmol/L Carbon Dioxide 32 (21-33) mmol/L Anion Gap 11 (10-20) BUN 21 (7-21) mg/dL Creatinine 0.6 L (0.8-1.5) mg/dl Est GFR ( Amer) > 60 Est GFR (Non-Af Amer) > 60 POC Glucose (mg/dL) 77 (65-110) mg/dL Random Glucose 80 (70-110) mg/dL Calcium 9.1 (8.4-10.5) mg/dL Total Bilirubin 2.8 H (0.2-1.3) mg/dL AST 39 (17-59) U/L ALT 37 (7-56) U/L Alkaline Phosphatase 64 (38-126) U/L Total Protein 6.3 (5.8-8.3) g/dL Albumin 2.9 L (3.0-4.8) g/dL Globulin 3.3 gm/dL Albumin/Globulin Ratio 0.9 L (1.1-1.8) 06/30/17 06/30/17 Range/Units 22:12 12:05 WBC (4.5-11.0) 10^3/ul RBC (3.5-6.1) 10^6/uL Hgb (14.0-18.0) g/dL Hct (42.0-52.0) % MCV (80.0-105.0) fl MCH (25.0-35.0) pg MCHC (31.0-37.0) g/dl RDW (11.5-14.5) % Plt Count (120.0-450.0) 10^3/uL Manual Plt Count (120-450) K/mm3 MPV (7.0-11.0) fl Gran % (50.0-68.0) % Lymph % (Auto) (22.0-35.0) % [place] % (Auto) (1.0-6.0) % Eos % (Auto) (1.5-5.0) % Baso % (Auto) (0.0-3.0) % Gran # (1.4-6.5) Lymph # (Auto) (1.2-3.4) [place] # (Auto) (0.1-0.6) Eos # (Auto) (0.0-0.7) Baso # (Auto) (0.0-2.0) K/mm3 Sodium (132-148) mmol/L Potassium (3.6-5.0) mmol/L Chloride (98-107) mmol/L Carbon Dioxide (21-33) mmol/L Anion Gap (10-20) BUN (7-21) mg/dL Creatinine (0.8-1.5) mg/dl Est GFR ( Amer) Est GFR (Non-Af Amer) POC Glucose (mg/dL) 144 H 135 H (65-110) mg/dL Random Glucose (70-110) mg/dL Calcium (8.4-10.5) mg/dL Total Bilirubin (0.2-1.3) mg/dL AST (17-59) U/L ALT (7-56) U/L Alkaline Phosphatase (38-126) U/L Total Protein (5.8-8.3) g/dL Albumin (3.0-4.8) g/dL Globulin gm/dL Albumin/Globulin Ratio (1.1-1.8) Laboratory Results - last 24 hr 06/30/17 06/30/17 07/01/17 12:05 22:12 05:00 WBC 6.8 D RBC 4.94 Hgb 15.9 Hct 47.1 MCV 95.3 D MCH 32.2 MCHC 33.8 RDW 14.6 H Plt Count 41 L* Manual Plt Count 50 L* MPV 12.5 H Gran % 67.3 Lymph % (Auto) 15.9 L [place] % (Auto) 14.3 H Eos % (Auto) 2.5 Baso % (Auto) 0.0 Gran # 4.58 Lymph # (Auto) 1.1 L [place] # (Auto) 1.0 H Eos # (Auto) 0.2 Baso # (Auto) 0.00 Sodium Potassium Chloride Carbon Dioxide Anion Gap BUN Creatinine Est GFR ( Amer) Est GFR (Non-Af Amer) POC Glucose (mg/dL) 135 H 144 H Random Glucose Calcium Total Bilirubin AST ALT Alkaline Phosphatase Total Protein Albumin Globulin Albumin/Globulin Ratio 07/01/17 07/01/17 05:00 06:32 WBC RBC Hgb Hct MCV MCH MCHC RDW Plt Count Manual Plt Count MPV Gran % Lymph % (Auto) [place] % (Auto) Eos % (Auto) Baso % (Auto) Gran # Lymph # (Auto) [place] # (Auto) Eos # (Auto) Baso # (Auto) Sodium 148 Potassium 4.2 Chloride 109 H Carbon Dioxide 32 Anion Gap 11 BUN 21 Creatinine 0.6 L Est GFR ( Amer) > 60 Est GFR (Non-Af Amer) > 60 POC Glucose (mg/dL) 77 Random Glucose 80 Calcium 9.1 Total Bilirubin 2.8 H AST 39 ALT 37 Alkaline Phosphatase 64 Total Protein 6.3 Albumin 2.9 L Globulin 3.3 Albumin/Globulin Ratio 0.9 L Fingerstick Blood Sugar Results: 77 Review of Systems - Cardiovascular Cardiovascular: absent: Chest Pain, Dyspnea - Respiratory Respiratory: absent: Cough, Dyspnea - Gastrointestinal Gastrointestinal: absent: Vomiting Critical Care Progress Note - Nutrition Nutrition: Nutrition Category Date Time Status Heart Healthy Diet [DIET] Diets 06/29/17 Breakfast Ordered Assessment/Plan - Assessment and Plan (Free Text) Assessment: 66 y/o male with PMH of Hep C s/p harvoni treatment, EtOh abuse presents s/p cardiac arrest. Patient stable, more alert, on valparoic acid. Patient will be downgraded to med surg. Plan: Neuro: -oriented to self and place -Valproic acid -no sedation currently Cardio: -hemodynamically stable -maintain MAP>65 Pulm: -maintain SpO2>90% -Chest xray Heme/ID: -cultures negative -Taper steroids -Thrombocytopenia -SCDs for DVT prophylaxis GI: -HHD -Protonix ppx Renal: -replete electrolytes as needed -Maintain euvolemia Endo: -Maintain euglycemia Dispo: downgrade to med surg <Dionte Roblero - Last Filed: 07/01/17 12:09> CCU Objective - Vital Signs / Intake & Output Intake and Output (Last 8hrs): Intake & Output 06/30/17 07/01/17 07/01/17 22:59 06:59 14:59 Intake Total 1120 Output Total 700 Balance 420 Intake: IV 200 Right Upper arm 200 Oral 920 Output: Urine 700 Urethral (Shapr) 700 Other: # Bowel Movements 0 - Medications Active Medications: Active Medications Generic Name Dose Route Start Last Admin Trade Name Freq PRN Reason Stop Dose Admin Acetylcysteine 2 ml 06/30/17 22:00 07/01/17 11:33 Acetylcysteine 20% IH 2 ml Q12 PETRA Administration Albuterol/Ipratropium 3 ml 06/24/17 19:30 07/01/17 11:33 Duoneb 3 Mg/0.5 Mg (3 Ml) Ud IH 3 ml [id number] PTERA Administration Valproate Sodium 500 mg/ 105 mls @ 100 mls/hr 06/27/17 22:00 07/01/17 09:03 Sodium Chloride IVPB 100 mls/hr Q12 PETRA Administration Insulin Human Lispro 0 units 06/24/17 11:24 07/01/17 11:57 Humalog Low SC Not Given Q6 PETRA Protocol Lorazepam 4 mg 06/27/17 18:17 06/30/17 04:54 Ativan IVP 4 mg Q4H PRN Administration Anxiety Protocol Morphine Sulfate 4 mg 06/26/17 07:57 06/28/17 23:10 Morphine IVP 4 mg Q4H PRN Administration Pain, severe (8-10) Pantoprazole Sodium 40 mg 06/24/17 10:00 07/01/17 09:25 Protonix Inj IVP 40 mg DAILY PETRA Administration - Patient Studies Lab Studies: Lab Studies 07/01/17 07/01/17 07/01/17 Range/Units 11:54 06:32 05:00 WBC (4.5-11.0) 10^3/ul RBC (3.5-6.1) 10^6/uL Hgb (14.0-18.0) g/dL Hct (42.0-52.0) % MCV (80.0-105.0) fl MCH (25.0-35.0) pg MCHC (31.0-37.0) g/dl RDW (11.5-14.5) % Plt Count (120.0-450.0) 10^3/uL Manual Plt Count (120-450) K/mm3 MPV (7.0-11.0) fl Gran % (50.0-68.0) % Lymph % (Auto) (22.0-35.0) % [place] % (Auto) (1.0-6.0) % Eos % (Auto) (1.5-5.0) % Baso % (Auto) (0.0-3.0) % Gran # (1.4-6.5) Lymph # (Auto) (1.2-3.4) [place] # (Auto) (0.1-0.6) Eos # (Auto) (0.0-0.7) Baso # (Auto) (0.0-2.0) K/mm3 Sodium 148 (132-148) mmol/L Potassium 4.2 (3.6-5.0) mmol/L Chloride 109 H (98-107) mmol/L Carbon Dioxide 32 (21-33) mmol/L Anion Gap 11 (10-20) BUN 21 (7-21) mg/dL Creatinine 0.6 L (0.8-1.5) mg/dl Est GFR ( Amer) > 60 Est GFR (Non-Af Amer) > 60 POC Glucose (mg/dL) 131 H 77 (65-110) mg/dL Random Glucose 80 (70-110) mg/dL Calcium 9.1 (8.4-10.5) mg/dL Total Bilirubin 2.8 H (0.2-1.3) mg/dL AST 39 (17-59) U/L ALT 37 (7-56) U/L Alkaline Phosphatase 64 (38-126) U/L Total Protein 6.3 (5.8-8.3) g/dL Albumin 2.9 L (3.0-4.8) g/dL Globulin 3.3 gm/dL Albumin/Globulin Ratio 0.9 L (1.1-1.8) 07/01/17 06/30/17 06/30/17 Range/Units 05:00 22:12 12:05 WBC 6.8 D (4.5-11.0) 10^3/ul RBC 4.94 (3.5-6.1) 10^6/uL Hgb 15.9 (14.0-18.0) g/dL Hct 47.1 (42.0-52.0) % MCV 95.3 D (80.0-105.0) fl MCH 32.2 (25.0-35.0) pg MCHC 33.8 (31.0-37.0) g/dl RDW 14.6 H (11.5-14.5) % Plt Count 41 L* (120.0-450.0) 10^3/uL Manual Plt Count 50 L* (120-450) K/mm3 MPV 12.5 H (7.0-11.0) fl Gran % 67.3 (50.0-68.0) % Lymph % (Auto) 15.9 L (22.0-35.0) % [place] % (Auto) 14.3 H (1.0-6.0) % Eos % (Auto) 2.5 (1.5-5.0) % Baso % (Auto) 0.0 (0.0-3.0) % Gran # 4.58 (1.4-6.5) Lymph # (Auto) 1.1 L (1.2-3.4) [place] # (Auto) 1.0 H (0.1-0.6) Eos # (Auto) 0.2 (0.0-0.7) Baso # (Auto) 0.00 (0.0-2.0) K/mm3 Sodium (132-148) mmol/L Potassium (3.6-5.0) mmol/L Chloride (98-107) mmol/L Carbon Dioxide (21-33) mmol/L Anion Gap (10-20) BUN (7-21) mg/dL Creatinine (0.8-1.5) mg/dl Est GFR ( Amer) Est GFR (Non-Af Amer) POC Glucose (mg/dL) 144 H 135 H (65-110) mg/dL Random Glucose (70-110) mg/dL Calcium (8.4-10.5) mg/dL Total Bilirubin (0.2-1.3) mg/dL AST (17-59) U/L ALT (7-56) U/L Alkaline Phosphatase (38-126) U/L Total Protein (5.8-8.3) g/dL Albumin (3.0-4.8) g/dL Globulin gm/dL Albumin/Globulin Ratio (1.1-1.8) Laboratory Results - last 24 hr 06/30/17 06/30/17 07/01/17 12:05 22:12 05:00 WBC 6.8 D RBC 4.94 Hgb 15.9 Hct 47.1 MCV 95.3 D MCH 32.2 MCHC 33.8 RDW 14.6 H Plt Count 41 L* Manual Plt Count 50 L* MPV 12.5 H Gran % 67.3 Lymph % (Auto) 15.9 L [place] % (Auto) 14.3 H Eos % (Auto) 2.5 Baso % (Auto) 0.0 Gran # 4.58 Lymph # (Auto) 1.1 L [place] # (Auto) 1.0 H Eos # (Auto) 0.2 Baso # (Auto) 0.00 Sodium Potassium Chloride Carbon Dioxide Anion Gap BUN Creatinine Est GFR ( Amer) Est GFR (Non-Af Amer) POC Glucose (mg/dL) 135 H 144 H Random Glucose Calcium Total Bilirubin AST ALT Alkaline Phosphatase Total Protein Albumin Globulin Albumin/Globulin Ratio 07/01/17 07/01/17 07/01/17 05:00 06:32 11:54 WBC RBC Hgb Hct MCV MCH MCHC RDW Plt Count Manual Plt Count MPV Gran % Lymph % (Auto) [place] % (Auto) Eos % (Auto) Baso % (Auto) Gran # Lymph # (Auto) [place] # (Auto) Eos # (Auto) Baso # (Auto) Sodium 148 Potassium 4.2 Chloride 109 H Carbon Dioxide 32 Anion Gap 11 BUN 21 Creatinine 0.6 L Est GFR ( Amer) > 60 Est GFR (Non-Af Amer) > 60 POC Glucose (mg/dL) 77 131 H Random Glucose 80 Calcium 9.1 Total Bilirubin 2.8 H AST 39 ALT 37 Alkaline Phosphatase 64 Total Protein 6.3 Albumin 2.9 L Globulin 3.3 Albumin/Globulin Ratio 0.9 L Critical Care Progress Note - Nutrition Nutrition: Nutrition Category Date Time Status Heart Healthy Diet [DIET] Diets 06/29/17 Breakfast Ordered Assessment/Plan - Assessment and Plan (Free Text) Plan: Patient seen and examined with resident, agree with note with following additions/exceptions: Patient is 66yo male with PMHx of Hep C s/p harvoni treatment, EtOh abuse, found unconscious at home with window down, intubated in the field, subseuqently had PEA arrest in the field given Epi x 2, ROSC obtained. Patient eventually extubated, doing well, on 2LNC. Currently afebrile, HD stable, comfortable in NAD, on 2LNC s/p Cardiac Arrest, s/p ROSC Erythrocytosis Hep C EtOH abuse Dehydration PNA Recommend: - cont with supp O2 as needed - antibiotics as per ID - BP control - monitor HH - FS control - DC steroids - IVF hydration - Vaproic Acid - GI ppx - DVT ppx - Transfer to med surg, stable
--- NOTE | 2017-07-01 12:31 | CP.PCM.PN ---
Subjective - Date & Time of Evaluation Date of Evaluation: 07/01/17 Time of Evaluation: 12:31 - Subjective Subjective: Mr. Monzon was seen and examined at the bedside in ICU. He is awake,alert with episode of confusion time ( 1917), place ( [facility]), person ( [place] ). He is less agitated, able to answer some questions. He is able to participate in a conversation, able to follow some commands such as field accommodation and squeezing his hand. He does not have any bilateral wrist restraints. There was no untoward events overnight. Objective - Vital Signs/Intake and Output Vital Signs (last 24 hours): Temp Pulse Resp BP Pulse Ox 98.4 F 69 16 131/77 99 06/30/17 16:00 07/01/17 03:59 07/01/17 03:59 07/01/17 04:00 06/30/17 16:00 - Medications Medications: Current Medications Acetylcysteine (Acetylcysteine 20%) 2 ml IH Q12 PETRA Last Admin: 07/01/17 11:33 Dose: 2 ml Albuterol/Ipratropium (Duoneb 3 Mg/0.5 Mg (3 Ml) Ud) 3 ml IH [id number] [facility] Last Admin: 07/01/17 11:33 Dose: 3 ml Valproate Sodium 500 mg/ (Sodium Chloride) 105 mls @ 100 mls/hr IVPB Q12 PETRA Last Admin: 07/01/17 09:03 Dose: 100 mls/hr Insulin Human Lispro (Humalog Low) 0 units SC Q6 PETRA PRN Reason: Protocol Last Admin: 07/01/17 11:57 Dose: Not Given Lorazepam (Ativan) 4 mg IVP Q4H PRN; Protocol PRN Reason: Anxiety Last Admin: 06/30/17 04:54 Dose: 4 mg Morphine Sulfate (Morphine) 4 mg IVP Q4H PRN PRN Reason: Pain, severe (8-10) Last Admin: 06/28/17 23:10 Dose: 4 mg Pantoprazole Sodium (Protonix Inj) 40 mg IVP DAILY [facility] Last Admin: 07/01/17 09:25 Dose: 40 mg - Labs Labs: 07/01/17 05:00 07/01/17 05:00 PT 17.3 SECONDS (9.4-12.5) H 06/24/17 11:30 INR 1.49 (0.93-1.08) H 06/24/17 11:30 APTT 22.1 Seconds (25.1-36.5) L 06/24/17 11:30 - Constitutional Appears: No Acute Distress - Head Exam Head Exam: NORMAL INSPECTION - Neurological Exam Neurological Exam: Alert, Awake Neuro motor strength exam: Left Upper Extremity: 5, Right Upper Extremity: 5, Left Lower Extremity: 5, Right Lower Extremity: 5 Additional comments: Neurological improving from previous examination. He no longer needs wrist restraints.He follow all commands. Assessment and Plan (1) Altered mental status Assessment & Plan: Case discussed with Dr. Schmidt, continue all current medical therapy. Recommend to monitor valproic and liver enzymes level. Recommend to treat hematology and electrolyte abnormalities. Status: Acute
--- NOTE | 2017-07-01 14:36 | PN ---
DATE: A 66-year-old white male in the Intensive Care Unit. The patient was found at home unresponsive, hypothermic, cardiac arrest. He has been in the Intensive Care Unit, improving steadily every day. He is more awake and alert and oriented x3 today. He is tolerating his diet well. He is still coughing, but minimal. His lungs are clear today. Heart examination, regular sinus rhythm. His blood pressure is 131/77, his pulse is 96. He is afebrile. Vital signs are stable. He still is thrombocytopenic with a platelet count of 50,000, but improved from 27,000. His H and H is within normal limits. He had been hypernatremic, he is down to 148. Potassium is up to 4.2. Liver enzymes, his total bilirubin is 2.8, still elevated. He does have a history of cirrhosis and hepatitis C, which has been treated with Harvoni. Plan is to transfer to remote tele. Continue to observe, out of bed, physical therapy. Continue IV antibiotics and following of his platelet count. Bg Hernandez MD
--- NOTE | 2017-07-01 14:53 | CP.PCM.PN ---
Subjective - Date & Time of Evaluation Date of Evaluation: 07/01/17 Time of Evaluation: 08:10 - Subjective Subjective: Comfortable, no fevers. Objective - Vital Signs/Intake and Output Vital Signs (last 24 hours): Temp Pulse Resp BP Pulse Ox 98.4 F 69 16 131/77 99 06/30/17 16:00 07/01/17 03:59 07/01/17 03:59 07/01/17 04:00 06/30/17 16:00 - Medications Medications: Current Medications Acetylcysteine (Acetylcysteine 20%) 2 ml IH Q12 [facility] Last Admin: 07/01/17 11:33 Dose: 2 ml Albuterol/Ipratropium (Duoneb 3 Mg/0.5 Mg (3 Ml) Ud) 3 ml IH [id number] [facility] Last Admin: 07/01/17 11:33 Dose: 3 ml Valproate Sodium 500 mg/ (Sodium Chloride) 105 mls @ 100 mls/hr IVPB Q12 [facility] Last Admin: 07/01/17 09:03 Dose: 100 mls/hr Insulin Human Lispro (Humalog Low) 0 units SC Q6 [facility] PRN Reason: Protocol Last Admin: 07/01/17 11:57 Dose: Not Given Lorazepam (Ativan) 4 mg IVP Q4H PRN; Protocol PRN Reason: Anxiety Last Admin: 06/30/17 04:54 Dose: 4 mg Morphine Sulfate (Morphine) 4 mg IVP Q4H PRN PRN Reason: Pain, severe (8-10) Last Admin: 06/28/17 23:10 Dose: 4 mg Pantoprazole Sodium (Protonix Inj) 40 mg IVP DAILY [facility] Last Admin: 07/01/17 09:25 Dose: 40 mg - Labs Labs: 07/01/17 05:00 07/01/17 05:00 PT 17.3 SECONDS (9.4-12.5) H 06/24/17 11:30 INR 1.49 (0.93-1.08) H 06/24/17 11:30 APTT 22.1 Seconds (25.1-36.5) L 06/24/17 11:30 - Constitutional Appears: Chronically Ill - Head Exam Head Exam: NORMAL INSPECTION - Respiratory Exam Respiratory Exam: Decreased Breath Sounds - Cardiovascular Exam Cardiovascular Exam: +S1, +S2 - GI/Abdominal Exam GI & Abdominal Exam: Soft. absent: Tenderness Assessment and Plan - Assessment and Plan (Free Text) Plan: Assessment S/P Systemic Inflammatory Response Syndrome, due to acute encephalopathy from substance use with pulseless electrical activity S/P ACLS and resuscitation now S/P VDRF and hypothermia chronic active Hepatitis C S/P treatment with [facility]it history of substance abuse including ethanol abuse Plan continue to monitor off antibiotics since he is at risk for nosocomial infections
[2017-07-01 16:03] LABS: JAK2 V617F NOT DETECTED
--- NOTE | 2017-07-01 17:53 | PN ---
DATE: 07/01/2017 REASON FOR CONSULTATION: Status post CPR, intubated, now the patient is successfully extubated, still confused. SUBJECTIVE: The patient is conscious, awake, and alert, but confused. OBJECTIVE: GENERAL: Not in apparent distress, lying flat on the bed. VITAL SIGNS: Temperature afebrile, heart rate 70, blood pressure 131/77. HEENT: PERRLA. Extraocular muscles intact. NECK: Supple. No carotid bruit or thyromegaly. CHEST: Clear to auscultation. HEART: S1 and S2 regular. ABDOMEN: Soft. EXTREMITIES: Clubbing and cyanosis negative. LABORATORY DATA: Blood workup as follows: WBC 6.8, hemoglobin 15, hematocrit 47.1, platelet count 41. Chemistry show sodium 140, potassium 4.2, chloride 109, carbon dioxide 32, anion gap of 11, BUN 21, creatinine 0.6, total protein 6.7, albumin 2, albumin-globulin ratio 0.9. IMPRESSION: Status post cardiopulmonary resuscitation, pulseless electrical activity, status post intubated, successfully extubated, initial toxic screen positive for opioid and cannabis indica. Maximum troponin 0.4, maybe related to cardiopulmonary resuscitation, hypernatremia improved, hypokalemia, multiple electrolyte imbalance, persistently thrombocytopenia, change in mental status, agitated, combative sometime, history of cirrhosis of the liver and hepatitis C, history of esophageal varices. Echo on this admission shows normal left ventricular function, left ventricular hypertrophy, moderate calcification of the aortic valve, possible bicuspid aortic valve, possible mild valvular aortic stenosis. No significant mitral regurgitation, no significant tricuspid regurgitation. RECOMMENDATION: Probably, this whole status of having the CPR comatose confused, most likely secondary to substance abuse, admitted because of probably overdose. Continue current medication with the patient's mentation improved, may consider status post risk stratification, but now the patient is still confused. Continue duo nebulizer treatment, continue close monitor and continue electrolyte supplement as needed. We will follow with you. Thank you, Dr. Hernandez, for providing us the opportunity in taking care of the patient, Jorje Nicolás. Remy Rai MD
[2017-07-01] MEDS: Divalproex 500 mg DR(BID formulation) PO SCH (18:46)
--- NOTE | 2017-07-01 19:31 | CP.PCM.PN ---
Subjective - Date & Time of Evaluation Date of Evaluation: 07/01/17 Time of Evaluation: 18:45 - Subjective Subjective: More conversational, tremulous Objective - Vital Signs/Intake and Output Vital Signs (last 24 hours): Temp Pulse Resp BP Pulse Ox 98.4 F 80 20 154/94 H 98 07/01/17 14:00 07/01/17 14:00 07/01/17 14:00 07/01/17 18:35 07/01/17 14:00 - Medications Medications: Current Medications Acetylcysteine (Acetylcysteine 20%) 2 ml IH Q12 [facility] Last Admin: 07/01/17 11:33 Dose: 2 ml Albuterol/Ipratropium (Duoneb 3 Mg/0.5 Mg (3 Ml) Ud) 3 ml IH [id number] [facility] Last Admin: 07/01/17 15:56 Dose: 3 ml Divalproex Sodium (Depakote Dr(*Bid*)) 500 mg PO BID [facility] Last Admin: 07/01/17 18:46 Dose: 500 mg Insulin Human Lispro (Humalog Low) 0 units SC Q6 [facility] PRN Reason: Protocol Last Admin: 07/01/17 18:53 Dose: 1 units Lorazepam (Ativan) 4 mg IVP Q4H PRN; Protocol PRN Reason: Anxiety Last Admin: 06/30/17 04:54 Dose: 4 mg Morphine Sulfate (Morphine) 4 mg IVP Q4H PRN PRN Reason: Pain, severe (8-10) Last Admin: 06/28/17 23:10 Dose: 4 mg Pantoprazole Sodium (Protonix Inj) 40 mg IVP DAILY [facility] Last Admin: 07/01/17 09:25 Dose: 40 mg - Labs Labs: 07/01/17 05:00 07/01/17 05:00 PT 17.3 SECONDS (9.4-12.5) H 06/24/17 11:30 INR 1.49 (0.93-1.08) H 06/24/17 11:30 APTT 22.1 Seconds (25.1-36.5) L 06/24/17 11:30 - Head Exam Head Exam: ATRAUMATIC - Eye Exam Eye Exam: Normal appearance - ENT Exam ENT Exam: Mucous Membranes Dry - Respiratory Exam Respiratory Exam: NORMAL BREATHING PATTERN - Cardiovascular Exam Cardiovascular Exam: +S1, +S2 - GI/Abdominal Exam GI & Abdominal Exam: Normal Bowel Sounds Assessment and Plan (1) Thrombocytopenia Assessment & Plan: improved liver disease, splenic sequestration ? exacerbated from baseline due to bone marrow suppression from ETOH Status: Acute (2) Splenomegaly Assessment & Plan: likely portal HTN related from cirrhosis Status: Acute (3) Coagulopathy Assessment & Plan: liver disease likely nutritional component Status: Acute
[2017-07-02] MEDS: Albuterol-Ipratrop 3 mg / 0.5 (3 ml) UD IH SCH ×5 (01:41→20:30)
--- NOTE | 2017-07-02 02:49 | CP.PCM.PN ---
Subjective - Date & Time of Evaluation Date of Evaluation: 07/02/17 Time of Evaluation: 02:46 - Subjective Subjective: S: Requested something for sleep. Seen by bedside. Has no other complaints. Pertinent medical record was reviewed. Was on ativan 4 mg when he was in ICU. O: Last Vital Signs 3 Temp 98.4 F 07/01/17 14:00 Pulse 80 07/01/17 14:00 Resp 20 07/01/17 14:00 BP 154/94 H 07/01/17 18:35 Pulse Ox 98 07/01/17 14:00 Awake, alert, not in distress. LUNGS: Normal breathing pattern. NEURO:Speech normal. A:Insomnia/anxiety. P: Ativan 2 mg po x 1. Objective - Vital Signs/Intake and Output Vital Signs (last 24 hours): Temp Pulse Resp BP Pulse Ox 98.4 F 80 20 154/94 H 98 07/01/17 14:00 07/01/17 14:00 07/01/17 14:00 07/01/17 18:35 07/01/17 14:00 Intake and Output: 07/01/17 07/02/17 18:59 06:59 Intake Total 240 Output Total 350 Balance -110 - Medications Medications: Current Medications Acetylcysteine (Acetylcysteine 20%) 2 ml IH Q12 [facility] Last Admin: 07/01/17 20:24 Dose: 2 ml Albuterol/Ipratropium (Duoneb 3 Mg/0.5 Mg (3 Ml) Ud) 3 ml IH [id number] [facility] Last Admin: 07/02/17 01:41 Dose: Not Given Divalproex Sodium (Ignacio Aburto(*Bid*)) 500 mg PO BID [facility] Last Admin: 07/01/17 18:46 Dose: 500 mg Insulin Human Lispro (Humalog Low) 0 units SC Q6 [facility] PRN Reason: Protocol Last Admin: 07/01/17 18:53 Dose: 1 units Lorazepam (Ativan) 4 mg IVP Q4H PRN; Protocol PRN Reason: Anxiety Last Admin: 06/30/17 04:54 Dose: 4 mg Morphine Sulfate (Morphine) 4 mg IVP Q4H PRN PRN Reason: Pain, severe (8-10) Last Admin: 06/28/17 23:10 Dose: 4 mg Pantoprazole Sodium (Protonix Inj) 40 mg IVP DAILY [facility] Last Admin: 07/01/17 09:25 Dose: 40 mg - Labs Labs: 07/01/17 05:00 07/01/17 05:00 PT 17.3 SECONDS (9.4-12.5) H 06/24/17 11:30 INR 1.49 (0.93-1.08) H 06/24/17 11:30 APTT 22.1 Seconds (25.1-36.5) L 06/24/17 11:30
[2017-07-02] MEDS: Insulin Lispro (humaLOG) LOW Coverage SC SCH ×4 (07:00→17:27)
[2017-07-02 07:09] LABS: BASO # 0.01 K/mm3 (0.0-2.0); BASO % 0.1 % (0.0-3.0); EOS # 0.2 (0.0-0.7); EOS % 2.1 % (1.5-5.0); GRAN # 4.36 (1.4-6.5); GRAN % 62.6 % (50.0-68.0); HEMOGLOBIN 14.4 g/dL (14.0-18.0); LYMPH # 1.2 (1.2-3.4); LYMPH % 17.6 % (22.0-35.0); MEAN CELL VOLUME 95.1 fl (80.0-105.0); MEAN CORPUSCULAR HEMOGLOBIN 31.9 pg (25.0-35.0); MEAN CORPUSCULAR HGB CONC 33.5 g/dl (31.0-37.0); MEAN PLATELET VOLUME 12.2 fl (7.0-11.0); MONO # 1.2 (0.1-0.6); MONO % 17.6 % (1.0-6.0); RBC 4.52 10^6/uL (3.5-6.1); RED CELL DISTRIBUTION WIDTH 14.6 % (11.5-14.5)
[2017-07-02 07:32] LABS: ALB/GLOB RATIO 0.8 (1.1-1.8); ALBUMIN 2.5 g/dL (3.0-4.8); ALT/SGPT 45 U/L (7-56); AST/SGOT 35 U/L (17-59); BILIRUBIN,DIRECT 0.5 mg/dL (0.0-0.4); BLOOD UREA NITROGEN 20 mg/dL (7-21); CALCIUM 8.6 mg/dL (8.4-10.5); GFR AFRICAN-AMERICAN > 60; GFR NON-AFRICAN AMERICAN > 60
[2017-07-02] MEDS: Acetylcysteine 20% Inhal Soln (4ml) IH SCH ×2 (08:00→11:35)
[2017-07-02] MEDS: Divalproex 500 mg DR(BID formulation) PO SCH ×2 (10:27→17:28)
--- NOTE | 2017-07-02 12:09 | PN ---
DATE: SUBJECTIVE: A 66-year-old white male transferred from ICU to the floor. The patient is doing well. He is awake and alert. He is still grogging and not sure about the events leading up to his hospitalization. He is going to start physical therapy and occupational therapy. We are weaning him off his IV medications to p.o. medications. PHYSICAL EXAMINATION VITAL SIGNS: Stable. He is afebrile. LABORATORY DATA: White count is normal. PLAN: To continue physical therapy, occupational therapy and Psychiatry consult. Continue to follow the patient for post arrest. Bg Hernandez MD
--- NOTE | 2017-07-02 12:38 | CP.PCM.PN ---
Subjective - Date & Time of Evaluation Date of Evaluation: 07/02/17 Time of Evaluation: 11:20 - Subjective Subjective: Afebrile, not in distress, awake and alert. Objective - Vital Signs/Intake and Output Vital Signs (last 24 hours): Temp Pulse Resp BP Pulse Ox 98 F 85 22 143/88 92 L 07/02/17 08:07 07/02/17 08:07 07/02/17 08:07 07/02/17 08:07 07/02/17 08:07 Intake and Output: 07/02/17 07/02/17 06:59 18:59 Intake Total 600 Output Total 700 Balance -100 - Medications Medications: Current Medications Acetylcysteine (Acetylcysteine 20%) 2 ml IH Q12 [facility] Last Admin: 07/02/17 08:00 Dose: 2 ml Albuterol/Ipratropium (Duoneb 3 Mg/0.5 Mg (3 Ml) Ud) 3 ml IH [id number] [facility] Last Admin: 07/02/17 07:35 Dose: 3 ml Divalproex Sodium (Depakote Dr(*Bid*)) 500 mg PO BID [facility] Last Admin: 07/02/17 10:27 Dose: 500 mg Insulin Human Lispro (Humalog Low) 0 units SC Q6 [facility] PRN Reason: Protocol Last Admin: 07/02/17 07:00 Dose: Not Given Pantoprazole Sodium (Protonix Ec Tab) 40 mg PO 0600 [facility] Potassium Chloride (K-Dur 20 Meq Er Tab) 20 meq PO BRK [facility] - Labs Labs: 07/02/17 07:01 07/02/17 07:01 PT 17.3 SECONDS (9.4-12.5) H 06/24/17 11:30 INR 1.49 (0.93-1.08) H 06/24/17 11:30 APTT 22.1 Seconds (25.1-36.5) L 06/24/17 11:30 - Constitutional Appears: Non-toxic, Chronically Ill - Head Exam Head Exam: NORMAL INSPECTION - Respiratory Exam Respiratory Exam: Decreased Breath Sounds - Cardiovascular Exam Cardiovascular Exam: +S1, +S2 - GI/Abdominal Exam GI & Abdominal Exam: Soft. absent: Tenderness Assessment and Plan - Assessment and Plan (Free Text) Plan: Assessment S/P Systemic Inflammatory Response Syndrome, due to acute encephalopathy from substance use with pulseless electrical activity S/P ACLS and resuscitation now S/P VDRF and hypothermia chronic active Hepatitis C S/P treatment with Lalit history of substance abuse including ethanol abuse Plan continue to monitor off antibiotics since he is at risk for hospital-acquired infections
[2017-07-02] MEDS ORDERED: Potassium Chloride 20 mEq ER Tab PO ONE (15:00)
--- NOTE | 2017-07-02 15:31 | PN ---
DATE: 07/02/2017 REASON FOR CONSULTATION AND FOLLOWUP: Status post CPR, intubated, now the patient is successfully extubated, now is on medical floor. He is still confused, had a rehab this morning. SUBJECTIVE: He denies any chest pain, shortness of breath, or any palpitation. PHYSICAL EXAMINATION: GENERAL: Not in apparent distress, lying flat on the bed. VITAL SIGNS: Temperature afebrile, heart rate 85, blood pressure 143/88. HEENT: PERRLA. Extraocular muscles intact. NECK: Supple. No carotid bruit or thyromegaly. CHEST: Clear to auscultation. HEART: S1 and S2 , regular. ABDOMEN: Soft. EXTREMITIES: Clubbing and cyanosis negative. LABORATORY DATA: Blood workup as follows: WBC 7, hemoglobin 14.1, hematocrit 43, platelet count 53. Chemistry shows sodium 140, potassium 3.3, chloride 109, carbon dioxide 34, anion gap of 6, BUN 20, creatinine 0.6. IMPRESSION: Status post cardiopulmonary resuscitation, pulseless electrical activity, status post intubated, successfully extubated, initial toxic screen positive for opioid and cannabis indica. Maximum troponin 0.4, maybe related to cardiopulmonary resuscitation. Hyponatremia improved, hypokalemia still there. Change in mental status, agitated, and combative, now becomes much better. History of cirrhosis of liver, hepatitis C, history of esophageal varices. Echocardiogram in this admission showed normal left ventricular function, left ventricular hypertrophy, moderate calcification of the aortic valve, possible bicuspid, possible mild valvular aortic stenosis. No significant mitral regurgitation, no significant tricuspid regurgitation noted. RECOMMENDATION: Continue current management, aggressive supplement potassium. Plan is to do the stress test when the mentation improves. The patient is still confused. Once the patient is mentally clear, consider stress test as an outpatient for risk stratification. Most likely, symptoms secondary to overdose of substance, but needs to rule out underlying coronary artery disease. We will give an additional 40 mEq is at 3:00 p.m., though 40 mEq was given by Dr. Hernandez this morning. Thank you, Dr. Hernandez, for providing us the opportunity in taking care of the patient, Jorje Monzon. Remy Rai MD
--- NOTE | 2017-07-02 18:28 | CP.PCM.PN ---
Subjective - Date & Time of Evaluation Date of Evaluation: 07/02/17 Time of Evaluation: 17:20 - Subjective Subjective: No complaints. Objective - Vital Signs/Intake and Output Vital Signs (last 24 hours): Temp Pulse Resp BP Pulse Ox 98 F 85 22 143/88 92 L 07/02/17 08:07 07/02/17 08:07 07/02/17 08:07 07/02/17 08:07 07/02/17 08:07 Intake and Output: 07/02/17 07/02/17 06:59 18:59 Intake Total 600 480 Output Total 700 600 Balance -100 -120 - Medications Medications: Current Medications Acetylcysteine (Acetylcysteine 20%) 2 ml IH Q12 [facility] Last Admin: 07/02/17 11:35 Dose: 2 ml Albuterol/Ipratropium (Duoneb 3 Mg/0.5 Mg (3 Ml) Ud) 3 ml IH [id number] [facility] Last Admin: 07/02/17 11:35 Dose: 3 ml Divalproex Sodium (Depakote Dr(*Bid*)) 500 mg PO BID [facility] Last Admin: 07/02/17 17:28 Dose: 500 mg Insulin Human Lispro (Humalog Low) 0 units SC Q6 [facility] PRN Reason: Protocol Last Admin: 07/02/17 17:27 Dose: 2 units Pantoprazole Sodium (Protonix Ec Tab) 40 mg PO 0600 [facility] Potassium Chloride (K-Dur 20 Meq Er Tab) 20 meq PO BRK [facility] - Labs Labs: 07/02/17 07:01 07/02/17 07:01 PT 17.3 SECONDS (9.4-12.5) H 06/24/17 11:30 INR 1.49 (0.93-1.08) H 06/24/17 11:30 APTT 22.1 Seconds (25.1-36.5) L 06/24/17 11:30 - Head Exam Head Exam: ATRAUMATIC - Eye Exam Eye Exam: Normal appearance - ENT Exam ENT Exam: Mucous Membranes Dry - Respiratory Exam Respiratory Exam: NORMAL BREATHING PATTERN - Cardiovascular Exam Cardiovascular Exam: +S1, +S2 - GI/Abdominal Exam GI & Abdominal Exam: Normal Bowel Sounds Assessment and Plan (1) Thrombocytopenia Assessment & Plan: improved liver disease, splenic sequestration ? exacerbated from baseline due to bone marrow suppression from ETOH Status: Acute (2) Splenomegaly Assessment & Plan: likely portal HTN related from cirrhosis Status: Acute (3) Coagulopathy Assessment & Plan: liver disease likely nutritional component Status: Acute
[2017-07-03] MEDS: Albuterol-Ipratrop 3 mg / 0.5 (3 ml) UD IH SCH ×5 (01:25→20:40)
[2017-07-03] MEDS: Insulin Lispro (humaLOG) LOW Coverage SC SCH ×4 (01:59→19:28)
[2017-07-03] MEDS: Pantoprazole 40 mg EC Tab PO SCH (06:43)
[2017-07-03] MEDS: Acetylcysteine 20% Inhal Soln (4ml) IH SCH (07:31)
[2017-07-03] MEDS: Potassium Chloride 20 mEq ER Tab PO SCH (09:39)
[2017-07-03] MEDS: Divalproex 500 mg DR(BID formulation) PO SCH ×2 (09:39→17:40)
--- NOTE | 2017-07-03 09:48 | PN ---
DATE: SUBJECTIVE: A 66-year-old white male, status post cardiac arrest, hypothermia, drug overdose. The patient is doing markedly better. He is awake and alert and oriented x3. He is status post seen by Dr. Kirkpatrick for Psych. The patient does have a bed in [facility] if he is cleared by Psych today. His vital signs are stable. He has history of hepatitis C happened and chronic cirrhosis. The patient's laboratory data are much improved. His platelet count is up to 50,000, manual platelet count. His H and H are normal. His potassium is improved to 3.3. His sugars are under better control. He continues on medication and physical therapy and occupational therapy. He has tolerated his diet well. Plan is to transfer to subacute rehab [facility] if cleared. Bg Hernandez MD
--- NOTE | 2017-07-03 12:41 | PN ---
DATE: 07/03/2017 REASON FOR CONSULTATION AND FOLLOWUP: Status post CPR, intubated, now the patient is successfully extubated, awake and alert in , bed 1. SUBJECTIVE: The patient denies any chest pain, shortness of breath, or any palpitations. PHYSICAL EXAMINATION: GENERAL: Not in apparent distress, lying flat on the bed. VITAL SIGNS: Temperature afebrile, heart rate 95, blood pressure 145/90. HEENT: PERRLA. Extraocular muscles are intact. NECK: Supple. No carotid bruits or thyromegaly. CHEST: Clear to auscultation. HEART: S1 and S2, regular. ABDOMEN: Soft. EXTREMITIES: Clubbing and cyanosis negative. LABORATORY DATA: Blood workup as follows: WBC 7, hemoglobin 14.3, hematocrit 43, platelet count 44. Chemistry shows sodium 146, potassium 3.3, chloride 109, carbon dioxide 34, anion gap of 6, BUN 20, creatinine 0.6. IMPRESSION: Status post cardiopulmonary resuscitation, pulseless electrical activity, status post intubated, successfully extubated, initial toxic screen positive for opioid and cannabis indica. Maximum troponin is 0.4, maybe related to cardiopulmonary resuscitation. Status post hyponatremia, improved; hypokalemia; electrolyte imbalance; change in mental status. Initially, the patient was agitated, combative, now is much improved. Echocardiogram in this admission shows normal left ventricular function, left ventricular hypertrophy, moderate calcification of the aortic valve, possibly bicuspid aortic valve, mild aortic stenosis, no significant mitral regurgitation, no significant tricuspid regurgitation. RECOMMENDATIONS: Continue current aggressive medical treatment. The patient's mentation significantly improved. Now, we will put a stress test for tomorrow. Discussed with the patient. For risk stratification, we will schedule for a stress test tomorrow. We will follow with you. We will keep n.p.o. after midnight for a stress test in the morning. Remy Rai MD
--- NOTE | 2017-07-03 13:02 | CP.PCM.PCO ---
Addendum Addendum: Patient is psychiatrically cleared for discharge. Please refer to dictated consult #[id number]. Patient's daughter, Racheal [phone] requested medical team discuss patient's care and disposition with her. Patient is in agreement. 07/03/17 12:58
--- NOTE | 2017-07-03 14:43 | CP.PCM.PN ---
Subjective - Date & Time of Evaluation Date of Evaluation: 07/03/17 Time of Evaluation: 10:25 - Subjective Subjective: No fevers, not in distress. Objective - Vital Signs/Intake and Output Vital Signs (last 24 hours): Temp Pulse Resp BP Pulse Ox 99 F 95 H 20 145/99 H 94 L 07/03/17 08:11 07/03/17 08:11 07/03/17 08:11 07/03/17 08:11 07/03/17 08:11 Intake and Output: 07/03/17 07/03/17 06:59 18:59 Intake Total 540 Output Total 1650 Balance -1110 - Medications Medications: Current Medications Albuterol/Ipratropium (Duoneb 3 Mg/0.5 Mg (3 Ml) Ud) 3 ml IH [id number] [facility] Last Admin: 07/03/17 11:37 Dose: 3 ml Divalproex Sodium (Depakote Dr(*Bid*)) 500 mg PO BID [facility] Last Admin: 07/03/17 09:39 Dose: 500 mg Insulin Human Lispro (Humalog Low) 0 units SC Q6 [facility] PRN Reason: Protocol Last Admin: 07/03/17 13:55 Dose: Not Given Pantoprazole Sodium (Protonix Ec Tab) 40 mg PO 0600 [facility] Last Admin: 07/03/17 06:43 Dose: 40 mg Potassium Chloride (K-Dur 20 Meq Er Tab) 20 meq PO BRK [facility] Last Admin: 07/03/17 09:39 Dose: 20 meq - Labs Labs: 07/02/17 07:01 07/02/17 07:01 PT 17.3 SECONDS (9.4-12.5) H 06/24/17 11:30 INR 1.49 (0.93-1.08) H 06/24/17 11:30 APTT 22.1 Seconds (25.1-36.5) L 06/24/17 11:30 - Constitutional Appears: Chronically Ill - Head Exam Head Exam: NORMAL INSPECTION - ENT Exam ENT Exam: Mucous Membranes Moist - Neck Exam Neck Exam: absent: Meningismus - Respiratory Exam Respiratory Exam: Decreased Breath Sounds - Cardiovascular Exam Cardiovascular Exam: +S1, +S2 - GI/Abdominal Exam GI & Abdominal Exam: Soft. absent: Tenderness Assessment and Plan - Assessment and Plan (Free Text) Plan: Assessment S/P Systemic Inflammatory Response Syndrome, due to acute encephalopathy from substance use with pulseless electrical activity S/P ACLS and resuscitation now S/P VDRF and hypothermia chronic active Hepatitis C S/P treatment with [facility]it history of substance abuse including ethanol abuse Plan continue to monitor off antibiotics since he is at risk for healthcare- associated infections
--- NOTE | 2017-07-03 22:12 | CP.PCM.PN ---
Subjective - Date & Time of Evaluation Date of Evaluation: 07/03/17 Time of Evaluation: 18:30 - Subjective Subjective: No complaints. Objective - Vital Signs/Intake and Output Vital Signs (last 24 hours): Temp Pulse Resp BP Pulse Ox 98.4 F 100 H 20 133/80 94 L 07/03/17 15:22 07/03/17 15:22 07/03/17 15:22 07/03/17 15:22 07/03/17 15:22 Intake and Output: 07/03/17 07/04/17 18:59 06:59 Intake Total 480 Output Total 400 Balance 80 - Medications Medications: Current Medications Albuterol/Ipratropium (Duoneb 3 Mg/0.5 Mg (3 Ml) Ud) 3 ml IH [id number] [facility] Last Admin: 07/03/17 20:40 Dose: 3 ml Divalproex Sodium (Depakote Dr(*Bid*)) 500 mg PO BID [facility] Last Admin: 07/03/17 17:40 Dose: 500 mg Insulin Human Lispro (Humalog Low) 0 units SC Q6 [facility] PRN Reason: Protocol Last Admin: 07/03/17 19:28 Dose: Not Given Pantoprazole Sodium (Protonix Ec Tab) 40 mg PO 0600 [facility] Last Admin: 07/03/17 06:43 Dose: 40 mg Potassium Chloride (K-Dur 20 Meq Er Tab) 20 meq PO BRK [facility] Last Admin: 07/03/17 09:39 Dose: 20 meq - Labs Labs: 07/02/17 07:01 07/02/17 07:01 PT 17.3 SECONDS (9.4-12.5) H 06/24/17 11:30 INR 1.49 (0.93-1.08) H 06/24/17 11:30 APTT 22.1 Seconds (25.1-36.5) L 06/24/17 11:30 - Head Exam Head Exam: ATRAUMATIC - Eye Exam Eye Exam: Normal appearance - ENT Exam ENT Exam: Mucous Membranes Dry - Respiratory Exam Respiratory Exam: NORMAL BREATHING PATTERN - Cardiovascular Exam Cardiovascular Exam: +S1, +S2 - GI/Abdominal Exam GI & Abdominal Exam: Normal Bowel Sounds Assessment and Plan (1) Thrombocytopenia Assessment & Plan: improved liver disease, splenic sequestration ? exacerbated from baseline due to bone marrow suppression from ETOH Status: Acute (2) Splenomegaly Assessment & Plan: likely portal HTN related from cirrhosis Status: Acute (3) Coagulopathy Assessment & Plan: liver disease likely nutritional component Status: Acute
[2017-07-04] MEDS: Albuterol-Ipratrop 3 mg / 0.5 (3 ml) UD IH SCH ×5 (00:01→16:04)
[2017-07-04] MEDS: Insulin Lispro (humaLOG) LOW Coverage SC SCH ×4 (00:29→14:24)
--- NOTE | 2017-07-04 00:45 | CON ---
DATE: HISTORY OF PRESENT ILLNESS: The patient is a , 66-year-old white male, with no formal psychiatric history, who presents to the ER on 06/23/2017, due to a cardiac arrest. Patient's daughter is very close to the patient, actually was concerned he was not answering his phone and was found unresponsive in his bed with pills, which were identified by the pharmacy to be Adderall, apparently with the window wide open all night. Psychiatry was consulted because of the concern that the patient's presentation was secondary to an overdose. I met with the patient at bedside and obtained collaterals from his daughter, Racheal, with patient's permission; Racehal's number is [phone]. The patient reports that prior to his admission, he had a difficult time because he was suffering from bronchitis and then had broken 2 ribs, actually fell off a ladder and then suffered from bronchitis again. Patient admits that he shows poor judgement and was able get some Adderall from his friend to help him with the pain and low mood and energy level. Reports that he received a couple of Adderall illicitly from his friend and took them for the first time ever on the day of presentation. Patient reports that it made him jittery and he has no plan of taking any more medication and he, "I gave up on the whole meds". Patient denies having severe depression although does admit he was down because of his recent medical issues prior to his presentation with the cardiac arrest on 06/23. 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 He is hopeful about the future. He is got to be alive though he has some concerns about feeling weakness due to his hospitalization. Patient has been co-operative with staff members and agreement with disposition for subacute rehab. There is a note indicating that he has been confused and disoriented very consistent with delirium. However, at bedside, this morning, his focus was fair though inconsistent at times. He is aware of current month, day, and year and location. He is able to consistently give me and provide information regarding his psychiatric history and social history. This information is also consistent with his daughter's collateral information obtained later in the morning. As noted, I spoke with his daughter, Racheal, and she does not have any concerns about patient's presentation last week secondary to suicide attempt. This was not even a consideration for her and she denies that he has a history of depression or disgusting depressive symptoms or wanting to . She is more concerned about his medical presentation and the etiology of his cardiac arrest. She indicates that she is very close with him and patient also indicates that he is close with his daughter as he takes care of her son, his grandson, while she is at work during the week. Patient and patient's daughter feel comfortable for patient being discharged to subacute rehab when he is medically cleared. 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 He denies any psychiatric medication trial, denies any suicide attempts or psychiatric inpatient hospitalizations. SOCIAL HISTORY: Patient was born and raised in [place]. He is 12 years ago. His daughter, Racheal, is 30 years old at this time. Patient lives by himself, but his daughter lives a block away and patient takes care of his grandson during the day and they are very close. He lives a block away from her job and lives a block away from where she lives. Patient reports that he graduated from high school in 1971. He was arrested a long time ago for smoking marijuana and ordering charge. 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 Patient also admits that he obtained some Adderall illicitly from his friend just a few pills and took them on the day of his presentation and indicated that made him feel jittery and jumpy. He denies taking an overdose; he indicates the pills were to help him to improve his energy levels and pain. IMPRESSION: Delirium as well as adjustment disorder with anxiety symptoms. RECOMMENDATIONS: At this time, patient is psychiatrically cleared. He does not meet criteria for admission. Patient denies that his presentation was due to an overdose of medications and his daughter, Racheal, who I obtained collateral contact from at [phone], confirms that she has no concern about his psychiatric functioning and she does not believe that his presentation was due to a suicide attempt. Thus, daughter would like the medical team to follow up with her, so that she can understand his current medical issues and how presentation can be prevented in the future. I support this request that patient is delirious and probably his focus and memory might be impaired due to delirium symptoms and daughter, who is very close with him, would be much better equipped to handle his medical information. Patient appears to be in agreement with this request as well. Psychiatry was signed off at this time. Matheus Abarca MD
[2017-07-04] MEDS: Pantoprazole 40 mg EC Tab PO SCH ×2 (06:41→06:46)
[2017-07-04] MEDS ORDERED: Aminophylline 25 mg/ml Inj ONE (10:09)
--- NOTE | 2017-07-04 12:27 | CP.PCM.PN ---
Subjective - Date & Time of Evaluation Date of Evaluation: 07/04/17 Time of Evaluation: 08:50 - Subjective Subjective: For stress test today, no fevers. Objective - Vital Signs/Intake and Output Vital Signs (last 24 hours): Temp Pulse Resp BP Pulse Ox 97.8 F 89 20 127/83 97 07/04/17 06:00 07/04/17 06:00 07/04/17 06:00 07/04/17 06:00 07/04/17 06:00 Intake and Output: 07/04/17 07/04/17 06:59 18:59 Intake Total 660 Output Total 625 Balance 35 - Medications Medications: Current Medications Albuterol/Ipratropium (Duoneb 3 Mg/0.5 Mg (3 Ml) Ud) 3 ml IH [id number] [facility] Last Admin: 07/04/17 11:33 Dose: Not Given Divalproex Sodium (Depakote Dr(*Bid*)) 500 mg PO BID [facility] Last Admin: 07/03/17 17:40 Dose: 500 mg Insulin Human Lispro (Humalog Low) 0 units SC Q6 [facility] PRN Reason: Protocol Last Admin: 07/04/17 06:43 Dose: Not Given Pantoprazole Sodium (Protonix Ec Tab) 40 mg PO 0600 [facility] Last Admin: 07/04/17 06:46 Dose: Not Given Potassium Chloride (K-Dur 20 Meq Er Tab) 20 meq PO BRK [facility] Last Admin: 07/03/17 09:39 Dose: 20 meq - Labs Labs: 07/02/17 07:01 07/02/17 07:01 PT 17.3 SECONDS (9.4-12.5) H 06/24/17 11:30 INR 1.49 (0.93-1.08) H 06/24/17 11:30 APTT 22.1 Seconds (25.1-36.5) L 06/24/17 11:30 - Constitutional Appears: Chronically Ill - Head Exam Head Exam: NORMAL INSPECTION - Respiratory Exam Respiratory Exam: Decreased Breath Sounds - Cardiovascular Exam Cardiovascular Exam: +S1, +S2 - GI/Abdominal Exam GI & Abdominal Exam: Soft. absent: Tenderness Assessment and Plan - Assessment and Plan (Free Text) Plan: Assessment S/P Systemic Inflammatory Response Syndrome, due to acute encephalopathy from substance use with pulseless electrical activity S/P ACLS and resuscitation now S/P VDRF and hypothermia chronic active Hepatitis C S/P treatment with [facility] history of substance abuse including ethanol abuse Plan continue to monitor off antibiotics since he is at risk for nosocomial infections
--- NOTE | 2017-07-04 13:07 | PN ---
DATE: 07/04/2017 LOCATION: The patient in room 562, bed 1. REASON FOR CONSULTATION AND FOLLOWUP: Status post CPR, intubated, then the patient is successfully extubated. The patient was confused before, now he is conscious, alert, and not confused. SUBJECTIVE: The patient denies any chest pain, shortness of breath, or palpitations. PHYSICAL EXAMINATION: VITAL SIGNS: Blood pressure 127/83, respirations 20, pulse 89, temperature 97.8. HEENT: Head is normocephalic. Eyes: Pupils are normal. Conjunctivae are normal. Nose and throat normal. NECK: JVP low. Carotids equal. THORAX: AP diameter normal. LUNGS: Clear. CARDIOVASCULAR: S1 and S2. ABDOMEN: Soft, no tenderness, no organomegaly. Bowel sounds normal. EXTREMITIES: No clubbing, no cyanosis. LABORATORY DATA: WBC 7, hemoglobin 14.4, hematocrit 43, platelets 44. Random sugar is 102. On 07/01/2017, sodium 148, potassium 4.2, BUN 21, creatinine 0.6, sugar 80, calcium 9.1, total bilirubin 2.8. AST and ALT normal. Total protein 6.3, albumin 2.9. On 06/24/2017, prothrombin time 17.3, INR 1.49. PTT 22.1. DIAGNOSES: Status post cardiopulmonary resuscitation; pulseless electrical activity; status post intubation and successfully extubated; initial toxic screen was positive for opioid and cannabis; maximum troponin was 0.4, maybe related to cardiopulmonary resuscitation; status post hyponatremia, which has improved; hypokalemia, which also improved; change in mental status. Initially, the patient was agitated, combative and confused, but now, he has improved. Echo on this admission showed normal left ventricular function, left ventricular hypertrophy, moderate calcification of aortic valve, possibly bicuspid aortic valve, mild aortic stenosis. The patient will have IV Lexiscan stress test today. The patient is right now on DuoNeb hand nebulizer therapy, potassium 20 mEq daily, Protonix 40 daily, Depakote 500 mg p.o. b.i.d. Status post cardiopulmonary arrest, status post hypokalemia, hypomagnesemia, status post agitation and confused, now he has improved. Calcific aortic valve, possible rule out bicuspid aortic valve, mild aortic stenosis, thrombocytopenia, history of hepatitis C and chronic liver cirrhosis. PLAN: The patient is on Depakote 500 mg b.i.d., DuoNeb hand nebulizer therapy, Protonix 40 daily, potassium chloride 20 daily. The patient for stress test today. We will follow the stress test report and we will follow with you. Remy Ellis MD
[2017-07-04] MEDS: Divalproex 500 mg DR(BID formulation) PO SCH ×2 (14:24→17:29)
[2017-07-04] MEDS: Potassium Chloride 20 mEq ER Tab PO SCH (15:23)
[2017-07-04 16:54] VITALS: BP 146/108; PULSE 95; RESP 18; TEMP 98.2; O2SAT 96
--- NOTE | 2017-07-04 17:00 | CP.PCM.PN ---
Subjective - Date & Time of Evaluation Date of Evaluation: 07/04/17 Time of Evaluation: 16:15 - Subjective Subjective: Feeling better, seen eating. Objective - Vital Signs/Intake and Output Vital Signs (last 24 hours): Temp Pulse Resp BP Pulse Ox 98.2 F 95 H 18 146/108 H 96 07/04/17 14:00 07/04/17 14:00 07/04/17 14:00 07/04/17 14:00 07/04/17 14:00 Intake and Output: 07/04/17 07/04/17 06:59 18:59 Intake Total 660 240 Output Total 625 400 Balance 35 -160 - Medications Medications: Current Medications Albuterol/Ipratropium (Duoneb 3 Mg/0.5 Mg (3 Ml) Ud) 3 ml IH [id number] [facility] Last Admin: 07/04/17 16:04 Dose: 3 ml Divalproex Sodium (Depakote Dr(*Bid*)) 500 mg PO BID [facility] Last Admin: 07/04/17 14:24 Dose: Not Given Insulin Human Lispro (Humalog Low) 0 units SC Q6 [facility] PRN Reason: Protocol Last Admin: 07/04/17 14:24 Dose: Not Given Pantoprazole Sodium (Protonix Ec Tab) 40 mg PO 0600 [facility] Last Admin: 07/04/17 06:46 Dose: Not Given Potassium Chloride (K-Dur 20 Meq Er Tab) 20 meq PO BRK [facility] Last Admin: 07/04/17 15:23 Dose: Not Given - Labs Labs: 07/02/17 07:01 07/02/17 07:01 PT 17.3 SECONDS (9.4-12.5) H 06/24/17 11:30 INR 1.49 (0.93-1.08) H 06/24/17 11:30 APTT 22.1 Seconds (25.1-36.5) L 06/24/17 11:30 - Head Exam Head Exam: ATRAUMATIC - Eye Exam Eye Exam: Normal appearance - ENT Exam ENT Exam: Mucous Membranes Dry - Respiratory Exam Respiratory Exam: NORMAL BREATHING PATTERN - Cardiovascular Exam Cardiovascular Exam: +S1, +S2 - GI/Abdominal Exam GI & Abdominal Exam: Normal Bowel Sounds Assessment and Plan (1) Thrombocytopenia Assessment & Plan: improved liver disease, splenic sequestration ? exacerbated from baseline due to bone marrow suppression from ETOH Status: Acute (2) Splenomegaly Assessment & Plan: likely portal HTN related from cirrhosis Status: Acute (3) Coagulopathy Assessment & Plan: liver disease likely nutritional component Status: Acute
--- NOTE | 2017-07-04 22:28 | CARD ---
APPROVED REPORT Protocol: LEXISCAN Test Type: Lexiscan Sestamibi Stress Test Attending Physician: Dr. Remy Ellis Referring Physician: Dr. Bg Hernandez Test Indications: Chest Pain Height:5 ft 7 in Weight:163lbs Medications: DUONEB, DEPAKOTE, LISPRO, PROTONIX, POTASSIUM Medical History: 66 YEAR OLD MALE WITH A H/O DIABETES, HTN AND HEPATITIS C Target HR: 156 bpm Resting ECG: RSR. Resting Heart Rate: 86 bpm Resting Blood Pressure: 156/94mmHg Submaximum (85%): 133 bpm PROCEDURE Pharmacologic stress testing was performed using 0.4mg per 5ml of regadenoson given intravenously over 7-10 seconds. POST EXERCISE Reason for Termination: Protocol completed Target HR: No Max HR: 83 bpm 65% of Maximum Predicted HR: 156 bpm Exercise duration: 00:32 min:sec, 0 Stage Exercise capacity: 1.0METs Max Blood Pressure: 156/94mmHg Blood Pressure response to exercise: resting hypertension - appropriate response Heart Rate response to exercise: appropriate Chest Pain: No, none Angina index: 0 Arrhythmia: No, none ST Change: No, none Deviation: 0 mm INTERPRETATION Stress EKG Conclusion: IV LEXISCAN NUCLEAR STRESS TEST NEGATIVE FOR CHEST PAIN AND NEGATIVE FOR ST-T CHANGES. NUCL;EAR SCAM REPORT PENDING. Signed by Remy Ellis Electronically Approved: 07/04/2017 14:03:23 EXAM: Myocardial Perfusion REST/STRESS Stress Test Type: Pharmacologic Imaging Protocol Rest Spect myocardial perfusion imaging was performed in supine position 45 minutes following the injection of 10.6 mCi of Tc-99 Myoview. At peak stress, the patient was injected intravenously with 30.4mCi of Tc-99 tetrofosmin after an infusion time of 0 minutes and 10 seconds. Gated Stress Spect was performed 65 minutes after intravenous Tc-99 Myoview injection. The images were gated to evaluate regional wall motion and calculate ventricular ejection fraction.Images were reconstructed using backfilter projection method in short horizontal and verticle long axis. Spect slices were generated. LV Perfusion The quality of the study is suboptimal due to motion during the acquiisition and hot visceral activity at the level of infeiror wall on the stress study. The left ventricle is normal in size with thickened myocardium. The right ventricle is unremarkable. The lung uptake is normal. The distribution of tracer reveals mildly to moderately decreased perfusion in the mid to basal inferior wall on the stress study. The remainder of the LV myocardium is unremarkable. The rest myocardial perfusion study shows no significant change. Wall Motion Wall motion study shows good contractility of the left ventricle. LVEF = 84%. Conclusion 1. probably normal SPECT myocardial perfusion study. 2. Fixed, inferior defect is most likely due to diaphrgmatic attenuation. 3. Normal gated wall motion and thicknening of the left ventricle.
--- NOTE | 2017-07-05 14:25 | PQF RESP ---
07/05/17 Dr. Fairbanks, You document hypercapnic respiratory failure on you H&P. Please indicate whether this is acute, chronic, or both. Thank you. Clarification of your documentation is requested to better reflect the severity of illness and intensity of treatment of your patient. Indicators present [] Use of Home Oxygen [] Respiratory rate > 28 or <8/min (Labored respirations) [] PCO2 > 50 mm Hg or (Hypercapnia) (somnolence) [] PaO2 < 60 mm Hg or Hypoxemia (confusion) [] ABG blood gas pH < 7.35 [] SpO2 < 90% sat on Room Air [] Cyanosis [] Unable to Speak in Full Sentences [] Use of Accessory Muscles / Tripoding [] Wheezing [] Other: [] Location in the medical record that reflects the above clinical findings: [] Treatment Provided: [] PHYSICIAN'S RESPONSE Based on your medical judgment of the clinical indicators outlined above, are you treating this patient for a known or suspected: [] Acute Respiratory Failure (hypoxia or hypercapnia) [] Chronic Respiratory Failure (hypoxia or hypercapnia) [] Acute on Chronic Respiratory Failure (hypoxia or hypercapnia) [] Hypoxemia please specify ACUTE, CHRONIC or ACUTE on CHRONIC [] Other []_ [] If unable to determine, please check the box, sign and date. Present On Admission (POA) Indicator: [] Present at the time of admission [] Not present at the time of admission [] Clinically Undetermined In responding to this query, please exercise your independent professional judgment. The fact that a question is asked does not imply that any particular answer is desired or expected. Thank you for your clarification on this documentation. If you have any questions please call:[ ] * Thank you, [ ] corporate safety coordinator Chronic Respiratory Failure Description: Respiratory failure is a syndrome in which the respiratory system fails in one or both of its gas exchange functions: oxygenation and carbon dioxide elimination. In theory, respiratory failure is defined as a Pa02 value of <60 mm/Hg or a PaC02 of >50 mm/Hg. However, these values may be affected by renal compensation. Respiratory failure may be acute or chronic. While acute respiratory failure is characterized by life-threatening derangement in arterial blood gases and acid-base balance, the manifestations of chronic respiratory failure are less dramatic and may not be as readily apparent. Classifications: Respiratory failure may be classified as hypoxemic (usually characterized by Pa02 of <60 mm/Hg) or hypercapnic (usually characterized by PaC02 >50 mm/Hg) and either may be acute or chronic. Chronic hypercapnic respiratory failure develops over time and allows for renal compensation and an increase in bicarbonate concentration; therefore the pH is usually only slightly decreased. The distinction between acute and chronic hypoxemic respiratory failure cannot readily be made on the basis of ABGs; the clinical markers of chronic hypoxemia, such as polythycemia or cor pulmonale suggest a long standing disorder (chronic hypoxemic respiratory failure). Clinical Indicators: dyspnea at rest or "chronic" dyspnea, concomitant conditions such as polycythemia or cor pulmonale, requirement for continuous oxygen support, forced expiratory volume in one second (FEV1) of 49 or less, pursed lip breathing, "barrel" chest, hyperinflation by CXR, muscle wasting, malnutrition/obesity, poor exercise capacity, peripheral edema, description as a "blue bloater" (usually associated with chronic, obstructive bronchitis) or "pink puffer" (usually associated with emphysema) Risks: Chronic Hypoxemic Respiratory Failure - COPD, pulmonary fibrosis, asthma , pulmonary arterial hypertension, granulomatous lung diseases, congenital heart disease, bronchiectasis, kyphoscoliosis, obesity; Chronic Hypercapnic Respiratory Failure - COPD, severe asthma, myasthenia gravis, polyneuropathy, polio, head and cervical spine injuries, obesity hypoventilation syndrome. Treatment: supplemental oxygen, bronchodilators, corticosteroids, adequate nutrition, lung transplant References: Am. J. Respir. Crit. Care Med. "Global Strategy for the Diagnosis, Management and Prevention of COPD: GOLD Exectuive Summary," Brissa Pitts [place] - 2007; Proceedings of the [place] [employer] "Mechanisms and Measurements of Dyspnea in COPD," [place] - 2006; WebMD; Respiratory Failure, Sat MD [place] - 09/2005; Doe's Principles of Internal Medicine, 17th edition. Acute Respiratory Failure Acute Respiratory Failure indicators include: ~Respirations >28 ~Air hunger ~Use of accessory muscles of respiration ~Inability to speak in full sentences Cyanosis ~Pulse ox <90% RA or <95% on O2 pH <7.35 or >7.45 ~pO2 < 60 mm Hg (or 10mm below COPD patient's baseline) ~pCO2 >50mm Hg (or 10mm above COPD patient's baseline) "Respiratory failure may be assigned as a principal diagnosis when it is the condition established after study to be chiefly responsible for occasioning admission to the hospital. The fact that the respiratory failure was managed without intubation and mechanical ventilation does not preclude its use." [facility], 3rd Qtr., 1988, p. 7 MTDD
--- NOTE | 2017-07-05 21:11 | DS ---
HISTORY OF PRESENT ILLNESS: The patient is a 66-year-old white gentleman who was admitted to the Intensive Care Unit with cardiac arrest and overdose. The patient was seen in the ICU and then transferred to the floor, and eventually was transferred to [facility] for continued . The patient was also seen in consultation by Dr. Kirkpatrick and was cleared psychologically. The patient did have a stress test on day of discharge by Dr. Rai, which was negative. The patient will be discharged in improved condition and to follow as an outpatient. FINAL DISCHARGE DIAGNOSES: 1. Cardiac arrest. 2. Drug overdose. 3. Severe hypothermia. 4. Hypokalemia. 5. Dehydration. 6. History of hepatitis C and cirrhosis. Bg Hernandez MD
== END 2017-07-04 19:00 | DRG 280 ==
LOC: ED 15:18 → ERH 16:00 → ICU 22:09 → CCU 06-24 12:30 → 5RNO 07-01 14:37
PROVIDERS: ADMIT Internal Medicine; ATTEND Internal Medicine
PROC: 5A1945Z Respiratory Ventilation, 24-96 Consecutive Hours (ICD-10-PCS; 2017-06-23)
PROC: 02HV33Z Insertion of Infusion Device into Superior Vena Cava, Percutaneous Approach (ICD-10-PCS; principal; 2017-06-24)
PROC: B548ZZA Ultrasonography of Superior Vena Cava, Guidance (ICD-10-PCS; 2017-06-24)
DX: I46.9 Cardiac arrest, cause unspecified (principal); A41.9 Sepsis, unspecified organism; I21.4 Non-ST elevation (NSTEMI) myocardial infarction; G92 Toxic encephalopathy; J69.0 Pneumonitis due to inhalation of food and vomit; J96.92 Respiratory failure, unspecified with hypercapnia; D68.9 Coagulation defect, unspecified; E46 Unspecified protein-calorie malnutrition; E87.0 Hyperosmolality and hypernatremia; E87.1 Hypo-osmolality and hyponatremia; E87.2 Acidosis; F10.239 Alcohol dependence with withdrawal, unspecified; G93.1 Anoxic brain damage, not elsewhere classified; K76.6 Portal hypertension; M62.82 Rhabdomyolysis; Q23.1 Congenital insufficiency of aortic valve; Z99.11 Dependence on respirator [ventilator] status; B18.2 Chronic viral hepatitis C; D64.9 Anemia, unspecified; D69.6 Thrombocytopenia, unspecified; D75.1 Secondary polycythemia; E07.81 Sick-euthyroid syndrome; E11.65 Type 2 diabetes mellitus with hyperglycemia; E55.9 Vitamin D deficiency, unspecified; E78.1 Pure hyperglyceridemia; E83.39 Other disorders of phosphorus metabolism; E83.42 Hypomagnesemia; E83.51 Hypocalcemia; E86.0 Dehydration; E87.5 Hyperkalemia; E87.6 Hypokalemia; F12.90 Cannabis use, unspecified, uncomplicated; F43.22 Adjustment disorder with anxiety; G47.00 Insomnia, unspecified; I10 Essential (primary) hypertension; I35.0 Nonrheumatic aortic (valve) stenosis; J40 Bronchitis, not specified as acute or chronic; K70.30 Alcoholic cirrhosis of liver without ascites; K73.2 Chronic active hepatitis, not elsewhere classified; R09.02 Hypoxemia; T38.0X5A Adverse effect of glucocorticoids and synthetic analogues, initial encounter; T40.2X1A Poisoning by other opioids, accidental (unintentional), initial encounter; W11.XXXA Fall on and from ladder, initial encounter; Z78.1 Physical restraint status; Z79.899 Other long term (current) drug therapy; I95.9 Hypotension, unspecified

== ENCOUNTER 2018-07-31 09:29 | Outpatient (CLI) | payer MEDICARE, BC | END 2018-07-31 09:30 | disposition home or self-care (01) | LOC: RAD 09:29 | DX: B19.20 Unspecified viral hepatitis C without hepatic coma (principal) ==